=== PATIENT | female | born 1960 | race Caucasian/White ===

== ENCOUNTER → 2016-10-23 | Outpatient (CLI) | payer BC ==
--- NOTE | 2016-10-27 08:27 | MM ---
Reason for exam: screening (asymptomatic). Last mammogram was performed 17 years and 10 months ago. History: Patient is postmenopausal and is nulliparous. Physical Findings: A clinical breast exam by your physician is recommended on an annual basis and results should be correlated with mammographic findings. MG 3D Screening Mammo W/Cad Bilateral CC and MLO view(s) were taken. Prior study comparison: December 16, 1998, bilateral screening mammogram. The breast tissue is extremely dense which could obscure a lesion on mammography. Finding #1: There is a 80-90 mm obscured oval mass in the upper outer quadrant of the left breast. Finding #2: There are typically benign dystrophic, round calcifications in both breasts, right greater than left. ASSESSMENT: Incomplete: need additional imaging evaluation, BI-RAD 0 RECOMMENDATION: Ultrasound of the left breast. [facility] will attempt to contact patient to return for ultrasound.
== END | disposition home or self-care (01) ==
LOC: RADMAMWWP 12:12
PROVIDERS: ATTEND Family Medicine
DX: Z12.31 Encounter for screening mammogram for malignant neoplasm of breast (principal)
CPT/HCPCS: 77063; G0202

== ENCOUNTER → 2016-10-25 | Outpatient (CLI) | payer BC ==
--- NOTE | 2016-10-25 20:02 | CT ---
EXAMINATION TYPE: CT cervical spine wo con DATE OF EXAM: 10/25/2016 COMPARISON: NONE HISTORY: FOLLOW UP FOR FUSION. CT DLP: 440 mGycm Automated exposure control for dose reduction was used. TECHNIQUE: CT scan of the cervical spine is obtained without contrast, axial images are obtained, sa gittal and coronal reformatted images are also reviewed. FINDINGS: There is mild straightening of the cervical spine. There is multilevel posterior fusion eduardo dorene from C3 to T2 vertebra. There is anterior fusion surgery from C3 to C5. There is anterior fusion at C7-T1. There is multilevel disc prosthesis an implant at the upper cervical spine. Skull base is intact. I see no compression fracture. I see no focal bone destruction. There is no sign of cervical bony spinal stenosis. IMPRESSION: Multilevel anterior and posterior fusion surgery that is new compared to old MR scan of . I see no complicating process. No fracture seen. No sign of instability. There is anterior fusion of C5-6 that is unchanged compared to old MR scan. No evidence for cervical bony spinal stenos is. There is apparent significant improvement in the spinal stenosis at C5-C6 levels compared to old exam.
== END | disposition home or self-care (01) ==
LOC: RADCTMAIN 19:37
PROVIDERS: ATTEND Neurological Surgery
DX: M48.02 Spinal stenosis, cervical region (principal); Z98.890 Other specified postprocedural states
CPT/HCPCS: 72125

== ENCOUNTER → 2016-11-05 | Outpatient (CLI) | payer BC ==
--- NOTE | 2016-11-05 09:58 | USB ---
Reason for exam: clinical finding. History: Patient is postmenopausal and is nulliparous. Indicated problem(s): pain in the left breast. Physical Findings: Nurse did not find any significant physical abnormalities on exam. US Breast Workup Limited LT Left breast ultrasound demonstates no cystic or solid lesion seen. These results were verbally communicated with the patient and result sheet given to the patient on 11/05/16. ASSESSMENT: Negative, BI-RAD 1 RECOMMENDATION: Follow-up diagnostic mammogram of the left breast in 3 months. Consider MRI. Manage patient on a clinical basis.
== END | disposition home or self-care (01) ==
LOC: RADUSWWP 08:52
PROVIDERS: ATTEND Family Medicine
DX: R92.8 Other abnormal and inconclusive findings on diagnostic imaging of breast (principal)

== ENCOUNTER → 2016-12-30 | Outpatient (CLI) | payer BC ==
--- NOTE | 2016-12-30 20:22 | CT ---
EXAMINATION TYPE: CT cervical spine wo con DATE OF EXAM: 12/30/2016 COMPARISON: Previous study dated 10/25 16 HISTORY: FOLLOW UP AFTER NECK SX. CT DLP: 409.8 mGycm Automated exposure control for dose reduction was used. TECHNIQUE: CT scan of the cervical spine is obtained without contrast, axial images are obtained, sa gittal and coronal reformatted images are also reviewed. FINDINGS: There are emphysematous changes within the visualized portions of the lungs. Prevertebral soft tissues are normal. There has been extensive anterior and posterior fusion. The posterior fusion extends from C3 to T2. A nterior fusions are present from C3 to C5 as well as at C6-7. There is a bony fusion at C5-6. There h as been a laminectomy extending from C3 to C7. Alignment remains normal. Atlantoaxial relationships are normal. The degree of metallic streak artifa ct prohibits the assessment of the individual disc spaces. There is no gross evidence of spinal steno sis. There is intervertebral foraminal narrowing on the left at C5-6. Intervertebral foramina are oth erwise maintained. IMPRESSION: 1. Extensive postsurgical change. 2. Left-sided intervertebral foraminal narrowing, C5-6. 3. Emphysematous changes within the lungs.
== END | disposition home or self-care (01) ==
LOC: RADCTMAIN 18:39
PROVIDERS: ATTEND Neurological Surgery
DX: M99.71 Connective tissue and disc stenosis of intervertebral foramina of cervical region (principal); Z98.890 Other specified postprocedural states
CPT/HCPCS: 72125

== ENCOUNTER → 2017-02-10 | Outpatient (CLI) | payer BC ==
--- NOTE | 2017-02-10 11:12 | MM ---
Reason for exam: follow-up at short interval from prior study. Last mammogram was performed 4 months ago. History: Patient is postmenopausal and is nulliparous. Physical Findings: Nurse did not find any significant physical abnormalities on exam. MG 3D Diag Mammo W/Cad LT CC and MLO view(s) were taken of the left breast. Prior study comparison: October 23, 2016, bilateral MG 3d screening mammo w/cad. December 16, 1998, bilateral screening mammogram. The breast tissue is extremely dense which could obscure a lesion on mammography. There is no discrete abnormality. No significant new findings when compared with previous films. These results were verbally communicated with the patient and result sheet given to the patient on 02/10/17. ASSESSMENT: Probably benign, BI-RAD 3 RECOMMENDATION: Follow-up diagnostic mammogram of the left breast in 3 months. (follow up 3-4 months, if stable, back on schedule)
== END | disposition home or self-care (01) ==
LOC: RADMAMWWP 08:57
PROVIDERS: ATTEND Family Medicine
DX: R92.8 Other abnormal and inconclusive findings on diagnostic imaging of breast (principal)
CPT/HCPCS: G0206; G0279

== ENCOUNTER → 2017-02-15 | Outpatient (CLI) | payer BC ==
--- NOTE | 2017-02-15 23:12 | MR ---
EXAMINATION TYPE: MR lumbar spine wo con DATE OF EXAM: 02/15/2017 COMPARISON: 12/03/2009 HISTORY: LBP radiates into rt buttock x 3 weeks, no trauma/surgery TECHNIQUE: Multiplanar, multisequence images of the lumbar spine were acquired. Findings There is a 5 mm anterior subluxation of L3 in relation L4. There is some narrowing of L3-4 L5-S1 disc spaces with decreased signal in the disks. There is no compression fracture. The posterior elements are intact. I see no paraspinal mass. The sacroiliac joints appear intact. There is mild hypertrophic facet arthropathy at L3-4. There are minute posterior disc herniations from L2 to L5. There is no si gnificant spinal stenosis. IMPRESSION: There is a degenerative first-degree L3-4 spondylolisthesis that it appears new compared to old exam. No fracture. No significant spinal stenosis. Small multilevel posterior disc herniation without sign ificant impingement on the spinal canal.
== END | disposition home or self-care (01) ==
LOC: RADMRIMAIN 20:03
PROVIDERS: ATTEND Neurological Surgery
DX: M51.26 Other intervertebral disc displacement, lumbar region (principal); M43.16 Spondylolisthesis, lumbar region; Z98.1 Arthrodesis status
CPT/HCPCS: 72148

== ENCOUNTER → 2017-07-26 | Outpatient (CLI) | payer BC ==
--- NOTE | 2017-07-27 08:47 | CT ---
EXAMINATION TYPE: CT CervThoracic spine wo con DATE OF EXAM: 07/26/2017 COMPARISON: CT cervical spine 12/30/2016 HISTORY: Chronic neck and upper thoracic spine pain after surgery x2 years ago CT DLP: 633 mGycm Automated exposure control for dose reduction was used. TECHNIQUE: Axial images 3 mm thick sections. Reconstructed images in the coronal and sagittal plane. Beam hardening artifact from laminectomies and anterior cervical fusions with posterior pedicle screw placement, cause limitation. FINDINGS: CT cervical spine: Laminectomy has been performed C3-C7. Pedicle screws and anterior cervical fusion plate and screws cause limitation from beam hardening artifact. No obvious stenosis is evident. No di sc herniation is identified. Some endplate spurring at C4-5 has mild right paracentral thecal sac com pression. No stenosis is present. C6-7 endplate spurring is present with mild anterior thecal sac com pression. No stenosis is present. Cervical spine Neural foramen appear patent. CT thoracic spine. Pleural effusion on the cervical spine extends into the upper thoracic spine. Beam hardening artifact is present at these levels. Remaining thoracic levels appear without spinal canal stenosis or neural foraminal stenosis. Some deg enerative disc changes endplate spurring is present T9-T10 with mild central thecal sac compression. Some degenerative disc changes present T11-12. The spinal cord as visualized appears normal. There is limitation on this exam. Scoliosis is in the c oronal plane. Portion of the lung windows within the [id number] appear unremarkable descending thoracic aorta ap pears prominent at the level of the main pulmonary artery measuring 4.1 cm. The main pulmonary artery the bifurcation is 3.0 cm. IMPRESSION: 1. STABLE POSTSURGICAL CHANGES CT CERVICAL SPINE. 2. ENDPLATE SPURRING WITH MILD ANTERIOR THECAL SAC COMPRESSION T9-T10. DEGENERATIVE DISC CHANGES ARE PRESENT AT THIS LEVEL.
== END | disposition home or self-care (01) ==
LOC: RADCTMAIN 17:49
PROVIDERS: ATTEND Neurological Surgery
DX: Z09 Encounter for follow-up examination after completed treatment for conditions other than malignant neoplasm (principal); M47.814 Spondylosis without myelopathy or radiculopathy, thoracic region; Z98.1 Arthrodesis status
CPT/HCPCS: 72125; 72128

== ENCOUNTER 2017-09-10 17:37 | Emergency (ER) | payer BC ==
[2017-09-10] MEDS ORDERED: HYDROcodone/APAP 10-325MG 1 EACH TAB PO ONE (18:07)
[2017-09-10] MEDS ORDERED: KETOROLAC 30 MG/ML 1 ML VIAL IM STA (18:07)
--- NOTE | 2017-09-10 18:29 | ED ---
Fall HPI - General Chief Complaint: Fall Stated Complaint: LEFT BACK / RIB PAIN FROM FALL Time Seen by Provider: 09/10/17 17:48 Source: patient Mode of arrival: wheelchair - History of Present Illness Initial Comments: Patient is a 56-year-old female presenting for left rib pain. She states that she was standing when she tripped on an object falling backwards onto a stack of drywall. This cause injury to the lower left ribs just lateral to her back. She denies any loss of consciousness as well as head trauma and states that she does not take any blood thinners. She does take [place] tens at home but has not tried any pain medicines since the fall. - Related Data Home Medications Medication Instructions Recorded Confirmed ALPRAZolam [Xanax] 0.25 mg PO BID PRN 05/02/15 09/24/15 Omeprazole 40 mg PO DAILY 05/02/15 09/24/15 Sertraline [Zoloft] 100 mg PO BID 05/02/15 09/24/15 Acetaminophen Tab [Tylenol Tab] 1,000 mg PO Q6HR PRN 05/03/15 09/24/15 Tiotropium 18 Mcg/Puff [Spiriva] 1 puff INHALATION RT-DAILY 05/03/15 09/24/15 Albuterol Nebulized [Ventolin 2.5 mg INHALATION RT-Q6H 09/24/15 09/24/15 Nebulized] Fluticasone/Salmeterol [Advair 1 puff INHALATION RT-BID 09/24/15 09/24/15 500-50 Diskus] oxyCODONE-APAP 5-325MG [Percocet 1 - 2 tab PO Q4H PRN 09/24/15 09/24/15 5-325 mg] Previous Rx's Medication Instructions Recorded Albuterol Sulfate [Proair Hfa] 2 puff INHALATION RT-Q6H PRN #0 05/05/15 HYDROcodone/APAP 10-325MG [[place] 1 tab PO Q6HR PRN 3 Days #12 tab 09/10/17 10-325] Ibuprofen [Motrin] 400 mg PO Q6HR PRN #20 tab 09/10/17 Lidocaine 5% Patch [Lidoderm] 1 patch TOPICAL DAILY #10 patch 09/10/17 Methocarbamol [Robaxin-750] 750 mg PO TID PRN #21 tablet 09/10/17 Allergies Allergy/AdvReac Type Severity Reaction Status Date / Time Penicillins Allergy Unknown Verified 09/10/17 17:46 Childhood Review of Systems ROS Statement: Those systems with pertinent positive or pertinent negative responses have been documented in the HPI. Constitutional: Negative for chills, fatigue and fever. HENT: Negative for congestion. Respiratory: Negative for chest tightness, shortness of breath and wheezing. Negative for cough Cardiovascular: Negative for chest pain and palpitations. Gastrointestinal: Negative for abdominal pain. Negative for abdominal distention , diarrhea, nausea and vomiting. Genitourinary: Negative for dysuria. Musculoskeletal: Negative for back pain, neck pain and neck stiffness. Positive for left-sided rib pain Skin: Negative for color change. Neurological: Negative for dizziness, speech difficulty, weakness and light- headedness. Psychiatric/Behavioral: Negative for agitation and confusion. Negative for anxiety ROS Other: All systems not noted in ROS Statement are negative. Past Medical History Past Medical History: COPD Additional Past Medical History / Comment(s): emphysema, back pain History of Any Multi-Drug Resistant Organisms: None Reported Past Surgical History: Cholecystectomy, Hysterectomy, Orthopedic Surgery, Tonsillectomy Additional Past Surgical History / Comment(s): Rt. Knee Past Anesthesia/Blood Transfusion Reactions: No Reported Reaction Past Psychological History: Anxiety, Depression Smoking Status: Current every day smoker Past Alcohol Use History: Occasional Past Drug Use History: None Reported - Past Family History Father Family Medical History: No Reported History General Exam - General Exam Comments Initial Comments: Constitutional: Pt is oriented to person, place, and time. Pt appears well- developed and well-nourished. No distress. HENT: Head: Normocephalic and atraumatic. Eyes: EOM are normal. Neck: Normal range of motion. Neck supple. Cardiovascular: Normal rate, regular rhythm, S1 normal, S2 normal and normal heart sounds. Exam reveals no gallop and no friction rub. No murmur heard. Pulmonary/Chest: Effort normal and breath sounds normal. No tachypnea and no bradypnea. No respiratory distress. No wheezes or rales noted. Abdominal: Soft. Bowel sounds are normal. Pt exhibits no shifting dullness, no distension, no pulsatile liver, no fluid wave, no abdominal bruit and no ascites. There is no tenderness. There is no rigidity, no rebound, no guarding, no tenderness at McBurney's point and negative Marshall's sign. Musculoskeletal: Normal range of motion. No tenderness to palpation of the C- spine, T-spine, L-spine Point tenderness on the lateral/posterior aspect of ribs 1011 just lateral to midline Neurological: Pt is alert and oriented to person, place, and time. No cranial nerve deficit. Skin: Skin is warm and dry. No rash noted. Pt is not diaphoretic. No erythema. No pallor. Psychiatric: Pt has a normal mood and affect. Pt behavior is normal. Thought content normal. Limitations: no limitations Course Vital Signs 09/10/17 17:44 Temperature 98.5 F Pulse Rate 90 Respiratory 20 Rate Blood Pressure 106/60 O2 Sat by Pulse 98 Oximetry Medical Decision Making - Medical Decision Making X-ray was performed and showed evidence of 6 rib fracture. Patient's pain was well controlled and it was felt that the patient could safely be discharged home with analgesics. Explained all labs and diagnostic test results and that we will discharge the patient home and patient is to follow up with PCP in 1-2 days and return to the ED if symptoms worsen. Pt is agreeable to plan. Disposition Clinical Impression: Left rib fracture Disposition: HOME SELF-CARE Condition: Good Instructions: Fall Prevention for Older Adults (ED) Prescriptions: HYDROcodone/APAP 10-325MG [[place] 10-325] 1 tab PO Q6HR PRN 3 Days #12 tab PRN Reason: Pain Ibuprofen [Motrin] 400 mg PO Q6HR PRN #20 tab PRN Reason: Pain Lidocaine 5% Patch [Lidoderm] 1 patch TOPICAL DAILY #10 patch Methocarbamol [Robaxin-750] 750 mg PO TID PRN #21 tablet PRN Reason: Pain Is patient prescribed a controlled substance at d/c from ED?: No Referrals: Kenyon Venegas MD [Primary Care Provider] - 1-2 days Time of Disposition: 19:10
--- NOTE | 2017-09-10 18:42 | XR ---
EXAMINATION TYPE: XR ribs LT w pa chest xray DATE OF EXAM: 09/10/2017 CLINICAL HISTORY: Chest pain and left rib pain TECHNIQUE: Single frontal view of the chest is obtained. COMPARISON: 05/02/2015 FINDINGS: There is no focal air space opacity, pleural effusion, or pneumothorax seen. The cardiac silhouette size is within normal limits. There is a nondisplaced fracture of the anterior lateral ma rgin of rib 6. This appears acute. The remaining osseous structures appear intact. There is partial v isualization of multilevel fusion of the cervicothoracic spine. Surgical clips are noted within the u pper abdomen. IMPRESSION: 1. No acute cardiopulmonary process. 2. Nondisplaced acute appearing fracture of the anterolateral margin of rib 6 on the left.
[2017-09-10 19:43] VITALS: BP 116/80; PULSE 91; RESP 18; TEMP 98.4
== END 2017-09-10 19:41 | disposition home or self-care (01) ==
LOC: EC 17:37
DX: S22.32XA Fracture of one rib, left side, initial encounter for closed fracture (principal); J44.9 Chronic obstructive pulmonary disease, unspecified; F41.9 Anxiety disorder, unspecified; F32.9 Major depressive disorder, single episode, unspecified; F17.200 Nicotine dependence, unspecified, uncomplicated; Z79.51 Long term (current) use of inhaled steroids; Z79.899 Other long term (current) drug therapy; Z88.0 Allergy status to penicillin; W01.0XXA Fall on same level from slipping, tripping and stumbling without subsequent striking against object, initial encounter
CPT/HCPCS: 71101; 99283; 96372; J1885

== ENCOUNTER → 2018-03-20 | Outpatient (CLI) | payer BC ==
--- NOTE | 2018-03-20 13:09 | CTL ---
EXAMINATION TYPE: CT Low Dose Lung DATE OF EXAM ORDERED: 03/20/2018 HISTORY: Personal history of tobacco abuse. Lung cancer screening CT DLP: 60.[address] CTDI: 1.7 mGy Automated exposure control for dose reduction was used. SCREENING VISIT: Initial COMPARISON: CT chest dated 10/19/2013 TECHNIQUE: Low dose computed tomography scan was performed through the chest at 1 mm thick sections a nd reconstructed images in the coronal plane at [address] DIAGNOSTIC QUALITY: Satisfactory FINDINGS: LUNG NODULES: Nodularity is seen along a right subsegmental pulmonary vessel of the upper lobe on axial image 74 an d coronal image 26 which monitoring is recommended although this is favored to represent vascular ect abbi rather than a true pulmonary nodule. Similarly groundglass density is seen surrounding the right pulmonary vessel to the upper lobe manager location iorly on image 86 for which surveillance is also recommended. 3 mm left lower lobe pulmonary nodule is seen at the termination of a subsegmental pulmonary artery o n series 4 image 220 appearing solid in nature. LUNGS: COPD: Severity: Moderate Fibrosis: Severity: Biapical pleural-parenchymal scarring that is mild Lymph nodes: Nonenlarged Other findings: Right lower lobe pleural parenchymal scarring RIGHT PLEURAL SPACE: Effusion: None Calcification: None Thickening: None Pneumothorax: None LEFT PLEURAL SPACE: Effusion: None Calcification: None Thickening: None Pneumothorax: None HEART: Heart Size: Nonenlarged Coronary calcification: None Pericardial effusion: None OTHER FINDINGS: Upper abdomen: Gallbladder surgically absent. Limited evaluation of the upper abdomen. Bony thorax: Postoperative changes of the cervical thoracic junction. Old healed rib fracture of rib 7 anteriorly on the left Supraclavicular region: No suspicious findings IMPRESSION: 2-benign appearance or behavior-nodules with a very low likelihood of becoming a clinical ly active cancer due to lack of size. Surveillance is recommended with continued annual screening wit h low dose CT in [address] CHEST RECOMMENDATION: Low-dose CT thorax in [address] LUNG RAD: Lung-Rad 2 Benign Appearance or Behavior
== END | disposition home or self-care (01) ==
LOC: RADCTMAIN 11:12
PROVIDERS: ATTEND Family Medicine
DX: Z12.2 Encounter for screening for malignant neoplasm of respiratory organs (principal); Z87.891 Personal history of nicotine dependence

== ENCOUNTER → 2018-08-04 | Outpatient (CLI) | payer BC ==
--- NOTE | 2018-08-04 12:26 | CT ---
EXAMINATION TYPE: CT cervical spine wo con DATE OF EXAM: 08/04/2018 COMPARISON: CT cervical spine 12/30/2016, CT cervical thoracic spine 07/26/2017 HISTORY: Post op fusion status CT DLP: 282.9 mGycm Automated exposure control for dose reduction was used. TECHNIQUE: CT scan of the cervical spine is obtained without contrast, axial images are obtained, sagittal and c oronal reformatted images are also reviewed. FINDINGS: Patient shows anterior fusion at both C3-C5 as well as C6-7. Prior fusion shows bony bridging at C5-6 . Posterior fusion hardware present at C3-T2. There are laminectomies at C3-C7. Alignment is stable. Cervical spine is visualized in its entirety from C1 through upper thoracic levels, demonstrates sati sfactory alignment without evidence of acute fracture or dislocation. Prevertebral soft tissue appea rs within normal limits. The C1-C2 articulation is within normal limits on the coronal images. Ther e is thoracic spinal curvature. IMPRESSION: Postop changes are stable.
== END | disposition home or self-care (01) ==
LOC: RADCTMAIN 09:49
PROVIDERS: ATTEND Neurological Surgery
DX: Z98.890 Other specified postprocedural states (principal)
CPT/HCPCS: 72125

== ENCOUNTER → 2019-01-25 | Outpatient (CLI) | payer BC ==
--- NOTE | 2019-01-26 10:58 | XR ---
Cervical spine HISTORY: Follow-up surgery, Z 98.1 6 views of the cervical spine correlated to prior cervical spine 07/24/2015, CT cervical spine 8 Patient shows prior fusion at C5-6. Posterior fusion has been performed at C3 through T2. Anterior ce rvical fusion and discectomy changes again noted at C3-C5 and C6-7. Near anatomic alignment is mainta ined. Vertebral body height is stable. Disc spaces are unchanged. IMPRESSION: Neurosurgical follow-up.
== END | disposition home or self-care (01) ==
LOC: RADXRMAIN 15:59
PROVIDERS: ATTEND Neurological Surgery
DX: Z47.89 Encounter for other orthopedic aftercare (principal); Z98.1 Arthrodesis status
CPT/HCPCS: 72050

== ENCOUNTER 2019-02-23 17:33 | Emergency (ER) | payer BC ==
[2019-02-23] MEDS ORDERED: KETOROLAC 60 MG/2 ML VIAL IM STA (19:03)
--- NOTE | 2019-02-23 19:45 | XR ---
EXAMINATION TYPE: XR knee complete LT DATE OF EXAM: 02/23/2019 COMPARISON: NONE HISTORY: Pain. Fall. TECHNIQUE: 3 views FINDINGS: There is a large knee joint effusion. There is irregular appearance of the lateral tibial c ondyle. There appears to be a nondisplaced vertical fracture through the lateral aspect lateral tibia l condyle on the oblique view. The patella is intact. The distal femur is intact. IMPRESSION: Knee joint effusion. There is probably a nondisplaced fracture of the lateral tibial cond yle on the lateral aspect.
[2019-02-23] MEDS ORDERED: MORPHINE SULFATE 4 MG/ML SYRINGE IM STA (20:41)
--- NOTE | 2019-02-23 20:48 | ED ---
Fall HPI - General Chief Complaint: Fall Stated Complaint: knee injury Time Seen by Provider: 02/23/19 18:48 Source: patient Mode of arrival: wheelchair - History of Present Illness Initial Comments: Patient is a 58-year-old female presenting to emergency Department with complaints of left knee pain. Patient states she was standing on top of a nonmoving 4 miller when she jumped off of it landing flat-footed. Patient states her body went to the left and her knee went towards the right. Patient is complaining of left knee pain that is radiating up into her thigh. Patient denies any previous surgeries or injuries to this left knee. She is not able to bear any weight without significant pain. She has no other complaints from this fall. Patient denies hitting her head or any other trauma. Upon arrival to the ER, vital signs are stable. - Related Data Home Medications Medication Instructions Recorded Confirmed ALPRAZolam [Xanax] 0.25 mg PO BID PRN 05/02/15 09/24/15 Omeprazole 40 mg PO DAILY 05/02/15 09/24/15 Sertraline [Zoloft] 100 mg PO BID 05/02/15 09/24/15 Acetaminophen Tab [Tylenol Tab] 1,000 mg PO Q6HR PRN 05/03/15 09/24/15 Tiotropium 18 Mcg/Puff [Spiriva] 1 puff INHALATION RT-DAILY 05/03/15 09/24/15 Albuterol Nebulized [Ventolin 2.5 mg INHALATION RT-Q6H 09/24/15 09/24/15 Nebulized] Fluticasone/Salmeterol [Advair 1 puff INHALATION RT-BID 09/24/15 09/24/15 500-50 Diskus] oxyCODONE-APAP 5-325MG [Percocet 1 - 2 tab PO Q4H PRN 09/24/15 09/24/15 5-325 mg] Previous Rx's Medication Instructions Recorded Albuterol Sulfate [Proair Hfa] 2 puff INHALATION RT-Q6H PRN #0 05/05/15 HYDROcodone/APAP 10-325MG [[place] 1 tab PO Q6HR PRN 3 Days #12 tab 09/10/17 10-325] Ibuprofen [Motrin] 400 mg PO Q6HR PRN #20 tab 09/10/17 Lidocaine 5% Patch [Lidoderm] 1 patch TOPICAL DAILY #10 patch 09/10/17 Methocarbamol [Robaxin-750] 750 mg PO TID PRN #21 tablet 09/10/17 Allergies Allergy/AdvReac Type Severity Reaction Status Date / Time Penicillins Allergy Unknown Verified 09/10/17 17:46 Childhood Review of Systems ROS Statement: Those systems with pertinent positive or pertinent negative responses have been documented in the HPI. ROS Other: All systems not noted in ROS Statement are negative. Past Medical History Past Medical History: COPD Additional Past Medical History / Comment(s): emphysema, back pain History of Any Multi-Drug Resistant Organisms: None Reported Past Surgical History: Cholecystectomy, Hysterectomy, Orthopedic Surgery, Tonsillectomy Additional Past Surgical History / Comment(s): Rt. Knee Past Anesthesia/Blood Transfusion Reactions: No Reported Reaction Past Psychological History: Anxiety, Depression Smoking Status: Current every day smoker Past Alcohol Use History: Occasional Past Drug Use History: None Reported - Past Family History Father Family Medical History: No Reported History General Exam - General Exam Comments Initial Comments: GENERAL: Well-appearing, well-nourished and in no acute distress. HEAD: Atraumatic, normocephalic. EYES: Pupils equal round and reactive to light, extraocular movements intact, sclera anicteric, conjunctiva are normal. ENT: TMs normal, nares patent, oropharynx clear without exudates. Moist mucous membranes. NECK: Normal range of motion, supple without lymphadenopathy or JVD. LUNGS: Breath sounds clear to auscultation bilaterally and equal. No wheezes rales or rhonchi. HEART: Regular rate and rhythm without murmurs, rubs or gallops. ABDOMEN: Soft, nontender, normoactive bowel sounds. No guarding, no rebound. No masses appreciated. : Deferred EXTREMITIES: Patient has significant pain with palpation of the left lateral knee. Patient has pain with full extension as well as flexion. Patient is neurovascular intact. Sensation is equal and bilateral. Patient is unable to bear weight. PSYCH: Normal mood, normal affect. SKIN: Warm, Dry, normal turgor, no rashes or lesions noted. Limitations: no limitations Course Vital Signs 02/23/19 02/23/19 18:41 21:26 Temperature 98.5 F 98.3 F Pulse Rate 79 78 Respiratory 18 17 Rate Blood Pressure 115/78 110/75 O2 Sat by Pulse 98 98 Oximetry Medical Decision Making - Medical Decision Making Patient is a 58-year-old female presenting with left knee pain after she jumped off a 4 miller. X-rays of the left knee show a probable nondisplaced fracture of the lateral tibial condyle on the lateral aspect. Patient was given Toradol as well as morphine for pain control. Case was discussed with on-call orthopedics, Dr. Costa. Patient will be placed in a knee immobilizer and continue to be nonweightbearing and will follow up with orthopedics on Tuesday morning. Patient is in agreement with this plan of care. Patient states she has pain medication at home. She will use ice as needed for pain relief as well. She is stable for discharge at this time and she is in agreement with this plan of care. Return parameters were discussed with patient and she verbalized understanding. Case discussed with Dr. Green. Disposition Clinical Impression: Nondisplaced fracture of lateral condyle of left tibia Disposition: HOME SELF-CARE Condition: Stable Instructions (If sedation given, give patient instructions): Leg Fracture (ED) Additional Instructions: Please return to the Emergency Department if symptoms worsen or any other concerns. Continue with pain medication at home. May alternate with Motrin. NO WEIGHTBEARING on LEFT extremity! Wear knee immobilizer. Follow up with orthopedics on Tuesday as discussed. Is patient prescribed a controlled substance at d/c from ED?: No Referrals: Kenyon Venegas MD [Primary Care Provider] - 1-2 days Esthela Costa DO [Doctor of Osteopathic Medicine] - 1-2 days
[2019-02-23 21:27] VITALS: BP 110/75; PULSE 78; RESP 17; TEMP 98.3
== END 2019-02-23 21:27 | disposition home or self-care (01) ==
LOC: EC 17:33
DX: S82.125A Nondisplaced fracture of lateral condyle of left tibia, initial encounter for closed fracture (principal); J43.9 Emphysema, unspecified; F41.9 Anxiety disorder, unspecified; F32.9 Major depressive disorder, single episode, unspecified; F17.200 Nicotine dependence, unspecified, uncomplicated; Z88.0 Allergy status to penicillin; Z79.51 Long term (current) use of inhaled steroids; Z79.899 Other long term (current) drug therapy; W17.89XA Other fall from one level to another, initial encounter; Y93.39 Activity, other involving climbing, rappelling and jumping off; Y92.818 Other transport vehicle as the place of occurrence of the external cause
CPT/HCPCS: 99283; 96372 ×2; 73562; L1830 ×2; J2270; J1885

== ENCOUNTER → 2019-02-28 | Outpatient (CLI) | payer BC ==
--- NOTE | 2019-02-28 15:08 | CT ---
EXAMINATION TYPE: CT knee LT wo con DATE OF EXAM: 02/28/2019 COMPARISON: Left knee x-ray 5 days ago HISTORY: Left knee injury. Pain, hemarthrosis, tibial plateau fracture CT DLP: 305 mGycm Automated exposure control for dose reduction was used. FINDINGS: Corresponding to x-ray there is linear lucency with minimal step off through the posterior aspect of the lateral tibial plateau consistent with acute comminuted fracture seen best axial image 47 and cor onal images 32 through 34. Step-off estimated under 2 mm. Tibiofibular articulation maintained. No ad ditional fracture fibular head. Step-off and fracture noted best on sagittal images 12 through 15. Th ere is small to moderate sized left hip suprapatellar joint effusion diminished from x-ray. Distal fe mur is intact. A fabella is seen. There is incidental moderate sized popliteal cyst sagittal image 26 . Hoffa's fat pad maintained. IMPRESSION: Confirmation of acute comminuted minimally displaced fracture through the posterior later al aspect of the lateral tibial plateau with minimal depression.
== END | disposition home or self-care (01) ==
LOC: RADCTMAIN 13:44
PROVIDERS: ATTEND Orthopaedic Surgery
DX: S82.142A Displaced bicondylar fracture of left tibia, initial encounter for closed fracture (principal); S82.109A Unspecified fracture of upper end of unspecified tibia, initial encounter for closed fracture; E55.9 Vitamin D deficiency, unspecified; M25.562 Pain in left knee; M25.062 Hemarthrosis, left knee
CPT/HCPCS: 82306

== ENCOUNTER 2019-05-24 18:12 | Emergency (ER) | payer BC ==
[2019-05-24] MEDS ORDERED: MORPHINE SULFATE 4 MG/ML SYRINGE IV STA (18:44)
[2019-05-24] MEDS ORDERED: LIDOCAINE 5% PATCH TOPICAL STA (18:44)
--- NOTE | 2019-05-24 18:46 | ED ---
General Adult HPI - General Chief complaint: Shortness of Breath Stated complaint: Rib pain/fall Time Seen by Provider: 05/24/19 18:16 Source: patient, EMS Mode of arrival: EMS Limitations: no limitations - History of Present Illness Initial comments: Dictation was produced using [employer] dictation software. please excuse any grammatical, word or spelling errors. This patient was cared for during a federal and state declared state of emergency secondary to Covid 19 Chief Complaint: 58-year-old female presents with left thoracic pain after fall History of Present Illness: 58-year-old female she was on the second step of a ladder when she fell obliquely landing on her left side. Patient states that she struck the left side of her ribs. Patient states that she was in pain immediately. She went to bed. She will go this morning with significant left- sided chest pain. Patient states it's difficult to breathe because of the pain. Pain is worse with deep inspiration. Pain radiates anterior and posterior. She called EMS and was brought to the emergency department. The ROS documented in this emergency department record has been reviewed and confirmed by me. Those systems with pertinent positive or negative responses h ave been documented in the HPI. All other systems are other negative and/or noncontributory. PHYSICAL EXAM: General Impression: Alert and oriented x3, acute distress secondary to pain HEENT: Normocephalic atraumatic, extra-ocular movements intact, pupils equal and reactive to light bilaterally, mucous membranes moist. Cardiovascular: Heart regular rate and rhythm, S1&S2 audible, no murmurs, rubs or gallops Chest: Able to complete full sentences, no retractions, no tachypnea, no wheezing, bilateral breath sounds Abdomen: Bowel sounds present, abdomen soft, non-tender, non-distended, no organ omegaly Musculoskeletal: Pulses present and equal in all extremities, no peripheral edema Motor: no focal deficits noted Neurological: CN II-XII grossly intact, no focal motor or sensory deficits noted Skin: Mild bruising to the left shoulder and left elbow Psych: Normal affect and mood ED course: 58-year-old female presents with left chest trauma. Vital signs upon arrival shows 93% on 2 L nasal cannula, worse vital signs within acceptable limits. Laboratory evaluation obtained phone be unremarkable. Computed tomography scan of the chest without contrast was obtained to evaluate for rib fractures. There is very trace left pleural effusion. No fracture seen. No pneumothorax. Patient given by mouth analgesia. Patient will be discharged. Click or presentation consistent with chest contusion. - Related Data Home Medications Medication Instructions Recorded Confirmed ALPRAZolam [Xanax] 0.25 mg PO BID PRN 05/02/15 05/24/19 Sertraline [Zoloft] 100 mg PO AC-BID 05/02/15 05/24/19 Acetaminophen Tab [Tylenol Tab] 1,000 mg PO Q6HR PRN 05/03/15 05/24/19 Tiotropium 18 Mcg/Puff [Spiriva] 1 puff INHALATION RT-DAILY 05/03/15 05/24/19 Albuterol Nebulized [Ventolin 2.5 mg INHALATION RT-Q6H 09/24/15 05/24/19 Nebulized] Fluticasone/Salmeterol [Advair 1 puff INHALATION RT-BID 09/24/15 05/24/19 500-50 Diskus] Ammonium Lactate Lotion 1 applic TOPICAL BID 05/24/19 05/24/19 [Lac-Hydrin 12% Lotion] Ergocalciferol (Vitamin D2) 50,000 unit PO Q72H 05/24/19 05/24/19 [Drisdol] Ranitidine HCl 150 mg PO BID 05/24/19 05/24/19 Varenicline [Chantix Continuing 1 mg PO BID 05/24/19 05/24/19 Pack] Previous Rx's Medication Instructions Recorded Albuterol Sulfate [Proair Hfa] 2 puff INHALATION RT-Q6H PRN #0 05/05/15 HYDROcodone/APAP 10-325MG [[place] 1 tab PO Q6HR PRN 3 Days #12 tab 09/10/17 10-325] Methocarbamol [Robaxin-750] 750 mg PO TID PRN #21 tablet 09/10/17 Allergies Allergy/AdvReac Type Severity Reaction Status Date / Time Penicillins Allergy Unknown Verified 05/24/19 19:37 Childhood Review of Systems ROS Statement: Those systems with pertinent positive or pertinent negative responses have been documented in the HPI. ROS Other: All systems not noted in ROS Statement are negative. Past Medical History Past Medical History: COPD Additional Past Medical History / Comment(s): emphysema, back pain History of Any Multi-Drug Resistant Organisms: None Reported Past Surgical History: Cholecystectomy, Hysterectomy, Orthopedic Surgery, Tonsillectomy Additional Past Surgical History / Comment(s): Rt. Knee Past Anesthesia/Blood Transfusion Reactions: No Reported Reaction Past Psychological History: Anxiety, Depression Smoking Status: Current every day smoker Past Alcohol Use History: Occasional Past Drug Use History: None Reported - Past Family History Father Family Medical History: No Reported History General Exam Limitations: no limitations Course Vital Signs 05/24/19 05/24/19 05/24/19 18:14 19:20 19:51 Temperature 98.0 F Pulse Rate 91 Respiratory 20 20 20 Rate Blood Pressure 133/92 O2 Sat by Pulse 93 L Oximetry Medical Decision Making - Lab Data Result diagrams: 05/24/19 19:25 05/24/19 19:25 Lab Results 05/24/19 05/24/19 05/24/19 Range/Units 19:25 19:25 19:25 WBC 7.1 (3.8-10.6) k/uL RBC 4.66 (3.80-5.40) m/uL Hgb 14.6 (11.4-16.0) gm/dL Hct 43.2 (34.0-46.0) % MCV 92.7 (80.0-100.0) fL MCH 31.3 (25.0-35.0) pg MCHC 33.8 (31.0-37.0) g/dL RDW 12.7 (11.5-15.5) % Plt Count 232 (150-450) k/uL Neutrophils % 68 % Lymphocytes % 21 % Monocytes % 6 % Eosinophils % 3 % Basophils % 1 % Neutrophils # 4.8 (1.3-7.7) k/uL Lymphocytes # 1.4 (1.0-4.8) k/uL Monocytes # 0.4 (0-1.0) k/uL Eosinophils # 0.2 (0-0.7) k/uL Basophils # 0.1 (0-0.2) k/uL PT 9.9 (9.0-12.0) sec INR 1.0 (<1.2) APTT 24.4 (22.0-30.0) sec Sodium 137 (137-145) mmol/L Potassium 4.4 (3.5-5.1) mmol/L Chloride 103 (98-107) mmol/L Carbon Dioxide 24 (22-30) mmol/L Anion Gap 10 mmol/L BUN 13 (7-17) mg/dL Creatinine 0.79 (0.52-1.04) mg/dL Est GFR (CKD-EPI)AfAm >90 (>60 ml/min/1.73 sqM) Est GFR (CKD-EPI)NonAf 85 (>60 ml/min/1.73 sqM) Glucose 87 (74-99) mg/dL Calcium 8.9 (8.4-10.2) mg/dL Disposition Clinical Impression: Chest wall contusion Disposition: HOME SELF-CARE Condition: Good Instructions (If sedation given, give patient instructions): Blunt Chest Trauma (ED) Is patient prescribed a controlled substance at d/c from ED?: No Referrals: Kenyon Venegas MD [Primary Care Provider] - 1-2 days Time of Disposition: 20:17
--- NOTE | 2019-05-24 19:18 | CT ---
EXAMINATION TYPE: CT chest wo con DATE OF EXAM: 05/24/2019 COMPARISON: NONE HISTORY: Fall on 05/21/2019. Left sided rib pain CT DLP: 220.9 mGycm. Automated Exposure Control for Dose Reduction was Utilized. TECHNIQUE: CT scan of the thorax is performed without IV contrast. FINDINGS: LUNGS: Moderate emphysematous changes of the lungs are seen. Pleural parenchymal scarring and/or atel ectasis is present at the left lung base posteriorly. Very trace left pleural effusion. No pneumothor ax seen. The tracheobronchial tree is patent. MEDIASTINUM: Lack of IV contrast is noted to limit evaluation for mediastinal and especially hilar ad enopathy. There are no definitive greater than 1 cm hilar or mediastinal lymph nodes. No cardiomega ly or pericardial effusion is seen. Moderate atherosclerosis of the thoracic aorta. OTHER: Cervical fusion device is partially visualized extending into the thoracic spine. Mild to mode rate degenerative disc disease in the cervical spine. No acute displaced fracture is seen, particular ly of the left ribs patient with left rib pain. Cholecystectomy clips are present in the gallbladder fossa. Breast tissues are extremely dense. IMPRESSION: Very trace left pleural effusion and left basilar atelectasis however no left-sided acute displaced rib fracture nor pneumothorax are seen.
[2019-05-24 19:37] LABS: Basophils # (A) 0.1 k/uL (0-0.2); Basophils % (A) 1 %; Eosinophils # (A) 0.2 k/uL (0-0.7); Eosinophils % (A) 3 %; HCT 43.2 % (34.0-46.0); HGB 14.6 gm/dL (11.4-16.0); Lymphocytes # (A) 1.4 k/uL (1.0-4.8); Lymphocytes % (A) 21 %; MCH 31.3 pg (25.0-35.0); MCHC 33.8 g/dL (31.0-37.0); MCV 92.7 fL (80.0-100.0); Mean Platelet Volume 7.9; Monocytes # (A) 0.4 k/uL (0-1.0); Monocytes % (A) 6 %; Neutrophils # (A) 4.8 k/uL (1.3-7.7); Neutrophils % (A) 68 %; Platelet Count 232 k/uL (150-450); RBC 4.66 m/uL (3.80-5.40); RDW 12.7 % (11.5-15.5); WBC 7.1 k/uL (3.8-10.6)
[2019-05-24 19:45] LABS: African American GFR (CKD) >90 (>60 ml/min/1.73 sqM); Anion Gap 10 mmol/L; Blood Urea Nitrogen 13 mg/dL (7-17); Calcium 8.9 mg/dL (8.4-10.2); Carbon Dioxide 24 mmol/L (22-30); Chloride 103 mmol/L (98-107); Glucose 87 mg/dL (74-99); Non-African American GFR(CKD) 85 (>60 ml/min/1.73 sqM); Potassium 4.4 mmol/L (3.5-5.1); Sodium 137 mmol/L (137-145)
[2019-05-24 20:07] LABS: Partial Thromboplastin Time 24.4 sec (22.0-30.0); Prothrombin Time 9.9 sec (9.0-12.0)
[2019-05-24] MEDS ORDERED: ACET/COD 300 MG/30 MG STARTER PACK 6 TAB BTL PO STA (20:17)
[2019-05-24 20:47] VITALS: BP 138/74; PULSE 73; RESP 18; TEMP 98.1
== END 2019-05-24 20:40 | disposition home or self-care (01) ==
LOC: EC 18:12
DX: S20.212A Contusion of left front wall of thorax, initial encounter (principal); J44.9 Chronic obstructive pulmonary disease, unspecified; F41.9 Anxiety disorder, unspecified; F32.9 Major depressive disorder, single episode, unspecified; F17.200 Nicotine dependence, unspecified, uncomplicated; Z79.899 Other long term (current) drug therapy; Z88.0 Allergy status to penicillin; W18.09XA Striking against other object with subsequent fall, initial encounter
CPT/HCPCS: 36415; 80048; 85025; 85610; 85730; 71250; 99284; 96374; J2270

== ENCOUNTER → 2020-11-03 | Outpatient (CLI) | payer BC, MEDICARE, OTHER ==
[2020-11-03 09:07] VITALS: BP 103/64; PULSE 78; RESP 18; TEMP 98.1
--- NOTE | 2020-11-03 09:20 | P.CONS ---
History of Present Illness - Reason for Consult Consult date: 11/03/20 - Chief Complaint Lower back and right hip pain - History of Present Illness This is a 60-year-old lady with history of chronic neck and lower back pain. She is here today mostly for her right hip pain. The patient had this pain for about 6 months at least which starts in the right buttock and goes down to the right knee level with occasional radiation to the right heel. The patient denies any constant paresthesia in the lower extremities. The only maneuver which helps her pain is to rotate her right hip externally and push down on her knee. The patient denies any bowel or bladder dysfunction. She did have multiple surgeries on the cervical spine anteriorly and posteriorly and she has chronic pain in the neck however she is today complaining more pain in the right hip area. Past Medical History Past Medical History: COPD Additional Past Medical History / Comment(s): emphysema, back pain History of Any Multi-Drug Resistant Organisms: None Reported Past Surgical History: Cholecystectomy, Hysterectomy, Orthopedic Surgery, Tonsillectomy Additional Past Surgical History / Comment(s): Rt. Knee SX, NECK SX X 4, Past Anesthesia/Blood Transfusion Reactions: No Reported Reaction Past Psychological History: Anxiety, Depression Smoking Status: Current every day smoker Past Alcohol Use History: Occasional Additional Past Alcohol Use History / Comment(s): SMOKES < 1PPD SINCE AGE 15 Past Drug Use History: None Reported - Past Family History Father Family Medical History: No Reported History Medications and Allergies Home Medications Medication Instructions Recorded Confirmed Type ALPRAZolam [Xanax] 0.25 mg PO BID PRN 05/02/15 10/29/20 History Sertraline [Zoloft] 100 mg PO AC-BID 05/02/15 10/29/20 History Acetaminophen Tab [Tylenol Tab] 1,000 mg PO Q6HR PRN 05/03/15 10/29/20 History Tiotropium 18 Mcg/Puff [Spiriva] 1 puff INHALATION RT-DAILY 05/03/15 10/29/20 History Albuterol Sulfate [Proair Hfa] 2 puff INHALATION RT-Q6H PRN #0 05/05/15 10/29/20 Rx Albuterol Nebulized [Ventolin 2.5 mg INHALATION RT-Q6H 09/24/15 10/29/20 History Nebulized] HYDROcodone/APAP 10-325MG [[place] 1 tab PO Q6HR PRN 3 Days #12 tab 09/10/17 10/29/20 Rx 10-325] Methocarbamol [Robaxin-750] 750 mg PO TID PRN #21 tablet 09/10/17 10/29/20 Rx Fluticasone/Vilanterol [[place] 1 inhalation PO Q24HR 10/29/20 10/29/20 History Ellipta 100-25 Mcg Inhaler] Allergies Allergy/AdvReac Type Severity Reaction Status Date / Time Penicillins Allergy Unknown Verified 10/29/20 12:05 Childhood Physical Exam Vitals: Vital Signs Temp Pulse Resp BP Pulse Ox 11/03/20 09:03 98.1 F 78 18 103/64 95 - Constitutional General appearance: average body habitus - EENT Eyes: PERRLA - Neurologic Neuro exam of the lower extremities showed normal knee reflexes and absent ankle reflex bilaterally. Mildly decreased right hip flexion strength to 4 out of 5 and the rest of the muscle strength exam is within normal limits in the lower extremities. Painful internal rotation of the right hip joint Ronaldo's test is positive on the right side Positive tenderness in the right upper lateral buttock area and around the right sacroiliac joint Positive tenderness in the lumbar paravertebral musculature more on the right side than the left side Neurologic: CNII-XII intact - Psychiatric Psychiatric: A&O x's 3, appropriate affect, intact judgment & insight Results Results: The lumbar spine MRI done in August 2020 showed moderate dextroscoliosis and diffuse multilevel degenerative changes causing canal stenosis most pronounced at L3 4 with mild to moderate lateral recess and foraminal stenosis. The right hip MRI was normal as per patient Assessment and Plan Plan: This is a 60-year-old lady with history of chronic neck and lower back pain. Diagnoses: Right sacroiliitis Right piriformis muscle syndrome Lumbar spondylosis without myelopathy Central and foraminal lumbar stenosis especially at L3 4 level. The patient may benefit from a right sacroiliac joint steroid injection and right piriformis muscle injection under fluoroscopic guidance. If her pain does not improve after these injections she might be a good candidate for lumbar epidural steroid injection and may be a diagnostic lumbar medial branch block in the future. The patient denies any history of treatment with anticoagulants or any history of diabetes and she also denies any ALLERGIC reaction to contrast dye. I thank you for the referral
== END ==
LOC: PNWHC3 08:46
PROVIDERS: ATTEND Anesthesiology
DX: M46.1 Sacroiliitis, not elsewhere classified (principal); M47.816 Spondylosis without myelopathy or radiculopathy, lumbar region; M48.061 Spinal stenosis, lumbar region without neurogenic claudication; G57.01 Lesion of sciatic nerve, right lower limb; J44.9 Chronic obstructive pulmonary disease, unspecified; F41.9 Anxiety disorder, unspecified; F17.210 Nicotine dependence, cigarettes, uncomplicated; F32.9 Major depressive disorder, single episode, unspecified; Z79.51 Long term (current) use of inhaled steroids; Z88.0 Allergy status to penicillin
CPT/HCPCS: 99211

== ENCOUNTER → 2020-11-27 | Outpatient (CLI) | payer BC ==
--- NOTE | 2020-11-28 11:16 | MM ---
Reason for exam: screening (asymptomatic). Last mammogram was performed 3 years and 10 months ago. History: Patient is postmenopausal and is nulliparous. Physical Findings: A clinical breast exam by your physician is recommended on an annual basis and results should be correlated with mammographic findings. MG Screening Mammo w CAD Bilateral CC, MLO, and XCCL view(s) were taken. Prior study comparison: October 23, 2016, bilateral MG 3d screening mammo w/cad. The breast tissue is extremely dense which could obscure a lesion on mammography. There are benign appearing round calcifications bilaterally. There is no discrete abnormality. ASSESSMENT: Benign, BI-RAD 2 RECOMMENDATION: Routine screening mammogram of both breasts in 1 year.
== END | disposition home or self-care (01) ==
LOC: RADMAMWWP 12:33
PROVIDERS: ATTEND Family Medicine
DX: Z12.31 Encounter for screening mammogram for malignant neoplasm of breast (principal); Z78.0 Asymptomatic menopausal state
CPT/HCPCS: 77067

== ENCOUNTER 2020-12-09 09:32 | Day surgery (SDC) | payer BC ==
[2020-12-08 10:50] VITALS: BMI 22.0
[~2020-12-09 09:32] MED LIST: LACTATED RINGERS 1,000 ML IV SCH; LIDOCAINE 1% (10MG/ML) FOR IV START INTRADERMA PRN
[2020-12-09] MEDS ORDERED: methylPREDNISolone ACETATE 40 MG/ML 1 ML VIAL ONE (09:39)
[2020-12-09] MEDS ORDERED: MIDAZOLAM 2 MG/2 ML VIAL ONE (09:39)
[2020-12-09] MEDS ORDERED: ROPIVACAINE 5MG/ML 20ML VIAL ONE (09:39)
[2020-12-09] MEDS ORDERED: fentaNYL (PF) 50 MCG/ML 2 ML AMP ONE (09:39)
[2020-12-09 09:54] VITALS: TEMP 97.8
[2020-12-09] MEDS ORDERED: LACTATED RINGERS 1,000 ML IV ONE (09:59)
[2020-12-09] MEDS ORDERED: IV FLUID CONTINUATION 1,000 ML IV ONE (10:25)
[2020-12-09 10:28] VITALS: RESP 18
--- NOTE | 2020-12-09 10:28 | P.PCN ---
Date of Procedure: 12/09/20 Procedure(s) Performed: Procedure= Right sacroiliac joints steroid injection under fluoroscopy guidance (fluoroscopy image stored on file in the radiology Department ). Right piriformis with muscle steroid injection under fluoroscopy guidance Preoperative diagnosis= 1-Right sacroiliitis 2-lumbar degenerative disc disease 3-lumbar spinal stenosis. 4-right piriformis muscle syndrome Postoperative diagnosis=Same as preop Diagnosis . Complication = none Condition= stable Anesthesia= moderate sedation with intravenous Versed 2 mg , and fentanyl 100 micrograms . Indication for the procedure= patient complaining of low back pain , examination was positive for severe tenderness over the sacroiliac joints bilaterally and patient diagnosed with sacroiliitis, for this reason she was good candidate for sacroiliac joint steroid injection. Description of the procedure= procedure risk and benefits discussed with the patient, including but not limited, risk of infection and bleeding, and ALLERGIC reaction to the medication and not complete pain relief and patient agreed with the preceding patient taken to the operating room, placed in prone position or standard monitors applied to the patient then after induction of anesthesia back prepped with chlorhexidine 3 times , Then under strict sterile technique, first I did the right sacroiliac joint the which was identified under fluoroscopy guidance been local infiltration of the skin and subcu interstitial with lidocaine 1% then 22-gauge Quincke Needle advanced slowly under fluoroscopy and placed in the right sacroiliac joint needle placement confirmed with AP and oblique and lateral view and after appropriate needle placement confirmed and after negative aspiration, or heme , then Ropivacaine 0.5% 4 mL, and 40 mg of Depo-Medrol mixed together and injected in the right sacroiliac joint after negative aspiration patient tolerated the procedure well without any complication. Then the right piriformis muscle injection done in a sterile technique by placing a 22-gauge Quincke-type needle at the lateral aspect of the right Piriformis muscle then after needle placement confirmed under fluoroscopy and after negative aspiration ropivacaine 0.5% 5 ML , mixed with 40 mg of Depo- Medrol injected in the right piriformis muscle after negative aspiration patient tolerated the procedure well without any complications
[2020-12-09 10:40] VITALS: BP 113/63; PULSE 78
--- NOTE | 2020-12-09 11:57 | FL ---
EXAMINATION TYPE: FL guided pain mgmt statistic DATE OF EXAM: 12/09/2020 CLINICAL HISTORY: Sacroiliac joint pain. TECHNIQUE: Fluoroscopy. COMPARISON: None. FINDINGS: Fluoroscopic guidance was provided during pain relief procedure performed by Dr. Reyes . A total of 2 seconds of fluoroscopic time was utilized during the procedure and 2 spot images are acquired. Images acquired shows needle localization at the inferior aspect of sacroiliac joint and c loser to hip. IMPRESSION: As Above.
== END 2020-12-09 11:02 | disposition home or self-care (01) ==
LOC: ORPAIN 09:32
PROVIDERS: ATTEND Specialist
DX: M53.3 Sacrococcygeal disorders, not elsewhere classified (principal)
CPT/HCPCS: 27096; 20552; J2250; J1030; J3010; J2795; 20550; 99152

== ENCOUNTER → 2020-12-12 | Outpatient (CLI) | payer BC ==
--- NOTE | 2020-12-12 13:48 | US ---
EXAMINATION TYPE: US carotid duplex BILAT DATE OF EXAM: 12/12/2020 COMPARISON: NONE CLINICAL HISTORY: F17.200 nicotine dependence. EXAM MEASUREMENTS: RIGHT: Peak Systolic Velocity (PSV) cm/sec ----- Right CCA: 65.6 ----- Right ICA: 81.3 ----- Right ECA: 86.6 ICA/CCA ratio: 124 RIGHT: End Diastole cm/sec ----- Right CCA: 22.0 ----- Right ICA: 38.8 ----- Right ECA: 21.5 LEFT: Peak Systolic Velocity (PSV) cm/sec ----- Left CCA: 73.0 ----- Left ICA: 80.8 ----- Left ECA: 68.2 ICA/CCA ratio: 1.11 LEFT: End Diastole cm/sec ----- Left CCA: 25.5 ----- Left ICA: 32.0 ----- Left ECA: 17.3 VERTEBRALS (direction of flow): Right Vertebral: Antegrade Left Vertebral: Antegrade Rhythm: Normal Mild atherosclerotic plaques present bilaterally no suspicious stenosis identified IMPRESSION: 1. No significant flow-limiting stenosis Criteria for Assigning % of Stenosis / Diameter reduction (Estimation based on the indirect measurements of the internal carotid artery velocities (ICA PSV). 1. Normal (no stenosis)=ICA PSV < 125 cm/s: ratio < 2.0: ICA EDV<40 cm/s. 2. Less than 50% stenosis=ICA PSV < 125 cm/s: ratio < 2.0: ICA EDV<40 cm/s. 3. 50 to 69% stenosis=ICA PSV of 125 to 230 cm/s: ration 2.0 ? 4.0: ICA EDV 40-100 cm/s. 4. Greater than 70% stenosis to near occlusion= ICA PSV > 230 cm/s: ratio > 4.0: ICA EDV > 100 cm/s. 5. Near occlusion= ICA PSV velocities may be low or undetectable: variable ratio and ICA EDV. 6. Total occlusion=unable to detect flow.
== END | disposition home or self-care (01) ==
LOC: RADUSWWP 10:51
PROVIDERS: ATTEND Family Medicine
DX: F17.200 Nicotine dependence, unspecified, uncomplicated (principal)
CPT/HCPCS: 93880

== ENCOUNTER 2021-01-20 10:03 | Day surgery (SDC) | payer BC ==
[2021-01-19 09:22] VITALS: BMI 20.5
[~2021-01-20 10:03] MED LIST changes: -LIDOCAINE 1% (10MG/ML) FOR IV START INTRADERMA PRN
[2021-01-20 10:32] VITALS: RESP 20; TEMP 97.8
[2021-01-20] MEDS ORDERED: LIDOCAINE 1% (10MG/ML) FOR IV START INTRADERMA ONE (10:32)
[2021-01-20] MEDS ORDERED: .fentaNYL (PF) 50 MCG/ML 2 ML AMP ONE (10:50)
[2021-01-20] MEDS ORDERED: methylPREDNISolone ACETATE 40 MG/ML 1 ML VIAL ONE (10:50)
[2021-01-20] MEDS ORDERED: MIDAZOLAM 2 MG/2 ML VIAL ONE (10:50)
[2021-01-20] MEDS ORDERED: ROPIVACAINE 5MG/ML 20ML VIAL ONE (10:50)
--- NOTE | 2021-01-20 11:05 | P.PCN ---
Date of Procedure: 01/20/21 Procedure(s) Performed: Procedure= Right sacroiliac joints steroid injection under fluoroscopy guidance (fluoroscopy image stored on file in the radiology Department ). Right piriformis with muscle steroid injection under fluoroscopy guidance Preoperative diagnosis= 1-Right sacroiliitis 2-lumbar degenerative disc disease 3-lumbar spinal stenosis. 4-right piriformis muscle syndrome Postoperative diagnosis=Same as preop Diagnosis . Complication = none Condition= stable Anesthesia= moderate sedation with intravenous Versed 2 mg , and fentanyl 100 micrograms . Indication for the procedure= patient complaining of low back pain , examination was positive for severe tenderness over the sacroiliac joints bilaterally and patient diagnosed with sacroiliitis, for this reason she was good candidate for sacroiliac joint steroid injection. Description of the procedure= procedure risk and benefits discussed with the patient, including but not limited, risk of infection and bleeding, and ALLERGIC reaction to the medication and not complete pain relief and patient agreed with the preceding patient taken to the operating room, placed in prone position or standard monitors applied to the patient then after induction of anesthesia back prepped with chlorhexidine 3 times , Then under strict sterile technique, first I did the right sacroiliac joint the which was identified under fluoroscopy guidance been local infiltration of the skin and subcu interstitial with lidocaine 1% then 22-gauge Quincke Needle advanced slowly under fluoroscopy and placed in the right sacroiliac joint needle placement confirmed with AP and oblique and lateral view and after ap propriate needle placement confirmed and after negative aspiration, or heme , then Ropivacaine 0.5% 4 mL, and 40 mg of Depo-Medrol mixed together and injected in the right sacroiliac joint after negative aspiration patient tolerated the procedure well without any complication. Then the right piriformis muscle injection done in a sterile technique by placing a 22-gauge Quincke-type needle at the lateral aspect of the right Piriformis muscle then after needle placement confirmed under fluoroscopy and after negative aspiration ropivacaine 0.5% 5 ML , mixed with 40 mg of Depo- Medrol injected in the right piriformis muscle after negative aspiration patient tolerated the procedure well without any complications
[2021-01-20 11:37] VITALS: BP 119/59; PULSE 80
[2021-01-20] MEDS ORDERED: IV FLUID CONTINUATION 1,000 ML IV ONE (11:40)
--- NOTE | 2021-01-20 14:20 | FL ---
EXAMINATION TYPE: FL guided pain mgmt statistic DATE OF EXAM: 01/20/2021 HISTORY: Fluoroscopy time 9 seconds of fluoroscopy provided. IMPRESSION: 1. Fluoroscopy time.
== END 2021-01-20 11:45 | disposition home or self-care (01) ==
LOC: ORPAIN 10:03
PROVIDERS: ATTEND Specialist
DX: M46.1 Sacroiliitis, not elsewhere classified (principal); M51.36 Other intervertebral disc degeneration, lumbar region; M48.061 Spinal stenosis, lumbar region without neurogenic claudication; G57.01 Lesion of sciatic nerve, right lower limb; Z88.0 Allergy status to penicillin; Z90.710 Acquired absence of both cervix and uterus
CPT/HCPCS: 20552; 27096; J2250; J1030; J3010; J2795; 99152

== ENCOUNTER → 2021-02-02 | Outpatient (CLI) | payer BC ==
[2021-02-02 09:25] VITALS: BP 129/75; PULSE 97; RESP 18; TEMP 98.3
--- NOTE | 2021-02-02 09:28 | P.PN ---
Subjective Progress Note Date: 02/02/21 This is a follow-up visit for this 60 years old female with a chronic history of severe low back pain and severe right pain with radiation to the right lower extremity, patient diagnosed with lumbar foraminal stenosis, right piriformis muscle syndrome, and right sacroiliitis, and lumbar spondylosis with lumbar facet arthropathy, previously we have done a right sacroiliac joint steroid injection and right piriformis muscle, patient reported that she had some improvement in her radicular symptoms to the right lower extremity, he continued to have severe low back pain with radiation to right buttock and right hip and right lower extremity She denies any motor or sensory deficits she denies any fever or night sweats, and tried to stretch his exercise and massage therapy and she had no benefit, continue to use Tylenol and Motrin and [place] and had minimal benefit from it Objective - Exam Physical Examinations : -Constitutiona : Cooperative , not in acute distress . -HEENT : nech : supple , no Lymphadenopathy , normal thyroid size . : eyes : no ptosis , no icterus, no photophobia . - neurologic : Cranial nerve II to XII intact , no focal neurological deffecit . -psychatric : alert , oriented X 3 , appropriate affect , intact judgment and insight . -Lymphatic : no Lymphadenopathy . - musculoskeltal : Lumber spine moter stegnth lower extremities ,thigh and legs 5/5 Right side , 5/5 Left side deep tendon reflexes : normal Knee Jerk , normal ankle Jerk lumber facet Loading Test =positive Right , positive Left Range of motion of the lumbar spine Flexion 30 degrees, extension 10 degrees strait leg raising test = positive at degree Fabere test= positive Right , and positive LT . Sever tenderness over the Sacroiliac joint on the Right. Gaenslen test= positive right . Seated flexion test= positive right . Distraction test= positive right MRI Of the lumbar spine= multilevel lumbar foraminal stenosis and multilevel lumbar disc protrusion and multilevel lumbar facet degeneration Assessment and Plan Plan: Assessment and plan=1-right sacroiliitis. 2-piriformis muscle syndrome (Right ) 3-lumbar spondylosis with lumbar facet arthropathy. 4-Lumbar foraminal stenosis. Patient continue to have pain after right sacroiliac joint steroid injection and right piriformis muscle injection, Patient given instruction to do physical therapy at home /stretching and exercise(discussed with the patient ). Patient could benefit from bilateral branch block at L4 5 and L5-S1 2 and possible RFA - PQRS measures = - Patient's medications are documented in the chart. -Tobacco use is positive ,and counseling.Given. -Patient's has not received pneumococcal vaccine. -Advanced care planning discussed, patient not eligible. -Opiate contract not signed. -Pain positive and follow-up visit/procedure is scheduled. -Patient's blood pressure measured [129/75 ] , and documented in the record ,and patient will follow up with the primary care. -Patient's weight was measured and body mass index [ ] within the normal limits and counseling was done. and patient instructed to follow-up with the primary care physician. -Patient was not identified as an unhealthy alcohol user Time with Patient: Less than 30
== END ==
LOC: PNWHC3 08:37
PROVIDERS: ATTEND Specialist
DX: M46.1 Sacroiliitis, not elsewhere classified (principal); G57.01 Lesion of sciatic nerve, right lower limb; M47.816 Spondylosis without myelopathy or radiculopathy, lumbar region; M48.061 Spinal stenosis, lumbar region without neurogenic claudication; F17.200 Nicotine dependence, unspecified, uncomplicated; Z88.0 Allergy status to penicillin
CPT/HCPCS: 99211

== ENCOUNTER 2021-03-13 09:31 | Day surgery (SDC) | payer BC ==
[2021-03-12 12:37] VITALS: BMI 20.5
[2021-03-13 09:53] VITALS: TEMP 97.5
[2021-03-13] MEDS ORDERED: MIDAZOLAM 2 MG/2 ML VIAL ONE (10:17)
[2021-03-13] MEDS ORDERED: fentaNYL (PF) 50 MCG/ML 2 ML AMP ONE (10:17)
[2021-03-13] MEDS ORDERED: methylPREDNISolone ACETATE 40 MG/ML 1 ML VIAL ONE (10:17)
[2021-03-13] MEDS ORDERED: ROPIVACAINE 5MG/ML 20ML VIAL ONE (10:17)
--- NOTE | 2021-03-13 10:41 | P.PCN ---
Date of Procedure: 03/13/21 Procedure(s) Performed: PREOPERATIVE DIAGNOSIS : 1- Lumbar spondylosis with Facet Arthropathy without myelopathy . 2- Lumber degenerative disc disease POSTOPERATIVE DIAGNOSIS: 1- Lumbar spondylosis with Facet Arthropathy without myelopathy . 2- Lumber degenerative disc disease PROCEDURE: Diagnostic bilateral L3 , L4 , and L5 medial branch block under fluoroscopy guidance(fluoroscopy images available in the radiology Department ) ( To target the facet joint betweenbilateral L4-5 , and L5-S1 ) ANESTHESIA: Monitored anesthesia care as per anesthesia department. EBL: Minimal COMPLICATION: None PROCEDURE INDICATION: Chronic low back pain secondary to Facet arthropathy unresponsive to conservative treatment. PROCEDURE DESCRIPTION: the patient was seen and identified in the preop holding area , risks and benefits and possible complications of the procedure and alternative were discussed with the patient, and the patient agreed to proceed with the procedure and signed the consent and vital signs monitored during the procedure and fluoroscopy was used to maximize the benefit and accuracy of the needle placement, and sedation was given to decrease patient anxiety, patient was taken to the procedure room and placed in prone position vital signs monitored in the back prepped with chlorhexidine X3 then under strict sterile technique using a right oblique fluoroscopy ,the junction of the transverse process and the superior articulating process of the right L3 , L4 , and L5 vertebra which corresponding to the fluoroscopy image of the eye of the Colton dog on the block side for the medial branches and subsequently , after local infiltration of skin and subcu tissuies with Ropivacaine 0.5 % , one mL at each level ,then 22-gauge Quincke-type needles , 3 needle was used , each one of them placed at the junction of the base of the transverse process and the superior articular process at the appropriate level, and the needle was advanced until the periosteum contacted, needle placement confirmed with AP oblique and lateral view and after appropriate needle placement confirmed, and after negative aspiration for heme and CSF and there was no paresthesia 1-1/2 mL of Ropivacaine 0.5% mixed with 20 mg Depo-Medrol , then half mL injected at each level after negative aspiration the needle subsequently removed and the same procedure repeated for the left side at left side at L3 , L4 and L5 levels. At the end of the procedure and the needles removed and a bandage applied after the skin was cleaned the cleaning solution patient taken to recovery room in stable condition and monitors in the recovery room for 20-30 minutes and discharged home in stable condition after discharge criteria met and patient will follow up with the pain clinic in 2-4 weeks
[2021-03-13] MEDS ORDERED: IV FLUID CONTINUATION 1,000 ML IV ONE (10:44)
[2021-03-13 10:59] VITALS: RESP 16
[2021-03-13 11:03] VITALS: BP 103/70; PULSE 74
--- NOTE | 2021-03-13 12:32 | FL ---
Fluoroscopy HISTORY: Pain 9 seconds fluoroscopy time supplied to the referring clinician. 4 intraoperative C-arm images docume nt the procedure. See dictated report from anesthesia.
== END 2021-03-13 11:18 | disposition home or self-care (01) ==
LOC: ORPAIN 09:31
PROVIDERS: ATTEND Specialist
DX: M47.816 Spondylosis without myelopathy or radiculopathy, lumbar region (principal); M51.36 Other intervertebral disc degeneration, lumbar region
CPT/HCPCS: 64493; 64494; J2250; J1030; J3010; J2795

== ENCOUNTER → 2021-03-20 | Outpatient (CLI) | payer BC ==
--- NOTE | 2021-03-21 11:22 | CTL ---
EXAMINATION TYPE: CT Low Dose Lung DATE OF EXAM ORDERED: 03/20/2021 HISTORY: Long-term tobacco use. Lung cancer screening CT DLP: 55.[address] CTDI: 1.5 mGy Automated exposure control for dose reduction was used. SCREENING VISIT: First after baseline COMPARISON: CTA lung March 20, 2018. Prior CT chest May 24, 2019 TECHNIQUE: Low dose computed tomography scan was performed through the chest at 1 mm thick sections a nd reconstructed images in multiple planes at 1 mm and [address] DIAGNOSTIC QUALITY: Satisfactory FINDINGS: LUNG NODULES: None. No significant new greater than 5 mm noncalcified pulmonary nodules. LUNGS: COPD: Severity: Moderate Fibrosis: Severity: Mild bibasilar Lymph nodes: None Other findings: Ascending aorta measures up to 3.7 cm in diameter. Prominent pulmonary arteries raise concern for underlying pulmonary artery hypertension. RIGHT PLEURAL SPACE: Effusion: None Calcification: None Thickening: None Pneumothorax: None LEFT PLEURAL SPACE: Effusion: None Calcification: None Thickening: None Pneumothorax: None HEART: Heart Size: Normal Coronary Calcification: None Pericardial Effusion: None OTHER FINDINGS: Upper abdomen: None Bony thorax: S-shaped scoliosis is redemonstrated. Surgical change cervicothoracic junction again par tially imaged. Supraclavicular region: None Other: None IMPRESSION: Moderate emphysematous change without new suspicious nodules. CT LUNG RAD AND CT CHEST RECOMMENDATION: Lung-Rad 1 Negative: Continue annual screening with LDCT in 12 months. S Modifier (other clinically significant findings): None
== END | disposition home or self-care (01) ==
LOC: RADCTMAIN 17:41
PROVIDERS: ATTEND Family Medicine
DX: Z12.2 Encounter for screening for malignant neoplasm of respiratory organs (principal); J43.9 Emphysema, unspecified; Z87.891 Personal history of nicotine dependence
CPT/HCPCS: 71271

== ENCOUNTER 2021-04-24 11:05 | Day surgery (SDC) | payer BC ==
[2021-04-23 11:03] VITALS: BMI 19.4
[~2021-04-24 11:05] MED LIST changes: +LIDOCAINE 1% (10MG/ML) FOR IV START INTRADERMA PRN
[2021-04-24 11:21] VITALS: TEMP 97.3
[2021-04-24] MEDS ORDERED: LACTATED RINGERS 1,000 ML IV ONE (11:21)
[2021-04-24] MEDS ORDERED: fentaNYL (PF) 50 MCG/ML 2 ML AMP ONE (12:33)
[2021-04-24] MEDS ORDERED: ROPIVACAINE 5MG/ML 20ML VIAL ONE (12:33)
[2021-04-24] MEDS ORDERED: methylPREDNISolone ACETATE 40 MG/ML 1 ML VIAL ONE (12:33)
[2021-04-24] MEDS ORDERED: MIDAZOLAM 2 MG/2 ML VIAL ONE (12:33)
--- NOTE | 2021-04-24 12:51 | P.PCN ---
Date of Procedure: 04/24/21 Procedure(s) Performed: PREOPERATIVE DIAGNOSIS : 1- Lumbar spondylosis with Facet Arthropathy without myelopathy . 2- Lumber degenerative disc disease POSTOPERATIVE DIAGNOSIS: 1- Lumbar spondylosis with Facet Arthropathy without myelopathy . 2- Lumber degenerative disc disease PROCEDURE: Diagnostic bilateral L3 , L4 , and L5 medial branch block under fluoroscopy guidance(fluoroscopy images available in the radiology Department ) ( To target the facet joint between bilateral L4-5 , and L5-S1 )# 2nd ANESTHESIA: Monitored anesthesia care as per anesthesia department. EBL: Minimal COMPLICATION: None PROCEDURE INDICATION: Chronic low back pain secondary to Facet arthropathy unresponsive to conservative treatment. PROCEDURE DESCRIPTION: the patient was seen and identified in the preop holding area , risks and benefits and possible complications of the procedure and alternative were discussed with the patient, and the patient agreed to proceed with the procedure and signed the consent and vital signs monitored during the procedure and fluoroscopy was used to maximize the benefit and accuracy of the needle placement, and sedation was given to decrease patient anxiety, patient was taken to the procedure room and placed in prone position vital signs monitored in the back prepped with chlorhexidine X3 then under strict sterile technique using a right oblique fluoroscopy ,the junction of the transverse process and the superior articulating process of the right L3 , L4 , and L5 vertebra which corresponding to the fluoroscopy image of the eye of the Colton dog on the block side for the medial branches and subsequently , after local infiltration of skin and subcu tissuies with Ropivacaine 0.5 % , one mL at each level ,then 22-gauge Quincke-type needles , 3 needle was used , each one of them placed at the junction of the base of the transverse process and the superior articular process at the appropriate level, and the needle was advanced until the periosteum contacted, needle placement confirmed with AP oblique and lateral view and after appropriate needle placement confirmed, and after negative aspiration for heme and CSF and there was no paresthesia 1-1/2 mL of Ropivacaine 0.5% mixed with 20 mg Depo-Medrol , then half mL injected at each level after negative aspiration the needle subsequently removed and the same procedure repeated for the left side at left side at L3 , L4 and L5 levels. At the end of the procedure and the needles removed and a bandage applied after the skin was cleaned the cleaning solution patient taken to recovery room in stable condition and monitors in the recovery room for 20-30 minutes and discharged home in stable condition after discharge criteria met and patient will follow up with the pain clinic in 2-4 weeks
[2021-04-24] MEDS ORDERED: IV FLUID CONTINUATION 1,000 ML IV ONE (12:56)
[2021-04-24 13:40] VITALS: BP 112/56; PULSE 73; RESP 16
--- NOTE | 2021-04-24 15:41 | FL ---
Fluoroscopy HISTORY: Pain 6 seconds fluoroscopy time supplied to the referring clinician. 4 intraoperative C-arm images docume nt the procedure. See dictated report from anesthesia.
== END 2021-04-24 13:30 | disposition home or self-care (01) ==
LOC: ORPAIN 11:05
PROVIDERS: ATTEND Specialist
DX: M47.816 Spondylosis without myelopathy or radiculopathy, lumbar region (principal)
CPT/HCPCS: 64493; 64494; J2250; J1030; J3010; J2795

== ENCOUNTER 2021-06-26 09:02 | Day surgery (SDC) | payer BC ==
[2021-06-24 15:29] VITALS: BMI 20.5
[2021-06-26 09:19] VITALS: TEMP 97.8
[2021-06-26] MEDS ORDERED: LACTATED RINGERS 1,000 ML IV ONE (09:20)
[2021-06-26] MEDS ORDERED: ROPIVACAINE 5MG/ML 20ML VIAL ONE (09:34)
[2021-06-26] MEDS ORDERED: MIDAZOLAM 2 MG/2 ML VIAL ONE (09:34)
[2021-06-26] MEDS ORDERED: methylPREDNISolone ACETATE 40 MG/ML 1 ML VIAL ONE (09:34)
[2021-06-26] MEDS ORDERED: fentaNYL (PF) 50 MCG/ML 2 ML AMP ONE (09:34)
--- NOTE | 2021-06-26 10:00 | P.PCN ---
Date of Procedure: 06/26/21 Procedure(s) Performed: PREOPERATIVE DIAGNOSIS: 1-Lumbar Spondylosis with Facet Arthropathy without myelopathy. 2- Lumber degenerative disc disease. POSTOPERATIVE DIAGNOSIS: 1- Lumbar Spondylosis with Facet Arthropathy without myelopathy. 2- Lumber degenerative disc disease. PROCEDURES : Bilateral Radiofrequency thermocoagulation, L3 , L4 , and L5 medial branch, with fluoroscopic guidance (fluoroscopy images available in the radiology department) ( to denervate the facet joint at Bilateral L4-5 ,and L5-S1 levels ). ANESTHESIA: Monitored anesthesia care as per anesthesia department. EBL: Minimal PROCEDURE INDICATION: The patient with low back pain secondary to lumbar facet arthropathy who had more than 50% relief of her pain with previous diagnostic lumbar medial branch block with bupivacaine. PROCEDURE DESCRIPTION / TECHNIQUE: The patient was seen and identified in the preoperative area. Risks, benefits, complications, including but not limited to risk of infection ,bleeding , allergic reactions to the medications and no complete pain releife , and alternatives were discussed with the patient, the patient agreed to proceed with the procedure and signed the consent. IV was started. Vital signs remained stable throughout the procedure. Patient was taken to the OR and time out was completed. The patient was placed in the prone position on the procedure table. The lumber area was prepped and draped in the usual sterile fashion. . Vital signs were closely monitored during the procedure .IV sedation was used during the procedure to decrease patients anxiety. Using AP and then oblique fluoroscopy, the ``eye of the Colton dog corres ponding to the connection between the superior and transverse articular processes of right L3, L4, and L5 were identified, marked, and localized with 1% lidocaine. Subsequently, a 18 -ji radiofrequency cannula with a 10- mm active tip was advanced guided by fluoroscopy to each of the``eyes of the Colton dog at right L3, L4, and L5. Each site then underwent sensory testing at 50 Hz and 0 to 1 volt and motor testing at 2.5 Hz and 0 to 3 volt with local stimulation, but no radicular symptoms down the legs. Thereafter each sites underwent radiofrequency thermocoagulation at 80 degrees celsius for 90 seconds after injecting 0.5 ml of PF Ropivacaine 1ml, then after the thermocoagulation done , 1 ml of the block solution containing Depo-Medrol 20 mg and 3 ml of Ropivacaine 0.5% was injected at the right L3 , L4 , and L5 , levels after negative aspiration of CSF and blood and with no paresthesias. Cannulas were retracted while injecting lidocaine 1% until the needle is out. The same procedure was repeated at the level of Left L3, L4, and L5 levels. At the end of the procedure, the skin was cleansed and bandages were applied. COMPLICATIONS: No acute complications. DISPOSITION / PLANS: The patient was placed in a supine position and transferred to the recovery area in a stable condition for observation and was discharged from the recovery room after meeting discharge criteria. Home discharge instructions given to the patient by the staff. The patient was reexamined prior to discharge. The patient will schedule a follow up in the clinic in 2-4 weeks.
[2021-06-26] MEDS ORDERED: IV FLUID CONTINUATION 1,000 ML IV ONE (10:05)
--- NOTE | 2021-06-26 10:23 | FL ---
EXAMINATION TYPE: FL guided pain mgmt statistic DATE OF EXAM: 06/26/2021 HISTORY: Fluoroscopy time 17 seconds of fluoroscopy provided. IMPRESSION: 1. Fluoroscopy time.
[2021-06-26 10:25] VITALS: BP 106/66; PULSE 88; RESP 17
== END 2021-06-26 10:40 | disposition home or self-care (01) ==
LOC: ORPAIN 09:02
PROVIDERS: ATTEND Specialist
DX: M47.816 Spondylosis without myelopathy or radiculopathy, lumbar region (principal)
CPT/HCPCS: 64635; 64636; J2250; J1030; J3010; J2795

== ENCOUNTER → 2021-07-20 | Outpatient (CLI) | payer BC ==
--- NOTE | 2021-07-20 11:39 | P.PN ---
Subjective Progress Note Date: 07/20/21 Principal diagnosis: A 60 yr old female with a history of severe and chronic low back pain secondary to lumbar degenerative disc diseases and lumbar spondylosis with facet arthropathy presents today for evaluation status post BL RFA L3-L5. She states she experienced 95% pain relief status post procedure and her current lower back pain is 0 out of 10 in intensity. Pain level for her cervical spine is 7 out of 10 in intensity, constant, dull, achy in character localized in the lower aspect of her cervical spine with radiation of sharp, shooting pain to the shoulders and BL. Pain is provoked by looking down and bumps in the road . Pain is alleviated with PT "a few years ago" but was discontinued by her insurance company, massage therapy as needed (last 3 mo ago) which is limited due to out of pocket expenses, medications ([place], "muscle relaxer", biofreeze gel), THC-f ree edibles, repositioning, Interventional pain procedures completed include RFA BL L3-L5 Patient is currently on [place], "muscle relaxer", biofreeze gel Patient denies any side effects of the medication(s), denies excessive drowsiness or sleepiness, denies suicidal ideation and reports that the current pain medication is helping to control the pain and improve activities of daily living. Patient denies any motor or sensory deficits. Patient denies any fever or night sweats, denies any change in the bowel movements or urination. Physical Examination: -Constitutional: Cooperative. Not in acute distress . -HEENT: Neck is supple. No lymphadenopathy. No thyromegaly. Normal thyroid size. Eyes: No ptosis , no icterus, no photophobia. ENT: No auditory deficits. Normal oropharynx. No Thrush. - Respiratory: Chest clear to auscultations bilaterally. No wheezing. No rhonchi. - Cardiovascular: Regular rate and rhythm. S1 / S2 , no S3 , no S4. - Gastrointestinal: Abdomen soft no tenderness. Bowel sounds positive in all four quadrants. No organomegaly. - Genitourinary: Deferred. - Neurologic: Cranial nerve II to XII intact. No focal neurological deficits. - Psychatric: Alert & oriented x 3. Matching mood & appropriate affect. Judgment and insight intact. - Lymphatic: No Lymphadenopathy. - Musculoskeletal: Cervical spine: Muscle bulk/ tone/ strength in the bilateral upper extremities normal Vertebral body tenderness to palpation over C5, C6, C7 Spurling test positive Distraction test positive Facet loading test positive Thoracic spine Muscle bulk / tone/ strength in the bilateral paraspinal muscles normal Vertebral body tender to palpation over Facet loading test positive Lumbar spine: Motor bulk/ tone/ strength lower extremities , thigh and legs : 5/5 Deep tendon reflexes : Normal Knee Jerk. Normal Ankle Jerk . Vertebral body tenderness to palpation over Lumbar Facet Loading Test positive Straight Leg Raise: positive at 30 degrees right side/ left side Gaenslen's Test positive Sacral spine : Severe tenderness over the Sacroiliac joint: right side / left side Range of motion: Flexion of the lumbar spine <60 degrees Range of motion: Extension of the lumbar spine <20 degrees Gaenslen's Test positive Ronaldo's Test positive Argenis test: positive right side / left side Thigh Thrust Test Sacral Thrust Test Assessment and plan: Chronic low back pain secondary to lumbar degenerative disc disease , lumbar spondylosis with facet arthropathy without myelopathy Recommendation of MRI without contrast of the cervical spine. May return to our office within 2-4 weeks for results and to explore further treatment options. Risks, benefits of procedure discussed and pt verbalized understanding. Denies anticoagulant use or medical history of diabetes. All patient questions answered MAPS reviewed and it was appropriate. I have spent 31 minutes on patient care today. Dr Reyes was available by one for the evaluation of this patient. The time was used to review the medical records including relevant urine studies and Prescription history (MAPs), review of the available imaging, evaluation and examination of the patient, coordination of care with the medical staff and if applicable referring physicians, as well as creation of the medical record PQRS Measure Charge Sheet PQRS Narrative: Smoking Status Current every day smoker Hx Alcohol Use (MH) Yes: Rare Home Medications: Ambulatory Orders ALPRAZolam [Xanax] 0.25 mg PO BID 05/02/15 Sertraline [Zoloft] 100 mg PO BID 05/02/15 Acetaminophen Tab [Tylenol Tab] 1,000 mg PO Q6HR PRN 05/03/15 Albuterol Nebulized [Ventolin Nebulized] 2.5 mg INHALATION RT-Q6H PRN 09/24/15 Albuterol Inhaler [Ventolin Hfa Inhaler] 2 puff INHALATION DIRECTED PRN 12/08/20 Cannabidiol (Cbd) [Epidiolex] 1 dose PO DIRECTED PRN 12/08/20 Cholecalciferol (Vitamin D3) [Vitamin D3 (125 MCG = 5,000 IU)] 25 mcg PO HS 12/08/20 HYDROcodone/APAP 10-325MG [[place] 10-325] 1 tab PO TID PRN 12/08/20 Ibuprofen [Motrin Ib] 400 mg PO Q12H PRN 12/08/20 Multivit with Calcium,Iron,Min [Women's Multivitamin] 1 each PO HS 12/08/20 Omeprazole 20 mg PO BID 12/08/20 Zinc 50 mg PO HS 12/08/20 Budesonide/Glycopyr/Formoterol [Breztri Aerosphere Inhaler] 2 puff INHALATION BID 01/19/21 Methocarbamol [Robaxin-750] 750 mg PO TID 01/19/21 Fluticasone/Umeclidin/Vilanter [Trelegy Ellipta 100-62.5-25] 1 inhalation INHALATION DAILY 04/23/21 Magnesium 250 mg PO DAILY 04/23/21 hydrALAZINE HCL [Apresoline] 10 mg PO BID 04/23/21
[2021-07-20 12:17] VITALS: BP 117/76; PULSE 78; RESP 18; TEMP 98.2
== END ==
LOC: PNWHC3 10:49
PROVIDERS: ATTEND Specialist
DX: M51.36 Other intervertebral disc degeneration, lumbar region (principal); M47.816 Spondylosis without myelopathy or radiculopathy, lumbar region; G89.29 Other chronic pain; F17.200 Nicotine dependence, unspecified, uncomplicated; Z88.0 Allergy status to penicillin
CPT/HCPCS: 99211

== ENCOUNTER → 2021-09-07 | Outpatient (CLI) | payer BC ==
--- NOTE | 2021-09-07 16:22 | XR ---
Cervical spine HISTORY: M 50.30 4 views of the cervical spine Correlation to prior exam 01/25/2019 Posterior and anterior fusion changes are again noted, stable from C3 through the upper thoracic spin e to T2 posteriorly, anterior cervical fusion C3-C5, C6-7. There is stable alignment. No evident frac ture. IMPRESSION: Neurosurgical follow-up
== END | disposition home or self-care (01) ==
LOC: RADXRMAIN 15:34
PROVIDERS: ATTEND Physician Assistant Medical
DX: M50.30 Other cervical disc degeneration, unspecified cervical region (principal)
CPT/HCPCS: 72040

== ENCOUNTER → 2021-10-28 | Outpatient (CLI) | payer BC ==
--- NOTE | 2021-10-29 07:18 | MR ---
MRI CERVICAL SPINE: CLINICAL HISTORY: Disc degeneration. Headache with neck pain for 5 years causing pain or weakness int o left arm per patient history of multiple surgeries. TECHNIQUE: Multiplanar, multisequence imaging of the cervical spine is performed without IV contrast. COMPARISON: Cervical spine x-ray September 07, 2021. FINDINGS: Sagittal images of the cervical spine show the craniocervical junction to appear within nor mal limits. The cervical and upper thoracic spinal cord is normal in caliber and signal except for e valuation of the lower cervical spine where there is suboptimal evaluation due to artifact. Alignment is stable with some reversal of normal cervical curvature centered in the mid cervical spine redemon strated. Posterior osseous resection mid cervical spine is redemonstrated with artifact from posterio r fusion hardware beginning at C3 level bilaterally extending into the upper thoracic spine correlati ng with plain films. There is artifact from anterior fusion plate and metallic disc material C3-C5 le vels along with additional artifact from anterior fusion plate C7-T1 level redemonstrated and metalli c disc material. Vertebral body heights and disc space heights about C3 and below T1 levels are maint ained. Patulous spinal cord with mild effacement posterior inferior C2 level on sagittal images. Axial images show artifact from surgical change limits evaluation in the mid to lower cervical spine. Bilateral neural foramina are patent C2-C3 through C4-C5 levels. IMPRESSION: Extensive surgical change anteriorly and posteriorly redemonstrated with patent cervical spinal canal. Stable alignment with slight reversal of normal cervical curvature. Ossific fusion note d seen better on plain films.
== END | disposition home or self-care (01) ==
LOC: RADMRIMAIN 15:03
PROVIDERS: ATTEND Physician Assistant Medical
DX: M50.322 Other cervical disc degeneration at C5-C6 level (principal)
CPT/HCPCS: 72141

== ENCOUNTER 2021-11-03 06:16 | Day surgery (SDC) | payer BC ==
[2021-10-29 13:00] VITALS: BMI 18.2
[~2021-11-03 06:16] MED LIST changes: -LIDOCAINE 1% (10MG/ML) FOR IV START INTRADERMA PRN
[2021-11-03 06:56] VITALS: TEMP 98.3
[2021-11-03] MEDS ORDERED: GLYCOPYRROLATE 0.2 MG/ML 2 ML VIAL ONE (07:24)
[2021-11-03] MEDS ORDERED: LIDOCAINE 2% INJ 20 MG/ML (2 ML VIAL) ONE (07:24)
[2021-11-03] MEDS ORDERED: PROPOFOL 10 MG/ML 20 ML VIAL IV ONE (07:24)
--- NOTE | 2021-11-03 07:54 | P.PCN ---
Date of Procedure: 11/03/21 Procedure(s) Performed: Brief history: Patient is a pleasant 61-year-old white female scheduled for an elective upper endoscopy as well as colonoscopy as a part of evaluation of intermittent episodes of nausea vomiting diarrhea and progressive weight loss of 40 pounds in the last 4 months duration. She is been on omeprazole 20 mg daily with no relief in his symptoms Procedure performed: Esophagogastroduodenoscopy with biopsy Colonoscopy Preoperative diagnosis: Intermittent episodes of nausea vomiting and diarrhea Progressive weight loss of 40 pounds Anesthesia: MAC Procedure: After informed consent was obtained from the patient was brought into the endoscopy unit and IV sedation was administered by anesthesia under continuous monitoring. Initially upper endoscopy was done. The Olympus GF 160 video endoscope was inserted inserted into the mouth and esophagus intubated without any difficulty and was gradually advanced into the stomach and duodenum and carefully examined. The bulb and second part of the duodenum appeared normal. Biopsies were done from the duodenum to rule out celiac disease. The scope was then withdrawn into the stomach adequately insufflated with air and upon careful examination the antrum had mild gastritis and biopsies were done from this area. The body, cardia and fundus appeared normal. The scope was then withdrawn into the esophagus. The GE junction was located at 40 cm to the incisors. It appeared regular with no erythema erosions or ulcerations. Rest of the esophagus appeared normal. Patient tolerated the procedure well. At this time the patient continued to remain sedation. Initial digital rectal examination was normal. Olympus CF 160 video colonoscope was then inserted into the rectum and gradually advanced to the cecum without any difficulty. Careful examination was performed as the scope was gradually being withdrawn. The prep was excellent. The cecum, ascending colon, transverse colon, descending colon, sigmoid colon and rectum appeared normal. Retroflexion was performed in the rectum and no lesions were noted. Patient tolerated the procedure well. Impression: 1. Upper Endoscopy revealed mild gastritis involving the distal body and antrum of the stomach but no evidence of peptic ulcer disease or esophagitis 2. Colonoscopy was within normal limits with no evidence of colitis or colorectal neoplasia Recommendations: Findings of this examination were discussed with the patient as well as a family. She was advised to follow with the biopsy. Recommended repeat screening colonoscopy in 10 years.
[2021-11-03 07:59] VITALS: RESP 17
[2021-11-03 08:16] VITALS: BP 110/51; PULSE 88
== END 2021-11-03 08:40 | disposition home or self-care (01) ==
LOC: ORWHC2ENDO 06:16
PROVIDERS: ATTEND Internal Medicine Gastroenterology
DX: K29.50 Unspecified chronic gastritis without bleeding (principal); K21.00 Gastro-esophageal reflux disease with esophagitis, without bleeding; R19.7 Diarrhea, unspecified; I10 Essential (primary) hypertension; G47.33 Obstructive sleep apnea (adult) (pediatric); J44.9 Chronic obstructive pulmonary disease, unspecified; F17.210 Nicotine dependence, cigarettes, uncomplicated; F41.9 Anxiety disorder, unspecified; F32.9 Major depressive disorder, single episode, unspecified; Z79.899 Other long term (current) drug therapy; Z88.0 Allergy status to penicillin
CPT/HCPCS: 88305; 45378; 43239; J2704; J2001

== ENCOUNTER 2021-11-22 23:10 | Inpatient (IN) | payer BC ==
[2021-11-22] MEDS ORDERED: DILTIAZEM DRIP BOLUS FROM BAG 1 MG SOLN IV ONE (23:39)
[2021-11-22] MEDS ORDERED: DILTIAZEM 125 MG in SODIUM CHLORIDE 0.9% 100 ML IV SCH (23:45)
[2021-11-23] MEDS ORDERED: SODIUM CHLORIDE 0.9% 500 ML 500 ML IV ONE (00:07)
[2021-11-23 00:21] LABS: Basophils # (A) 0.1 k/uL (0-0.2); Basophils % (A) 1 %; Eosinophils # (A) 0.1 k/uL (0-0.7); Eosinophils % (A) 2 %; HCT 43.5 % (34.0-46.0); HGB 14.8 gm/dL (11.4-16.0); Lymphocytes # (A) 1.6 k/uL (1.0-4.8); Lymphocytes % (A) 18 %; MCH 31.6 pg (25.0-35.0); MCHC 34.1 g/dL (31.0-37.0); MCV 92.6 fL (80.0-100.0); Mean Platelet Volume 8.5; Monocytes # (A) 0.5 k/uL (0-1.0); Monocytes % (A) 5 %; Neutrophils # (A) 6.3 k/uL (1.3-7.7); Neutrophils % (A) 73 %; Platelet Count 231 k/uL (150-450); RDW 12.6 % (11.5-15.5); WBC 8.6 k/uL (3.8-10.6)
--- NOTE | 2021-11-23 00:22 | XR ---
EXAMINATION TYPE: XR chest 2V DATE OF EXAM: 11/22/2021 COMPARISON: 09/10/2017 HISTORY: Pain TECHNIQUE: 2 views FINDINGS: There is a 7 cm masslike density at the left pulmonary hilum. Heart size is normal. No hear t failure. There are chest leads. No pleural effusion. Bony thorax is intact. There is multilevel cer vical spine fusion surgery. IMPRESSION: Since the last examination is development of a large mass at the left pulmonary hilum cielo picious for tumor and follow-up is recommended.
[2021-11-23 00:29] LABS: Sodium 135 mmol/L (137-145)
[2021-11-23 00:30] LABS: ALT 22 U/L (4-34); AST 29 U/L (14-36); African American GFR (CKD) >90 (>60 ml/min/1.73 sqM); Albumin 4.6 g/dL (3.5-5.0); Alkaline Phosphatase 53 U/L (38-126); Anion Gap 12 mmol/L; Blood Urea Nitrogen 14 mg/dL (7-17); Calcium 9.1 mg/dL (8.4-10.2); Carbon Dioxide 23 mmol/L (22-30); Chloride 100 mmol/L (98-107); Glucose 101 mg/dL (74-99); Magnesium 2.1 mg/dL (1.6-2.3); Non-African American GFR(CKD) >90 (>60 ml/min/1.73 sqM); Potassium 3.6 mmol/L (3.5-5.1); Total Bilirubin 0.3 mg/dL (0.2-1.3); Total Protein 6.5 g/dL (6.3-8.2)
[2021-11-23 00:31] LABS: Partial Thromboplastin Time 26.3 sec (22.0-30.0); Prothrombin Time 10.8 sec (9.0-12.0)
[2021-11-23] MEDS ORDERED: SODIUM CHLORIDE 0.9% 500 ML 500 ML IV STA (00:43)
[2021-11-23] MEDS ORDERED: DILTIAZEM DRIP BOLUS FROM BAG 1 MG SOLN IV ONE (00:44)
[2021-11-23] MEDS ORDERED: DILTIAZEM 125 MG in SODIUM CHLORIDE 0.9% 100 ML IV SCH (00:45)
--- NOTE | 2021-11-23 01:01 | ED ---
Chest Pain HPI - General Chief Complaint: Chest Pain Stated Complaint: Chest Pain Time Seen by Provider: 11/22/21 23:22 Source: patient, family, RN notes reviewed Mode of arrival: ambulatory Limitations: no limitations - History of Present Illness Initial Comments: 60-year-old female history of COPD who presents with complaints of palpitations that started earlier today. No overt chest pain just a sensation in her chest is somewhat vague. She is found upon arrival to be and what appear to be atrial fibrillation with rapid ventricular response. Patient has seen her doctor or provider multiple times recently. She did have a CAT scan of the chest on currently in March of this year which was negative for acute processes at that time. She denies any fevers chills nausea vomiting sweats and some shortness of breath however. No prior history of heart disease or A. fib. She does relate approximate 40 pound weight loss over last several months. MD Complaint: other - Related Data Home Medications Medication Instructions Recorded Confirmed ALPRAZolam [Xanax] 0.25 mg PO BID 05/02/15 11/03/21 Sertraline [Zoloft] 100 mg PO BID 05/02/15 11/03/21 Albuterol Nebulized [Ventolin 2.5 mg INHALATION Q6H PRN 09/24/15 11/03/21 Nebulized] Albuterol Inhaler [Ventolin Hfa 2 puff INHALATION DIRECTED PRN 12/08/20 11/03/21 Inhaler] Cholecalciferol (Vitamin D3) 25 mcg PO HS 12/08/20 11/03/21 [Vitamin D3 (125 MCG = 5,000 IU)] HYDROcodone/APAP 10-325MG [[place] 1 tab PO TID PRN 12/08/20 11/03/21 10-325] Multivit with Calcium,Iron,Min 1 each PO HS 12/08/20 11/03/21 [Women's Multivitamin] Omeprazole 20 mg PO BID 12/08/20 11/03/21 Zinc 50 mg PO HS 12/08/20 11/03/21 Budesonide/Glycopyr/Formoterol 2 puff INHALATION BID 01/19/21 11/03/21 [Breztri Aerosphere Inhaler] methocarbamoL [Robaxin-750] 750 mg PO TID 01/19/21 11/03/21 Fluticasone/Umeclidin/Vilanter 1 inhalation INHALATION DAILY 04/23/21 11/03/21 [Trelegy Ellipta 100-62.5-25] hydrALAZINE HCL [Apresoline] 10 mg PO BID 04/23/21 11/03/21 Fluticasone Nasal [place] [Flonase 1 spray EA NOSTRIL DAILY 10/29/21 11/03/21 Nasal [place]] Magnesium Oxide [Magox 400] 400 mg PO DAILY 10/29/21 11/03/21 Montelukast [Singulair] 10 mg PO DAILY 10/29/21 11/03/21 Allergies Allergy/AdvReac Type Severity Reaction Status Date / Time Penicillins Allergy Unknown Verified 11/22/21 23:17 Childhood Review of Systems ROS Statement: Those systems with pertinent positive or pertinent negative responses have been documented in the HPI. ROS Other: All systems not noted in ROS Statement are negative. EKG Findings - EKG Results: EKG: interpreted by SHAJI (Atrial fibrillation with rapid ventricular response rate 121 QRS latter day 85 QT since QTC to 89/[address] configuration) Past Medical History Past Medical History: COPD, GERD/Reflux, Hypertension, Sleep Apnea/CPAP/BIPAP Additional Past Medical History / Comment(s): Unexplained weight loss of 40 lbs. frequent vomiting. Emphysema, back pain, uses CPAP, pulmonary hypertension. History of Any Multi-Drug Resistant Organisms: None Reported Past Surgical History: Cholecystectomy, Hysterectomy, Orthopedic Surgery, Tonsillectomy Additional Past Surgical History / Comment(s): Right knee arthroscopy, colonoscopy with benign polypectomy X1, NECK SURGERY X4, PAIN CLINIC PROCEDURES. Past Anesthesia/Blood Transfusion Reactions: No Reported Reaction Past Psychological History: Anxiety, Depression Smoking Status: Current every day smoker Past Alcohol Use History: Rare Past Drug Use History: Marijuana - Past Family History Father Family Medical History: No Reported History Mother Family Medical History: Cancer Additional Family Medical History / Comment(s): Breast cancer. General Exam - General Exam Comments Initial Comments: This is a well-developed thin appearing female who is awake alert oriented 4 Limitations: no limitations General appearance: alert, anxious Head exam: Present: atraumatic, normocephalic, normal inspection Eye exam: Present: normal appearance, PERRL, EOMI. Absent: scleral icterus, conjunctival injection, periorbital swelling ENT exam: Present: normal exam, mucous membranes moist Neck exam: Present: normal inspection, full ROM, other (No stridor JVD or bruits). Absent: tenderness, meningismus, lymphadenopathy Respiratory exam: Present: decreased breath sounds. Absent: respiratory distress, wheezes, rales, rhonchi, stridor Cardiovascular Exam: Present: tachycardia, irregular rhythm. Absent: systolic murmur, diastolic murmur, rubs, gallop, clicks GI/Abdominal exam: Present: soft, normal bowel sounds. Absent: distended, tenderness, guarding, rebound, rigid Extremities exam: Present: normal inspection, full ROM, normal capillary refill. Absent: tenderness, pedal edema, joint swelling, calf tenderness Back exam: Present: normal inspection Neurological exam: Present: alert, oriented X3, CN II-XII intact Psychiatric exam: Present: normal affect, normal mood Skin exam: Present: warm, dry, intact, normal color. Absent: rash Course Vital Signs 11/22/21 11/23/21 11/23/21 23:13 00:02 00:20 Temperature 96.3 F L Pulse Rate 146 H 160 H 140 H Pulse Rate [ 140 H Apical] Respiratory 20 20 18 Rate Blood Pressure 90/51 88/74 109/93 O2 Sat by Pulse 96 98 Oximetry - Reevaluation(s) Reevaluation #1: 11/23/21 01:02 Patient was started on Cardizem drip and given IV fluids he was noted be relatively hypotensive and did respond to fluids and did start he has some results with Cardizem drip and bolus. Chest Pain MDM - [facility] Patient did demonstrate new-onset A. fib RVR additionally x-ray showed evidence of a 7 cm left perihilar mass was not seen on the CAT scan done in March of this year. I did discuss this with the patient and family was present. Also with Dr. Calloway. Patient does have an appointment with Dr. Khris Flannery in 4 days. He will be consulted additionally Critical Care Time Critical Care Time: Yes Total Critical Care Time: 39 Critical Care Time: Hematocrit. Chem includes initial presentation with history physical labs x- rays multiple reevaluation patient responsive therapy multiple discussion with patient family discuss with the admitting physician admission orders documentation the above is also close located old charting that was available. Disposition Clinical Impression: Rapid atrial fibrillation, Hypotensive episode, Mass of left lung Disposition: ADMITTED IP TO THIS HOSP Condition: Fair Referrals: Evens Campa MD [Primary Care Provider] - 1-2 days Decision Date: 11/23/21 Decision Time: 01:00
[2021-11-23] MEDS ORDERED: NALOXONE 0.4 MG/ML 1 ML VIAL IV PRN (01:05)
[2021-11-23] MEDS ORDERED: ALBUTEROL NEBULIZED 2.5 MG/3 ML INHALATION PRN ×2 (01:07→08:26)
[2021-11-23] MEDS ORDERED: HEPARIN SODIUM 1,000 UN/ML (10ML VL) IV PRN (01:09)
[2021-11-23] MEDS ORDERED: HEPARIN SODIUM 1,000 UN/ML (10ML VL) IV ONE (01:09)
[2021-11-23] MEDS ORDERED: HEPARIN SOD,PORK IN 0.45% NACL 25,000 UNIT in 0.45% NACL 1 250ML.BAG IV SCH (01:15)
[2021-11-23] MEDS ORDERED: RX INFO: IV CONTRAST WAS GIVEN 1 EACH MISC MISCELLANE PRN (03:07)
--- NOTE | 2021-11-23 03:09 | P.HPIM ---
History of Present Illness H&P Date: 11/23/21 The patient is a 61-year-old female with a PMH of COPD with ongoing tobacco abuse who presents to the emergency room with complaints of chest pain and palpitations. The patient reports that she was laying on her couch watching television when she attempted to go to sleep and was woken up after a few minutes with severe palpitations. She reports that the sensation was then followed by chest tightness, which has since improved after arrival to the emergency room. She denied any prior history of A. fib. Reports also that she has been losing weight over the past 6 months, total of 45 pounds. States that she was evaluated by multiple physicians including loan interviewer and had undergone an EGD due to a chronic epigastric abdominal discomfort. Chest x-ray in the emergency room revealed a 7 cm left pulmonary hilar mass suspicious for tumor. EKG revealed A. fib with RVR. The patient was started on Cardizem infusion. Laboratory evaluation was reviewed. Review of systems: Pertinent positives and negatives as discussed in HPI, a complete review of systems was performed and all other systems are negative. Physical examination: General: Ill-appearing female, no distress, appears older than stated age, frail Derm: no unusual rashes/lesions, warm Head: atraumatic, normocephalic, symmetric Eyes: EOMI, no lid lag, anicteric sclera, pupils equal round reactive to light ENT: Nose and ears atraumatic Neck: No cervical lymphadenopathy, trachea midline, supple Mouth: no lip lesion, mucus membranes moist Cardiovascular: S1S2 reg, no murmur, positive dorsalis pedis pulse bilateral, no edema Lungs: CTA bilateral, no rhonchi, no rales, no accessory muscle use Abdominal: soft, mild epigastric tenderness, no guarding Ext: muscle strength 5 out of 5 in all 4 extremities grossly, no gross muscle atrophy, no contractures, Neuro: CN II-XI grossly intact, no gross focal neuro deficits Psych: Alert, oriented, appropriate affect Assessment/plan Newly diagnosed A. fib with RVR -Continue Cardizem infusion -Cardiac monitoring -Cardiology consult -TSH 1.250 -Heparin infusion Large left hilar mass -Order chest CT -Pulmonary consult for possible transbronchial biopsy DVT prophylaxis -Heparin subcu The patient is admitted with an anticipated greater than 2 midnight stay for evaluation of A. fib with RVR. CODE STATUS: Full Code Discussed with: Patient, Anticipated discharge date: 2-[address]: Home Past Medical History Past Medical History: COPD, GERD/Reflux, Hypertension, Sleep Apnea/CPAP/BIPAP Additional Past Medical History / Comment(s): Unexplained weight loss of 40 lbs. frequent vomiting. Emphysema, back pain, uses CPAP, pulmonary hypertension. History of Any Multi-Drug Resistant Organisms: None Reported Past Surgical History: Cholecystectomy, Hysterectomy, Orthopedic Surgery, Tonsillectomy Additional Past Surgical History / Comment(s): Right knee arthroscopy, colonosco py with benign polypectomy X1, NECK SURGERY X4, PAIN CLINIC PROCEDURES. Past Anesthesia/Blood Transfusion Reactions: No Reported Reaction Past Psychological History: Anxiety, Depression Smoking Status: Current every day smoker Past Alcohol Use History: Rare Past Drug Use History: Marijuana - Past Family History Father Family Medical History: No Reported History Mother Family Medical History: Cancer Additional Family Medical History / Comment(s): Breast cancer. Medications and Allergies Home Medications Medication Instructions Recorded Confirmed Type ALPRAZolam [Xanax] 0.25 mg PO BID 05/02/15 11/03/21 History Sertraline [Zoloft] 100 mg PO BID 05/02/15 11/03/21 History Albuterol Nebulized [Ventolin 2.5 mg INHALATION Q6H PRN 09/24/15 11/03/21 History Nebulized] Albuterol Inhaler [Ventolin Hfa 2 puff INHALATION DIRECTED PRN 12/08/20 11/03/21 History Inhaler] Cholecalciferol (Vitamin D3) 25 mcg PO HS 12/08/20 11/03/21 History [Vitamin D3 (125 MCG = 5,000 IU)] HYDROcodone/APAP 10-325MG [[place] 1 tab PO TID PRN 12/08/20 11/03/21 History 10-325] Multivit with Calcium,Iron,Min 1 each PO HS 12/08/20 11/03/21 History [Women's Multivitamin] Omeprazole 20 mg PO BID 12/08/20 11/03/21 History Zinc 50 mg PO HS 12/08/20 11/03/21 History Budesonide/Glycopyr/Formoterol 2 puff INHALATION BID 01/19/21 11/03/21 History [Breztri Aerosphere Inhaler] methocarbamoL [Robaxin-750] 750 mg PO TID 01/19/21 11/03/21 History Fluticasone/Umeclidin/Vilanter 1 inhalation INHALATION DAILY 04/23/21 11/03/21 History [Trelegy Ellipta 100-62.5-25] hydrALAZINE HCL [Apresoline] 10 mg PO BID 04/23/21 11/03/21 History Fluticasone Nasal [place] [Flonase 1 spray EA NOSTRIL DAILY 10/29/21 11/03/21 History Nasal [place]] Magnesium Oxide [Magox 400] 400 mg PO DAILY 10/29/21 11/03/21 History Montelukast [Singulair] 10 mg PO DAILY 10/29/21 11/03/21 History Allergies Allergy/AdvReac Type Severity Reaction Status Date / Time Penicillins Allergy Unknown Verified 11/22/21 23:17 Childhood Physical Exam Vitals: Vital Signs Temp Pulse Pulse Resp BP Pulse Ox 11/23/21 00:20 140 H 140 H 18 109/93 98 11/23/21 00:02 160 H 20 88/74 11/22/21 23:13 96.3 F L 146 H 20 90/51 96 Intake and Output 11/22/21 11/22/21 11/23/21 14:59 22:59 06:59 Other: Weight 53.07 kg Results CBC & Chem 7: 11/23/21 00:00 11/23/21 00:00 Labs: Abnormal Lab Results - Last 24 Hours (Table) 11/23/21 Range/Units 00:00 Sodium 135 L (137-145) mmol/L Glucose 101 H (74-99) mg/dL
[2021-11-23] MEDS: SYMBICORT 160-4.5 MCG INHALER INHALATION SCH ×2 (07:51→19:13)
[2021-11-23] MEDS: IPRATROPIUM 0.5 MG/2.5 ML NEBU INHALATION SCH ×4 (07:51→19:13)
[2021-11-23] MEDS ORDERED: SYMBICORT 160-4.5 MCG INHALER INHALATION SCH (08:00)
[2021-11-23] MEDS ORDERED: SYMBICORT 80-4.5 MCG INHALER INHALATION SCH (08:00)
[2021-11-23] MEDS ORDERED: IBUPROFEN 400 MG TAB PO PRN (08:26)
[2021-11-23] MEDS ORDERED: ACETAMINOPHEN TAB 500 MG TAB PO PRN (08:26)
[2021-11-23] MEDS ORDERED: ASPIRIN-ACET-CAFF 250-250-65MG 1 EACH TAB PO PRN (08:26)
[2021-11-23] MEDS: MAGNESIUM OXIDE 400 MG TAB PO SCH (08:30)
[2021-11-23] MEDS: PANTOPRAZOLE 40 MG TABLET PO SCH (08:30)
[2021-11-23] MEDS: ALPRAZolam 0.25 MG TAB PO SCH ×2 (08:30→20:22)
[2021-11-23] MEDS: SERTRALINE 100 MG TAB PO SCH ×2 (08:31→20:22)
[2021-11-23] MEDS: MONTELUKAST 10 MG TAB PO SCH (08:31)
--- NOTE | 2021-11-23 08:48 | CT ---
EXAMINATION TYPE: CT chest w con DATE OF EXAM: 11/23/2021 COMPARISON: 03/20/2021 HISTORY: Rapid heart rate CT DLP: 205.6 mGycm, Automated exposure control for dose reduction was used. CONTRAST: Performed injected with 100 mL of Isovue 370. TECHNIQUE: Axial images were obtained at 5 mm thick sections. Reconstructed images are reviewed on BView computer in the coronal plane. FINDINGS: Portion of the thyroid visualized is normal. There is a mass with mild compression of the left main pulmonary artery at the left hilum extending i nto the mediastinum. This measures 7.0 x 7.7 x 7.1 cm. No enlarged mediastinal adenopathy is evident. The ascending aorta diameter at the level of the main pulmonary artery is 3.7 cm. The main pulmonary artery diameter at the bifurcation is 3.[address] sections are obtained through the upper abdomen. Abdomen is essentially unremarkable. IMPRESSIONS: 1. 7 cm left hilar mass casing the left main pulmonary artery with some mild compression.
[2021-11-23] MEDS: FLUTICASONE 50MCG/SPRAY NASAL 16GM EA NOSTRIL SCH (08:56)
--- NOTE | 2021-11-23 10:25 | P.CRDCN ---
History of Present Illness History of present illness: HISTORY OF PRESENTING ILLNESS This is a pleasant 61-year-old female past medical history significant for chronic nicotine dependence, COPD, mild carotid vascular sclerosis, hypertension, obstructive sleep apnea, GERD. She follows in the office with Dr. Sarmiento and. We have been asked to see in consultation for new onset atrial fibrillation with rapid ventricular response. Patient presents to the emergency department with complaints of palpitations. Yesterday patient states that she began to have palpitations, they persisted throughout the day. She had associated lightheadedness. She came to the emergency department for further evaluation. She was found to be in atrial fibrillation with rapid ventricular response. She was started on IV heparin and IV Cardizem drip. She converted to sinus rhythm. She denies any chest pain, nausea, vomiting, dizziness, syncope or near syncope. She denies any cough, fever, chills. She denies any history of CAD, NH, stroke, seizure, diabetes. She is a current every day smoker. She does endorse 40 pound weight loss over the past few months. DIAGNOSTICS * EKG reveals atrial fibrillation with rapid ventricular response, heart rate 151. * Telemetry tracings indicate sinus rhythm, heart rates in the 60s. * 2015 echocardiogram revealed EF 5560 percent, mild mitral regurgitation, mild tricuspid regurgitation. * 04/2015 cardiac catheterization revealed normal coronary arteries * Carotid duplex 11/2020 revealed mild disease in the bilateral internal carotid arteries * Chest xray large mass to left pulmonary hilum suspicious for tumor. * CT chest revealed 7 cm left hilar mass encasing the left pulmonary pulmonary artery with some mild compression. * Laboratory reviewed, CBC unremarkable, d-dimer negative, sodium 135, potassium 3.6, BUN 14, serum creatinine 0.7, magnesium 2.1, troponin negative 3, proBNP 130, TSH within normal limits * Current home cardiac medications include hydralazine 10 mg twice a day REVIEW OF SYSTEMS At the time of my exam: CONSTITUTIONAL: Denies fever or chills. +weight loss CARDIOVASCULAR: Denies chest pain, shortness of breath, orthopnea, PND. reports palpitations. RESPIRATORY: Denies cough. GASTROINTESTINAL: Denies abdominal pain, diarrhea, constipation, nausea or vomiting. MUSCULOSKELETAL: Denies myalgias. NEUROLOGIC: Denies numbness, tingling, headacbe or weakness. ENDOCRINE: Denies fatigue, polydipsia or polyurina. GENITOURINARY: Denies burning, hematuria or urgency with micturation. HEMATOLOGIC: Denies history of anemia or bleeding. PHYSICAL EXAMINATION Vitals 79/48, heart 71, afebrile, oxygen saturation 94% on room air CONSTITUTIONAL: No apparent distress. HEENT: Head is normocephalic. Pupils are equal, round. Sclerae anicteric. Mucous membranes of the mouth are moist. No JVD. CHEST EXAMINATION: Lungs are clear to auscultation. No chest wall tenderness is noted on palpation or with deep breathing. HEART EXAMINATION: Regular rate and rhythm. S1, S2 heard. No murmurs, gallops or rub. ABDOMEN: Soft, nontender. Positive bowel sounds. EXTREMITIES: 2+ peripheral pulses, no lower extremity edema and no calf tenderness. SKIN: warm, dry NEUROLOGIC EXAMINATION: Patient is awake, alert and oriented x3. ASSESSMENT New onset paroxysmal atrial fibrillation with [id number] score 2, maintaining sinus rhythm Hypotension Left lung mass Weight loss History of hypertension COPD Chronic nicotine dependence Obstructive sleep apnea GERD PLAN -Stop IV Cardizem -Stop IV Heparin, will hold off on anticoagulation at this time -Discontinue hydralazine -Start flecainide 50mg BID -Monitor on telemetry -Obtain 2D echocardiogram -Further recommendations based on clinical course Nurse practitioner note has been reviewed by physician. Signing provider agrees with the documented findings, assessment, and plan of care. Past Medical History Past Medical History: COPD, GERD/Reflux, Hypertension, Sleep Apnea/CPAP/BIPAP Additional Past Medical History / Comment(s): Unexplained weight loss of 40 lbs. frequent vomiting. Emphysema, back pain, uses CPAP, pulmonary hypertension. History of Any Multi-Drug Resistant Organisms: None Reported Past Surgical History: Cholecystectomy, Hysterectomy, Orthopedic Surgery, Tonsillectomy Additional Past Surgical History / Comment(s): Right knee arthroscopy, colonoscopy with benign polypectomy X1, NECK SURGERY X4, PAIN CLINIC PROCEDURES. Past Anesthesia/Blood Transfusion Reactions: No Reported Reaction Past Psychological History: Anxiety, Depression Smoking Status: Current every day smoker Past Alcohol Use History: Rare Past Drug Use History: Marijuana - Past Family History Father Family Medical History: No Reported History Mother Family Medical History: Cancer Additional Family Medical History / Comment(s): Breast cancer. Medications and Allergies Home Medications Medication Instructions Recorded Confirmed Type ALPRAZolam [Xanax] 0.25 mg PO BID 05/02/15 11/23/21 History Sertraline [Zoloft] 100 mg PO BID 05/02/15 11/23/21 History Albuterol Nebulized [Ventolin 2.5 mg INHALATION RT-QID PRN 09/24/15 11/23/21 History Nebulized] Albuterol Inhaler [Ventolin Hfa 2 puff INHALATION RT-QID PRN 12/08/20 11/23/21 History Inhaler] HYDROcodone/APAP 10-325MG [[place] 1 tab PO TID 12/08/20 11/23/21 History 10-325] Omeprazole 20 mg PO BID 12/08/20 11/23/21 History Zinc 50 mg PO HS 12/08/20 11/23/21 History Budesonide/Glycopyr/Formoterol 1 puff INHALATION RT-DAILY 01/19/21 11/23/21 History [Breztri Aerosphere Inhaler] methocarbamoL [Robaxin-750] 750 mg PO TID 01/19/21 11/23/21 History Fluticasone/Umeclidin/Vilanter 1 puff INHALATION RT-DAILY 04/23/21 11/23/21 History [[place] Ellipta 100-62.5-25] Fluticasone Nasal [place] [Flonase 1 spray EA NOSTRIL DAILY 10/29/21 11/23/21 History Nasal [place]] Magnesium Oxide [Magox 400] 400 mg PO HS 10/29/21 11/23/21 History Montelukast [Singulair] 10 mg PO DAILY 10/29/21 11/23/21 History Acetaminophen [Tylenol Arthritis] 1,300 mg PO DAILY PRN 11/23/21 11/23/21 History Aspirin/Acetaminophen/Caffeine 2 tab PO DAILY PRN 11/23/21 11/23/21 History [Excedrin Extra Strength Caplet] Cholecalciferol [Vitamin D3 (25 25 mcg PO HS 11/23/21 11/23/21 History Mcg = 1000 Iu)] Cyanocobalamin (Vitamin B-12) 1,000 mcg PO HS 11/23/21 11/23/21 History [Vitamin B-12] Ibuprofen [Motrin Ib] 400 mg PO DAILY PRN 11/23/21 11/23/21 History Multivit-Min/Iron/Folic/Lutein 1 tab PO HS 11/23/21 11/23/21 History [Centrum Silver Women Tablet] Allergies Allergy/AdvReac Type Severity Reaction Status Date / Time Penicillins Allergy Unknown Verified 11/23/21 08:12 Childhood Physical Exam Vitals: Vital Signs Temp Pulse Pulse Resp BP Pulse Ox 11/23/21 08:33 71 18 79/48 94 L 11/23/21 08:03 76 11/23/21 07:54 66 11/23/21 06:21 122 H 18 88/58 94 L 11/23/21 04:30 130 H 14 99/74 95 11/23/21 00:20 140 H 140 H 18 109/93 98 11/23/21 00:02 160 H 20 88/74 11/22/21 23:13 96.3 F L 146 H 20 90/51 96 Intake and Output 11/22/21 11/23/21 11/23/21 22:59 06:59 14:59 Other: Weight 53.07 kg Results 11/23/21 00:00 11/23/21 00:00 Cardiac Enzymes 11/23/21 11/23/21 11/23/21 Range/Units 00:00 00:00 03:09 AST 29 (14-36) U/L Troponin I <0.012 <0.012 (0.000-0.034) ng/mL 11/23/21 Range/Units 07:12 AST (14-36) U/L Troponin I <0.012 (0.000-0.034) ng/mL Coagulation 11/23/21 11/23/21 Range/Units 00:00 07:12 PT 10.8 (9.0-12.0) sec APTT 26.3 45.7 H (22.0-30.0) sec CBC 11/23/21 Range/Units 00:00 WBC 8.6 (3.8-10.6) k/uL RBC 4.70 (3.80-5.40) m/uL Hgb 14.8 (11.4-16.0) gm/dL Hct 43.5 (34.0-46.0) % Plt Count 231 (150-450) k/uL Comprehensive Metabolic Panel 11/23/21 Range/Units 00:00 Sodium 135 L (137-145) mmol/L Potassium 3.6 (3.5-5.1) mmol/L Chloride 100 (98-107) mmol/L Carbon Dioxide 23 (22-30) mmol/L BUN 14 (7-17) mg/dL Creatinine 0.72 (0.52-1.04) mg/dL Glucose 101 H (74-99) mg/dL Calcium 9.1 (8.4-10.2) mg/dL AST 29 (14-36) U/L ALT 22 (4-34) U/L Alkaline Phosphatase 53 (38-126) U/L Total Protein 6.5 (6.3-8.2) g/dL Albumin 4.6 (3.5-5.0) g/dL Current Medications Generic Name Dose Route Start Last Admin Trade Name Freq PRN Reason Stop Dose Admin Acetaminophen 650 mg 11/23/21 01:05 Acetaminophen Tab 325 Mg Tab PO Q6HR PRN Mild Pain or Fever > 100.5 Acetaminophen/Aspirin/Caffeine 2 each 11/23/21 08:26 [id number] 1 Each Tab PO DAILY PRN Pain Hydrocodone Bitart/Acetaminophen 1 each 11/23/21 01:07 Hydrocodone/Apap 10-325mg 1 Each Tab PO TID PRN Pain Albuterol Sulfate 2.5 mg 11/23/21 08:26 Albuterol Nebulized 2.5 Mg/3 Ml INHALATION RT-QID PRN Shortness Of Breath Alprazolam 0.25 mg 11/23/21 09:00 11/23/21 08:30 Alprazolam 0.25 Mg Tab PO 0.25 mg BID KOKI Administration Budesonide/Formoterol Fumarate 2 puff 11/23/21 08:00 11/23/21 07:51 Symbicort 160-4.5 Mcg Inhaler INHALATION 2 puff RT-BID KOKI Administration Cholecalciferol 25 mcg 11/23/21 21:00 Cholecalciferol 25 Mcg (1000 Iu) Tablet PO HS KOKI Cyanocobalamin 1,000 mcg 11/23/21 21:00 Cyanocobalamin 500 Mcg Tab PO HS KOKI Flecainide Acetate 50 mg 11/23/21 09:45 Flecainide 50 Mg Tab PO Q12HR KOKI Fluticasone Propionate 1 spray 11/23/21 09:00 11/23/21 08:56 Fluticasone 50mcg/[place] Nasal 16gm EA NOSTRIL 1 spray DAILY KOKI Administration Ibuprofen 400 mg 11/23/21 08:26 Ibuprofen 400 Mg Tab PO DAILY PRN Pain Ipratropium [place] 0.5 mg 11/23/21 08:00 11/23/21 07:51 Ipratropium 0.5 Mg/2.5 Ml Nebu INHALATION 0.5 mg RT-QID KOKI Administration Magnesium Oxide 400 mg 11/23/21 09:00 11/23/21 08:30 Magnesium Oxide 400 Mg Tab PO 400 mg DAILY KOKI Administration Methocarbamol 750 mg 11/23/21 09:00 Methocarbamol 750 Mg Tab PO TID KOKI Miscellaneous Information 1 each 11/23/21 03:07 Rx Info: Iv Contrast Was Given 1 Each Misc MISCELLANE 11/25/21 03:08 DAILY PRN Per Protocol Montelukast Sodium 10 mg 11/23/21 09:00 11/23/21 08:31 Montelukast 10 Mg Tab PO 10 mg DAILY KOKI Administration Multivitamins 1 each 11/23/21 21:00 Multivitamins, Thera 1 Each Tab PO HS KOKI Naloxone HCl 0.2 mg 11/23/21 01:05 Naloxone 0.4 Mg/Ml 1 Ml Vial IV Q2M PRN Opioid Reversal Pantoprazole Sodium 40 mg 11/23/21 07:30 11/23/21 08:30 Pantoprazole 40 Mg Tablet PO 40 mg [id number] KOKI Administration Sertraline HCl 100 mg 11/23/21 09:00 11/23/21 08:31 Sertraline 100 Mg Tab PO 100 mg BID KOKI Administration Zinc Sulfate 220 mg 11/23/21 21:00 Zinc Sulfate 220 Mg Cap PO HS KOKI Intake and Output 11/22/21 11/23/21 11/23/21 22:59 06:59 14:59 Other: Weight 53.07 kg 11/23/21 00:00 11/23/21 00:00
[2021-11-23] MEDS: methocarbamoL 750 MG TAB PO SCH ×2 (11:47→18:49)
[2021-11-23] MEDS: FLECAINIDE 50 MG TAB PO SCH ×2 (13:08→20:24)
[2021-11-23 13:59] LABS: Glucose,Whole Blood 93 mg/dL (70-110)
[2021-11-23] MEDS: HYDROcodone/APAP 10-325MG 1 EACH TAB PO PRN (18:49)
--- NOTE | 2021-11-23 19:06 | P.CNPUL ---
History of Present Illness Consult date: 11/23/21 Reason for consult: dyspnea, cough, hypoxemia, lung mass Chief complaint: Palpitation and rapid heartbeat started yesterday History of present illness: This is a 61-year-old female who presented with 1 day history of A. fib with RVR patient initially was placed on IV Cardizem drip anticoagulation heparin later on spontaneously converted to sinus rhythm has been discontinued. Patient was originally scheduled to see me on outpatient basis on November 27 however ended up in Hospital due to above. Patient has been not feeling well for the last almost 4 months with epigastric pain and right upper quadrant pain workup and evaluation by GI has been negative with unremarkable upper and lower endoscopy. Patient has poor appetite and lost about 40 pounds in the last 6 months. She also started having hoarseness and dysphonia for the last 3 months her admitted chest x-ray positive for significant left hilar mass about 7 cm in size confirmed on computed tomography scan with invasion to left PA. On specific questioning she denies any seizure-like activity loss of consciousness), denies any bowel or bladder issues, denies any night sweats fever or chills, denies any hemoptysis or hematemesis. Cough is mostly dry nonproductive. Weight loss as mentioned above Review of Systems All systems: negative Past Medical History Past Medical History: COPD, GERD/Reflux, Sleep Apnea/CPAP/BIPAP Additional Past Medical History / Comment(s): Unexplained weight loss of 40 lbs. frequent vomiting. Emphysema, back pain, uses CPAP, hypotension. History of Any Multi-Drug Resistant Organisms: None Reported Past Surgical History: Cholecystectomy, Hysterectomy, Orthopedic Surgery, Tonsillectomy Additional Past Surgical History / Comment(s): Right knee arthroscopy, colonoscopy with benign polypectomy X1, NECK SURGERY X4, PAIN CLINIC PROCEDURES. Past Anesthesia/Blood Transfusion Reactions: No Reported Reaction Past Psychological History: Anxiety, Depression Smoking Status: Current every day smoker Past Alcohol Use History: Rare Additional Past Alcohol Use History / Comment(s): Smokes 1/2 PPD, started smoking at age 15, was up to 1 1/2 ppd in the past. Past Drug Use History: Marijuana Additional Drug Use History / Comment(s): USES CBD GUMMIES ON OCCASION. Aware no use 24 hrs prior to procedure. - Past Family History Father Family Medical History: No Reported History Mother Family Medical History: Cancer Additional Family Medical History / Comment(s): Breast cancer. Medications and Allergies Home Medications Medication Instructions Recorded Confirmed Type ALPRAZolam [Xanax] 0.25 mg PO BID 05/02/15 11/23/21 History Sertraline [Zoloft] 100 mg PO BID 05/02/15 11/23/21 History Albuterol Nebulized [Ventolin 2.5 mg INHALATION RT-QID PRN 09/24/15 11/23/21 History Nebulized] Albuterol Inhaler [Ventolin Hfa 2 puff INHALATION RT-QID PRN 12/08/20 11/23/21 History Inhaler] HYDROcodone/APAP 10-325MG [[place] 1 tab PO TID 12/08/20 11/23/21 History 10-325] Omeprazole 20 mg PO BID 12/08/20 11/23/21 History Zinc 50 mg PO HS 12/08/20 11/23/21 History Budesonide/Glycopyr/Formoterol 1 puff INHALATION RT-DAILY 01/19/21 11/23/21 History [Breztri Aerosphere Inhaler] methocarbamoL [Robaxin-750] 750 mg PO TID 01/19/21 11/23/21 History Fluticasone/Umeclidin/Vilanter 1 puff INHALATION RT-DAILY 04/23/21 11/23/21 History [[place] Ellipta 100-62.5-25] Fluticasone Nasal [place] [Flonase 1 spray EA NOSTRIL DAILY 10/29/21 11/23/21 History Nasal [place]] Magnesium Oxide [Magox 400] 400 mg PO HS 10/29/21 11/23/21 History Montelukast [Singulair] 10 mg PO DAILY 10/29/21 11/23/21 History Acetaminophen [Tylenol Arthritis] 1,300 mg PO DAILY PRN 11/23/21 11/23/21 History Aspirin/Acetaminophen/Caffeine 2 tab PO DAILY PRN 11/23/21 11/23/21 History [Excedrin Extra Strength Caplet] Cholecalciferol [Vitamin D3 (25 25 mcg PO HS 11/23/21 11/23/21 History Mcg = 1000 Iu)] Cyanocobalamin (Vitamin B-12) 1,000 mcg PO HS 11/23/21 11/23/21 History [Vitamin B-12] Ibuprofen [Motrin Ib] 400 mg PO DAILY PRN 11/23/21 11/23/21 History Multivit-Min/Iron/Folic/Lutein 1 tab PO HS 11/23/21 11/23/21 History [Centrum Silver Women Tablet] Allergies Allergy/AdvReac Type Severity Reaction Status Date / Time Penicillins Allergy Unknown Verified 11/23/21 08:12 Childhood Physical Exam Vitals: Vital Signs Temp Pulse Pulse Pulse Resp BP BP 11/23/21 18:38 98.4 F 84 17 99/58 11/23/21 18:17 98.4 F 80 16 99/58 11/23/21 18:10 98.1 F 75 18 114/59 11/23/21 15:24 65 11/23/21 15:14 62 11/23/21 12:42 70 11/23/21 12:21 60 11/23/21 11:02 61 18 92/63 11/23/21 08:33 71 18 79/48 11/23/21 08:03 76 11/23/21 07:54 66 11/23/21 06:21 122 H 18 88/58 11/23/21 04:30 130 H 14 99/74 11/23/21 00:20 140 H 140 H 18 109/93 11/23/21 00:02 160 H 20 88/74 11/22/21 23:13 96.3 F L 146 H 20 90/51 Pulse Ox 11/23/21 18:38 95 11/23/21 18:17 95 11/23/21 18:10 96 11/23/21 15:24 11/23/21 15:14 11/23/21 12:42 11/23/21 12:21 11/23/21 11:02 95 11/23/21 08:33 94 L 11/23/21 08:03 11/23/21 07:54 11/23/21 06:21 94 L 11/23/21 04:30 95 11/23/21 00:20 98 11/23/21 00:02 11/22/21 23:13 96 Intake and Output 11/23/21 11/23/21 11/23/21 06:59 14:59 22:59 Other: Weight 53.07 kg 53.07 kg 54.55 kg - Constitutional General appearance: average body habitus, cooperative, disheveled - EENT Eyes: EOMI, PERRLA ENT: normal oropharynx Ears: bilateral: normal - Neck Neck: normal ROM Carotids: bilateral: upstroke normal Thyroid: bilateral: normal size - Respiratory Respiratory: bilateral: diminished - Cardiovascular Rhythm: regular Heart sounds: normal: S1, S2 - Gastrointestinal General gastrointestinal: normal bowel sounds, soft - Integumentary Integumentary: normal turgor - Neurologic Neurologic: CNII-XII intact - Musculoskeletal Musculoskeletal: gait normal, generalized weakness, strength equal bilaterally - Psychiatric Psychiatric: A&O x's 3, appropriate affect, intact judgment & insight Results - Laboratory Findings CBC and BMP: 11/23/21 00:00 11/23/21 00:00 PT/INR, D-dimer PT 10.8 sec (9.0-12.0) 11/23/21 00:00 INR 1.0 (<1.2) 11/23/21 00:00 D-Dimer 0.19 mg/L FEU (<0.60) 11/23/21 00:00 Abnormal lab findings: Abnormal Labs 11/23/21 11/23/21 00:00 07:12 APTT 45.7 H Sodium 135 L Glucose 101 H - Diagnostic Findings Chest x-ray: report reviewed, image reviewed CT scan - chest: report reviewed, image reviewed (As noted above in HPI) Assessment and Plan Assessment: A. 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 fib with RVR will monitor observe for next 24 hours and follow up on echo and tentatively schedule it for Tuesday or S patient may need transbronchial lung biopsy will see monitor clinical course however will discontinue NSAIDs Time with Patient: Greater than 30
[2021-11-23] MEDS: ACETAMINOPHEN TAB 325 MG TAB PO PRN (20:22)
[2021-11-23] MEDS: ZINC SULFATE 220 MG CAP PO SCH (20:23)
[2021-11-23] MEDS: CYANOCOBALAMIN 500 MCG TAB PO SCH (20:23)
[2021-11-23] MEDS: MULTIVITAMINS, THERA 1 EACH TAB PO SCH (20:24)
[2021-11-23] MEDS: CHOLECALCIFEROL 25 MCG (1000 IU) TABLET PO SCH (20:24)
[2021-11-23] MEDS ORDERED: CHOLECALCIFEROL 25 MCG (1000 IU) TABLET PO SCH (21:00)
[2021-11-23] MEDS ORDERED: MULTIVITAMINS, THERA 1 EACH TAB PO SCH (21:00)
[2021-11-24] MEDS: methocarbamoL 750 MG TAB PO SCH ×4 (00:27→23:02)
[2021-11-24] MEDS: PANTOPRAZOLE 40 MG TABLET PO SCH (06:18)
--- NOTE | 2021-11-24 07:47 | P.CNPUL ---
History of Present Illness Consult date: 11/23/21 Reason for consult: lung mass History of present illness: onofre* [facility] [address], [place] [address] Pulmonology - Consult Note Patient Name: Flor Judd Date of : 1960 Patient Status: Clinical Attending Provider: Carola Murcia Date: 11/23/21 13:52 Initialization Date: 11/23/21 13:52 History of Present Illness Consult date: 11/23/21 Reason for consult: COPD, lung mass History of present illness: This is a very pleasant 71-year-old female patient who came into the emergency department complaining of some shortness of breath, new onset hoarseness that started approximately 3 weeks ago. She is a chronic smoker and she smokes one pack of cigarettes a day. She is known to have COPD. She also has mild carotid artery disease, hypertension and obstructive sleep apnea. In the ED, the patien delfino was noted to have atrial fibrillation with RVR. This was a new onset atrial fibrillation. She was having some palpitations. She was also feeling lightheaded. The patient was given IV heparin and IV Cardizem. She converted into normal sinus rhythm. She is currently still in normal sinus rhythm and she is hemodynamically stable and she is on room air oxygen with a pulse ox of 95%. Her previous echocardiogram from 2016 was normal. Her previous cardiac catheterization from 2016 was normal. CAT scan of the chest was done and it shows a 7 cm left hilar mass encasing the left pulmonary artery and there was some background emphysema. The patient's d-dimer was negative. CBC was unremarkable. Electrolytes are normal. Thyroid function tests are normal. She is resting comfortably in bed for now. She has hypertension also. She was started on flecainide to maintain a normal sinus rhythm. The anticoagulation was placed on hold. Review of Systems CONSTITUTIONAL: Denies fever or chills. +weight loss 44 pounds HENT new onset hoarseness CARDIOVASCULAR: Denies chest pain, shortness of breath, orthopnea, PND. reports palpitations. RESPIRATORY: Denies cough. GASTROINTESTINAL: Denies abdominal pain, diarrhea, constipation, nausea or vomiting. MUSCULOSKELETAL: Denies myalgias. NEUROLOGIC: Denies numbness, tingling, headacbe or weakness. ENDOCRINE: Denies fatigue, polydipsia or polyurina. GENITOURINARY: Denies burning, hematuria or urgency with micturation. HEMATOLOGIC: Denies history of anemia or bleeding. Past Medical History Past Medical History: COPD, GERD/Reflux, Hypertension, Sleep Apnea/CPAP/BIPAP Additional Past Medical History / Comment(s): Unexplained weight loss of 40 lbs. frequent vomiting. Emphysema, back pain, uses CPAP, pulmonary hypertension. History of Any Multi-Drug Resistant Organisms: None Reported Past Surgical History: Cholecystectomy, Hysterectomy, Orthopedic Surgery, Tonsillectomy Additional Past Surgical History / Comment(s): Right knee arthroscopy, colonoscopy with benign polypectomy X1, NECK SURGERY X4, PAIN CLINIC PROCEDURES. Past Anesthesia/Blood Transfusion Reactions: No Reported Reaction Past Psychological History: Anxiety, Depression Smoking Status: Current every day smoker Past Alcohol Use History: Rare Additional Past Alcohol Use History / Comment(s): Smokes 1/2 PPD, started smoking at age 15, was up to 1 1/2 ppd in the past. Past Drug Use History: Marijuana Additional Drug Use History / Comment(s): USES CBD GUMMIES ON OCCASION. Aware no use 24 hrs prior to procedure. - Past Family History Father Family Medical History: No Reported History Mother Family Medical History: Cancer Additional Family Medical History / Comment(s): Breast cancer. Medications and Allergies Home Medications Medication Instructions Recorded Confirmed Type ALPRAZolam [Xanax] 0.25 mg PO BID 05/02/15 11/23/21 History Sertraline [Zoloft] 100 mg PO BID 05/02/15 11/23/21 History Albuterol Nebulized [Ventolin 2.5 mg INHALATION RT-QID PRN 09/24/15 11/23/21 History Nebulized] Albuterol Inhaler [Ventolin Hfa 2 puff INHALATION RT-QID PRN 12/08/20 11/23/21 History Inhaler] HYDROcodone/APAP 10-325MG [[place] 1 tab PO TID 12/08/20 11/23/21 History 10-325] Omeprazole 20 mg PO BID 12/08/20 11/23/21 History Zinc 50 mg PO HS 12/08/20 11/23/21 History Budesonide/Glycopyr/Formoterol 1 puff INHALATION RT-DAILY 01/19/21 11/23/21 History [Breztri Aerosphere Inhaler] methocarbamoL [Robaxin-750] 750 mg PO TID 01/19/21 11/23/21 History Fluticasone/Umeclidin/Vilanter 1 puff INHALATION RT-DAILY 04/23/21 11/23/21 Hi story [Trelegy Ellipta 100-62.5-25] Fluticasone Nasal [place] [Flonase 1 spray EA NOSTRIL DAILY 10/29/21 11/23/21 History Nasal [place]] Magnesium Oxide [Magox 400] 400 mg PO HS 10/29/21 11/23/21 History Montelukast [Singulair] 10 mg PO DAILY 10/29/21 11/23/21 History Acetaminophen [Tylenol Arthritis] 1,300 mg PO DAILY PRN 11/23/21 11/23/21 History Aspirin/Acetaminophen/Caffeine 2 tab PO DAILY PRN 11/23/21 11/23/21 History [Excedrin Extra Strength Caplet] Cholecalciferol [Vitamin D3 (25 25 mcg PO HS 11/23/21 11/23/21 History Mcg = 1000 Iu)] Cyanocobalamin (Vitamin B-12) 1,000 mcg PO HS 11/23/21 11/23/21 History [Vitamin B-12] Ibuprofen [Motrin Ib] 400 mg PO DAILY PRN 11/23/21 11/23/21 History Multivit-Min/Iron/Folic/Lutein 1 tab PO HS 11/23/21 11/23/21 History [Centrum Silver Women Tablet] Allergies Allergy/AdvReac Type Severity Reaction Status Date / Time Penicillins Allergy Unknown Verified 11/23/21 08:12 Childhood Physical Exam General: Ill-appearing female, no distress, appears older than stated age, frail Derm: no unusual rashes/lesions, warm Head: atraumatic, normocephalic, symmetric Eyes: EOMI, no lid lag, anicteric sclera, pupils equal round reactive to light ENT: Nose and ears atraumatic Neck: No cervical lymphadenopathy, trachea midline, supple Mouth: no lip lesion, mucus membranes moist Cardiovascular: S1S2 reg, no murmur, positive dorsalis pedis pulse bilateral, no edema Lungs: CTA bilateral, no rhonchi, no rales, no accessory muscle use Abdominal: soft, mild epigastric tenderness, no guarding Ext: muscle strength 5 out of 5 in all 4 extremities grossly, no gross muscle atrophy, no contractures, Neuro: CN II-XI grossly intact, no gross focal neuro deficits Psych: Alert, oriented, appropriate affect Assessment and Plan Plan: Left hilar mass, highly suspicious for primary bronchogenic carcinoma of the lung Acute hoarseness likely secondary to involvement of the recurrent laryngeal nerve from the left hilar mass COPD New-onset atrial fibrillation with rapid ventricular response, converted back into normal sinus rhythm and the patient is currently on no anticoagulants Obstructive sleep apnea maintained on CPAP therapy Hypertension History of smoking Chronic back pain and the patient has had cervical spine fusion, maintained on [place] for pain control Acid reflux Plan Results were discussed with the patient's Keep the patient off anticoagulants The patient will need bronchoscopy, EBUS and transbronchial needle aspirates to establish tissue diagnosis. Cardiology in regards to the atrial fibrillation. Currently on flecainide and in normal sinus rhythm. Keep NPO after midnight possible bronchoscopy tomorrow if the patient's cardiac condition allows and there is no recurrent atrial fibrillation. Past Medical History Past Medical History: COPD, GERD/Reflux, Sleep Apnea/CPAP/BIPAP Additional Past Medical History / Comment(s): Unexplained weight loss of 40 lbs. frequent vomiting. Emphysema, back pain, uses CPAP, hypotension. History of Any Multi-Drug Resistant Organisms: None Reported Past Surgical History: Cholecystectomy, Hysterectomy, Orthopedic Surgery, Tonsillectomy Additional Past Surgical History / Comment(s): Right knee arthroscopy, colonoscopy with benign polypectomy X1, NECK SURGERY X4, PAIN CLINIC PROCEDURES. Past Anesthesia/Blood Transfusion Reactions: No Reported Reaction Past Psychological History: Anxiety, Depression Smoking Status: Current every day smoker Past Alcohol Use History: Rare Additional Past Alcohol Use History / Comment(s): Smokes 1/2 PPD, started smoking at age 15, was up to 1 1/2 ppd in the past. Past Drug Use History: Marijuana Additional Drug Use History / Comment(s): USES CBD GUMMIES ON OCCASION. Aware no use 24 hrs prior to procedure. - Past Family History Father Family Medical History: No Reported History Mother Family Medical History: Cancer Additional Family Medical History / Comment(s): Breast cancer. Medications and Allergies Home Medications Medication Instructions Recorded Confirmed Type ALPRAZolam [Xanax] 0.25 mg PO BID 05/02/15 11/23/21 History Sertraline [Zoloft] 100 mg PO BID 05/02/15 11/23/21 History Albuterol Nebulized [Ventolin 2.5 mg INHALATION RT-QID PRN 09/24/15 11/23/21 History Nebulized] Albuterol Inhaler [Ventolin Hfa 2 puff INHALATION RT-QID PRN 12/08/20 11/23/21 History Inhaler] HYDROcodone/APAP 10-325MG [[place] 1 tab PO TID 12/08/20 11/23/21 History 10-325] Omeprazole 20 mg PO BID 12/08/20 11/23/21 History Zinc 50 mg PO HS 12/08/20 11/23/21 History Budesonide/Glycopyr/Formoterol 1 puff INHALATION RT-DAILY 01/19/21 11/23/21 History [Breztri Aerosphere Inhaler] methocarbamoL [Robaxin-750] 750 mg PO TID 01/19/21 11/23/21 History Fluticasone/Umeclidin/Vilanter 1 puff INHALATION RT-DAILY 04/23/21 11/23/21 History [Trelegy Ellipta 100-62.5-25] Fluticasone Nasal [place] [Flonase 1 spray EA NOSTRIL DAILY 10/29/21 11/23/21 History Nasal [place]] Magnesium Oxide [Magox 400] 400 mg PO HS 10/29/21 11/23/21 History Montelukast [Singulair] 10 mg PO DAILY 10/29/21 11/23/21 History Acetaminophen [Tylenol Arthritis] 1,300 mg PO DAILY PRN 11/23/21 11/23/21 History Aspirin/Acetaminophen/Caffeine 2 tab PO DAILY PRN 11/23/21 11/23/21 History [Excedrin Extra Strength Caplet] Cholecalciferol [Vitamin D3 (25 25 mcg PO HS 11/23/21 11/23/21 History Mcg = 1000 Iu)] Cyanocobalamin (Vitamin B-12) 1,000 mcg PO HS 11/23/21 11/23/21 History [Vitamin B-12] Ibuprofen [Motrin Ib] 400 mg PO DAILY PRN 11/23/21 11/23/21 History Multivit-Min/Iron/Folic/Lutein 1 tab PO HS 11/23/21 11/23/21 History [Centrum Silver Women Tablet] Allergies Allergy/AdvReac Type Severity Reaction Status Date / Time Penicillins Allergy Unknown Verified 11/23/21 08:12 Childhood Physical Exam Vitals: Vital Signs Temp Pulse Pulse Resp BP BP Pulse Ox 11/24/21 04:00 98.3 F 69 16 106/68 93 L 11/24/21 00:00 97.9 F 68 14 106/62 94 L 11/23/21 19:35 98.3 F 73 16 94/61 94 L 11/23/21 19:23 78 11/23/21 19:13 79 11/23/21 18:38 98.4 F 84 17 99/58 95 11/23/21 18:17 98.4 F 80 16 99/58 95 11/23/21 18:10 98.1 F 75 18 114/59 96 11/23/21 15:24 65 11/23/21 15:14 62 11/23/21 12:42 70 11/23/21 12:21 60 11/23/21 11:02 61 18 92/63 95 11/23/21 08:33 71 18 79/48 94 L 11/23/21 08:03 76 11/23/21 07:54 66 Intake and Output 11/23/21 11/24/21 11/24/21 22:59 06:59 14:59 Intake Total 525 Balance 525 Intake: Oral 525 Other: Voiding Method Toilet Toilet # Voids 2 1 Weight 54.55 kg Results - Laboratory Findings CBC and BMP: 11/23/21 00:00 11/23/21 00:00 PT/INR, D-dimer PT 10.8 sec (9.0-12.0) 11/23/21 00:00 INR 1.0 (<1.2) 11/23/21 00:00 D-Dimer 0.19 mg/L FEU (<0.60) 11/23/21 00:00 Abnormal lab findings: Abnormal Labs 11/23/21 11/23/21 00:00 07:12 APTT 45.7 H Sodium 135 L Glucose 101 H
[2021-11-24] MEDS: SYMBICORT 160-4.5 MCG INHALER INHALATION SCH ×2 (08:15→19:24)
[2021-11-24] MEDS: IPRATROPIUM 0.5 MG/2.5 ML NEBU INHALATION SCH ×4 (08:15→19:24)
[2021-11-24 08:45] LABS: Basophils # (A) 0.1 k/uL (0-0.2); Basophils % (A) 1 %; Eosinophils # (A) 0.1 k/uL (0-0.7); Eosinophils % (A) 2 %; HCT 41.5 % (34.0-46.0); HGB 14.2 gm/dL (11.4-16.0); Lymphocytes # (A) 0.9 k/uL (1.0-4.8); Lymphocytes % (A) 16 %; MCH 32.7 pg (25.0-35.0); MCHC 34.3 g/dL (31.0-37.0); MCV 95.3 fL (80.0-100.0); Mean Platelet Volume 8.4; Monocytes # (A) 0.3 k/uL (0-1.0); Monocytes % (A) 6 %; Neutrophils # (A) 4.2 k/uL (1.3-7.7); Neutrophils % (A) 74 %; Platelet Count 193 k/uL (150-450); RBC 4.35 m/uL (3.80-5.40); RDW 12.8 % (11.5-15.5); WBC 5.7 k/uL (3.8-10.6)
[2021-11-24] MEDS: ALPRAZolam 0.25 MG TAB PO SCH ×2 (08:58→20:20)
[2021-11-24] MEDS: SERTRALINE 100 MG TAB PO SCH ×2 (08:58→20:20)
[2021-11-24] MEDS: MONTELUKAST 10 MG TAB PO SCH (08:58)
[2021-11-24] MEDS: MAGNESIUM OXIDE 400 MG TAB PO SCH (08:58)
[2021-11-24] MEDS: HYDROcodone/APAP 10-325MG 1 EACH TAB PO PRN ×3 (08:58→23:03)
[2021-11-24] MEDS: FLECAINIDE 50 MG TAB PO SCH ×2 (08:58→20:20)
[2021-11-24] MEDS: FLUTICASONE 50MCG/SPRAY NASAL 16GM EA NOSTRIL SCH (11:51)
[2021-11-24] MEDS: ACETAMINOPHEN TAB 325 MG TAB PO PRN ×2 (11:51→20:20)
--- NOTE | 2021-11-24 11:53 | CDI ---
Documentation Clarification Form Date: 11/24/2021 10:54:30 AM From: Taylor Paul RN CCDS Admit Date: 11/23/2021 01:09:00 AM Patient Name: Flor Judd Visit Number: [id number] Discharge Date: ATTENTION: The Clinical Documentation Specialists (CDI) and [facility] Coding Staff appreciate your assistance in clarifying documentation. Please respond to the clarification below the line at the bottom and electronically sign. The CDI & [facility] Coding staff will review the response and follow-up if needed. Please note: Queries are made part of the Legal Health Record. If you have any questions, please contact the author of this message via ITS. Dr. Solis Piper The Registered Dietitian assessment on 11/23 indicates this patient is underweight. Based on this information and the findings below, is there an additional diagnosis that is clinically appropriate for this patient? History/Risk Factors: 61-year-old female presents to the ED with chest pain and palpitations. Medical history: COPD with ongoing tobacco abuse. 11/23, H&P. Clinical Indicators: 11/23, H&P. Reports also that she has been losing weight over the past six months. RD Consult Assessment: Current BMI: 17.8; Height 5ft 8 inches; Standing scale weight 53.07kg; Calculated ideal body weight 63.503kg Estimated Nutritional needs: weight used to estimate Nutritional needs: [place] body weight. Energy formula for Estimated nutritional needs: 25-30Kcals/Kg. Energy needs 1588-1905Kcal Estimated protein range 1.0 grams/kg Estimated protein needs 64grams/day. Estimated fluid needs: Fluid formula 1m./Kcal Estimated flid needs 1588mls/day. Underweight: related to likely weight loss and decreased caloric intake. As evidenced by BMI <19kg/m2. Treatment: Monitor PO, general / healthful diet Dietary Consult: see above Is there an additional diagnosis that is clinically appropriate for this patient? [ ] Mild Protein-Calorie Malnutrition [ X ] Moderate Protein-Calorie Malnutrition [ ] Other condition, please specify [ ] Unable to Determine (Template Last Revised: April 2020 MTDD
--- NOTE | 2021-11-24 12:18 | P.PN ---
Subjective This is a pleasant 61-year-old female past medical history significant for chronic nicotine dependence, COPD, mild carotid vascular sclerosis, hypert ension, obstructive sleep apnea, GERD. She follows in the office with Dr. Sarmiento and. We have been asked to see in consultation for new onset atrial fibrillation with rapid ventricular response. Patient presents to the emergency department with complaints of palpitations. Yesterday patient states that she began to have palpitations, they persisted throughout the day. She had associated lightheadedness. She came to the emergency department for further evaluation. She was found to be in atrial fibrillation with rapid ventricular response. She was started on IV heparin and IV Cardizem drip. She converted to sinus rhythm. CT revealed left lung mass and pulmonary consulted for evaluation. 11/24 Patient seen and examined at bedside, distress. She denies any chest pain, palpitations, shortness of breath. Pulmonary is following and possible bronchoscopy. Eliquis is on hold. She is maintaining sinus mechanism. She is currently maintained on flecainide 50 mg twice a day. Echo pending PHYSICAL EXAMINATION Vitals blood pressure 97/59, heart rate 74, afebrile, oxygen saturation is 97% on room air CONSTITUTIONAL: No apparent distress. HEENT: Neck Supple. No JVD. CHEST EXAMINATION: Lungs are clear to auscultation. No chest wall tenderness is noted on palpation or with deep breathing. HEART EXAMINATION: Regular rate and rhythm. S1, S2 heard. No murmurs, gallops or rub. ABDOMEN: Soft, nontender. Positive bowel sounds. EXTREMITIES: no lower extremity edema and no calf tenderness. NEUROLOGIC EXAMINATION: Patient is awake, alert and oriented x3. ASSESSMENT New onset paroxysmal atrial fibrillation with [id number] score 2, maintaining sinus rhythm Hypotension Left lung mass Weight loss History of hypertension COPD Chronic nicotine dependence Obstructive sleep apnea GERD PLAN -Restart Eliquis when cleared by pulmonary. Patient plan for possible bronchoscopy -Continue flecainide 50mg BID -Monitor on telemetry -Obtain 2D echocardiogram -Consider Multaq as an outpatient pending echocardiogram, checked for coverage $12 copay -Further recommendations based on clinical course Nurse practitioner note has been reviewed by physician. Signing provider agrees with the documented findings, assessment, and plan of care. Objective - Vital Signs Vital signs: Vital Signs Temp 97.8 F 11/24/21 11:37 Pulse 74 11/24/21 11:37 Resp 18 11/24/21 11:37 BP 97/59 11/24/21 11:37 Pulse Ox 97 11/24/21 11:37 FiO2 Intake & Output 11/23/21 11/24/21 11/24/21 18:59 06:59 18:59 Intake Total 525 240 Balance 525 240 Weight 54.55 kg Intake: Oral 525 240 Other: Voiding Method Toilet # Voids 1 - Labs CBC & Chem 7: 11/24/21 07:40 11/23/21 00:00 Labs: Abnormal Lab Results - Last 24 Hours (Table) 11/24/21 Range/Units 07:40 Lymphocytes # 0.9 L (1.0-4.8) k/uL
--- NOTE | 2021-11-24 15:21 | P.PN ---
Subjective Progress Note Date: 11/24/21 The patient is a 61-year-old female with a PMH of COPD with ongoing tobacco abuse who presents to the emergency room with complaints of chest pain and palpitations. The patient reports that she was laying on her couch watching television when she attempted to go to sleep and was woken up after a few donavan pinky with severe palpitations. She reports that the sensation was then followed by chest tightness, which has since improved after arrival to the emergency room. She denied any prior history of A. fib. Reports also that she has been losing weight over the past 6 months, total of 45 pounds. States that she was evaluated by multiple physicians including baggage porter and had undergone an EGD due to a chronic epigastric abdominal discomfort. Chest x-ray in the emergency room revealed a 7 cm left pulmonary hilar mass suspicious for tumor. EKG revealed A. fib with RVR. The patient was started on Cardizem infusion. Cardiology was consulted, Cardizem drip was discontinued and patient was started on flecainide. Pulmonology was consulted and recommended bronchoscopy to be done either Tuesday or . Patient was seen and examined. No acute events overnight. Heart rate currently in the 80s. Patient denies any chest pain, shortness breath or palpitations. No nausea or vomiting. No fever or chills. Currently receiving nebulized treatment. General: Ill-appearing female, no distress, appears older than stated age, frail Derm: no unusual rashes/lesions, warm Head: atraumatic, normocephalic, symmetric Eyes: EOMI, no lid lag, anicteric sclera ENT: Nose and ears atraumatic Neck: No cervical lymphadenopathy, trachea midline, supple Mouth: no lip lesion, mucus membranes moist Cardiovascular: S1S2 reg, no murmur no edema Lungs: Decreased breath sounds bilateral, no rhonchi, no rales, no accessory muscle use Ext: muscle strength 5 out of 5 in all 4 extremities grossly, no gross muscle atrophy, no contractures, Neuro: no gross focal neuro deficits Psych: Alert, oriented, appropriate affect #Atrial fibrillation with RVR #Left hilar mass #COPD, stable #Depression #GERD Echocardiogram is pending. Cardiology started the patient on flecainide. Will need anticoagulation when cleared by pulmonology. Continue telemetry monitoring. Maintain potassium greater than 4 magnesium greater than 2. Pulmonology has been consulted for bronchoscopy and biopsy of left hilar mass concerning for malignancy. Continue albuterol neb as needed for shortness of breath and wheezing. Continue Symbicort and Singulair. Continue sertraline. Continue Protonix. Heparin for DVT prophylaxis. Patient would like to be FULL CODE. Objective - Vital Signs Vital signs: Vital Signs Temp 97.8 F 11/24/21 11:37 Pulse 74 11/24/21 13:22 Resp 17 11/24/21 13:22 BP 97/59 11/24/21 11:37 Pulse Ox 97 11/24/21 11:37 FiO2 Intake & Output 11/23/21 11/24/21 11/24/21 18:59 06:59 18:59 Intake Total 525 240 Balance 525 240 Weight 54.55 kg Intake: Oral 525 240 Other: Voiding Method Toilet Toilet # Voids 1 - Labs CBC & Chem 7: 11/24/21 07:40 11/23/21 00:00 Labs: Abnormal Lab Results - Last 24 Hours (Table) 11/24/21 Range/Units 07:40 Lymphocytes # 0.9 L (1.0-4.8) k/uL
[2021-11-24] MEDS: MULTIVITAMINS, THERA 1 EACH TAB PO SCH (20:20)
[2021-11-24] MEDS: CHOLECALCIFEROL 25 MCG (1000 IU) TABLET PO SCH (20:20)
[2021-11-24] MEDS: ZINC SULFATE 220 MG CAP PO SCH (20:20)
[2021-11-24] MEDS: CYANOCOBALAMIN 500 MCG TAB PO SCH (20:20)
--- NOTE | 2021-11-24 23:37 | P.PN ---
Subjective Progress Note Date: 11/24/21 Principal diagnosis: A. fib with RVR now converted back to sinus rhythm spontaneously Hoarseness likely left vocal cord paralysis Left hilar lung mass is stage IIIB to 4 with invasion to the left PA COPD Weight loss 11/24/2021, patient seen eval examined during the rounds labs reviewed medications reviewed care plan discussed with the patient and her as well. Procedure bronchoscopy discussed with them in detail pros/cons and and risk discussed. Patient remains fairly stable from cardiovascular standpoint remains in sinus rhythm with stable hemodynamics. Patient has been on flecainide. She remains afebrile with heart rate of 68 sinus rhythm stable blood pressure 103/48 oxygen saturation is 94%. White cell count is 5.7 with hemoglobin and hematocrit 14/45 and and platelet count of 193. Troponin 3 has been negative This is a 61-year-old female who presented with 1 day history of A. fib with RVR patient initially was placed on IV Cardizem drip anticoagulation heparin later on spontaneously converted to sinus rhythm has been discontinued. Patient was originally scheduled to see me on outpatient basis on November 27 however ended up in Hospital due to above. Patient has been not feeling well for the last almost 4 months with epigastric pain and right upper quadrant pain workup and evaluation by GI has been negative with unremarkable upper and lower endoscopy. Patient has poor appetite and lost about 40 pounds in the last 6 months. She also started having hoarseness and dysphonia for the last 3 months her admitted chest x-ray positive for significant left hilar mass about 7 cm in size confirmed on computed tomography scan with invasion to left PA. On specific questioning she denies any seizure-like activity loss of consciousness), denies any bowel or bladder issues, denies any night sweats fever or chills, denies any hemoptysis or hematemesis. Cough is mostly dry nonproductive. Weight loss as mentioned above Objective - Vital Signs Vital signs: Vital Signs Temp 98.1 F 11/24/21 23:12 Pulse 68 11/24/21 23:12 Resp 19 11/24/21 23:12 BP 103/48 11/24/21 23:12 Pulse Ox 94 L 11/24/21 23:12 FiO2 Intake & Output 11/24/21 11/24/21 11/25/21 06:59 18:59 06:59 Intake Total 525 838 240 Balance 525 838 240 Intake: Oral 525 838 240 Other: Voiding Method Toilet Toilet Toilet # Voids 1 2 1 - Exam - Constitutional General appearance: average body habitus, cooperative, disheveled - EENT Eyes: EOMI, PERRLA ENT: normal oropharynx Ears: bilateral: normal - Neck Neck: normal ROM Carotids: bilateral: upstroke normal Thyroid: bilateral: normal size - Respiratory Respiratory: bilateral: diminished - Cardiovascular Rhythm: regular Heart sounds: normal: S1, S2 - Gastrointestinal General gastrointestinal: normal bowel sounds, soft - Integumentary Integumentary: normal turgor - Neurologic Neurologic: CNII-XII intact - Musculoskeletal Musculoskeletal: gait normal, generalized weakness, strength equal bilaterally - Psychiatric Psychiatric: A&O x's 3, appropriate affect, intact judgment & insight - Labs CBC & Chem 7: 11/24/21 07:40 11/23/21 00:00 Labs: Abnormal Lab Results - Last 24 Hours (Table) 11/24/21 Range/Units 07:40 Lymphocytes # 0.9 L (1.0-4.8) k/uL Assessment and Plan Assessment: A. fib with RVR now converted back to sinus rhythm spontaneously and remains in sinus rhythm on flecainide with anticoagulation on hold Hoarseness likely left vocal cord paralysis due to recurrent laryngeal nerve involvement Left hilar lung mass is stage IIIB to 4 with invasion to the left PA COPD Weight loss Plan: Patient and as well as spouse discussed with plan for bronchoscopy and lung biopsy likely transbronchial biopsy with washing tomorrow, continue to hold anticoagulation procedure have been briefed to the patient and spouse, risk alternative side effect also discussed. Patient will be nothing by mouth after midnight medication she can take with sip of water will follow Time with Patient: Greater than 30
[2021-11-25] MEDS: ACETAMINOPHEN TAB 325 MG TAB PO PRN ×2 (06:34→21:55)
[2021-11-25] MEDS: PANTOPRAZOLE 40 MG TABLET PO SCH (06:34)
[2021-11-25] MEDS: FLECAINIDE 50 MG TAB PO SCH ×2 (07:44→20:36)
[2021-11-25] MEDS: methocarbamoL 750 MG TAB PO SCH ×3 (07:44→21:55)
[2021-11-25] MEDS: SERTRALINE 100 MG TAB PO SCH ×2 (07:44→20:37)
[2021-11-25] MEDS: MONTELUKAST 10 MG TAB PO SCH (07:45)
[2021-11-25] MEDS: MAGNESIUM OXIDE 400 MG TAB PO SCH (07:45)
[2021-11-25] MEDS: ALPRAZolam 0.25 MG TAB PO SCH ×2 (07:45→20:37)
[2021-11-25] MEDS: FLUTICASONE 50MCG/SPRAY NASAL 16GM EA NOSTRIL SCH (07:45)
[2021-11-25] MEDS: SYMBICORT 160-4.5 MCG INHALER INHALATION SCH ×2 (08:02→19:34)
[2021-11-25] MEDS: IPRATROPIUM 0.5 MG/2.5 ML NEBU INHALATION SCH ×4 (08:03→19:34)
--- NOTE | 2021-11-25 10:02 | P.PN ---
Subjective Progress Note Date: 11/25/21 The patient is a 61-year-old female with a PMH of COPD with ongoing tobacco abuse who presents to the emergency room with complaints of chest pain and palpitations. The patient reports that she was laying on her couch watching television when she attempted to go to sleep and was woken up after a few donavan pinky with severe palpitations. She reports that the sensation was then followed by chest tightness, which has since improved after arrival to the emergency room. She denied any prior history of A. fib. Reports also that she has been losing weight over the past 6 months, total of 45 pounds. States that she was evaluated by multiple physicians including reading efficiency course director and had undergone an EGD due to a chronic epigastric abdominal discomfort. Chest x-ray in the emergency room revealed a 7 cm left pulmonary hilar mass suspicious for tumor. EKG revealed A. fib with RVR. The patient was started on Cardizem infusion. Cardiology was consulted, Cardizem drip was discontinued and patient was started on flecainide. Pulmonology was consulted and recommended bronchoscopy to be done either Tuesday or . Patient was seen and examined. No acute events overnight. Heart rate currently in the 80s. Patient denies any chest pain, shortness breath or palpitations. No nausea or vomiting. No fever or chills. Family at bedside. General: Ill-appearing female, no distress, appears older than stated age, frail Derm: no unusual rashes/lesions, warm Head: atraumatic, normocephalic, symmetric Eyes: EOMI, no lid lag, anicteric sclera ENT: Nose and ears atraumatic Neck: No cervical lymphadenopathy, trachea midline, supple Mouth: no lip lesion, mucus membranes moist Cardiovascular: S1S2 reg, no murmur no edema Lungs: Decreased breath sounds bilateral, no rhonchi, no rales, no accessory muscle use Ext: muscle strength 5 out of 5 in all 4 extremities grossly, no gross muscle atrophy, no contractures, Neuro: no gross focal neuro deficits Psych: Alert, oriented, appropriate affect #Atrial fibrillation with RVR #Left hilar mass #COPD, stable #Depression #GERD Echocardiogram is pending. Cardiology started the patient on flecainide. Will need anticoagulation when cleared by pulmonology. Continue telemetry monitoring. Maintain potassium greater than 4 magnesium greater than 2. Pulmonology has been consulted for bronchoscopy and biopsy of left hilar mass concerning for malignancy. Plans for bronchoscopy today. Continue albuterol neb as needed for shortness of breath and wheezing. Continue Symbicort and Singulair. Continue sertraline. Continue Protonix. Heparin for DVT prophylaxis. Patient would like to be FULL CODE. Objective - Vital Signs Vital signs: Vital Signs Temp 98.1 F 11/25/21 07:37 Pulse 72 11/25/21 08:14 Resp 20 11/25/21 07:37 BP 110/68 11/25/21 07:37 Pulse Ox 93 L 11/25/21 07:37 FiO2 Intake & Output 11/24/21 11/25/21 11/25/21 18:59 06:59 18:59 Intake Total 838 480 20 Balance 838 480 20 Intake: IV 20 Invasive Line 1 10 Invasive Line 2 10 Oral 838 480 Other: Voiding Method Toilet Toilet Toilet # Voids 2 2 - Labs CBC & Chem 7: 11/24/21 07:40 11/23/21 00:00
[2021-11-25] MEDS ORDERED: MIDAZOLAM 2 MG/2 ML VIAL ONE (11:17)
[2021-11-25] MEDS ORDERED: PHENYLEPHRINE-0.9% NACL SYG 1,000 MCG/10 ML SYRINGE ONE (11:17)
[2021-11-25] MEDS ORDERED: fentaNYL (PF) 50 MCG/ML 2 ML AMP ONE (11:17)
[2021-11-25] MEDS ORDERED: LIDOCAINE 2% INJ 20 MG/ML (2 ML VIAL) ONE (11:17)
[2021-11-25] MEDS ORDERED: PROPOFOL 10 MG/ML 20 ML VIAL IV ONE (11:17)
[2021-11-25] MEDS ORDERED: SUCCINYLCHOLINE CHLORIDE 200 MG/10 ML VIAL IV ONE (11:17)
[2021-11-25] MEDS ORDERED: LACTATED RINGERS 1,000 ML IV ONE ×2 (11:20)
[2021-11-25] MEDS ORDERED: BUPIVACAIN-EPI 0.25%-1:200,000 30 ML VIAL SQ ONE (11:49)
--- NOTE | 2021-11-25 12:33 | P.PN ---
Subjective Progress Note Date: 11/25/21 Principal diagnosis: A. fib with RVR now converted back to sinus rhythm spontaneously Hoarseness likely left vocal cord paralysis Left hilar lung mass is stage IIIB to 4 with invasion to the left PA COPD Weight loss 11/25/2021, patient seen eval examined his Stalevo hoarseness and cough which is dry and nonproductive, patient has been consult about bronchoscopy being planned later on today, denies any chest pain ongoing dyspnea on exertion is present 11/24/2021, patient seen eval examined during the rounds labs reviewed medications reviewed care plan discussed with the patient and her as well. Procedure bronchoscopy discussed with them in detail pros/cons and and risk discussed. Patient remains fairly stable from cardiovascular standpoint remains in sinus rhythm with stable hemodynamics. Patient has been on flecainide. She remains afebrile with heart rate of 68 sinus rhythm stable blood pressure 103/48 oxygen saturation is 94%. White cell count is 5.7 with hemoglobin and hematocrit 14/45 and and platelet count of 193. Troponin 3 has been negative This is a 61-year-old female who presented with 1 day history of A. fib with RVR patient initially was placed on IV Cardizem drip anticoagulation heparin later on spontaneously converted to sinus rhythm has been discontinued. Patient was originally scheduled to see me on outpatient basis on November 27 however ended up in Hospital due to above. Patient has been not feeling well for the last al most 4 months with epigastric pain and right upper quadrant pain workup and evaluation by GI has been negative with unremarkable upper and lower endoscopy. Patient has poor appetite and lost about 40 pounds in the last 6 months. She also started having hoarseness and dysphonia for the last 3 months her admitted chest x-ray positive for significant left hilar mass about 7 cm in size confirmed on computed tomography scan with invasion to left PA. On specific questioning she denies any seizure-like activity loss of consciousness), denies any bowel or bladder issues, denies any night sweats fever or chills, denies any hemoptysis or hematemesis. Cough is mostly dry nonproductive. Weight loss as mentioned above Objective - Vital Signs Vital signs: Vital Signs Temp 98.4 F 11/25/21 12: Pulse 84 11/25/21 12:22 Resp 20 11/25/21 12:22 BP 122/56 11/25/21 12:22 Pulse Ox 99 11/25/21 12:22 FiO2 Intake & Output 11/24/21 11/25/21 11/25/21 18:59 06:59 18:59 Intake Total 838 480 520 Balance 838 480 520 Intake: IV 520 Invasive Line 1 10 Invasive Line 2 10 Oral 838 480 Other: Voiding Method Toilet Toilet Toilet # Voids 2 2 - Exam - Constitutional General appearance: average body habitus, cooperative, disheveled - EENT Eyes: EOMI, PERRLA ENT: normal oropharynx Ears: bilateral: normal - Neck Neck: normal ROM Carotids: bilateral: upstroke normal Thyroid: bilateral: normal size - Respiratory Respiratory: bilateral: diminished - Cardiovascular Rhythm: regular Heart sounds: normal: S1, S2 - Gastrointestinal General gastrointestinal: normal bowel sounds, soft - Integumentary Integumentary: normal turgor - Neurologic Neurologic: CNII-XII intact - Musculoskeletal Musculoskeletal: gait normal, generalized weakness, strength equal bilaterally - Psychiatric Psychiatric: A&O x's 3, appropriate affect, intact judgment & insight - Labs CBC & Chem 7: 11/24/21 07:40 11/23/21 00:00 Assessment and Plan Assessment: A. fib with RVR now converted back to sinus rhythm spontaneously and remains in sinus rhythm on flecainide with anticoagulation on hold Hoarseness likely left vocal cord paralysis due to recurrent laryngeal nerve involvement Left hilar lung mass is stage IIIB to 4 with invasion to the left PA COPD Weight loss Plan: Patient and as well as spouse discussed with plan for bronchoscopy and lung biopsy likely transbronchial biopsy with washing later on today, continue to hold anticoagulation procedure have been briefed to the patient and spouse, risk alternative side effect also discussed. Time with Patient: Greater than 30
--- NOTE | 2021-11-25 12:36 | P.PCN ---
Date of Procedure: 11/25/21 Preoperative Diagnosis: Left hilar mass Postoperative Diagnosis: As above Procedure(s) Performed: #1 bronchoscopy, #2 bronchoalveolar lavage, #3 transbronchial lung biopsy of left upper lobe, #4 brushing of left upper lobe bronchus Anesthesia: MAC Surgeon: Khris Flannery Estimated Blood Loss (ml): 3 Condition: stable Disposition: floor Indications for Procedure: As above Operative Findings: As below Description of Procedure: Patient prepared and draped in the usual fashion patient was intubated by anesthesia for an see the details please refer to their notes, fiberoptic bronchoscope passes the endotracheal tube dharmesh was sharp right upper lobe right middle lobe and right lower lobe inspected no endobronchial lesion or mass identified, left mainstem clear, left lower lobe extrinsic compression seen, no endobronchial mass seen, left upper lobe also has extrinsic compression with irregular mucosa BAL, biopsy including a transbronchial lung biopsy and brushing performed patient tolerated procedure well no complication noted
--- NOTE | 2021-11-25 13:01 | CA ---
Transthoracic Echo Report Name: Flor Judd Age: 61 Gender: F : 1960 Exam Date: 11/23/2021 09:17 Exam Location: [facility] Ht (in): 68 Wt (lb): 117 Ordering Physician: Roxana Eckert Attending/Referring Phys: Resource Efficiency Manager Elise Moreno RDCS Procedure CPT: Indications: new onset a fib Cardiac Hx: Technical Quality: Fair Contrast 1: Total Dose (mL): Contrast 2: Total Dose (mL): MEASUREMENTS (Male / Female) Normal Values 2D ECHO LV Diastolic Diameter PLAX 4.5 cm 4.2 - 5.9 / 3.9 - 5.3 cm LV Systolic Diameter PLAX 2.7 cm IVS Diastolic Thickness 0.8 cm 0.6 - 1.0 / 0.6 - 0.9 cm LVPW Diastolic Thickness 0.9 cm 0.6 - 1.0 / 0.6 - 0.9 cm LV Relative Wall Thickness 0.4 RV Internal Dim ED PLAX 2.8 cm LA Volume 29.7 cm??? 18 - 58 / 22 - 52 cm??? M-MODE Aortic Root Diameter MM 3.2 cm LA Systolic Diameter MM 2.8 cm LA Ao Ratio MM 0.9 AV Cusp Separation MM 1.5 cm DOPPLER AV Peak Velocity 159.3 cm/s AV Peak Gradient 10.1 mmHg LVOT Peak Velocity 132.2 cm/s LVOT Peak Gradient 7.0 mmHg MV Area PHT 3.0 cm??? Mitral E Point Velocity 107.3 cm/s Mitral A Point Velocity 63.9 cm/s Mitral E to A Ratio 1.7 MV Deceleration Time 250.1 ms MV E' Velocity 10.3 cm/s Mitral E to MV E' Ratio 10.4 TR Peak Velocity 277.9 cm/s TR Peak Gradient 30.9 mmHg Right Atrial Pressure 15.0 mmHg Pulmonary Artery Systolic Pressu 45.9 mmHg Right Ventricular Systolic Press 45.9 mmHg FINDINGS Left Ventricle Normal Left ventricular size, wall thickness, systolic function with no obvious regional wall motion abnormalities. Normal Left ventricular diastolic filling pattern. Left ventricular ejection fraction is estimated at 55-60 %. Right Ventricle Mild right ventricular dilatation. Mild pulmonary hypertension. Right Atrium Mild right atrial dilatation. Left Atrium Mild left atrial dilatation. Mitral Valve Structurally normal mitral valve. Mild mitral regurgitation. Aortic Valve No aortic valve stenosis or regurgitation. Tricuspid Valve Mild tricuspid regurgitation. Pulmonic Valve Trace pulmonic regurgitation. Pericardium No pericardial effusion. Aorta Normal size aortic root and proximal ascending aorta. CONCLUSIONS Normal left ventricular ejection fraction 55-60% Mild mitral regurgitation Mild tricuspid regurgitation RVSP 45 No pericardial effusion Previewed by: Dr. Patel Marte DO (Electronically Signed) Final Date: 23 November 2021 12:58
--- NOTE | 2021-11-25 13:03 | P.PN ---
Progress Note - Text Patient remains stable from a cardiac vascular standpoint Remains in sinus rhythm line yesterday she was started on flecainide She is awaiting bronchoscopy today She was admitted with Rafa whitney with RVR and she spontaneously converted to sinus rhythm Anticoagulation is on hold for now Blood pressure 122/56. His mercury pulse rate in the 80s afebrile Breath sounds are clear no rhonchi no crackles Heart sounds S1 and S2 are normal Impression Paroxysmal atrial fibrillation with RVR Spontaneous conversion to sinus rhythm Started on flecainide 50 g twice daily LV function was normal Normal TSH of 1.3 normal electrolytes normal troponins new line lung mass noted wrapping the PA Plan Proceed with bronchoscopy Will discuss anticoagulation thereafter Continue flecainide Twelve-lead EKG tomorrow on flecainide
--- NOTE | 2021-11-25 13:11 | XR ---
EXAMINATION TYPE: XR chest 1V portable DATE OF EXAM: 11/25/2021 COMPARISON: Chest x-ray 11/22/2021 HISTORY: Status post bronchoscopy TECHNIQUE: Single frontal view of the chest is obtained. FINDINGS: There is no significant interval change. No evident pneumothorax or pleural effusion. Janis ent's left suprahilar mass is again seen, there is underlying emphysema, there are interstitial [place] es in the left upper lobe. IMPRESSION: No evident complication status post bronchoscopy.
[2021-11-25] MEDS: HYDROcodone/APAP 10-325MG 1 EACH TAB PO PRN ×2 (13:34→20:36)
[2021-11-25 14:41] VITALS: BMI 18.3
--- NOTE | 2021-11-25 15:00 | FL ---
EXAMINATION TYPE: FL bronchoscopy DATE OF EXAM: 11/25/2021 COMPARISON: NONE HISTORY: Lung mass Fluoroscopy support supplied to the referring clinician. See dictated report from pulmonary, 24 seco nds fluoroscopy time, single intraoperative image documents the procedure
[2021-11-25] MEDS ORDERED: guaiFENesin-DM 100-10MG/5ML 10 ML CUP PO PRN (17:55)
[2021-11-25] MEDS: CYANOCOBALAMIN 500 MCG TAB PO SCH (20:37)
[2021-11-25] MEDS: MULTIVITAMINS, THERA 1 EACH TAB PO SCH (20:37)
[2021-11-25] MEDS: CHOLECALCIFEROL 25 MCG (1000 IU) TABLET PO SCH (20:37)
[2021-11-25] MEDS: ZINC SULFATE 220 MG CAP PO SCH (20:37)
[2021-11-26] MEDS: ACETAMINOPHEN TAB 325 MG TAB PO PRN (06:42)
[2021-11-26] MEDS: PANTOPRAZOLE 40 MG TABLET PO SCH (06:42)
[2021-11-26] MEDS: FLECAINIDE 50 MG TAB PO SCH (08:41)
[2021-11-26] MEDS: MAGNESIUM OXIDE 400 MG TAB PO SCH (08:41)
[2021-11-26] MEDS: SERTRALINE 100 MG TAB PO SCH (08:41)
[2021-11-26] MEDS: ALPRAZolam 0.25 MG TAB PO SCH (08:41)
[2021-11-26] MEDS: MONTELUKAST 10 MG TAB PO SCH (08:41)
[2021-11-26] MEDS: methocarbamoL 750 MG TAB PO SCH (08:42)
[2021-11-26] MEDS: FLUTICASONE 50MCG/SPRAY NASAL 16GM EA NOSTRIL SCH (08:43)
[2021-11-26] MEDS: SYMBICORT 160-4.5 MCG INHALER INHALATION SCH (08:53)
[2021-11-26] MEDS: IPRATROPIUM 0.5 MG/2.5 ML NEBU INHALATION SCH (08:53)
[2021-11-26 09:25] VITALS: BP 106/68; RESP 20; TEMP 98.1
[2021-11-26 10:39] VITALS: PULSE 93
--- NOTE | 2021-11-26 11:43 | P.DS ---
Providers Date of admission: 11/23/21 01:09 Expected date of discharge: 11/26/21 Attending physician: Mayda Calloway MD Consults: 11/23/21 01:05 Consult Physician Routine Consulting Provider: Khris Flannery Consult Reason/Comments: Lung mass Do you want consulting provider notified?: Yes, Notify in am Consult Physician Routine Consulting Provider: Scotty Murcia Consult Reason/Comments: Rapid atrial fibrillation Do you want consulting provider notified?: Yes, Notify in am 11/23/21 18:17 Consult Physician Stat Consulting Provider: Khris Flannery Consult Reason/Comments: lung mass Do you want consulting provider notified?: Yes Primary care physician: [facility] Course: The patient is a 61-year-old female with a PMH of COPD with ongoing tobacco abuse who presents to the emergency room with complaints of chest pain and palpitations. The patient reports that she was laying on her couch watching television when she attempted to go to sleep and was woken up after a few minutes with severe palpitations. She reports that the sensation was then followed by chest tightness, which has since improved after arrival to the emergency room. She denied any prior history of A. fib. Reports also that she has been losing weight over the past 6 months, total of 45 pounds. States that she was evaluated by multiple physicians including lining caser and had undergone an EGD due to a chronic epigastric abdominal discomfort. Chest x-ray in the emergency room revealed a 7 cm left pulmonary hilar mass suspicious for tumor. EKG revealed A. fib with RVR. The patient was started on Cardizem infusion. Cardiology was consulted, Cardizem drip was discontinued and patient was started on flecainide. Pulmonology was consulted and bronchoscopy was performed with biopsy. Cardiology was consulted and discontinued Cardizem and started the patient on flecainide. Echocardiogram was done which showed EF of 55-60%. She passed home O2 eval. She is advised to follow-up with her PCP within 1-2 days of discharge. She is advised follow-up with pulmonology within 1 week of discharge for results of her biopsy. She is advised follow-up with cardiology within 1 week of discharge. Pertinent studies include chest x-ray, chest CT, echocardiogram, bronchoscopy Patient was seen and examined. No acute events overnight. Patient reports feeling at baseline. She denies any chest, shortness breath or palpitations. General: Ill-appearing female, no distress, appears older than stated age, frail Derm: no unusual rashes/lesions, warm Head: atraumatic, normocephalic, symmetric Eyes: EOMI, no lid lag, anicteric sclera ENT: Nose and ears atraumatic Neck: No cervical lymphadenopathy, trachea midline, supple Mouth: no lip lesion, mucus membranes moist Cardiovascular: S1S2 reg, no murmur no edema Lungs: Decreased breath sounds bilateral, no rhonchi, no rales, no accessory muscle use Ext: muscle strength 5 out of 5 in all 4 extremities grossly, no gross muscle atrophy, no contractures, Neuro: no gross focal neuro deficits Psych: Alert, oriented, appropriate affect Discharge diagnosis: #Atrial fibrillation with RVR #Left hilar mass #COPD, stable #Depression #GERD The complex discharge took about 35 minutes to complete. Patient Condition at Discharge: Stable Plan - Discharge Summary New Discharge Prescriptions: New Flecainide [Tambocor] 50 mg PO Q12HR #60 tab Continue ALPRAZolam [Xanax] 0.25 mg PO BID Sertraline [Zoloft] 100 mg PO BID Albuterol Nebulized [Ventolin Nebulized] 2.5 mg INHALATION RT-QID PRN PRN Reason: Shortness Of Breath Or Wheezing Albuterol Inhaler [Ventolin Hfa Inhaler] 2 puff INHALATION RT-QID PRN PRN Reason: Shortness Of Breath Montelukast [Singulair] 10 mg PO DAILY Fluticasone Nasal [place] [Flonase Nasal [place]] 1 spray EA NOSTRIL DAILY Magnesium Oxide [Magox 400] 400 mg PO HS Cholecalciferol [Vitamin D3 (25 Mcg = 1000 Iu)] 25 mcg PO HS Ibuprofen [Motrin Ib] 400 mg PO DAILY PRN PRN Reason: Pain Aspirin/Acetaminophen/Caffeine [Excedrin Extra Strength Caplet] 2 tab PO DAILY PRN PRN Reason: Pain Acetaminophen [Tylenol Arthritis] 1,300 mg PO DAILY PRN PRN Reason: Pain Cyanocobalamin (Vitamin B-12) [Vitamin B-12] 1,000 mcg PO HS HYDROcodone/APAP 10-325MG [[place] 10-325] 1 tab PO TID Zinc 50 mg PO HS Omeprazole 20 mg PO BID methocarbamoL [Robaxin-750] 750 mg PO TID Budesonide/Glycopyr/Formoterol [Breztri Aerosphere Inhaler] 1 puff INHALATION RT-DAILY Fluticasone/Umeclidin/Vilanter [Trelegy Ellipta 100-62.5-25] 1 puff INHALATION RT-DAILY Multivit-Min/Iron/Folic/Lutein [Centrum Silver Women Tablet] 1 tab PO HS Discontinued hydrALAZINE HCL [Apresoline] 10 mg PO BID Discharge Medication List ALPRAZolam [Xanax] 0.25 mg PO BID 05/02/15 [History] Sertraline [Zoloft] 100 mg PO BID 05/02/15 [History] Albuterol Nebulized [Ventolin Nebulized] 2.5 mg INHALATION RT-QID PRN 09/24/15 [History] Albuterol Inhaler [Ventolin Hfa Inhaler] 2 puff INHALATION RT-QID PRN 12/08/20 [History] HYDROcodone/APAP 10-325MG [[place] 10-325] 1 tab PO TID 12/08/20 [History] Omeprazole 20 mg PO BID 12/08/20 [History] Zinc 50 mg PO HS 12/08/20 [History] Budesonide/Glycopyr/Formoterol [Breztri Aerosphere Inhaler] 1 puff INHALATION RT-DAILY 01/19/21 [History] methocarbamoL [Robaxin-750] 750 mg PO TID 01/19/21 [History] Fluticasone/Umeclidin/Vilanter [Trelegy Ellipta 100-62.5-25] 1 puff INHALATION RT-DAILY 04/23/21 [History] Fluticasone Nasal [place] [Flonase Nasal [place]] 1 spray EA NOSTRIL DAILY 10/29/21 [History] Magnesium Oxide [Magox 400] 400 mg PO HS 10/29/21 [History] Montelukast [Singulair] 10 mg PO DAILY 10/29/21 [History] Acetaminophen [Tylenol Arthritis] 1,300 mg PO DAILY PRN 11/23/21 [History] Aspirin/Acetaminophen/Caffeine [Excedrin Extra Strength Caplet] 2 tab PO DAILY PRN 11/23/21 [History] Cholecalciferol [Vitamin D3 (25 Mcg = 1000 Iu)] 25 mcg PO HS 11/23/21 [History] Cyanocobalamin (Vitamin B-12) [Vitamin B-12] 1,000 mcg PO HS 11/23/21 [History] Ibuprofen [Motrin Ib] 400 mg PO DAILY PRN 11/23/21 [History] Multivit-Min/Iron/Folic/Lutein [Centrum Silver Women Tablet] 1 tab PO HS 11/23/21 [History] Flecainide [Tambocor] 50 mg PO Q12HR #60 tab 11/26/21 [Rx] Follow up Appointment(s)/Referral(s): Nick Warren MD [STAFF PHYSICIAN] - 12/14/21 9:15 am Evens Campa MD [Primary Care Provider] - 1-2 days (PLEASE CALL TO SCHEDULE AN APPOINTMENT, TO BE SEEN IN NEXT COUPLE DAYS.) Khris Flannery MD [STAFF PHYSICIAN] - 1 Week (OFFICE IS CLOSED ON THURSDAYS. PLEASE CALL IN THE MORNING TO SCHEDULE AN APPOINTMENT TO BE SEEN IN ONE WEEKS TIME.) Patient Instructions/Handouts: *Surgery [facility] - Bronchoscopy Discharge Instructions, A-fib (Atrial Fibrillation) (DC) Activity/Diet/Wound Care/Special Instructions: Follow up with your PCP within 1-2 days of DC. FU with Pulmonology within 1 week of DC. FU with Cardiology within 1 week of DC. Take all medications as advised. Come back to the ED for worsening chest pain, shortness of breath, palpitations, lightheadedness. Discharge Disposition: HOME SELF-CARE
[2021-11-27 13:27] LABS: Pneumocystis jirovecii by DFA Negative (Negative)
== END 2021-11-26 11:40 | disposition home or self-care (01) | DRG 309 ==
LOC: EC 23:10 → 3SCARD 11-23 01:09
PROVIDERS: ADMIT Internal Medicine; ATTEND Internal Medicine
PROC: 0B9G8ZX Drainage of Left Upper Lung Lobe, Via Natural or Artificial Opening Endoscopic, Diagnostic (ICD-10-PCS; principal; 2021-11-25 08:05)
PROC: 0BDG8ZX Extraction of Left Upper Lung Lobe, Via Natural or Artificial Opening Endoscopic, Diagnostic (ICD-10-PCS; 2021-11-25 08:05)
DX: I48.0 Paroxysmal atrial fibrillation (principal); C34.12 Malignant neoplasm of upper lobe, left bronchus or lung; E44.0 Moderate protein-calorie malnutrition; Z68.1 Body mass index [BMI] 19.9 or less, adult; J43.9 Emphysema, unspecified; F32.A Depression, unspecified; I10 Essential (primary) hypertension; I65.29 Occlusion and stenosis of unspecified carotid artery; J38.01 Paralysis of vocal cords and larynx, unilateral; I95.9 Hypotension, unspecified; K21.9 Gastro-esophageal reflux disease without esophagitis; F17.210 Nicotine dependence, cigarettes, uncomplicated; G47.33 Obstructive sleep apnea (adult) (pediatric); G89.29 Other chronic pain; M54.2 Cervicalgia; R09.02 Hypoxemia; R53.1 Weakness; Z79.899 Other long term (current) drug therapy; Z79.51 Long term (current) use of inhaled steroids; Z88.0 Allergy status to penicillin; Z98.1 Arthrodesis status
CPT/HCPCS: 31623; 31624; 31625; 36415; 71045; 71046; 71260; 80053; 83735; 83880; 84443; 84484; 85025; 85379; 85610; 85730; 87070; 87102; 87116; 87205; 87206; 87252; 87281; 87496; 87498; 87502; 87529; 87634; 87798; 88104; 88108; 88305; 93005; 93306; 94640; 94760; 96365; 96366; 96367; 96368; 99291

== ENCOUNTER → 2023-04-09 | Outpatient (CLI) | payer MEDICARE ==
--- NOTE | 2023-04-09 19:24 | MR ---
EXAMINATION TYPE: MR lumbar spine wo con DATE OF EXAM: 04/09/2023 10:03 AM CLINICAL INDICATION:Female, 62 years old with history of R20.2 PARESTHESIA OF SKIN; PHH, Low back eduin n, numbness in legs, feet, and hands for about 6 months COMPARISON: 02/15/2017 TECHNIQUE: Multi planar, multi sequence imaging was performed utilizing: T1-weighted, T2-weighted, a nd turbo inversion recovery imaging of the lumbar spine. IV Contrast: cc . (None if empty) FINDINGS: Alignment: The lumbar vertebral bodies have preserved heights with grade 1 anterolisthesis of L3 on L 4. Cord: The conus medullaris and the distal spinal cord appear unremarkable with regards to their signa l intensity and morphology. Bones/Discs: Mild degeneration changes throughout the spine with osteophyte formation and facet joint arthropathy. Intervertebral disc signal is maintained. T12-L1: No evidence of significant spinal canal stenosis or neural foraminal stenosis. L1-L2: No evidence of significant spinal canal stenosis or neural foraminal stenosis. L2-L3: Disc bulge and facet joint arthropathy result in mild spinal canal and moderate left and mild right. Bilateral neural foraminal stenosis. L3-L4: Disc uncovering from grade 1 anterolisthesis and facet joint arthropathy with mild spinal mehdi l stenosis and mild to moderate ld bilateral neural foraminal stenosis. L4-L5: Disc bulge and facet joint arthropathy result in mild spinal canal and mild to moderate bilate ral neural foraminal stenosis. L5-S1: The disc is rounded posterior morphology without significant spinal canal stenosis. Facet join t arthropathy with mild bilateral neural foraminal stenosis. No significant spinal canal or neural foraminal stenosis in the remainder of the visualized levels. Other findings: None. IMPRESSION: Overall similar findings in 2018 1. No definitive evidence of disc herniation or significant spinal canal stenosis. 2. Multilevel disc degeneration with associated osteoarthritic changes with moderate left L2-L3 neur al foraminal stenosis. 3. Grade 1 anterolisthesis of L3 on L4 with mild to moderate bilateral neural foraminal stenosis.
== END | disposition home or self-care (01) ==
LOC: RADMRIMAIN 09:19
PROVIDERS: ATTEND Family Medicine
DX: M43.16 Spondylolisthesis, lumbar region (principal); M48.061 Spinal stenosis, lumbar region without neurogenic claudication; M51.36 Other intervertebral disc degeneration, lumbar region
CPT/HCPCS: 72148

== ENCOUNTER → 2024-02-01 | Outpatient (CLI) | payer MEDICARE ==
--- NOTE | 2024-02-01 12:41 | XR ---
EXAMINATION TYPE: XR lumbar spine 2 or 3V DATE OF EXAM: 02/01/2024 12:31 PM COMPARISON: 07/06/2015 CLINICAL INDICATION: Female, 63 years old with history of FALL; pain TECHNIQUE: XR lumbar spine 2 or 3V - Frontal, lateral and coned in L5-S1 lateral views of the spine. FINDINGS: No evidence of any acute osseous pathology. No evidence of loss of vertebral body height i s seen. There is mild scoliotic alignment with grade 1 anterolisthesis of L3 on L4. Scattered disc sp say narrowing. Multilevel marginal osteophyte formation throughout the visualized spine. There is fac et joint arthropathy throughout the spine. Scattered at least mild neural foraminal stenosis. Arthros is course of the arterial vasculature. Right upper quadrant course significance. IMPRESSION: 1. No acute fracture. 2. Moderate multilevel disc degeneration. 3. Grade 1 anterolisthesis of L3 on L4. [facility], , 02/01/2024 12:38 PM
--- NOTE | 2024-02-01 13:10 | XR ---
EXAMINATION TYPE: XR Hip Complete LT DATE OF EXAM: 02/01/2024 12:31 PM COMPARISON: 08/18/2010. CLINICAL INDICATION: Female, 63 years old with history of HIP INJURY, FALL; PHH, pain TECHNIQUE: XR Hip Complete LT; Frontal and lateral views FINDINGS/IMPRESSION: Cortical irregularity along the femoral neck on one view consider further evaluation with CT to rule out underlying fracture. Not seen on prior in 2010. [facility], , 02/01/2024 1:08 PM
== END | disposition home or self-care (01) ==
LOC: RADXRMAIN 11:53
PROVIDERS: ATTEND Family Medicine
DX: M51.360 Other intervertebral disc degeneration, lumbar region with discogenic back pain only (principal); M43.16 Spondylolisthesis, lumbar region; M25.552 Pain in left hip
CPT/HCPCS: 72100; 73502

== ENCOUNTER 2024-02-02 01:15 | Inpatient (IN) | payer MEDICARE ==
[2024-02-02] MEDS: IPRATROPIUM-ALBUTEROL 3 ML NEB INHALATION STA (01:30)
[2024-02-02] MEDS: MAGNESIUM SULFATE-D5W PMX 1 GM in DEXTROSE/WATER 1 100ML.BAG IVPB STA (01:48)
[2024-02-02] MEDS: SODIUM CHLORIDE 0.9% 1,000 ML IV STA (01:48)
[2024-02-02] MEDS: methylPREDNISolone SOD SUCCI 125 MG/2 ML VIAL IV STA (01:49)
[2024-02-02 02:20] LABS: Basophils % (A) 0 %; Eosinophils % (A) 0 %; HGB 12.6 gm/dL (11.4-16.0); Lymphocytes # (A) 0.3 k/uL (1.0-4.8); Lymphocytes % (A) 2 %; MCH 31.6 pg (25.0-35.0); MCHC 32.4 g/dL (31.0-37.0); MCV 97.6 fL (80.0-100.0); Mean Platelet Volume 7.6; Monocytes # (A) 0.4 k/uL (0-1.0); Monocytes % (A) 4 %; Neutrophils # (A) 11.4 k/uL (1.3-7.7); Neutrophils % (A) 94 %; Platelet Count 154 k/uL (150-450); RDW 13.8 % (11.5-15.5); WBC 12.2 k/uL (3.8-10.6)
[2024-02-02 02:24] LABS: Partial Thromboplastin Time 24.8 sec (22.0-30.0); Prothrombin Time 11.3 sec (10.0-12.5)
--- NOTE | 2024-02-02 02:24 | ED ---
General Adult HPI - General Chief complaint: Shortness of Breath Stated complaint: [place] Time Seen by Provider: 02/02/24 01:15 Source: patient, EMS, RN notes reviewed, old records reviewed Mode of arrival: EMS - History of Present Illness Initial comments: Patient is a 63-year-old female who presents emergency department complaining of shortness of breath. Has a history of COPD. Is on baseline 2 L nasal cannula oxygen. Has been having some progressive shortness of breath with somewhat worsening productive cough over the last few days. Worse this evening. Normal ly does have a productive cough. Denies any chest pain. Denies any worsening shortness of breath denies any fevers, chills. Denies any known sick contacts. Was given a DuoNeb en route to the hospital. Presents for further evaluation. Apparently was hypoxic to 89% on room air in her house with increased work of breathing. Patient does have a history she states of atrial fibrillation and is on flecainide but is uncertain if she takes any blood thinning medications.Patient's fall occurred on January 30. Was seen by PCP and x-rays obtained on the . Is complaining of left hip pain since then. - Related Data Allergies Allergy/AdvReac Type Severity Reaction Status Date / Time Penicillins Allergy Unknown Verified 02/02/24 06:51 Childhood Review of Systems ROS Statement: Those systems with pertinent positive or pertinent negative responses have been documented in the HPI. Review of Systems: CONST: Denies fever EYES: Denies blurry vision ENT: Denies nasal congestion C/V: Denies Chest pain RESP: Endorses shortness of breath GI: Denies abdominal pain : Denies dysuria SKIN: Denies rash. MSK: Denies joint pain. NEURO: Denies headache ROS Other: All systems not noted in ROS Statement are negative. Past Medical History Past Medical History: COPD, GERD/Reflux, Sleep Apnea/CPAP/BIPAP Additional Past Medical History / Comment(s): Unexplained weight loss of 40 lbs. frequent vomiting. Emphysema, back pain, uses CPAP, hypotension. History of Any Multi-Drug Resistant Organisms: None Reported Past Surgical History: Cholecystectomy, Hysterectomy, Orthopedic Surgery, Tonsillectomy Additional Past Surgical History / Comment(s): Right knee arthroscopy, colonoscopy with benign polypectomy X1, NECK SURGERY X4, PAIN CLINIC PROCEDURES. Past Anesthesia/Blood Transfusion Reactions: No Reported Reaction Past Psychological History: Anxiety, Depression Smoking Status: Current every day smoker Past Alcohol Use History: Rare Past Drug Use History: Marijuana - Past Family History Father Family Medical History: No Reported History Mother Family Medical History: Cancer Additional Family Medical History / Comment(s): Breast cancer. General Exam - General Exam Comments Initial Comments: General: Appears in moderate respiratory distress with increased work of breathing HEAD: Normal with no signs of head trauma. EYES: PERRLA, EOMI, conjunctiva normal, no discharge. ENT: Hearing grossly intact, normal oropharynx. RESPIRATORY: Tight breath sounds bilaterally with end expiratory wheezing. Increased work of breathing. No significant hypoxia on breathing treatment currently. C/V: Tachycardic. S1 and S2 auscultated, no edema, peripheral pulses 2+ and intact throughout ABD: Abd is soft, nontender, nondistended EXT: Reduced range of motion of the left lower extremity as well as tenderness to palpation of the left hip secondary to fall 2 days ago. SKIN: No rashes or lesions observed on exposed skin. NEURO: Alert and oriented x 4. Course Vital Signs 02/02/24 02/02/24 02/02/24 01:17 01:20 01:27 Temperature 98.0 F Pulse Rate 117 H Respiratory 28 H 28 H Rate Blood Pressure 116/81 O2 Sat by Pulse 99 Oximetry Fraction of 40 Inspired Oxygen (FIO2) 02/02/24 02/02/24 02/02/24 01:31 01:43 03:08 Temperature Pulse Rate 112 H 109 H 91 Respiratory 20 Rate Blood Pressure 98/61 O2 Sat by Pulse 100 Oximetry Fraction of Inspired Oxygen (FIO2) 02/02/24 02/02/24 02/02/24 05:00 06:20 06:34 Temperature Pulse Rate 87 82 Respiratory 20 18 Rate Blood Pressure O2 Sat by Pulse 100 99 Oximetry Fraction of 40 Inspired Oxygen (FIO2) 02/02/24 06:52 Temperature Pulse Rate 85 Respiratory 16 Rate Blood Pressure 98/49 O2 Sat by Pulse 98 Oximetry Fraction of Inspired Oxygen (FIO2) Medical Decision Making - Medical Decision Making Was pt. sent in by a medical professional or institution ([facility], [facility], urgent care, hospital, or [facility]...) When possible be specific @ -No Did you speak to anyone other than the patient for history (EMS, parent, family, police, friend...)? What history was obtained from this source @ -No Did you review nursing and triage notes (agree or disagree)? Why? @ -I reviewed and agree with nursing and triage notes Were old charts reviewed (outside hosp., previous admission, EMS record, old EKG, old radiological studies, urgent care reports/EKG's, [facility] records)? Report findings @ -Old charts reviewed confirming patient has a history of COPD on 2 L nasal cannula oxygen Differential Diagnosis (chest pain, altered mental status, abdominal pain women, abdominal pain men, vaginal bleeding, weakness, fever, dyspnea, syncope, headache, dizziness, GI bleed, back pain, seizure, CVA, palpatations, mental health, musculoskeletal)? @ -Differential Dyspnea: Coronary syndrome, arrhythmia, tamponade, asthma, COPD, pulmonary embolism, pneumonia, pneumothorax, pulmonary effusion, anaphylaxis, diabetic ketoacidosis, flailed chest, pulmonary contusion, diaphragmatic rupture, anemia, neuromuscular, this is not meant to be an all-inclusive list. EKG interpreted by me (3pts min.). @ -As above X-rays interpreted by me (1pt min.). @ -Chest x-ray reveals a left upper lobe pneumonia And cannot rule out lung mass CT interpreted by me (1pt min.). @ -CT Pelvis reveals no evidence of acute fracture or injury. U/S interpreted by me (1pt. min.). @ -None done What testing was considered but not performed or refused? (CT, X-rays, U/S, labs)? Why? @ -None What meds were considered but not given or refused? Why? @ -None Did you discuss the management of the patient with other professionals (professionals i.e. , PA, [employer], lab, RT, psych nurse, social science analyst, bead preparer, teacher, home school liaison officer, case management specialist)? Give summary @ -No Was smoking cessation discussed for >3mins.? @ -No Was critical care preformed (if so, how long)? @ -Yes, 40 minutes Were there social determinants of health that impacted care today? How? (Homelessness, low income, unemployed, alcoholism, drug addiction, transportation, low edu. Level, literacy, decrease access to med. care, [facility], rehab)? @ -No Was there de-escalation of care discussed even if they declined (Discuss DNR or withdrawal of care, Hospice)? DNR status @ -No What co-morbidities impacted this encounter? (DM, HTN, Smoking, COPD, CAD, Cancer, CVA, ARF, Chemo, Hep., AIDS, mental health diagnosis, sleep apnea, morbid obesity)? @ -COPD, chronic hypoxic respiratory failure Was patient admitted / discharged? Hospital course, mention meds given and route, prescriptions, significant lab abnormalities, going to OR and other pertinent info. @ -Based on the patient's presentation and physical exam, presents emergency department with acute on chronic hypoxic respiratory failure with what appears to be a COPD exacerbation. Due to increased work of breathing, patient is placed on BiPAP. Will continue with IV steroids, as well as breathing treatments. Patient was given IV fluids for insensible losses as well as IV magnesium. Patient agreement this plan. Patient is feeling improved on BiPAP. Patient did inform me that she has a left hip pain following a fall a few days ago. Was seen by PCP and x-rays obtained. Unknown of the results. I followed up on these x-rays and the results do state that she may have an injury to the left femur. They recommend CT imaging for better detail. This was ordered for the patient. EKG shows no signs of acute ischemia.Chest x-ray reveals left upper lobe pneumonia and cannot rule out lung mass. Laboratory studies remarkable for mild leukocytosis of 12.2. Remainder the workup unremarkable. Viral swabs negative. VBG within acceptable limits. On reevaluation, patient is resting comfortably on BiPAP. Work of breathing improved. Vital signs within acceptable limits. No hypoxia. Discussed results with patient. Patient will be started on IV antibiotics, Rocephin and azithromycin. Given additional IV fluids. We will obtain CT of the hip as soon as possible, as CT scanner is down but patient will be admitted to the hospital. Pulmonology consulted. Will continue with IV steroids as well as breathing treatments and the antibiotics. I spoke with the admitting provider, [facility] Dr. Calloway who accepted the admission. Orthopedics empirically consulted as well for the left hip injury with pending CT scan. Undiagnosed new problem with uncertain prognosis? @ -No Drug Therapy requiring intensive monitoring for toxicity (Heparin, Nitro, Insulin, Cardizem)? @ -No Were any procedures done? @ -No Diagnosis/symptom? @ -Acute on chronic hypoxic respiratory failure requiring BiPAP likely secondary to COPD exacerbation and pneumonia, injury of left hip Acute, or Chronic, or Acute on Chronic? @ -Acute Uncomplicated (without systemic symptoms) or Complicated (systemic symptoms)? @ -Complicated Side effects of treatment? @ -None Exacerbation, Progression, or Severe Exacerbation] @ -No Poses a threat to life or bodily function? @ -Yes - Lab Data Result diagrams: 02/02/24 01:02/02/24: Lab Results 02/02/24 02/02/24 02/02/24 Range/Units :14 03:14 03: WBC 12.2 H (3.8-10.6) k/uL RBC 4.00 (3.80-5.40) m/uL Hgb 12.6 (11.4-16.0) gm/dL Hct 39.0 (34.0-46.0) % MCV 97.6 (80.0-100.0) fL MCH 31.6 (25.0-35.0) pg MCHC 32.4 (31.0-37.0) g/dL RDW 13.8 (11.5-15.5) % Plt Count 154 (150-450) k/uL MPV 7.6 Neutrophils % 94 % Lymphocytes % 2 % Monocytes % 4 % Eosinophils % 0 % Basophils % 0 % Neutrophils # 11.4 H (1.3-7.7) k/uL Lymphocytes # 0.3 L (1.0-4.8) k/uL Monocytes # 0.4 (0-1.0) k/uL Eosinophils # 0.0 (0-0.7) k/uL Basophils # 0.0 (0-0.2) k/uL PT 11.3 (10.0-12.5) sec INR 1.0 (<1.2) APTT 24.8 (22.0-30.0) sec VBG pH (7.31-7.41) VBG pCO2 (37-51) mmHg VBG HCO3 (24-28) mmol/L Sodium 134 L (137-145) mmol/L Potassium 5.2 H (3.5-5.1) mmol/L Chloride 104 (98-107) mmol/L Carbon Dioxide 26 (22-30) mmol/L Anion Gap 4 mmol/L BUN 11 (7-17) mg/dL Creatinine 0.53 (0.52-1.04) mg/dL Est GFR (CKD-EPI)AfAm >90 (>60 ml/min/1.73 sqM) Est GFR (CKD-EPI)NonAf >90 (>60 ml/min/1.73 sqM) Glucose 135 H (74-99) mg/dL Plasma Lactic Acid Jama[place] (0.7-2.0) mmol/L Calcium 9.2 (8.4-10.2) mg/dL Magnesium 2.2 (1.6-2.3) mg/dL Total Bilirubin 1.0 (0.2-1.3) mg/dL AST 64 H (14-36) U/L ALT 40 H (4-34) U/L Alkaline Phosphatase 74 (38-126) U/L Total Protein 6.8 (6.3-8.2) g/dL Albumin 4.4 (3.5-5.0) g/dL Influenza Type A (PCR) (Not Detectd) Influenza Type B (PCR) (Not Detectd) RSV (PCR) (Not Detectd) SARS-CoV-2 (PCR) (Not Detectd) 02/02/24 02/02/24 02/02/24 Range/Units 01:29 01:29 01:50 WBC (3.8-10.6) k/uL RBC (3.80-5.40) m/uL Hgb (11.4-16.0) gm/dL Hct (34.0-46.0) % MCV (80.0-100.0) fL MCH (25.0-35.0) pg MCHC (31.0-37.0) g/dL RDW (11.5-15.5) % Plt Count (150-450) k/uL MPV Neutrophils % % Lymphocytes % % Monocytes % % Eosinophils % % Basophils % % Neutrophils # (1.3-7.7) k/uL Lymphocytes # (1.0-4.8) k/uL Monocytes # (0-1.0) k/uL Eosinophils # (0-0.7) k/uL Basophils # (0-0.2) k/uL PT (10.0-12.5) sec INR (<1.2) APTT (22.0-30.0) sec VBG pH 7.42 H (7.31-7.41) VBG pCO2 41 (37-51) mmHg VBG HCO3 27 (24-28) mmol/L Sodium (137-145) mmol/L Potassium (3.5-5.1) mmol/L Chloride (98-107) mmol/L Carbon Dioxide (22-30) mmol/L Anion Gap mmol/L BUN (7-17) mg/dL Creatinine (0.52-1.04) mg/dL Est GFR (CKD-EPI)AfAm (>60 ml/min/1.73 sqM) Est GFR (CKD-EPI)NonAf (>60 ml/min/1.73 sqM) Glucose (74-99) mg/dL Plasma Lactic Acid Jamaal 1.5 (0.7-2.0) mmol/L Calcium (8.4-10.2) mg/dL Magnesium (1.6-2.3) mg/dL Total Bilirubin (0.2-1.3) mg/dL AST (14-36) U/L ALT (4-34) U/L Alkaline Phosphatase (38-126) U/L Total Protein (6.3-8.2) g/dL Albumin (3.5-5.0) g/dL Influenza Type A (PCR) Not Detected (Not Detectd) Influenza Type B (PCR) Not Detected (Not Detectd) RSV (PCR) Not Detected (Not Detectd) SARS-CoV-2 (PCR) Not Detected (Not Detectd) - EKG Data -: EKG Interpreted by Me EKG Comments: 12-lead Electrocardiogram Interpretation Note EKG was reviewed and interpreted by myself. 12-lead ECG performed at 0129 is interpreted by me as revealing normal sinus rhythm at a rate of 113 beats per minute. [place] is normal. [place] interval is 170 ms, QRS durations 102 ms, QTc is 406 ms.. There were no ST or T wave abnormalities to suggest myocardial ischemia or injury. R wave progression across the precordium was satisfactory. By my interpretation this EKG is non-diagnostic for acute ischemia. Critical Care Time Critical Care Time: Yes Total Critical Care Time: 40 Disposition Clinical Impression: Acute on chronic hypoxic respiratory failure, BiPAP (biphasic positive airway pressure) dependence, Pneumonia, COPD (chronic obstructive pulmonary disease), Injury of left hip Disposition: ADMITTED IP TO THIS HOSP Condition: Serious Time of Disposition: 04:00
[2024-02-02 02:40] LABS: VBG PH 7.42 (7.31-7.41)
[2024-02-02 02:52] LABS: ALT 40 U/L (4-34); African American GFR (CKD) >90 (>60 ml/min/1.73 sqM); Anion Gap 4 mmol/L; Blood Urea Nitrogen 11 mg/dL (7-17); Calcium 9.2 mg/dL (8.4-10.2); Carbon Dioxide 26 mmol/L (22-30); Chloride 104 mmol/L (98-107); Glucose 135 mg/dL (74-99); Non-African American GFR(CKD) >90 (>60 ml/min/1.73 sqM); Sodium 134 mmol/L (137-145)
[2024-02-02 03:01] LABS: Magnesium 2.2 mg/dL (1.6-2.3); Potassium 5.2 mmol/L (3.5-5.1)
[2024-02-02 03:02] LABS: AST 64 U/L (14-36); Albumin 4.4 g/dL (3.5-5.0); Alkaline Phosphatase 74 U/L (38-126); Total Protein 6.8 g/dL (6.3-8.2)
[2024-02-02] MEDS: MORPHINE SULFATE 2 MG/ML SYRINGE IVP STA (03:10)
[2024-02-02] MEDS ORDERED: PNEUMONIA PROTOCOL UTILIZED 1 EACH MISC PO PRN (03:18)
[2024-02-02] MEDS: LACTATED RINGERS 1,000 ML BAG IV STA (03:55)
[2024-02-02] MEDS ORDERED: NALOXONE 0.4 MG/ML 1 ML VIAL IV PRN (04:29)
[2024-02-02] MEDS ORDERED: ACETAMINOPHEN TAB 325 MG TAB PO PRN (04:29)
[2024-02-02] MEDS: LACTATED RINGERS 1,000 ML IV ONE (04:30)
[2024-02-02] MEDS: AZITHROMYCIN 500 MG in SODIUM CHLORIDE 0.9% 250 ML IVPB STA (04:51)
--- NOTE | 2024-02-02 05:10 | P.HPIM ---
History of Present Illness H&P Date: 02/02/24 Patient is a 63-year-old female with a PMH of A-fib (not on anticoagulation, unknown reason), COPD with chronic hypoxic respiratory failure on 2 L oxygen nasal cannula continuously at home who presents to the emergency room for shortness of breath and cough. Patient reports that her symptoms have been gradually worsening over the past 2 days. She also reports having a fall 2 days ago with left hip pain for which her PCP ordered a hip x-ray. The patient's partner had activated EMS who upon arrival found the patient to have an 89% SpO2 on 2 L nasal cannula oxygen with some respiratory distress. At time of interview, patient reports left hip pain but reports some improvement in her shortness of breath since being started on BiPAP. Denied experiencing chest discomfort fever, chills, nausea, vomiting, abdominal pain, diarrhea. EKG in the emergency room revealed sinus tachycardia at [address]/T wave changes noted as reviewed by me with QTc 406 ms. Laboratory evaluation was remarkable for leukocytosis of 12.2 with potassium 5.2 (hemolyzed), with AST 64 and ALT 40 with respiratory viral panel negative. ED documentation reviewed and case discussed with ED provider. Review of systems: Pertinent positives and negatives as discussed in HPI, a complete review of systems was performed and all other systems are negative. Physical examination: Vital signs reviewed General: On BiPAP, non toxic, no distress, appears at stated age Derm: no unusual rashes/lesions, warm Head: atraumatic, normocephalic, symmetric Eyes: EOMI, no lid lag, anicteric sclera, pupils equal round reactive to light ENT: Nose and ears atraumatic Neck: No cervical lymphadenopathy, trachea midline, supple Mouth: no lip lesion, mucus membranes moist Cardiovascular: S1S2 reg, no murmur, positive dorsalis pedis pulse bilateral, no edema Lungs: Scattered bilateral coarse breath sounds with some wheezing, no accessory muscle use Abdominal: soft, nontender to palpation, no guarding Ext: Left lower extremity proximal strength limited due to left hip pain, muscle strength 5 out of 5 in all other extremities grossly, no gross muscle atrophy, no contractures, Neuro: CN II-XI grossly intact, no gross focal neuro deficits Psych: Alert, oriented, appropriate affect Assessment: Acute hypoxic respiratory failure secondary to acute COPD exacerbation versus pneumonia Left hip pain after fall (hip x-ray from 01/31 showing cortical irregularity along the femoral neck with CT of hip recommended to rule out fracture) Chronic conditions: A-fib, not on anticoagulation Imaging: EKG in the emergency room revealed sinus tachycardia at [address]/T wave changes noted as reviewed by me with QTc 406 ms. Data Review: Laboratory evaluation was remarkable for leukocytosis of 12.2 with potassium 5.2 (hemolyzed), with AST 64 and ALT 40 with respiratory viral panel negative. Plan: C/w Bipap C/w Solumedrol 40 mg IV q12h Continue Duonebs RTC and prn Continue Ceftriaxone and azithromycin Pulmonary consulted Follow-up CT head with orthopedic surgery consulted Continue LR at 100 cc/h DVT prophylaxis: Heparin subcu The patient is admitted with an anticipated greater than 2 midnight stay for evaluation of COPD exacerbation CODE STATUS: Full Code Discussed with: Patient Anticipated discharge place: Home Past Medical History Past Medical History: COPD, GERD/Reflux, Sleep Apnea/CPAP/BIPAP Additional Past Medical History / Comment(s): Unexplained weight loss of 40 lbs. frequent vomiting. Emphysema, back pain, uses CPAP, hypotension. History of Any Multi-Drug Resistant Organisms: None Reported Past Surgical History: Cholecystectomy, Hysterectomy, Orthopedic Surgery, Tons illectomy Additional Past Surgical History / Comment(s): Right knee arthroscopy, colonoscopy with benign polypectomy X1, NECK SURGERY X4, PAIN CLINIC PROCEDURES. Past Anesthesia/Blood Transfusion Reactions: No Reported Reaction Past Psychological History: Anxiety, Depression Smoking Status: Current every day smoker Past Alcohol Use History: Rare Past Drug Use History: Marijuana - Past Family History Father Family Medical History: No Reported History Mother Family Medical History: Cancer Additional Family Medical History / Comment(s): Breast cancer. Medications and Allergies Home Medications Medication Instructions Recorded Confirmed Type ALPRAZolam [Xanax] 0.25 mg PO BID 05/02/15 11/23/21 History Sertraline [Zoloft] 100 mg PO BID 05/02/15 11/23/21 History Albuterol Nebulized [Ventolin 2.5 mg INHALATION RT-QID PRN 09/24/15 11/23/21 History Nebulized] Albuterol Inhaler [Ventolin Hfa 2 puff INHALATION RT-QID PRN 12/08/20 11/23/21 History Inhaler] HYDROcodone/APAP 10-325MG [[place] 1 tab PO TID 12/08/20 11/23/21 History 10-325] Omeprazole 20 mg PO BID 12/08/20 11/23/21 History Zinc 50 mg PO HS 12/08/20 11/23/21 History Budesonide/Glycopyr/Formoterol 1 puff INHALATION RT-DAILY 01/19/21 11/23/21 History [Breztri Aerosphere Inhaler] methocarbamoL [Robaxin-750] 750 mg PO TID 01/19/21 11/23/21 History Fluticasone/Umeclidin/Vilanter 1 puff INHALATION RT-DAILY 04/23/21 11/23/21 History [Trelegy Ellipta 100-62.5-25] Fluticasone Nasal [place] [Flonase 1 spray EA NOSTRIL DAILY 10/29/21 11/23/21 History Nasal [place]] Magnesium Oxide [Magox 400] 400 mg PO HS 10/29/21 11/23/21 History Montelukast [Singulair] 10 mg PO DAILY 10/29/21 11/23/21 History Acetaminophen [Tylenol Arthritis] 1,300 mg PO DAILY PRN 11/23/21 11/23/21 Hi story Aspirin/Acetaminophen/Caffeine 2 tab PO DAILY PRN 11/23/21 11/23/21 History [Excedrin Extra Strength Caplet] Cholecalciferol [Vitamin D3 (25 25 mcg PO HS 11/23/21 11/23/21 History Mcg = 1000 Iu)] Cyanocobalamin (Vitamin B-12) 1,000 mcg PO HS 11/23/21 11/23/21 History [Vitamin B-12] Ibuprofen [Motrin Ib] 400 mg PO DAILY PRN 11/23/21 11/23/21 History Multivit-Min/Iron/Folic/Lutein 1 tab PO HS 11/23/21 11/23/21 History [Centrum Silver Women Tablet] Flecainide [Tambocor] 50 mg PO Q12HR #60 tab 11/26/21 Rx Allergies Allergy/AdvReac Type Severity Reaction Status Date / Time Penicillins Allergy Unknown Verified 11/23/21 08:12 Childhood Physical Exam Vitals: Vital Signs Temp Pulse Resp BP Pulse Ox FiO2 02/02/24 03:08 91 20 98/61 100 02/02/24 01:43 109 H 02/02/24 01:31 112 H 02/02/24 01:27 40 02/02/24 01:17 98.0 F 117 H 28 H 116/81 99 Intake and Output 02/01/24 02/01/24 02/02/24 14:59 22:59 06:59 Other: Weight 51.256 kg Results CBC & Chem 7: 02/02/24 01:29 02/02/24 01:29 Labs: Abnormal Lab Results - Last 24 Hours (Table) 02/02/24 02/02/24 02/02/24 Range/Units 01:29 01:29 01:50 WBC 12.2 H (3.8-10.6) k/uL Neutrophils # 11.4 H (1.3-7.7) k/uL Lymphocytes # 0.3 L (1.0-4.8) k/uL VBG pH 7.42 H (7.31-7.41) Sodium 134 L (137-145) mmol/L Potassium 5.2 H (3.5-5.1) mmol/L Glucose 135 H (74-99) mg/dL AST 64 H (14-36) U/L ALT 40 H (4-34) U/L
[2024-02-02] MEDS ORDERED: IPRATROPIUM-ALBUTEROL 3 ML NEB INHALATION PRN (05:11)
[2024-02-02] MEDS: MORPHINE SULFATE 2 MG/ML SYRINGE IV PRN (05:18)
--- NOTE | 2024-02-02 05:33 | XR ---
EXAMINATION TYPE: XR chest 1V DATE OF EXAM: 02/02/2024 COMPARISON: Chest x-ray November 25, 2021 and older studies. CLINICAL INDICATION: Female, 63 years old with history of difficulty breathing; TECHNIQUE: 2 frontal views of the chest are obtained. FINDINGS: There is left suprahilar mass redemonstrated with new opacified left lung apex. There is n o left-sided volume loss with mediastinal shift to the left. Right lung remains clear. Cardiac silhou ette size is stable and within normal limits. Background Chronic emphysematous change is redemonstrated. Long segment surgical change to the cervical spine is again seen. IMPRESSION: Chronic emphysematous change with left suprahilar mass/neoplasm redemonstrated. There is new left apical opacification consistent with obstructive atelectasis as there is left-sided volume loss present. [facility], , 02/02/2024 5:30 AM
--- NOTE | 2024-02-02 05:57 | CT ---
EXAMINATION TYPE: CT hip LT wo con DATE OF EXAM: 02/02/2024 COMPARISON: Left hip x-ray one day earlier. CLINICAL INDICATION: Female, 63 years old with history of fall, pain; PHH, CT DLP: 350 5. mGycm Automated exposure control for dose reduction was used. FINDINGS: No acute fracture or dislocation in the left hip with particular attention to the femoral neck region at the area of concern on recent plain film. Mild to moderate narrowing and acetabular spurring in t he left hip is seen. Muscle bulk is maintained. No groin hernia or adenopathy is seen. No abnormal bowel dilatation. No free fluid in the pelvis. Uterus is suspected surgically absent. Mod erate calcified plaque is seen in the visualized distal abdominal aorta. IMPRESSION: NO ACUTE FRACTURE OR DISLOCATION IN THE LEFT HIP. [facility], , 02/02/2024 5:54 AM
[2024-02-02] MEDS: IPRATROPIUM-ALBUTEROL 3 ML NEB INHALATION SCH (07:32)
[2024-02-02] MEDS: HEPARIN SODIUM,PORCINE 5,000 UNIT/ML 1 ML VIAL SQ SCH (08:11)
[2024-02-02] MEDS: methylPREDNISolone SOD SUCCI 40 MG/ML 1 ML VIAL IV SCH (08:11)
[2024-02-02] MEDS: APIXABAN 5 MG TAB PO SCH (10:05)
[2024-02-02] MEDS: FLECAINIDE 50 MG TAB PO SCH ×2 (10:06)
[2024-02-02] MEDS: DULoxetine HCL 60 MG CAPSULE.DR PO SCH (10:06)
[2024-02-02] MEDS: METOPROLOL SUCCINATE (ER) 50 MG TAB.ER.24H PO SCH (10:06)
[2024-02-02] MEDS: ATORVASTATIN 20 MG TAB PO SCH (10:06)
[2024-02-02] MEDS: PANTOPRAZOLE 40 MG TABLET PO SCH (10:06)
[2024-02-02] MEDS: SERTRALINE 100 MG TAB PO SCH (10:06)
--- NOTE | 2024-02-02 10:42 | P.CNOR ---
History of Present Illness - HPI Consult date: 02/02/24 Requesting physician: Sly Field Consult reason: other (Left hip pain) History of present illness: History of Presenting Illness Patient is a pleasant 63-year-old female who presented to the ER for shortness of breath and productive cough. Patient does have a past medical history of A- fib (not on anticoagulation, unknown reason), COPD with chronic hypoxic respiratory failure on 2 L oxygen nasal cannula continuously at home. In 2021 patient was diagnosed with lung cancer and is currently in remission, she does report she also had brain radiation. Our services have been consulted due to left hip pain. Patient states she did have a fall on 02/01/24 after attempting to ambulate to the restroom and fell, landing on her left side. Patient's spouse was able to get her up and into the vehicle to be evaluated at her PCP. Spouse states the the xray was negative. Patient is normally ambulatory with a walker. Spouse states that she is not very active at home due to her medical issues. Patient states that she has had multiple falls in the past 5 months. She denies any radicular symptoms or numbness/tingling into her bilateral lower extremities. CT of the left hip taken 02/02/24 demonstrates no acute fracture or dislocation. Review of Systems Pertinent positives and negatives as discussed in HPI, a complete review of s ystems was performed and all other systems are negative. Physical Examination Left lower extremity: Inspection: Negative for any open fractures, ecchymosis, significant er ythema/ulcers. Sensation: Sensation is equal, symmetric, bilaterally intact throughout the upper and lower extremities Palpation: Nontender to palpation throughout bilateral upper and lower extrem ities and throughout spine exam Range of motion: Patient does have full range of motion bilateral upper and right lower extremities on exam. Limited ROM with flexion of the left lower extremity due to pain. Motor: Right: shoulder abduction 5/5, elbow flexors 5/5, wrist dorsiflexors 5/5. finger abductor 5/5, shipfitter 5/5, hip flexor 5/5, knee flexor 5/5, ankle dorsiflexor 5/5, ankle plantarflexion 5/5 and extensor hallucis 5/5. Left: shoulder abduction 5/5, elbow flexors 5/5, wrist dorsiflexors 5/5. finger abductor 5/5, shipfitter 5/5, hip flexor 4/5, knee flexor 5/5, ankle dorsiflexor 5/5, ankle plantarflexion 5/5 and extensor hallucis 5/5. Special tests: Log roll maneuver of the left lower extremity is negative. Straight leg raise of the LLE is positive. Neurovascular: Radial pulse intact, 2+ bilaterally. Cap refill under 3 seconds in digits upper extremities. Assessment Frequent falls Generalized weakness Left hip pain Multiple complex comorbidities Plan At this time we have ordered an MRI of the left hip to rule out any possible fracture. 2. Appreciate medical management 3. Pain management - Continue with IV morphine, Utilize ice therapy 20min every hour as needed. 6. Bedrest at this time, pending results of MRI. 7. Appreciate consult. I reviewed and discussed this case with my attending Dr. Paredes, whom has reviewed this chart and films and is in agreement with assessment and plan of care as outlined above. I have personally seen and examined the patient, performed the documentation and the assessment and plan as written. Number of minutes spent on the visit: 30m. Past Medical History Past Medical History: COPD, GERD/Reflux, Sleep Apnea/CPAP/BIPAP Additional Past Medical History / Comment(s): Unexplained weight loss of 40 lbs. frequent vomiting. Emphysema, back pain, uses CPAP, hypotension. History of Any Multi-Drug Resistant Organisms: None Reported Past Surgical History: Cholecystectomy, Hysterectomy, Orthopedic Surgery, Tonsillectomy Additional Past Surgical History / Comment(s): Right knee arthroscopy, colonoscopy with benign polypectomy X1, NECK SURGERY X4, PAIN CLINIC PROCEDURES. Past Anesthesia/Blood Transfusion Reactions: No Reported Reaction Past Psychological History: Anxiety, Depression Smoking Status: Current every day smoker Past Alcohol Use History: Rare Past Drug Use History: Marijuana - Past Family History Father Family Medical History: No Reported History Mother Family Medical History: Cancer Additional Family Medical History / Comment(s): Breast cancer. Medications and Allergies Home Medications Medication Instructions Recorded Confirmed Type Acetaminophen Tab [Tylenol] 650 mg PO BID PRN 02/02/24 02/02/24 History Albuterol Sulfate [Albuterol 2 puff PO RT-Q6H PRN 02/02/24 02/02/24 History Sulfate Hfa] Apixaban [Eliquis] 2.5 mg PO BID 02/02/24 02/02/24 History Lyixwlq-Lrio-Xrtd [id number] 1 tab PO Q4HR PRN 02/02/24 02/02/24 History [Excedrin] Budesonide/Glycopyr/Formoterol 2 puff INHALATION RT-BID 02/02/24 02/02/24 History [Breztri Aerosphere Inhaler] DULoxetine HCL [Cymbalta] 60 mg PO DAILY 02/02/24 02/02/24 History Flecainide [Tambocor] 50 mg PO HS 02/02/24 02/02/24 History Flecainide [Tambocor] 100 mg PO DAILY 02/02/24 02/02/24 History Gabapentin [Neurontin] 300 mg PO HS 02/02/24 02/02/24 History Ipratropium-Albuterol Nebulize 3 ml INHALATION RT-TID 02/02/24 02/02/24 History [Duoneb 0.5 mg-3 mg/3 ml Soln] Metoprolol Succinate (ER) [Toprol 50 mg PO DAILY 02/02/24 02/02/24 History Xl] Mirtazapine [Remeron] 7.5 mg PO HS 02/02/24 02/02/24 History Omeprazole [PriLOSEC] 20 mg PO BID 02/02/24 02/02/24 History Ondansetron Odt [Zofran Odt] 4 mg PO QID PRN 02/02/24 02/02/24 History Rosuvastatin [Crestor] 10 mg PO DAILY 02/02/24 02/02/24 History Sertraline [Zoloft] 100 mg PO BID 02/02/24 02/02/24 History oxyCODONE HCL [Oxycodone HCl] 10 mg PO TID 02/02/24 02/02/24 History Allergies Allergy/AdvReac Type Severity Reaction Status Date / Time Penicillins Allergy Unknown Verified 02/02/24 06:51 Childhood Results - Labs Labs: Abnormal Lab Results - Last 24 Hours (Table) 02/02/24 02/02/24 02/02/24 Range/Units 01:29 01:29 01:50 WBC 12.2 H (3.8-10.6) k/uL Neutrophils # 11.4 H (1.3-7.7) k/uL Lymphocytes # 0.3 L (1.0-4.8) k/uL VBG pH 7.42 H (7.31-7.41) Sodium 134 L (137-145) mmol/L Potassium 5.2 H (3.5-5.1) mmol/L Glucose 135 H (74-99) mg/dL AST 64 H (14-36) U/L ALT 40 H (4-34) U/L H & H 02/02/24 Range/Units 01:29 Hgb 12.6 (11.4-16.0) gm/dL Hct 39.0 (34.0-46.0) % Coagulation 02/02/24 Range/Units 01: INR 1.0 (<1.2) Result Diagrams: 02/02/24 01:29 02/02/24 01:29
[2024-02-02] MEDS: LORazepam 2 MG/ML INJ IV STA (10:48)
[2024-02-02 10:51] LABS: Appearance,Urine Clear (Clear); Bilirubin,Urine Negative (Negative); Blood,Urine Negative (Negative); Color,Urine Colorless; Glucose,Urine (UA) Negative (Negative); Ketones,Urine Negative (Negative); Leukocyte Esterase,Urine Negative (Negative); Nitrite,Urine Negative (Negative); PH, Urine 6.5 (5.0-8.0); Protein,Urine Negative (Negative); Specific Gravity,Urine 1.012 (1.001-1.035); Urobilinogen,Urine <2.0 mg/dL (<2.0)
[2024-02-02 11:54] LABS: ABG Base Excess 2.6 mmol/L; ABG HCO3 28 mmol/L (21-25); ABG Oxygen Saturation 99.7 % (94-97); ABG PCO2 43 mmHg (35-45); ABG PH 7.41 (7.35-7.45); ABG PO2 170 mmHg (83-108); ABG TCO2 29 mmol/L (19-24); Allen Test Performed? Yes
--- NOTE | 2024-02-02 12:06 | P.PN ---
Subjective Progress Note Date: 02/02/24 Hospital course: Patient is a very pleasant 63-year-old female with a past medical history of atrial fibrillation on anticoagulation with Eliquis, COPD with chronic hypoxic respiratory failure home oxygen dependent on 2 L at all times, obstructive sleep apnea CPAP dependent nightly, hypertension, hyperlipidemia anxiety and depression, and GERD. She presented to the hospital with a chief complaint of worsening shortness of breath and cough. Upon arrival to our facility, patient underwent evaluation in the emergency department. Vital signs upon arrival show blood pressure 116/81, heart rate 117, respiratory rate 28, temp 98.0 F, and SpO2 of 99% on BiPAP with FiO2 of 40%. EKG was completed showing sinus tachycardia at 113 bpm. Chest x-ray completed showing chronic emphysematous changes with left suprahilar mass/neoplasm redemonstrated and new left apical opacification consistent with obstructive atelectasis with left sided volume loss present. Labs completed and reviewed. CBC showing leukocytosis with WBC count of 12.2. BMP reporting mild hyperkalemia with potassium of 5.2 but also reported as a hemolyzed specimen, hyponatremia with sodium of 134, and blood glu cose of 135. Magnesium normal findings at 2.2. Liver profile showing elevated AST of 64 and ALT of 40 otherwise normal findings. Urinalysis negative for infection. Influenza A, influenza B, RSV, and COVID PCR were negative. Patient also reporting pain to Left hip secondary to reported fall at home [address] left hip was completed negative for acute fracture or dislocation. Orthopedic surgery team evaluated and placing order for MRI of left hip without contrast. Patient is weaned off of BiPAP and currently maintaining SpO2 of 94% on 4 L O2. She is admitted under our services with consultation to unhairing machine operator and orthopedic surgery. Physical exam: Patient seen and fully evaluated at bedside this morning. Patient's also at bedside. Patient very anxious and needed to be instructed" on slowing down her breathing twice during examination. Patient reports she panics when she feels as though she cannot breathe but was successfully coached into slowing her breathing pattern and maintaining SpO2 on 4 L. Patient currently reports cough productive of thick yellow sputum and shortness of breath. She also reports severe pain in her left hip. She denies having any chest pain or palpitations or experiencing any numbness/tingling/weakness/swelling in her extremities. Vital signs reviewed and stable. General: Nontoxic, mild distress, appears older than biological age, chronically ill appearing Derm: Skin warm and dry, normal coloration for ethnicity. Head: Atraumatic, normocephalic and symmetric. Eyes: EOM's intact, no lid lag, and anicteric sclera Mouth: no lip lesions, mucus membranes moist Cardiovascular: regular rate and rhythm with normal S1S2, no murmur noted, positive posterior tibial pulses bilaterally, and cap refill < 2 seconds. Lungs: Respirations with increased work of breathing. Lungs coarse with diffuse expiratory wheezes bilaterally. Abdominal: soft, nontender to palpation, no guarding, no appreciable organomegaly Ext: No gross muscle atrophy, no edema, no contractures. Movement and sensation intact however patient with reduced movement of left lower extremity secondary to reports of pain upon bending at hip. Neuro: Speech clear, face symmetrical and CN II-XII grossly intact with no noted focal neuro deficits Psych: Alert and oriented to person, place, time, and situation. Appropriate and pleasant affect. Assessment and Plan of Care: Acute on chronic respiratory failure with hypoxia COPD with exacerbation Lung mass with concerns of obstructive pneumonia vs obstructive atelectasis with reports of left-sided volume loss -Oxygenation to be administered and titrated as needed to maintain SPO2 equal to or greater than 90%. Currently on 4 L O2 via nasal cannula. -Telemetry monitoring. -Continuous Pulse-oximetry -Duonebs scheduled 4 times daily and as needed for SOB and/or wheezing along with Symbicort 160-4.5 mcg inhaler 2 puffs twice daily. -Incentive Spirometry -Steroids: Solu-Medrol 40 mg IVP every 12 hours -Antibiotics: Azithromycin 500 mg daily and Rocephin 2 g daily. -Sputum culture obtained and to be sent to lab for analysis. Follow-up on urine Legionella and blood culture results. Uncontrolled left hip pain status post recent fall at home -CT left hip negative for fracture or dislocation -Orthopedic surgery following ordered MRI Paroxysmal atrial fibrillation Hypertension Hyperlipidemia -Continue anticoagulation with Eliquis 5 mg twice daily, atorvastatin 20 mg daily, flecainide 50 mg nightly and 100 mg daily, and metoprolol 50 mg daily. Anxiety with depression -Continue daily medication regimen with Cymbalta 60 mg daily, Remeron 7.5 mg nightly, and Zoloft to 100 mg twice daily. Chronic neck/back pain Continue home medication regimen with oxycodone 10 mg 3 times daily and gabapentin 300 mg nightly. Data and imaging reviewed: -EKG was completed showing sinus tachycardia at 113 bpm. -Chest x-ray completed showing chronic emphysematous changes with left suprahilar mass/neoplasm redemonstrated and new left apical opacification consistent with obstructive atelectasis with left sided volume loss present. -Labs completed and reviewed. CBC showing leukocytosis with WBC count of 12.2. BMP reporting mild hyperkalemia with potassium of 5.2 but also reported as a hemolyzed specimen, hyponatremia with sodium of 134, and blood glucose of 135. Magnesium normal findings at 2.2. Liver profile showing elevated AST of 64 and ALT of 40 otherwise normal findings. Urinalysis negative for infection. Influenza A, influenza B, RSV, and COVID PCR were negative. -CT left hip was completed negative for acute fracture or dislocation. -Vital signs reviewed. Blood pressure 131/91, heart rate 101, respiratory rate 16, temp 98.2 F, and SpO2 of 97% on 4 L O2 via nasal cannula. CODE STATUS: Full code DVT prophylaxis: Eliquis Anticipated discharge date: Pending clinical course Anticipated discharge place: Home Patient was seen independently by Nurse Pracitioner. This document was prepared using [employer] dictation software. Please allow for errors in clay shop supervisor, while rare they do occur. Bienvenido Borrero NP rendered care for this patient independently, reviewed the findings and plan as documented in the note above and agree with plan. I did not physically speak with or examine the patient on this date. Objective - Vital Signs Vital signs: Vital Signs Temp 98 F 02/02/24 07:26 Pulse 86 02/02/24 07:45 Resp 20 02/02/24 07:30 BP 97/63 02/02/24 07:26 Pulse Ox 97 02/02/24 07:36 FiO2 40 02/02/24 06:34 Intake & Output 02/01/24 02/02/24 02/02/24 18:59 06:59 18:59 Weight 51.256 kg - Labs CBC & Chem 7: 02/02/24 01:29 02/02/24 01:29 Labs: Abnormal Lab Results - Last 24 Hours (Table) 02/02/24 02/02/24 02/02/24 Range/Units 01:29 01:29 01:50 WBC 12.2 H (3.8-10.6) k/uL Neutrophils # 11.4 H (1.3-7.7) k/uL Lymphocytes # 0.3 L (1.0-4.8) k/uL VBG pH 7.42 H (7.31-7.41) Sodium 134 L (137-145) mmol/L Potassium 5.2 H (3.5-5.1) mmol/L Glucose 135 H (74-99) mg/dL AST 64 H (14-36) U/L ALT 40 H (4-34) U/L
[2024-02-02 12:50] LABS: Glucose,Whole Blood 120 mg/dL (70-110)
[2024-02-02] MEDS: methylPREDNISolone SOD SUCCI 125 MG/2 ML VIAL IV SCH (13:16)
--- NOTE | 2024-02-02 17:43 | P.CNPUL ---
History of Present Illness Consult date: 02/02/24 Reason for consult: dyspnea, COPD History of present illness: This is a 63-year-old female patient with advanced COPD. The patient is oxygen dependent. The patient has been maintained on Breztri on outpatient basis. She is also known to have previous history of small cell lung cancer and the patient was treated with chemoradiation therapy and she has been told to have her disease in remission and the patient has been followed up by [facility] in [place]. The patient had a recent CAT scan of the chest was done few months back and she has been told that her disease is in remission. She has been having serial CAT scans and PET scans. The patient came into the hospital because of worsening shortness of breath. This developed over the past 2 to 3 days. She has been feeling weak and she had a fall and she has undergone a x-ray of the hip through the primary care physician that showed no evidence of any fracture. Meanwhile, her breathing has been progressively getting worse and for that reason she came into the emergency department but the patient was found to be in significant respiratory distress. Based on that, the patient was started on BiPAP and currently she is on a BiPAP pressure of 10/5 cm of water. Blood gas was done in the emergency while the patient being on a BiPAP that showed a pH of 7.41 with a pCO2 of 43 and a pO2 of 170 and this was an FiO2 of 40%. Reviewed the chest x- ray and the patient was found to have chronic emphysematous changes bilaterally and a left apical opacity/atelectasis probably due to previous radiation therapy as the patient has volume loss in the left apex. CAT scan of the hip was also done on the left that showed no evidence of any fracture. Her viral screen was negative. UA was negative. Electrolytes showed a potassium level of 5.2 with a sodium level of 134, bicarb is 26, BUN is 11 with a creatinine of 0.5. Normal coagulation profile. WBC count of 12.2 with he was 12.6 and a platelet count of 154. She is known to have chronic atrial fibrillation and current cardiac rhy thm is sinus tachycardia. Noted the patient has been maintained on anticoagulation with Eliquis on outpatient basis and she also takes metoprolol XL 50 mg p.o. daily and flecainide 50 mg at bedtime. She is lethargic and weak. No altered mentation. Her is at the bedside. Review of Systems Constitutional: Reports daytime sleepiness, Reports fatigue, Reports weakness Eyes: denies as per HPI, denies blurred vision, denies bulging eye, denies decreased vision, denies diplopia, denies discharge, denies dry eye, denies irritation, denies itching, denies pain, denies photophobia, denies loss of peripheral vision, denies loss of vision, denies tunnel vision/blind spots Ears: deny: decreased hearing, ear discharge, earache, tinnitus Ears, nose, mouth and throat: Reports as per HPI Breasts: absent: as per HPI, change in shape, gynecomastia, masses, nipple discharge, pain, skin changes, swelling Cardiovascular: Reports decreased exercise tolerance, Reports dyspnea on exertion, Reports irregular heart beat Respiratory: Reports cough, Reports cough with sputum, Reports dyspnea, Reports home oxygen, Reports wheezing Gastrointestinal: Reports as per HPI Genitourinary: Reports as per HPI Menstruation: Reports as per HPI Musculoskeletal: Reports as per HPI Musculoskeletal: absent: ankle pain, ankle stiffness, ankle swelling, as per HPI, elbow pain, elbow stiffness, elbow swelling, foot pain, foot stiffness, foot swelling, hand pain, hand stiffness, hand swelling, hip pain, hip stiffness, hip swelling, knee pain, knee stiffness, knee swelling, shoulder pain, shoulder stiffness, shoulder swelling, wrist pain, wrist stiffness, wrist swelling Integumentary: Reports as per HPI Neurological: Reports as per HPI, Reports weakness Psychiatric: Reports as per HPI Endocrine: Reports as per HPI, Reports fatigue Hematologic/Lymphatic: Reports as per HPI Allergic/Immunologic: Reports as per HPI Past Medical History Past Medical History: Atrial Fibrillation, Cancer (Small cell lung cancer post chemoradiation therapy), COPD, GERD/Reflux, Sleep Apnea/CPAP/BIPAP Additional Past Medical History / Comment(s): Emphysema, back pain, uses CPAP, hypotension, lung CA but in remission History of Any Multi-Drug Resistant Organisms: None Reported Past Surgical History: Cholecystectomy, Hysterectomy, Orthopedic Surgery, Tonsillectomy Additional Past Surgical History / Comment(s): Right knee arthroscopy, colonoscopy with benign polypectomy X1, NECK SURGERY X4 fused from c2-t3, with titanium screws, gets MRI's every 3 months at [facility], PAIN CLINIC PROCEDURES. Past Anesthesia/Blood Transfusion Reactions: No Reported Reaction Past Psychological History: Anxiety, Depression Smoking Status: Former smoker Past Alcohol Use History: Rare Additional Past Alcohol Use History / Comment(s): Smokes 1/2 PPD, started smoking at age 15, was up to 1 1/2 ppd in the past. Past Drug Use History: None Reported Additional Drug Use History / Comment(s): does not use MJ or gummies - Past Family History Father Family Medical History: COPD Mother Family Medical History: Cancer Additional Family Medical History / Comment(s): Breast and throat cancer. Medications and Allergies Home Medications Medication Instructions Recorded Confirmed Type Acetaminophen Tab [Tylenol] 650 mg PO BID PRN 02/02/24 02/02/24 History Albuterol Sulfate [Albuterol 2 puff PO RT-Q6H PRN 02/02/24 02/02/24 History Sulfate Hfa] Apixaban [Eliquis] 2.5 mg PO BID 02/02/24 02/02/24 History [id number] 1 tab PO Q4HR PRN 02/02/24 02/02/24 History [Excedrin] Budesonide/Glycopyr/Formoterol 2 puff INHALATION RT-BID 02/02/24 02/02/24 History [Breztri Aerosphere Inhaler] DULoxetine HCL [Cymbalta] 60 mg PO DAILY 02/02/24 02/02/24 History Flecainide [Tambocor] 50 mg PO HS 02/02/24 02/02/24 History Flecainide [Tambocor] 100 mg PO DAILY 02/02/24 02/02/24 History Gabapentin [Neurontin] 300 mg PO HS 02/02/24 02/02/24 History Ipratropium-Albuterol Nebulize 3 ml INHALATION RT-TID 02/02/24 02/02/24 History [Duoneb 0.5 mg-3 mg/3 ml Soln] Metoprolol Succinate (ER) [Toprol 50 mg PO DAILY 02/02/24 02/02/24 History Xl] Mirtazapine [Remeron] 7.5 mg PO HS 02/02/24 02/02/24 History Omeprazole [PriLOSEC] 20 mg PO BID 02/02/24 02/02/24 History Ondansetron Odt [Zofran Odt] 4 mg PO QID PRN 02/02/24 02/02/24 History Rosuvastatin [Crestor] 10 mg PO DAILY 02/02/24 02/02/24 History Sertraline [Zoloft] 100 mg PO BID 02/02/24 02/02/24 History oxyCODONE HCL [Oxycodone HCl] 10 mg PO TID 02/02/24 02/02/24 History Allergies Allergy/AdvReac Type Severity Reaction Status Date / Time Penicillins Allergy Unknown Verified 02/02/24 06:51 Childhood Physical Exam Vitals: Vital Signs Temp Pulse Resp BP Pulse Ox FiO2 02/02/24 16:23 80 02/02/24 16:08 82 40 02/02/24 16:00 98.0 F 81 18 94 L 02/02/24 15:40 78 17 110/68 99 02/02/24 15:20 81 16 101/65 98 02/02/24 15:00 84 13 112/66 100 02/02/24 14:20 84 20 99/64 02/02/24 14:00 87 18 89/68 100 02/02/24 13:20 89 19 101/66 98 02/02/24 13:10 90 25 H 106/89 98 02/02/24 13:00 97.4 F L 96 28 H 97 40 02/02/24 12:00 93 20 131/91 99 02/02/24 11:33 93 40 02/02/24 11:21 95 02/02/24 11:12 98.2 F 101 H 16 131/91 97 02/02/24 07:45 86 02/02/24 07:36 97 02/02/24 07:33 83 02/02/24 07:30 20 02/02/24 07:26 98 F 64 18 97/63 99 02/02/24 06:52 85 16 98/49 98 02/02/24 06:34 40 02/02/24 06:20 82 18 99 02/02/24 05:00 87 20 100 02/02/24 03:08 91 20 98/61 100 02/02/24 01:43 109 H 02/02/24 01:31 112 H 02/02/24 01:27 40 02/02/24 01:20 28 H 02/02/24 01:17 98.0 F 117 H 28 H 116/81 99 Intake and Output 02/02/24 02/02/24 02/02/24 06:59 14:59 22:59 Intake Total 200 200 Output Total 225 Balance 200 -25 Intake: Intake, IV Titration 200 200 Amount Lactated Ringers 1,000 ml 200 200 @ 100 mls/hr IV .Q10H ONE Rx#:[id number] Output: Urine 225 Other: Weight 51.256 kg 51.256 kg The patient appeared well nourished and normally developed. Vital signs as documented. The patient is thin and frail and she carries a body mass index of 18.2. She is currently on a BiPAP for respiratory support. Breathing remains labored even while on the BiPAP. Generating a tidal volume of around 350 cc while being on the BiPAP. Head exam is unremarkable. No scleral icterus or corneal arcus noted. Neck is without jugular venous distension, thyromegaly, or carotid bruits. Carotid upstrokes are brisk bilaterally. Lungs shows marked diminished breath sounds bilaterally along with scattered expiratory wheezes heard throughout the lung resendiz. Cardiac exam reveals the PMI to be normally sized and situated. Rhythm is regular. First and second heart sounds normal. No murmurs, rubs or gallops. Abdominal exam reveals normal bowel sounds, no masses, no organomegaly and no aortic enlargement. Extremities are nonedematous and both femoral and pedal pulses are normal. Examination of the skin revealed no evidence of significant rashes, suspicious appearing nevi or other concerning lesions. Neurologically, the patient is awake and alert and the patient does not have any focal neurological deficit. Cranial nerves are essentially intact. Results - Laboratory Findings CBC and BMP: 02/02/24 01:29 02/02/24 01:29 ABG ABG pH 7.41 (7.35-7.45) 02/02/24 11:50 ABG pCO2 43 mmHg (35-45) 02/02/24 11:50 ABG pO2 170 mmHg (83-108) H 02/02/24 11:50 ABG O2 Saturation 99.7 % (94-97) H 02/02/24 11:50 PT/INR, D-dimer PT 11.3 sec (10.0-12.5) 02/02/24 01:29 INR 1.0 (<1.2) 02/02/24 01:29 Abnormal lab findings: Abnormal Labs 02/02/24 02/02/24 02/02/24 01:29 01:29 01:50 WBC 12.2 H Neutrophils # 11.4 H Lymphocytes # 0.3 L ABG pO2 ABG HCO3 ABG Total CO2 ABG O2 Saturation VBG pH 7.42 H Hemoglobin Sodium 134 L Potassium 5.2 H Glucose 135 H POC Glucose (mg/dL) AST 64 H ALT 40 H 02/02/24 02/02/24 11:50 12:49 WBC Neutrophils # Lymphocytes # ABG pO2 170 H ABG HCO3 28 H ABG Total CO2 29 H ABG O2 Saturation 99.7 H VBG pH Hemoglobin 10.8 L Sodium Potassium Glucose POC Glucose (mg/dL) 120 H AST ALT - Diagnostic Findings Chest x-ray: image reviewed Assessment and Plan Plan: Acute exacerbation of COPD, no clear evidence of pneumonia. Chest x-ray shows a chronic volume loss and left apical opacity and this is prior related to previous radiation therapy to her lungs for small cell lung cancer. The patient was in significant respiratory distress and she was placed on a BiPAP at a pressure of 10/5 cm of water. Her current FiO2 is at 40%. No significant hypercapnia or respiratory acidosis on her blood blood gas. The viral screen has been negative Advanced COPD, oxygen dependent with chronic hypoxic respiratory failure, maintained on O2 at 2 L nasal cannula Small cell lung cancer status post chemoradiation therapy. Being followed up at [facility] and the patient has been told that her disease has been in remission based on a recent CAT scan of the chest that was done few months back Paroxysmal atrial fibrillation the patient is currently in sinus rhythm. The patient has been maintained on metoprolol and Tambocor in addition to anticoagulation with Eliquis Cachexia and weight loss and the patient's body mass index is 18.2 Chronic back pain Acid reflux Chronic anxiety/depression Hyperlipidemia maintained on Crestor an outpatient basis. Plan Transferred the patient to the intensive care unit for close monitoring. Continue BiPAP at a pressure of 10 over 5 cm of water and wean down the FiO2 Breztri will be switched to Symbicort as maintenance during the hospital stay. Meanwhile, the patient will be receiving DuoNeb nebulized treatments [id number]. Will start the patient IV Solu-Medrol 60 mg every 6 hours. Empiric antibiotic coverage with a combination of Rocephin and Zithromax Check procalcitonin level Continue anticoagulation with Eliquis 5 mg p.o. twice daily Continue with a combination of metoprolol XL 50 mg p.o. daily and Tambocor regarding her paroxysmal atrial fibrillation. Pain control with oxycodone Resume home medications Will continue to follow. Case was discussed with her at the bedside.
[2024-02-02] MEDS: SYMBICORT 160-4.5 MCG INHALER INHALATION SCH (21:12)
[2024-02-02] MEDS: GABAPENTIN 300 MG CAP PO SCH (22:03)
[2024-02-02] MEDS: MIRTAZAPINE 15 MG TAB PO SCH (23:26)
[2024-02-03 06:33] LABS: ALT 32 U/L (4-34); AST 26 U/L (14-36); African American GFR (CKD) >90 (>60 ml/min/1.73 sqM); Albumin 3.3 g/dL (3.5-5.0); Alkaline Phosphatase 66 U/L (38-126); Anion Gap 3 mmol/L; Blood Urea Nitrogen 18 mg/dL (7-17); Carbon Dioxide 30 mmol/L (22-30); Chloride 102 mmol/L (98-107); Glucose 98 mg/dL (74-99); Non-African American GFR(CKD) >90 (>60 ml/min/1.73 sqM); Potassium 4.1 mmol/L (3.5-5.1); Sodium 135 mmol/L (137-145); Total Bilirubin 0.4 mg/dL (0.2-1.3); Total Protein 5.4 g/dL (6.3-8.2)
[2024-02-03 06:34] LABS: Basophils % (A) 0 %; Eosinophils % (A) 0 %; HCT 31.5 % (34.0-46.0); HGB 10.4 gm/dL (11.4-16.0); Lymphocytes # (A) 0.2 k/uL (1.0-4.8); Lymphocytes % (A) 3 %; MCH 31.9 pg (25.0-35.0); MCV 96.5 fL (80.0-100.0); Mean Platelet Volume 7.8; Monocytes # (A) 0.2 k/uL (0-1.0); Monocytes % (A) 4 %; Neutrophils # (A) 6.2 k/uL (1.3-7.7); Neutrophils % (A) 93 %; Platelet Count 165 k/uL (150-450); RBC 3.26 m/uL (3.80-5.40); WBC 6.7 k/uL (3.8-10.6)
[2024-02-03] MEDS: AZITHROMYCIN 500 MG TAB PO SCH (08:21)
--- NOTE | 2024-02-03 09:23 | P.PN ---
Progress Note - Text Progress Note Date: 02/03/24 Patient has been admitted to the ICU for close monitoring due to her respiratory status. Our service has ordered an MRI of the left hip to rule out fracture, awaiting exam to be performed and pending results. We will follow with further recommendations at that time.
--- NOTE | 2024-02-03 14:21 | P.PN ---
Subjective Progress Note Date: 02/03/24 This is a 63-year-old female patient with advanced COPD. The patient is oxygen dependent. The patient has been maintained on Breztri on outpatient basis. She is also known to have previous history of small cell lung cancer and the patient was treated with chemoradiation therapy and she has been told to have her disease in remission and the patient has been followed up by [facility] in [place]. The patient had a recent CAT scan of the chest was done few months back and she has been told that her disease is in remission. She has been having serial CAT scans and PET scans. The patient came into the hospital because of worsening shortness of breath. This developed over the past 2 to 3 days. She has been feeling weak and she had a fall and she has undergone a x-ray of the hip through the primary care physician that showed no evidence of any fracture. Meanwhile, her breathing has been progressively getting worse and for that reason she came into the emergency department but the patient was found to be in significant respiratory distress. Based on that, the patient was started on BiPAP and cu rrently she is on a BiPAP pressure of 10/5 cm of water. Blood gas was done in the emergency while the patient being on a BiPAP that showed a pH of 7.41 with a pCO2 of 43 and a pO2 of 170 and this was an FiO2 of 40%. Reviewed the chest x- ray and the patient was found to have chronic emphysematous changes bilaterally and a left apical opacity/atelectasis probably due to previous radiation therapy as the patient has volume loss in the left apex. CAT scan of the hip was also done on the left that showed no evidence of any fracture. Her viral screen was negative. UA was negative. Electrolytes showed a potassium level of 5.2 with a sodium level of 134, bicarb is 26, BUN is 11 with a creatinine of 0.5. Normal coagulation profile. WBC count of 12.2 with he was 12.6 and a platelet count of 154. She is known to have chronic atrial fibrillation and current cardiac rhythm is sinus tachycardia. Noted the patient has been maintained on anticoagulation with Eliquis on outpatient basis and she also takes metoprolol XL 50 mg p.o. daily and flecainide 50 mg at bedtime. She is lethargic and weak. No altered mentation. Her is at the bedside. On 02/03/2024, the patient is calm and comfortable and awake and alert and communicating. The patient was taken off the BiPAP and the patient is currently on 2 L of oxygen nasal cannula. Continues to have some cough and congestion. Much less bronchospastic and wheezy compared to yesterday. No nausea. No vomiting. No diarrhea. No abdominal pain. No altered mentation. No fever or chills. White cell count is 6.7 but hemoglobin 10.4 and a platelet count of 165. BUN is 18 with a creatinine of 0.6 and a sodium levels at 135. UA is negative. Legionella urine antigen is also negative. Sputum Gram stain and culture still pending. Blood cultures negative. Remains on Rocephin and Zithromax as an empiric antibiotic coverage. Remains on DuoNeb of chest. Remains on Symbicort and she is also on IV Solu-Medrol 60 mg IV push every 6 hours. No other significant events overnight and the patient was able to come off the BiPAP. Objective - Vital Signs Vital signs: Vital Signs Temp 97.7 F 02/03/24 08:00 Pulse 87 02/03/24 10:00 Resp 14 02/03/24 10:00 BP 103/59 02/03/24 10:00 Pulse Ox 98 02/03/24 10:00 FiO2 40 02/02/24 21:15 Intake & Output 02/02/24 02/03/24 02/03/24 18:59 06:59 18:59 Intake Total 600 200 270 Output Total 350 300 900 Balance 250 -100 -630 Weight 51.256 kg 52.2 kg Intake: IV 20 0.9NS 20 Intake, IV Titration 600 200 Amount Lactated Ringers 1,000 ml 600 200 @ 100 mls/hr IV .Q10H ONE Rx#:[id number] Oral 250 Output: Urine 350 300 900 Other: Voiding Method External Catheter External Catheter Bedside Commode # Voids 1 - Exam The patient appeared well nourished and normally developed. Vital signs as documented. The patient is thin and frail and she carries a body mass index of 18.2. Calm and comfortable off the BiPAP and 2 L of oxygen by nasal cannula Head exam is unremarkable. No scleral icterus or corneal arcus noted. Neck is without jugular venous distension, thyromegaly, or carotid bruits. Carotid upstrokes are brisk bilaterally. Lungs shows marked diminished breath sounds bilaterally along with scattered expiratory wheezes heard throughout the lung resendiz. Cardiac exam reveals the PMI to be normally sized and situated. Rhythm is regular. First and second heart sounds normal. No murmurs, rubs or gallops. Abdominal exam reveals normal bowel sounds, no masses, no organomegaly and no aortic enlargement. Extremities are nonedematous and both femoral and pedal pulses are normal. Examination of the skin revealed no evidence of significant rashes, suspicious a ppearing nevi or other concerning lesions. Neurologically, the patient is awake and alert and the patient does not have any focal neurological deficit. Cranial nerves are essentially intact. - Labs CBC & Chem 7: 02/03/24 05:19 02/03/24 05:19 Labs: Abnormal Lab Results - Last 24 Hours (Table) 02/02/24 02/02/24 02/03/24 Range/Units 11:50 12:49 05:19 RBC 3.26 L (3.80-5.40) m/uL Hgb 10.4 L (11.4-16.0) gm/dL Hct 31.5 L (34.0-46.0) % Lymphocytes # 0.2 L (1.0-4.8) k/uL ABG pO2 170 H (83-108) mmHg ABG HCO3 28 H (21-25) mmol/L ABG Total CO2 29 H (19-24) mmol/L ABG O2 Saturation 99.7 H (94-97) % Hemoglobin 10.8 L (11.4-16.0) gm/dL Sodium (137-145) mmol/L BUN (7-17) mg/dL POC Glucose (mg/dL) 120 H (70-110) mg/dL Total Protein (6.3-8.2) g/dL Albumin (3.5-5.0) g/dL 02/03/24 Range/Units 05:19 RBC (3.80-5.40) m/uL Hgb (11.4-16.0) gm/dL Hct (34.0-46.0) % Lymphocytes # (1.0-4.8) k/uL ABG pO2 (83-108) mmHg ABG HCO3 (21-25) mmol/L ABG Total CO2 (19-24) mmol/L ABG O2 Saturation (94-97) % Hemoglobin (11.4-16.0) gm/dL Sodium 135 L (137-145) mmol/L BUN 18 H (7-17) mg/dL POC Glucose (mg/dL) (70-110) mg/dL Total Protein 5.4 L (6.3-8.2) g/dL Albumin 3.3 L (3.5-5.0) g/dL Assessment and Plan Plan: Acute exacerbation of COPD, no clear evidence of pneumonia. Chest x-ray shows a chronic volume loss and left apical opacity and this is prior related to previous radiation therapy to her lungs for small cell lung cancer. The patient clinically improved after BiPAP currently on 2 L of oxygen by nasal cannula. Less bronchospastic and wheezy compared to yesterday. Advanced COPD, oxygen dependent with chronic hypoxic respiratory failure, maintained on O2 at 2 L nasal cannula Small cell lung cancer status post chemoradiation therapy. Being followed up at [facility] and the patient has been told that her disease has been in remission based on a recent CAT scan of the chest that was done few months back Paroxysmal atrial fibrillation the patient is currently in sinus rhythm. The patient has been maintained on metoprolol and Tambocor in addition to anticoagulation with Eliquis Cachexia and weight loss and the patient's body mass index is 18.2 Chronic back pain Acid reflux Chronic anxiety/depression Hyperlipidemia maintained on Crestor an outpatient basis. Plan Keep the patient off the BiPAP Breztri will be switched to Symbicort as maintenance during the hospital stay. Continue DuoNeb nebulized treatments [id number]. Continue IV Solu-Medrol 60 mg every 6 hours. Empiric antibiotic coverage with a combination of Rocephin and Zithromax Check procalcitonin level still pending Continue anticoagulation with Eliquis 5 mg p.o. twice daily Continue with a combination of metoprolol XL 50 mg p.o. daily and Tambocor regarding her paroxysmal atrial fibrillation. Pain control with oxycodone Resume home medications Will continue to follow. Case was discussed with her at the bedside. Will be transferred to a medical surgical floor with telemetry monitoring
--- NOTE | 2024-02-03 14:22 | P.PN ---
Subjective Progress Note Date: 02/03/24 63-year-old female with a PMH of AFib on anticoagulation with Eliquis, COPD with chronic hypoxic respiratory failure home oxygen dependent on 2 L at all times, HERNANDEZ CPAP dependent nightly, hypertension, hyperlipidemia anxiety and depression, and GERD. She presented to the hospital with a chief complaint of worsening shortness of breath and cough. Upon arrival to our facility, patient underwent evaluation in the emergency department. Vital signs BP 116/81, HR 117, RR 28, T 98.0 F, and SpO2 of 99% on BiPAP with FiO2 of 40%. EKG was completed showing sinus tachycardia at 113 bpm. Chest x-ray completed showing chronic emphysematous changes with left suprahilar mass/neoplasm redemonstrated and new left apical opacification consistent with obstructive atelectasis with left sided volume loss present. CBC showing WBC count of 12.2. BMP showed K 5.2 hemolyzed, sodium of 134, blood glucose of 135. Magnesium of 2.2. AST of 64 and ALT of 40. Urinalysis negative for infection. Influenza A, influenza B, RSV, and COVID PCR were negative. Patient also reporting pain to Left hip secondary to reported fall at home [address] left hip was negative for acute fracture or dislocation. Orthopedic surgery team evaluated and placing order for MRI of left hip without contrast. Patient is weaned off of BiPAP and currently maintaining SpO2 of 94% on 4 L O2. She is admitted under our services with consultation to customer service professional and orthopedic surgery. 02/02 Patient was seen and examined. Significant other at bedside. She reports progressively weakness and falls that has been progressively getting worse over the past year. Sometimes loses control of her bladder. States her legs give out on her. She has a history of cervical and thoracic spine fusion. Reports improved breathing. CBC and CMP significant for RBC 3.26, Hg 10.4, Hct 31.5, Na 135, BUN 18, alb 3.3. General: non toxic, no distress, appears at stated age Derm: warm, dry Head: atraumatic, normocephalic, symmetric Eyes: EOMI, no lid lag, anicteric sclera Mouth: no lip lesion, mucus membranes moist Cardiovascular: S1S2 reg, no murmur Lungs: Decreased BS bilateral, no rhonchi, no rales , no accessory muscle use Ext: no gross muscle atrophy, no edema, no contractures Neuro: no focal neuro deficits Psych: Alert, oriented, appropriate affect Based on my assessment of this patient, this patient meets a high complexity level of care. Acute on chronic respiratory failure with hypoxia COPD with exacerbation: DuoNeb QID scheduled and PRN for SOB/wheezing. SoluMedrol 40 mg IV BID. Symbicort 2 INH BID. Lung mass with concerns of obstructive pneumonia vs obstructive atelectasis with reports of left-sided volume loss: Rocephin 2g IV QD + Azithromycin 500 mg PO QD. Uncontrolled left hip pain status post recent fall at home: CT left hip negative. MRI hip pending. PT and OT consult. Orthopedic surgery on board. Paroxysmal atrial fibrillation: Eliquis 5 mg PO BID. Flexacine 100 mg PO QD + 50 mg PO QHS. Metoprolol 50 mg PO QD. Hypertension: Metoprolol as above. Hyperlipidemia: Lipitor 20 mg PO QD. Anxiety with depression: Cymbalta 60 mg PO QD. Remeron 7.5 mg PO QHS. Zoloft 100 mg PO BID. Chronic neck/back pain: Gabapentin 300 mg PO QHS. Consider CT given lower extremity weakness and frequent falls given history of cervical + thoracic fusion. CODE STATUS: FULL CODE. DVT Prophylaxis: Eliquis PO GI Prophylaxis: Protonix PO Designated medical POA if patient is not able to make medical decisions for themselves: I have reviewed the following instructional design consultant notes: Pulmonary, Ortho I have reviewed the results of the following tests: CBC, CMP I have ordered the following tests: I have discussed the care of this patient with the following independent historian: Spouse. I have independently interpreted the following test below: I have discussed the management of this patient with the following physician: Objective - Vital Signs Vital signs: Vital Signs Temp 97.7 F 02/03/24 08:00 Pulse 88 02/03/24 13:28 Resp 14 02/03/24 10:00 BP 103/59 02/03/24 10:00 Pulse Ox 98 02/03/24 10:00 FiO2 40 02/02/24 21:15 Intake & Output 02/02/24 02/03/24 02/03/24 18:59 06:59 18:59 Intake Total 600 200 270 Output Total 350 300 900 Balance 250 -100 -630 Weight 51.256 kg 52.2 kg Intake: IV 20 0.9NS 20 Intake, IV Titration 600 200 Amount Lactated Ringers 1,000 ml 600 200 @ 100 mls/hr IV .Q10H ONE Rx#:[id number] Oral 250 Output: Urine 350 300 900 Other: Voiding Method External Catheter External Catheter Bedside Commode # Voids 1 - Labs CBC & Chem 7: 02/03/24 05:19 02/03/24 05:19 Labs: Abnormal Lab Results - Last 24 Hours (Table) 02/03/24 02/03/24 Range/Units 05:19 05:19 RBC 3.26 L (3.80-5.40) m/uL Hgb 10.4 L (11.4-16.0) gm/dL Hct 31.5 L (34.0-46.0) % Lymphocytes # 0.2 L (1.0-4.8) k/uL Sodium 135 L (137-145) mmol/L BUN 18 H (7-17) mg/dL Total Protein 5.4 L (6.3-8.2) g/dL Albumin 3.3 L (3.5-5.0) g/dL Microbiology - Last 24 Hours (Table) 02/02/24 03:36 Blood Culture - Preliminary Blood 02/02/24 10:39 Gram Stain - Preliminary Sputum Sputum Culture - Preliminary
[2024-02-03 14:50] VITALS: BMI 18.6
--- NOTE | 2024-02-03 16:07 | XR ---
Chest, 2 view. HISTORY: Pneumonia COMPARISON: 11/22/2021 TECHNIQUE: PA and lateral views the chest are obtained. FINDINGS: The large left hilar mass seen on the prior study is not appreciated on the current study however the re is marked volume loss with retraction of the erum superiorly. There is dense consolidation in the left lung apex which could represent recurrent mass or postobstructive pneumonitis or pneumonia. Shor t-term follow-up to resolution is recommended. The right lung is clear. No pleural effusion. The heart and pulmonary vasculature are normal. The osseous structures are intact. IMPRESSION: 1. Marked volume loss in the left upper lobe with retraction of erum superiorly. 2. Dense consolidation in the left lung apex consistent with mass, pneumonia or postobstructive pneum onitis.. [facility], , 02/03/2024 4:05 PM
--- NOTE | 2024-02-03 17:12 | MR ---
EXAMINATION TYPE: MR hip LT wo con DATE OF EXAM: 02/03/2024 4:52 PM CLINICAL INDICATION: Female, 63 years old with history of Recent fall, left hip pain; PHH, recent fal l, left hip pain COMPARISON: 02/02/2024 TECHNIQUE: Multiplanar multi-sequential magnetic resonance imaging of the left hip without contrast. IV Contrast: mL none FINDINGS: Joint spaces and alignment: Normal Joint/bursal fluid: Normal Articular cartilage: Normal Acetabular labrum: Intact Muscles/Tendons: Intact The tendons of the gluteal, hamstring, iliopsoas, and adductors are normal in within normal limits without evidence for edema and are intact. Abductor tendon insertions: Intact Intrapelvic structures: Normal Neurovascular structures: Normal Marrow: The left femoral head demonstrates normal morphology and signal characteristics. There is no evidence of fracture or acute process. The sacroiliac joints and pubic symphysis are noted to be unr emarkable. No subcutaneous fluid collection to suggest hematoma. Soft tissues: Normal Other: The ovaries, uterus, and urinary bladder are unremarkable. No lymphadenopathy is visualized. IMPRESSION: No evidence for fracture of the left hip. The femur and pelvis are intact. There is soft tissue edema surrounding the subcutaneous tissues left greater than right. [facility], , 02/03/2024 5:10 PM
[2024-02-03] MEDS: MORPHINE SULFATE 4 MG/ML SYRINGE IV PRN (19:39)
--- NOTE | 2024-02-04 10:01 | P.PN ---
Subjective Progress Note Date: 02/04/24 Principal diagnosis: Left hip pain Fall from standing Patient seen and examined this morning. Spouse is at bedside. Patient does continue to report a sharp aching left hip/buttock pain. She states that is exacerbated with weight bearing onto the left lower extremity. MRI results have been discussed. Surgical and nonsurgical options have been discussed and patient would like to refrain from surgery at this time due to her pulmonary status, which is reasonable. Educated patient that she is to utilize a walker at all times when up and about and do not fall. She is to be TTWB on the left lower extremity. Patient would like to follow up with our office outpatient. Patient is cleared from an orthopedic standpoint. Objective - Vital Signs Vital signs: Vital Signs Temp 97.4 F L 02/04/24 06:48 Pulse 80 02/04/24 09:10 Resp 17 02/04/24 06:48 BP 94/60 02/04/24 06:48 Pulse Ox 98 02/04/24 08:59 FiO2 40 02/02/24 21:15 Intake & Output 02/03/24 02/04/24 02/04/24 18:59 06:59 18:59 Intake Total 520 Output Total 1500 Balance -980 Weight 52.2 kg Intake: IV 20 0.9NS 20 Oral 500 Output: Urine 1500 Other: Voiding Method Bedside Commode Bedside Commode # Voids 0 2 - Exam Left lower extremity: Inspection: Negative for any open fractures, ecchymosis, significant erythema/ulcers. Sensation: Sensation is equal, symmetric, bilaterally intact throughout the upper and lower extremities Palpation: Nontender to palpation throughout bilateral upper and lower extremities and throughout spine exam Range of motion: Patient does have full range of motion bilateral upper and right lower extremities on exam. Limited ROM with flexion of the left lower e xtremity due to pain. Motor: Right: shoulder abduction 5/5, elbow flexors 5/5, wrist dorsiflexors 5/5. finger abductor 5/5, internist medical doctor md 5/5, hip flexor 5/5, knee flexor 5/5, ankle dorsiflexor 5/5, ankle plantarflexion 5/5 and extensor hallucis 5/5. Left: shoulder abduction 5/5, elbow flexors 5/5, wrist dorsiflexors 5/5. finger abductor 5/5, internist medical doctor md 5/5, hip flexor 4/5, knee flexor 5/5, ankle dorsiflexor 5/5, ankle plantarflexion 5/5 and extensor hallucis 5/5. Special tests: Log roll maneuver of the left lower extremity is negative. Straight leg raise of the LLE is positive. Neurovascular: Radial pulse intact, 2+ bilaterally. Cap refill under 3 seconds in digits upper extremities. - Labs CBC & Chem 7: 02/03/24 05:19 02/03/24 05:19 Labs: Microbiology - Last 24 Hours (Table) 02/02/24 03:36 Blood Culture - Preliminary Blood 02/02/24 10:39 Gram Stain - Preliminary Sputum Sputum Culture - Preliminary Assessment and Plan Assessment: MRI of the left hip taken on 02/03/2024 demonstrates a minimally displaced fracture with cortical buckling of the left sacral ala as well as curvilinear bony edema within the right pubic symphysis. Frequent falls Minimally displaced fracture of the left sacral ala with cortical buckling Generalized weakness Left hip pain Multiple complex comorbidities Plan: Plan At this time we do not recommend any emergent/urgent orthopedic surgical intervention. Patient may follow-up with Dr. Paredes's office in 1 week. 2. Appreciate medical management 3. Pain management - Continue with IV morphine, Utilize ice therapy 20min every hour as needed. 6. TTWB of the left lower extremity, use walker at all times. Do not fall. 7. Appreciate consult. I reviewed and discussed this case with my attending Dr. Paredes, whom has reviewed this chart and films and is in agreement with assessment and plan of care as outlined above. I have personally seen and examined the patient, performed the documentation and the assessment and plan as written. Number of minutes spent on the visit: 30m
[2024-02-04] MEDS: guaiFENesin-DM 100-10MG/5ML 10 ML CUP PO SCH (11:17)
--- NOTE | 2024-02-04 11:58 | CT ---
EXAMINATION TYPE: CT thor lumbar spine wo con DATE OF EXAM: 02/04/2024 10:59 AM COMPARISON: 11/23/[address], MRI CLINICAL INDICATION: Female, 63 years old with history of BLE weakness, numbness; BLE weakness, numbn ess. left lower back side pain TECHNIQUE: Axial images of the thoracic and lumbar spine were obtained without contrast. Coronal and sagittal reformats were performed. CT Contrast: Contrast used: mL of , none. Oral contrast used: none. CT DLP: 550.9 mGycm, Automated exposure control for dose reduction was used. FINDINGS: Postsurgical changes to the upper spine appears intact. Mild multilevel degeneration with joint space narrowing osteophyte formation. Grade 1 anterolisthesis of L3 on L4 no evidence for spondylolysis. N o significant neural foraminal stenosis identified. Fracture of the left sacrum, no other fractures i dentified. No evidence for significant spinal canal stenosis. Airspace consolidation in the left upper lung with more cystic area which is bilobed shape measuring 51 x 25 mm. Moderate to severe emphysema changes in the right upper lung. Gallstones layering in the gallbladder lumen. Atherosclerosis of the arterial vasculature. Acute fracture of the left sacrum IMPRESSION: 1. Fracture of the left sacrum as seen on priors. 2. [id number] multilevel degeneration changes of the spine. 3. No evidence for spinal fracture. 4. No significant spinal canal or neural foraminal stenosis. Surgical changes in the cervical and up per thoracic spine are intact. 5. Grade 1 anterolisthesis of L3 on L4 without spondylolysis. 6. Left upper lung consolidation with cystic area in the lung parenchyma. Further workup for infecti on should be considered. Clinical correlation recommended. [facility], , 02/04/2024 11:56 AM
--- NOTE | 2024-02-04 14:03 | P.PN ---
Subjective Progress Note Date: 02/04/24 This is a 63-year-old female patient with advanced COPD. The patient is oxygen dependent. The patient has been maintained on Breztri on outpatient basis. She is also known to have previous history of small cell lung cancer and the patient was treated with chemoradiation therapy and she has been told to have her disease in remission and the patient has been followed up by [facility] in [place]. The patient had a recent CAT scan of the chest was done few months back and she has been told that her disease is in remission. She has been having serial CAT scans and PET scans. The patient came into the hospital because of worsening shortness of breath. This developed over the past 2 to 3 days. She has been feeling weak and she had a fall and she has undergone a x-ray of the hip through the primary care physician that showed no evidence of any fracture. Meanwhile, her breathing has been progressively getting worse and for that reason she came into the emergency department but the patient was found to be in significant respiratory distress. Based on that, the patient was started on BiPAP and cu rrently she is on a BiPAP pressure of 10/5 cm of water. Blood gas was done in the emergency while the patient being on a BiPAP that showed a pH of 7.41 with a pCO2 of 43 and a pO2 of 170 and this was an FiO2 of 40%. Reviewed the chest x- ray and the patient was found to have chronic emphysematous changes bilaterally and a left apical opacity/atelectasis probably due to previous radiation therapy as the patient has volume loss in the left apex. CAT scan of the hip was also done on the left that showed no evidence of any fracture. Her viral screen was negative. UA was negative. Electrolytes showed a potassium level of 5.2 with a sodium level of 134, bicarb is 26, BUN is 11 with a creatinine of 0.5. Normal coagulation profile. WBC count of 12.2 with he was 12.6 and a platelet count of 154. She is known to have chronic atrial fibrillation and current cardiac rhythm is sinus tachycardia. Noted the patient has been maintained on anticoagulation with Eliquis on outpatient basis and she also takes metoprolol XL 50 mg p.o. daily and flecainide 50 mg at bedtime. She is lethargic and weak. No altered mentation. Her is at the bedside. On 02/03/2024, the patient is calm and comfortable and awake and alert and communicating. The patient was taken off the BiPAP and the patient is currently on 2 L of oxygen nasal cannula. Continues to have some cough and congestion. Much less bronchospastic and wheezy compared to yesterday. No nausea. No vomiting. No diarrhea. No abdominal pain. No altered mentation. No fever or chills. White cell count is 6.7 but hemoglobin 10.4 and a platelet count of 165. BUN is 18 with a creatinine of 0.6 and a sodium levels at 135. UA is negative. Legionella urine antigen is also negative. Sputum Gram stain and culture still pending. Blood cultures negative. Remains on Rocephin and Zithromax as an empiric antibiotic coverage. Remains on DuoNeb of chest. Remains on Symbicort and she is also on IV Solu-Medrol 60 mg IV push every 6 hours. No other significant events overnight and the patient was able to come off the BiPAP. On 02/04/2024, the patient is being seen for a follow-up. Doing much better. Less short of breath he continues to have cough and congestion. Noted the patient has undergone recent bronchoscopy and the bronchoalveolar lavage at [facility] by Dr. Flannery and the results of those need to be retrieved. She is currently off the BiPAP. She remains on bronchodilators. She remains on IV Solu-Medrol. She is on Symbicort. No new complaints otherwise for now. Labs were noted. No new labs from today. Awake and alert and communicating. No altered mentation. No chest pain. After BiPAP. Objective - Vital Signs Vital signs: Vital Signs Temp 97.4 F L 02/04/24 06:48 Pulse 80 02/04/24 09:10 Resp 17 02/04/24 06:48 BP 94/60 02/04/24 06:48 Pulse Ox 98 02/04/24 08:59 FiO2 40 02/02/24 21:15 Intake & Output 02/03/24 02/04/24 02/04/24 18:59 06:59 18:59 Intake Total 520 Output Total 1500 Balance -980 Weight 52.2 kg Intake: IV 20 0.9NS 20 Oral 500 Output: Urine 1500 Other: Voiding Method Bedside Commode Bedside Commode # Voids 0 2 - Exam The patient appeared well nourished and normally developed. Vital signs as documented. The patient is thin and frail and she carries a body mass index of 18.2. Calm and comfortable off the BiPAP and 2 L of oxygen by nasal cannula Head exam is unremarkable. No scleral icterus or corneal arcus noted. Neck is without jugular venous distension, thyromegaly, or carotid bruits. Carotid upstrokes are brisk bilaterally. Lungs shows marked diminished breath sounds bilaterally along with scattered expiratory wheezes heard throughout the lung resendiz. Cardiac exam reveals the PMI to be normally sized and situated. Rhythm is regular. First and second heart sounds normal. No murmurs, rubs or gallops. Abdominal exam reveals normal bowel sounds, no masses, no organomegaly and no aortic enlargement. Extremities are nonedematous and both femoral and pedal pulses are normal. Examination of the skin revealed no evidence of significant rashes, suspicious appearing nevi or other concerning lesions. Neurologically, the patient is awake and alert and the patient does not have any focal neurological deficit. Cranial nerves are essentially intact. - Labs CBC & Chem 7: 02/03/24 05:19 02/03/24 05:19 Labs: Microbiology - Last 24 Hours (Table) 02/02/24 03:36 Blood Culture - Preliminary Blood 02/02/24 10:39 Gram Stain - Preliminary Sputum Sputum Culture - Preliminary Assessment and Plan Plan: Acute exacerbation of COPD, no clear evidence of pneumonia. Chest x-ray shows a chronic volume loss and left apical opacity and this is prior related to previous radiation therapy to her lungs for small cell lung cancer. The patient clinically improved after BiPAP currently on 2 L of oxygen by nasal cannula. Less bronchospastic and wheezy compared to yesterday. Advanced COPD, oxygen dependent with chronic hypoxic respiratory failure, maintained on O2 at 2 L nasal cannula Small cell lung cancer status post chemoradiation therapy. Being followed up at [facility] and the patient has been told that her disease has been in remission based on a recent CAT scan of the chest that was done few months back Paroxysmal atrial fibrillation the patient is currently in sinus rhythm. The patient has been maintained on metoprolol and Tambocor in addition to anticoagulation with Eliquis Cachexia and weight loss and the patient's body mass index is 18.2 Chronic back pain Acid reflux Chronic anxiety/depression Hyperlipidemia maintained on Crestor an outpatient basis. Plan Keep the patient off the BiPAP Retrieve the results of the bronchoalveolar lavage from [facility] from December 2023 Flutter valve Robitussin DM 10 mL 4 times daily [id number] Breztri will be switched to Symbicort as maintenance during the hospital stay. Continue DuoNeb nebulized treatments [id number]. Continue IV Solu-Medrol 60 mg every 6 hours. Empiric antibiotic coverage with a combination of Rocephin and Zithromax Continue anticoagulation with Eliquis 5 mg p.o. twice daily Continue with a combination of metoprolol XL 50 mg p.o. daily and Tambocor regarding her paroxysmal atrial fibrillation. Pain control with oxycodone Will continue to follow. Case was discussed with her at the bedside.
--- NOTE | 2024-02-04 16:00 | P.PN ---
Subjective Progress Note Date: 02/04/24 Hospital course: Patient is a very pleasant 63-year-old female with a past medical history of atrial fibrillation on anticoagulation with Eliquis, COPD with chronic hypoxic respiratory failure home oxygen dependent on 2 L at all times, obstructive sleep apnea CPAP dependent nightly, hypertension, hyperlipidemia anxiety and depression, and GERD. She presented to the hospital with a chief complaint of worsening shortness of breath and cough. Upon arrival to our facility, patient underwent evaluation in the emergency department. Vital signs upon arrival show blood pressure 116/81, heart rate 117, respiratory rate 28, temp 98.0 F, and SpO2 of 99% on BiPAP with FiO2 of 40%. EKG was completed showing sinus tachycardia at 113 bpm. Chest x-ray completed showing chronic emphysematous changes with left suprahilar mass/neoplasm redemonstrated and new left apical opacification consistent with obstructive atelectasis with left sided volume loss present. Labs completed and reviewed. CBC showing leukocytosis with WBC count of 12.2. BMP reporting mild hyperkalemia with potassium of 5.2 but also reported as a hemolyzed specimen, hyponatremia with sodium of 134, and blood glucose of 135. Magnesium normal findings at 2.2. Liver profile showing elevated AST of 64 and ALT of 40 otherwise normal findings. Urinalysis negative for infection. Influenza A, influenza B, RSV, and COVID PCR were negative. Patient also reporting pain to Left hip secondary to reported fall at home [address] left hip was completed negative for acute fracture or dislocation. Orthopedic surgery team evaluated and placing order for MRI of left hip without contrast. Patient is weaned off of BiPAP and currently maintaining SpO2 of 94% on 4 L O2. She was admitted under our services with consultation to electronic device repairer and orthopedic surgery. She was later found to be in acute respiratory distress requiring BiPAP and was transferred to the ICU. Patient later successfully weaned back down to nasal cannula and transferred to [facility] unit with telemetry. Physical exam: Patient seen and fully evaluated at bedside this morning. Patient's also at bedside. Patient reports she feels as though she is breathing better but is having continued pain to left hip as well as lower lumbar spine. Patient's expressing concerns of patient's generalized weakness and recurrent falls at home. Discussed with patient and that we will place order for CT lumbar spine to rule out additional fractures/injury. Vital signs reviewed and stable. General: Nontoxic, mild distress, appears older than biological age, chronically ill appearing Derm: Skin warm and dry, normal coloration for ethnicity. Head: Atraumatic, normocephalic and symmetric. Eyes: EOM's intact, no lid lag, and anicteric sclera Mouth: no lip lesions, mucus membranes moist Cardiovascular: regular rate and rhythm with normal S1S2, no murmur noted, positive posterior tibial pulses bilaterally, and cap refill < 2 seconds. Lungs: Respirations even, regular, and unlabored on 2 L O2 via nasal cannula. Lungs diminished with soft expiratory wheezes. Abdominal: soft, nontender to palpation, no guarding, no appreciable organomegaly Ext: No gross muscle atrophy, no edema, no contractures. Movement and sensation intact however patient with reduced movement of left lower extremity secondary to reports of pain upon bending at hip. Neuro: Speech clear, face symmetrical and CN II-XII grossly intact with no noted focal neuro deficits Psych: Alert and oriented to person, place, time, and situation. Appropriate and pleasant affect. Assessment and Plan of Care: Acute on chronic respiratory failure with hypoxia COPD with exacerbation Hx of Lung cancer with concerns of obstructive pneumonia vs obstructive atelectasis with reports of left-sided volume loss -Oxygenation to be administered and titrated as needed to maintain SPO2 equal to or greater than 90%. Currently on 4 L O2 via nasal cannula. -Telemetry monitoring. -Continuous Pulse-oximetry -Duonebs scheduled 4 times daily and as needed for SOB and/or wheezing along with Symbicort 160-4.5 mcg inhaler 2 puffs twice daily. -Incentive Spirometry and flutter valve -Steroids: Solu-Medrol 60 mg IVP every 6 hours -Antibiotics: Azithromycin 500 mg daily and Rocephin 2 g daily. (Day 3 of antibiotics) -Blood culture showing no growth to date. Sputum culture showing no growth after 48 hours. Legionella negative. Acute fracture of right pubic symphysis status post fall at home -MRI reporting acute fracture of left sacrum and right pubic symphysis reporting minimally displaced fracture of the left sacral ala with cortical buckling as well as curvilinear bony edema within the right pubic symphysis corresponding to buckling on CT. -Patient reporting pain to lower back as well, will obtain a CT lumbar spine to rule out further fractures. -Orthopedic surgery following, they are not recommending emergent/urgent orthopedic surgical intervention stating continue with medical management and pain management and outpatient follow-up in our office in 1 week. -PT/OT following. Paroxysmal atrial fibrillation Hypertension Hyperlipidemia -Continue anticoagulation with Eliquis 5 mg twice daily, atorvastatin 20 mg daily, flecainide 50 mg nightly and 100 mg daily, and metoprolol 50 mg daily. Anxiety with depression -Continue daily medication regimen with Cymbalta 60 mg daily, Remeron 7.5 mg nightly, and Zoloft to 100 mg twice daily. Chronic neck/back pain Continue home medication regimen with oxycodone 10 mg 3 times daily and gabapentin 300 mg nightly. Data and imaging reviewed: -MRI reporting acute fracture of left sacrum and right pubic symphysis reporting minimally displaced fracture of the left sacral ala with cortical buckling as well as curvilinear bony edema within the right pubic symphysis corresponding to buckling on CT. -Vital signs reviewed. Blood pressure 94/60, heart rate 72, respiratory rate 17, temp 97.4 F, and SpO2 of 98% on 2 L. -Labs reviewed. Blood culture showing no growth to date. Sputum culture showing no growth after 48 hours. Legionella negative. CODE STATUS: Full code DVT prophylaxis: Eliquis Anticipated discharge date: Pending clinical course Anticipated discharge place: Home Patient was seen independently by Nurse Pracitioner. This document was prepared using [employer] dictation software. Please allow for errors in plan coordinator, while rare they do occur. Bienvenido Borrero NP rendered care for this patient independently, reviewed the findings and plan as documented in the note above and agree with plan. I did not physically speak with or examine the patient on this date. Objective - Vital Signs Vital signs: Vital Signs Temp 97.4 F L 02/04/24 01:00 Pulse 76 02/04/24 04:39 Resp 18 02/04/24 01:00 BP 92/58 02/04/24 01:00 Pulse Ox 99 02/04/24 01:00 FiO2 40 02/02/24 21:15 Intake & Output 02/03/24 02/04/24 02/04/24 18:59 06:59 18:59 Intake Total 520 Output Total 1500 Balance -980 Weight 52.2 kg Intake: IV 20 0.9NS 20 Oral 500 Output: Urine 1500 Other: Voiding Method Bedside Commode Bedside Commode # Voids 0 2 - Labs CBC & Chem 7: 02/03/24 05:19 02/03/24 05:19 Labs: Microbiology - Last 24 Hours (Table) 02/02/24 03:36 Blood Culture - Preliminary Blood 02/02/24 10:39 Gram Stain - Preliminary Sputum Sputum Culture - Preliminary
[2024-02-04] MEDS: CALCIUM CARBONATE 500 MG CHEWABLE PO PRN (23:08)
[2024-02-05 09:26] LABS: HCT 32.1 % (37.2-46.3); HGB 10.2 g/dL (12.0-15.0); MCH 31.1 pg (27.0-32.0); MCHC 31.8 g/dL (32.0-37.0); MCV 97.9 FL (80.0-97.0); Mean Platelet Volume 10.2 FL (9.5-12.2); NRBC Per 100 WBC 0 X 10*3/uL (0.00-0.01); Platelet Count 151 X 10*3/uL (140-440); RBC 3.28 X 10*6/uL (4.10-5.20); WBC 6.85 X 10*3/uL (4.50-10.00)
[2024-02-05] MEDS: predniSONE 20 MG TAB PO SCH (10:39)
[2024-02-05 11:59] LABS: ALT 29 U/L (8-44); AST 14 U/L (13-35); Albumin 3.8 g/dL (3.8-4.9); Alkaline Phosphatase 57 U/L (41-126); BUN/Creat Ratio 29.17 Ratio (12.00-20.00); Blood Urea Nitrogen 17.5 mg/dL (9.0-27.0); Carbon Dioxide 30.5 mmol/L (21.6-31.8); Chloride 99 mmol/L (96-109); Globulin 1.9 g/dL (1.6-3.3); Glucose 123 mg/dL (70-110); Potassium 4.3 mmol/L (3.5-5.5); Sodium 140 mmol/L (135-145); Total Bilirubin <0.2 mg/dL (0.3-1.2); Total Protein 5.7 g/dL (6.2-8.2)
--- NOTE | 2024-02-05 12:36 | P.PN ---
Subjective Progress Note Date: 02/05/24 Hospital course: Patient is a very pleasant 63-year-old female with a past medical history of atrial fibrillation on anticoagulation with Eliquis, COPD with chronic hypoxic respiratory failure home oxygen dependent on 2 L at all times, obstructive sleep apnea CPAP dependent nightly, hypertension, hyperlipidemia anxiety and depression, and GERD. She presented to the hospital with a chief complaint of worsening shortness of breath and cough. Upon arrival to our facility, patient underwent evaluation in the emergency department. Vital signs upon arrival show blood pressure 116/81, heart rate 117, respiratory rate 28, temp 98.0 F, and SpO2 of 99% on BiPAP with FiO2 of 40%. EKG was completed showing sinus tachycardia at 113 bpm. Chest x-ray completed showing chronic emphysematous changes with left suprahilar mass/neoplasm redemonstrated and new left apical opacification consistent with obstructive atelectasis with left sided volume loss present. Labs completed and reviewed. CBC showing leukocytosis with WBC count of 12.2. BMP reporting mild hyperkalemia with potassium of 5.2 but also reported as a hemolyzed specimen, hyponatremia with sodium of 134, and blood glucose of 135. Magnesium normal findings at 2.2. Liver profile showing elevated AST of 64 and ALT of 40 otherwise normal findings. Urinalysis negative for infection. Influenza A, influenza B, RSV, and COVID PCR were negative. Patient also reporting pain to Left hip secondary to reported fall at home [address] left hip was completed negative for acute fracture or dislocation. Orthopedic surgery team evaluated and placing order for MRI of left hip without contrast. Patient is weaned off of BiPAP and currently maintaining SpO2 of 94% on 4 L O2. She was admitted under our services with consultation to equipment operator intermodal yard and orthopedic surgery. She was later found to be in acute respiratory distress requiring BiPAP and was transferred to the ICU. Patient later successfully weaned back down to nasal cannula and transferred to [facility] unit with telemetry.MRI reporting acute fracture of left sacrum and right pubic symphysis reporting minimally displaced fracture of the left sacral ala with cortical buckling as well as curvilinear bony edema within the right pubic symphysis corresponding to buckling on CT. Evaluated by orthopedic surgery recommending medical management and to be strict nonweightbearing of the left lower extremity. Physical exam: Patient was seen and fully evaluated at bedside this morning. Per nursing patient was cleared by pulmonary for discharge, she is also cleared by orthopedic surgery however she is awaiting evaluation by PT as she is to be nonweightbearing of left lower extremity. Patient to remain hospitalized overnight until PT can work with her in the morning to ensure patient stable with use of walker while maintaining strict nonweightbearing of left lower extremity prior to discharging home. Family at bedside states that she will have plenty of support and they are going to purchase a bedside commode later today if supply store is open and if not first thing tomorrow to ensure it is home for pt upon discharge tomorrow. Vital signs reviewed and stable. General: Nontoxic, mild distress, appears older than biological age, chronically ill appearing Derm: Skin warm and dry, normal coloration for ethnicity. Head: Atraumatic, normocephalic and symmetric. Eyes: EOM's intact, no lid lag, and anicteric sclera Mouth: no lip lesions, mucus membranes moist Cardiovascular: regular rate and rhythm with normal S1S2, no murmur noted, positive posterior tibial pulses bilaterally, and cap refill < 2 seconds. Lungs: Respirations even, regular, and unlabored on 2 L O2 via nasal cannula. Lungs diminished with soft expiratory wheezes. Abdominal: soft, nontender to palpation, no guarding, no appreciable organomegaly Ext: No gross muscle atrophy, no edema, no contractures. Movement and sensation intact however patient with reduced movement of left lower extremity secondary to reports of pain upon bending at hip. Neuro: Speech clear, face symmetrical and CN II-XII grossly intact with no noted focal neuro deficits Psych: Alert and oriented to person, place, time, and situation. Appropriate and pleasant affect. Assessment and Plan of Care: Acute on chronic respiratory failure with hypoxia COPD with exacerbation Hx of Lung cancer with concerns of obstructive pneumonia vs obstructive atelectasis with reports of left-sided volume loss -Oxygenation to be administered and titrated as needed to maintain SPO2 equal to or greater than 90%. Currently on 4 L O2 via nasal cannula. -Telemetry monitoring. -Continuous Pulse-oximetry -Duonebs scheduled 4 times daily and as needed for SOB and/or wheezing along with Symbicort 160-4.5 mcg inhaler 2 puffs twice daily. -Incentive Spirometry and flutter valve -Steroids: Solu-Medrol discontinued this morning and patient started on prednisone 40 mg daily. -Antibiotics: Completed 3-day course of azithromycin 500 mg daily and currently on day 4 of 5 of Rocephin 2 g daily -Blood culture showing no growth to date. Sputum culture showing no growth after 48 hours. Legionella negative. -Pulmonology following, reviewed documentation in chart. Acute fracture of left sacrum and right pubic symphysis status post fall at home -MRI reporting acute fracture of left sacrum and right pubic symphysis reporting minimally displaced fracture of the left sacral ala with cortical buckling as well as curvilinear bony edema within the right pubic symphysis corresponding to buckling on CT. -Patient reporting pain to lower back as well, will obtain a CT lumbar spine to rule out further fractures. -Orthopedic surgery following, they are not recommending emergent/urgent orthopedic surgical intervention stating continue with medical management and pain management and outpatient follow-up in our office in 1 week. -Nonbearing left lower extremity at all times, must use walker -PT/OT consulted Paroxysmal atrial fibrillation Hypertension Hyperlipidemia -Continue anticoagulation with Eliquis 5 mg twice daily, atorvastatin 20 mg daily, flecainide 50 mg nightly and 100 mg daily, and metoprolol 50 mg daily. Anxiety with depression -Continue daily medication regimen with Cymbalta 60 mg daily, Remeron 7.5 mg nightly, and Zoloft to 100 mg twice daily. Chronic neck/back pain Continue home medication regimen with oxycodone 10 mg 3 times daily and gabapentin 300 mg nightly. Data and imaging reviewed: -MRI reporting acute fracture of left sacrum and right pubic symphysis reporting minimally displaced fracture of the left sacral ala with cortical buckling as well as curvilinear bony edema within the right pubic symphysis corresponding to buckling on CT. -Vital signs reviewed. Blood pressure 122/73, heart rate 72, respiratory rate 15, temp 97.4 F, and SpO2 of 98% on 2 L. -Labs reviewed. CBC showing stable macrocytic anemia with hemoglobin of 10.2 a nd MCV of 97.9. BMP unremarkable. Blood glucose 123. Liver profile normal findings. Blood culture showing no growth to date. Sputum culture showing no growth after 48 hours. Legionella negative. CODE STATUS: Full code DVT prophylaxis: Eliquis Anticipated discharge date: Tomorrow morning after patient can be evaluated by physical therapy and shown how to properly maintain nonweightbearing of left lower extremity while using walker. Anticipated discharge place: Home with home care and PT/OT Patient was seen independently by Nurse Pracitioner. This document was prepared using [employer] dictation software. Please allow for errors in quality technician fiberglass, while rare they do occur. Bienvenido Borrero ROOM SERVICE ATTENDANT rendered care for this patient independently, reviewed the findings and plan as documented in the note above and agree with plan. I did not physically speak with or examine the patient on this date. Objective - Vital Signs Vital signs: Vital Signs Temp 97.4 F L 02/05/24 06:49 Pulse 72 02/05/24 06:49 Resp 15 02/05/24 06:49 BP 122/73 02/05/24 06:49 Pulse Ox 98 02/05/24 06:49 FiO2 40 02/02/24 21:15 Intake & Output 02/04/24 02/05/24 02/05/24 18:59 06:59 18:59 Other: Voiding Method Bedside Commode # Voids 3 1 - Labs CBC & Chem 7: 02/05/24 05:18 02/05/24 05:18 Labs: Microbiology - Last 24 Hours (Table) 02/02/24 03:36 Blood Culture - Preliminary Blood 02/02/24 10:39 Gram Stain - Final Sputum Sputum Culture - Final
--- NOTE | 2024-02-05 12:49 | P.PN ---
Subjective Progress Note Date: 02/05/24 This is a 63-year-old female patient with advanced COPD. The patient is oxygen dependent. The patient has been maintained on Breztri on outpatient basis. She is also known to have previous history of small cell lung cancer and the patient was treated with chemoradiation therapy and she has been told to have her disease in remission and the patient has been followed up by [facility] in [place]. The patient had a recent CAT scan of the chest was done few months back and she has been told that her disease is in remission. She has been having serial CAT scans and PET scans. The patient came into the hospital because of worsening shortness of breath. This developed over the past 2 to 3 days. She has been feeling weak and she had a fall and she has undergone a x-ray of the hip through the primary care physician that showed no evidence of any fracture. Meanwhile, her breathing has been progressively getting worse and for that reason she came into the emergency department but the patient was found to be in significant respiratory distress. Based on that, the patient was started on BiPAP and cu rrently she is on a BiPAP pressure of 10/5 cm of water. Blood gas was done in the emergency while the patient being on a BiPAP that showed a pH of 7.41 with a pCO2 of 43 and a pO2 of 170 and this was an FiO2 of 40%. Reviewed the chest x- ray and the patient was found to have chronic emphysematous changes bilaterally and a left apical opacity/atelectasis probably due to previous radiation therapy as the patient has volume loss in the left apex. CAT scan of the hip was also done on the left that showed no evidence of any fracture. Her viral screen was negative. UA was negative. Electrolytes showed a potassium level of 5.2 with a sodium level of 134, bicarb is 26, BUN is 11 with a creatinine of 0.5. Normal coagulation profile. WBC count of 12.2 with he was 12.6 and a platelet count of 154. She is known to have chronic atrial fibrillation and current cardiac rhythm is sinus tachycardia. Noted the patient has been maintained on anticoagulation with Eliquis on outpatient basis and she also takes metoprolol XL 50 mg p.o. daily and flecainide 50 mg at bedtime. She is lethargic and weak. No altered mentation. Her is at the bedside. On 02/03/2024, the patient is calm and comfortable and awake and alert and communicating. The patient was taken off the BiPAP and the patient is currently on 2 L of oxygen nasal cannula. Continues to have some cough and congestion. Much less bronchospastic and wheezy compared to yesterday. No nausea. No vomiting. No diarrhea. No abdominal pain. No altered mentation. No fever or chills. White cell count is 6.7 but hemoglobin 10.4 and a platelet count of 165. BUN is 18 with a creatinine of 0.6 and a sodium levels at 135. UA is negative. Legionella urine antigen is also negative. Sputum Gram stain and culture still pending. Blood cultures negative. Remains on Rocephin and Zithromax as an empiric antibiotic coverage. Remains on DuoNeb of chest. Remains on Symbicort and she is also on IV Solu-Medrol 60 mg IV push every 6 hours. No other significant events overnight and the patient was able to come off the BiPAP. On 02/04/2024, the patient is being seen for a follow-up. Doing much better. Less short of breath he continues to have cough and congestion. Noted the patient has undergone recent bronchoscopy and the bronchoalveolar lavage at [facility] by Dr. Flannery and the results of those need to be retrieved. She is currently off the BiPAP. She remains on bronchodilators. She remains on IV Solu-Medrol. She is on Symbicort. No new complaints otherwise for now. Labs were noted. No new labs from today. Awake and alert and communicating. No altered mentation. No chest pain. the 02/05/2024, the patient is stable. Doing well. No shortness of breath is stable. She continues to have a congested cough the patient is producing minimal amount of sputum. She is using the flutter valve. She is using bronchodilators. She is also on IV Solu-Medrol that will be transition to oral prednisone. She does have difficulty with mobility. MRI of the hip showed an acute fracture of the left sacrum and a right pubic symphysis with displacement and edema. CAT scan of the thoracic and lumbar spine was also done which showed fracture of the left sacrum and mild to moderate multilevel degenerative changes involving the spine. No evidence of any spine fracture. The white cell count is at 6.8 with hemoglobin 10.2 and a platelet count of 151. Sodium is at 140 and potassium is at 4.3. The bronchoalveolar lavage that was done in [facility] yielded no microbial growth back in December 2023. Objective - Vital Signs Vital signs: Vital Signs Temp 97.4 F L 02/05/24 06:49 Pulse 77 02/05/24 08:08 Resp 18 02/05/24 08:08 BP 122/73 02/05/24 06:49 Pulse Ox 99 02/05/24 07:58 FiO2 40 02/02/24 21:15 Intake & Output 02/04/24 02/05/24 02/05/24 18:59 06:59 18:59 Other: Voiding Method Bedside Commode # Voids 3 1 - Exam The patient appeared well nourished and normally developed. Vital signs as documented. The patient is thin and frail and she carries a body mass index of 18.2. Calm and comfortable off the BiPAP and 2 L of oxygen by nasal cannula Head exam is unremarkable. No scleral icterus or corneal arcus noted. Neck is without jugular venous distension, thyromegaly, or carotid bruits. Carotid upstrokes are brisk bilaterally. Lungs shows marked diminished breath sounds bilaterally along with scattered expiratory wheezes heard throughout the lung resendiz. Cardiac exam reveals the PMI to be normally sized and situated. Rhythm is regular. First and second heart sounds normal. No murmurs, rubs or gallops. Abdominal exam reveals normal bowel sounds, no masses, no organomegaly and no aortic enlargement. Extremities are nonedematous and both femoral and pedal pulses are normal. Examination of the skin revealed no evidence of significant rashes, suspicious appearing nevi or other concerning lesions. Neurologically, the patient is awake and alert and the patient does not have any focal neurological deficit. Cranial nerves are essentially intact. - Labs CBC & Chem 7: 02/05/24 05:18 02/05/24 05:18 Labs: Abnormal Lab Results - Last 24 Hours (Table) 02/05/24 Range/Units 05:18 RBC 3.28 L (4.10-5.20) X 10*6/uL Hgb 10.2 L (12.0-15.0) g/dL Hct 32.1 L (37.2-46.3) % MCV 97.9 H (80.0-97.0) FL MCHC 31.8 L (32.0-37.0) g/dL Microbiology - Last 24 Hours (Table) 02/02/24 03:36 Blood Culture - Preliminary Blood 02/02/24 10:39 Gram Stain - Final Sputum Sputum Culture - Final Assessment and Plan Plan: Acute exacerbation of COPD, no clear evidence of pneumonia. Chest x-ray shows a chronic volume loss and left apical opacity and this is prior related to previous radiation therapy to her lungs for small cell lung cancer. The patient clinically improved after BiPAP currently on 2 L of oxygen by nasal cannula. Clinically improved, continues to have a congested cough and the patient is using a flutter valve. Advanced COPD, oxygen dependent with chronic hypoxic respiratory failure, maintained on O2 at 2 L nasal cannula Small cell lung cancer status post chemoradiation therapy. Being followed up at [facility] and the patient has been told that her disease has been in remission based on a recent CAT scan of the chest that was done few months back Paroxysmal atrial fibrillation the patient is currently in sinus rhythm. The patient has been maintained on metoprolol and Tambocor in addition to anticoagulation with Eliquis Cachexia and weight loss and the patient's body mass index is 18.2 Chronic back pain Acid reflux Chronic anxiety/depression Hyperlipidemia maintained on Crestor an outpatient basis. Fall and fracture of left sacrum and a right pubic symphysis with displacement and edema Plan Bronchoalveolar lavage from [facility] from December 2023 was negative for any microbial growth Flutter valve Robitussin DM 10 mL 4 times daily [id number] Breztri will be switched to Symbicort as maintenance during the hospital stay. Continue DuoNeb nebulized treatments [id number]. Discontinue the IV Solu-Medrol start the patient on prednisone burst taper Empiric antibiotic coverage with a combination of Rocephin and Zithromax Continue anticoagulation with Eliquis 5 mg p.o. twice daily Continue with a combination of metoprolol XL 50 mg p.o. daily and Tambocor regarding her paroxysmal atrial fibrillation. Pain control with oxycodone Physical therapy Ortho evaluation Will continue to follow. Case was discussed with her at the bedside.
[2024-02-05 19:49] VITALS: RESP 16
[2024-02-05] MEDS: IPRATROPIUM-ALBUTEROL 3 ML NEB INHALATION SCH (20:02)
[2024-02-06 07:17] VITALS: BP 112/72; TEMP 97.7
[2024-02-06 08:36] VITALS: PULSE 80
--- NOTE | 2024-02-06 09:26 | P.DS ---
Providers Date of admission: 02/02/24 04:29 Expected date of discharge: 02/06/24 Attending physician: Mayda Calloway MD Consults: 02/02/24 04:30 Consult Physician Routine Consulting Provider: Yunior Paredes Consult Reason/Comments: left hip injury. ct pending Do you want consulting provider notified?: Yes 02/02/24 05:30 Consult Physician Routine Consulting Provider: Remigio Hansen Consult Reason/Comments: bipap, hypoxia, copd, lung mass/pneumonia Do you want consulting provider notified?: Yes Primary care physician: [facility] Course: Discharge Diagnosis: Acute on chronic respiratory failure with hypoxia. Patient's condition improved after receiving [id number] nebulizer treatments and IV steroids. She has been tapered down to oral steroids and back at baseline oxygen needs. Patient cleared by pulmonary for discharge and medically optimized for discharge home at this time. Patient states she has her oxygen, nebulizer machine, and inhalers at home and does not need refills. Patient discharged home on prednisone taper. Patient to follow-up outpatient with her PCP and primary gate guard in [place] as discussed. COPD with exacerbation Hx of Lung cancer with concerns of obstructive pneumonia vs obstructive atelectasis with reports of left-sided volume loss. Patient completed 3-day course of Zithromax and 5-day course of Rocephin. Acute fracture of left sacrum and right pubic symphysis status post fall at home. MRI reporting acute fracture of left sacrum and right pubic symphysis reporting minimally displaced fracture of the left sacral ala with cortical buckling as well as curvilinear bony edema within the right pubic symphysis corresponding to buckling on CT. orthopedic surgery evaluated recommending conservative management and outpatient follow-up in their office in 1 week. Patient to be nonweightbearing of left lower extremity at all times and must use walker. Paroxysmal atrial fibrillation. Continue anticoagulation with Eliquis 5 mg twice daily, atorvastatin 20 mg daily, flecainide 50 mg nightly and 100 mg daily, and metoprolol 50 mg daily. Hypertension. Continue metoprolol 50 mg daily. Hyperlipidemia. Continue atorvastatin 20 mg daily. Anxiety with depression. Continue daily medication regimen with Cymbalta 60 mg daily, Remeron 7.5 mg nightly, and Zoloft to 100 mg twice daily. Chronic neck/back pain. Continue home medication regimen with oxycodone 10 mg 3 times daily and gabapentin 300 mg nightly. Hospital course: Patient is a very pleasant 63-year-old female with a past medical history of atrial fibrillation on anticoagulation with Eliquis, COPD with chronic hypoxic respiratory failure home oxygen dependent on 2 L at all times, obstructive sleep apnea CPAP dependent nightly, hypertension, hyperlipidemia anxiety and depression, and GERD. She presented to the hospital with a chief complaint of worsening shortness of breath and cough. Upon arrival to our facility, patient underwent evaluation in the emergency department. Vital signs upon arrival show blood pressure 116/81, heart rate 117, respiratory rate 28, temp 98.0 F, and SpO2 of 99% on BiPAP with FiO2 of 40%. EKG was completed showing sinus tachycardia at 113 bpm. Chest x-ray completed showing chronic emphysematous changes with left suprahilar mass/neoplasm redemonstrated and new left apical opacification consistent with obstructive atelectasis with left sided volume loss present. Labs completed and reviewed. CBC showing leukocytosis with WBC count of 12.2. BMP reporting mild hyperkalemia with potassium of 5.2 but also reported as a hemolyzed specimen, hyponatremia with sodium of 134, and blood glucose of 135. Magnesium normal findings at 2.2. Liver profile showing elevated AST of 64 and ALT of 40 otherwise normal findings. Urinalysis negative for infection. Influenza A, influenza B, RSV, and COVID PCR were negative. Patient also reporting pain to Left hip secondary to reported fall at home [address] left hip was completed negative for acute fracture or dislocation. Orthopedic surgery team evaluated and placing order for MRI of left hip without contrast. Patient is weaned off of BiPAP and currently maintaining SpO2 of 94% on 4 L O2. She was admitted under our services with consultation to gate guard and orthopedic surgery. She was later found to be in acute respiratory distress requiring BiPAP and was transferred to the ICU. Patient later successfully weaned back down to nasal cannula and transferred to [facility] unit with telemetry.MRI reporting acute fracture of left sacrum and right pubic symphysis reporting minimally displaced fracture of the left sacral ala with cortical buckling as well as curvilinear bony edema within the right pubic symphysis corresponding to buckling on CT. Evaluated by orthopedic surgery recommending medical management and to be strict nonweightbearing of the left lower extremity.Patient's condition improved after receiving [id number] nebulizer treatments and IV steroids. She has been tapered down to oral steroids and back at baseline oxygen needs. Patient cleared by pulmonary for discharge and medically optimized for discharge home at this time. Patient states she has her oxygen, nebulizer machine, and inhalers at home and does not need refills. Patient discharged home on prednisone taper. Patient to follow- up outpatient with her PCP and primary gate guard in [place] as discussed. Patient has been cleared by orthopedic surgery and pulmonary, she is medically optimized for discharge at this time. Patient discharged home with [facility] including RN, assisted living nursing director, and PT/OT. Patient to follow-up outpatient with PCP within the next week secondary to the holiday and with her primary gate guard in [place]. Physical exam: Vital signs reviewed and stable. General: Nontoxic, mild distress, appears older than biological age, chronically ill appearing Derm: Skin warm and dry, normal coloration for ethnicity. Head: Atraumatic, normocephalic and symmetric. Eyes: EOM's intact, no lid lag, and anicteric sclera Mouth: no lip lesions, mucus membranes moist Cardiovascular: regular rate and rhythm with normal S1S2, no murmur noted, positive posterior tibial pulses bilaterally, and cap refill < 2 seconds. Lungs: Respirations even, regular, and unlabored on 2 L O2 via nasal cannula. Lungs diminished with soft expiratory wheezes. Abdominal: soft, nontender to palpation, no guarding, no appreciable organomegaly Ext: No gross muscle atrophy, no edema, no contractures. Movement and sensation intact however patient with reduced movement of left lower extremity secondary to reports of pain upon bending at hip. Neuro: Speech clear, face symmetrical and CN II-XII grossly intact with no noted focal neuro deficits Psych: Alert and oriented to person, place, time, and situation. Appropriate and pleasant affect. A total of 38 minutes of time were spent preparing this complex discharge summary. Pt was discharged on 02/06/2024 at 9:22 AM. Patient was seen independently by Nurse Practitioner. This document was prepared using [email or web address] dictation software. Please allow for errors in sales center manager while rare they do occur. Bienvenido Borrero NP rendered care for this patient independently, reviewed the findings and plan as documented in the note above. I did not physically speak with or examine the patient on this date. Patient Condition at Discharge: Stable Plan - Discharge Summary New Discharge Prescriptions: New predniSONE See Taper PO DIRECTED 12 Days #30 tab Apixaban [Eliquis] 5 mg PO BID 30 Days #30 tab Continue [id number] [Excedrin] 1 tab PO Q4HR PRN PRN Reason: Migraine Headache Acetaminophen Tab [Tylenol] 650 mg PO BID PRN PRN Reason: Fever And/ Or Pain Rosuvastatin [Crestor] 10 mg PO DAILY Metoprolol Succinate (ER) [Toprol XL] 50 mg PO DAILY Budesonide/Glycopyr/Formoterol [Breztri Aerosphere Inhaler] 2 puff INHALATION RT-BID oxyCODONE HCL [oxyCODONE HCL (IR)] 10 mg PO TID Omeprazole [PriLOSEC] 20 mg PO BID Flecainide [Tambocor] 50 mg PO HS DULoxetine HCL [Cymbalta] 60 mg PO DAILY Flecainide [Tambocor] 100 mg PO DAILY Sertraline [Zoloft] 100 mg PO BID Mirtazapine [Remeron] 7.5 mg PO HS Ipratropium-Albuterol Nebulize [Duoneb 0.5 mg-3 mg/3 ml Soln] 3 ml INHALATION RT-TID Gabapentin [Neurontin] 300 mg PO HS Albuterol Sulfate [Albuterol Sulfate Hfa] 2 puff PO RT-Q6H PRN PRN Reason: Shortness Of Breath Ondansetron Odt [Zofran ODT] 4 mg PO QID PRN PRN Reason: Nausea Discontinued Apixaban [Eliquis] 2.5 mg PO BID Discharge Medication List Acetaminophen Tab [Tylenol] 650 mg PO BID PRN 02/02/24 [History] Albuterol Sulfate [Albuterol Sulfate Hfa] 2 puff PO RT-Q6H PRN 02/02/24 [History] [id number] [Excedrin] 1 tab PO Q4HR PRN 02/02/24 [History] Budesonide/Glycopyr/Formoterol [Breztri Aerosphere Inhaler] 2 puff INHALATION RT-BID 02/02/24 [History] DULoxetine HCL [Cymbalta] 60 mg PO DAILY 02/02/24 [History] Flecainide [Tambocor] 50 mg PO HS 02/02/24 [History] Flecainide [Tambocor] 100 mg PO DAILY 02/02/24 [History] Gabapentin [Neurontin] 300 mg PO HS 02/02/24 [History] Ipratropium-Albuterol Nebulize [Duoneb 0.5 mg-3 mg/3 ml Soln] 3 ml INHALATION RT-TID 02/02/24 [History] Metoprolol Succinate (ER) [Toprol XL] 50 mg PO DAILY 02/02/24 [History] Mirtazapine [Remeron] 7.5 mg PO HS 02/02/24 [History] Omeprazole [PriLOSEC] 20 mg PO BID 02/02/24 [History] Ondansetron Odt [Zofran ODT] 4 mg PO QID PRN 02/02/24 [History] Rosuvastatin [Crestor] 10 mg PO DAILY 02/02/24 [History] Sertraline [Zoloft] 100 mg PO BID 02/02/24 [History] oxyCODONE HCL [oxyCODONE HCL (IR)] 10 mg PO TID 02/02/24 [History] Apixaban [Eliquis] 5 mg PO BID 30 Days #30 tab 02/06/24 [Rx] predniSONE See Taper PO DIRECTED 12 Days #30 tab 02/06/24 [Rx] Follow up Appointment(s)/Referral(s): Kenyon Venegas MD [Primary Care Provider] - 1-2 days (Office is not answering at time of discharge. Please call for follow-up appointment.) Yunior Paredes DO [Doctor of Osteopathic Medicine] - 02/23/24 1:30 pm (with [facility]) [facility] Visiting Nurse, [NON-STAFF] - 1 Week Patient Instructions/Handouts: COPD (Chronic Obstructive Pulmonary Disease) (DC), Sacral Fracture (DC) Activity/Diet/Wound Care/Special Instructions: Activity: As tolerated. Take breaks as needed. Diet: Heart healthy and carb consistent diet. Avoid salts, or foods with hidden salts such as canned or boxed foods and frozen dinners. Extra salt makes your heart work harder and traps the fluid in your body for longer. Special Instructions: Take all of your medications as directed and remember to keep all of your doctor's appointments and follow-up as needed. Wishing you and your family a wonderful and blessed holiday season and a happy healthy new year!! Thank you for allowing us to participate in your care, it was truly a pleasure having you for our patient!!! . Discharge Disposition: HOME WITH HOME HEALTH SERVICES
--- NOTE | 2024-02-06 13:41 | P.PN ---
Subjective Progress Note Date: 02/06/24 This is a 63-year-old female patient with advanced COPD. The patient is oxygen dependent. The patient has been maintained on Breztri on outpatient basis. She is also known to have previous history of small cell lung cancer and the patient was treated with chemoradiation therapy and she has been told to have her disease in remission and the patient has been followed up by [facility] in [place]. The patient had a recent CAT scan of the chest was done few months back and she has been told that her disease is in remission. She has been having serial CAT scans and PET scans. The patient came into the hospital because of worsening shortness of breath. This developed over the past 2 to 3 days. She has been feeling weak and she had a fall and she has undergone a x-ray of the hip through the primary care physician that showed no evidence of any fracture. Meanwhile, her breathing has been progressively getting worse and for that reason she came into the emergency department but the patient was found to be in significant respiratory distress. Based on that, the patient was started on BiPAP and cur rently she is on a BiPAP pressure of 10/5 cm of water. Blood gas was done in the emergency while the patient being on a BiPAP that showed a pH of 7.41 with a pCO2 of 43 and a pO2 of 170 and this was an FiO2 of 40%. Reviewed the chest x- ray and the patient was found to have chronic emphysematous changes bilaterally and a left apical opacity/atelectasis probably due to previous radiation therapy as the patient has volume loss in the left apex. CAT scan of the hip was also done on the left that showed no evidence of any fracture. Her viral screen was negative. UA was negative. Electrolytes showed a potassium level of 5.2 with a sodium level of 134, bicarb is 26, BUN is 11 with a creatinine of 0.5. Normal coagulation profile. WBC count of 12.2 with he was 12.6 and a platelet count of 154. She is known to have chronic atrial fibrillation and current cardiac rhythm is sinus tachycardia. Noted the patient has been maintained on anticoagulation with Eliquis on outpatient basis and she also takes metoprolol XL 50 mg p.o. daily and flecainide 50 mg at bedtime. She is lethargic and weak. No altered mentation. Her is at the bedside. On 02/03/2024, the patient is calm and comfortable and awake and alert and communicating. The patient was taken off the BiPAP and the patient is currently on 2 L of oxygen nasal cannula. Continues to have some cough and congestion. Much less bronchospastic and wheezy compared to yesterday. No nausea. No vomiting. No diarrhea. No abdominal pain. No altered mentation. No fever or chills. White cell count is 6.7 but hemoglobin 10.4 and a platelet count of 165. BUN is 18 with a creatinine of 0.6 and a sodium levels at 135. UA is negative. Legionella urine antigen is also negative. Sputum Gram stain and culture still pending. Blood cultures negative. Remains on Rocephin and Zithromax as an empiric antibiotic coverage. Remains on DuoNeb of chest. Remains on Symbicort and she is also on IV Solu-Medrol 60 mg IV push every 6 hours. No other significant events overnight and the patient was able to come off the BiPAP. On 02/04/2024, the patient is being seen for a follow-up. Doing much better. Less short of breath he continues to have cough and congestion. Noted the patient has undergone recent bronchoscopy and the bronchoalveolar lavage at [facility] by Dr. Flannery and the results of those need to be retrieved. She is currently off the BiPAP. She remains on bronchodilators. She remains on IV Solu-Medrol. She is on Symbicort. No new complaints otherwise for now. Labs were noted. No new labs from today. Awake and alert and communicating. No altered mentation. No chest pain. the 02/05/2024, the patient is stable. Doing well. No shortness of breath is stable. She continues to have a congested cough the patient is producing minimal amount of sputum. She is using the flutter valve. She is using bronchodilators. She is also on IV Solu-Medrol that will be transition to oral prednisone. She does have difficulty with mobility. MRI of the hip showed an acute fracture of the left sacrum and a right pubic symphysis with displacement and edema. CAT scan of the thoracic and lumbar spine was also done which showed fracture of the left sacrum and mild to moderate multilevel degenerative changes involving the spine. No evidence of any spine fracture. The white cell count i s at 6.8 with hemoglobin 10.2 and a platelet count of 151. Sodium is at 140 and potassium is at 4.3. The bronchoalveolar lavage that was done in [facility] yielded no microbial growth back in December 2023. The patient is seen today February 06, 2024 in follow-up on the regular medical floor. She is currently sitting up in a chair. Awake and alert in no acute distress. Denies any worsening shortness of breath, cough or congestion. Maintaining O2 saturations in the 90s on 2 L/min per nasal cannula. She has been afebrile. Hemodynamically stable. No new labs today. Blood culture revealed no growth. Sputum culture revealed no growth. She is continued on DuoNeb and elations, Symbicort, prednisone taper. She is anticoagulated with Eliquis. Pain adequately controlled. Objective - Vital Signs Vital signs: Vital Signs Temp 97.7 F 02/06/24 06:46 Pulse 80 02/06/24 08:57 Resp 16 02/06/24 06:46 BP 112/72 02/06/24 06:46 Pulse Ox 98 02/06/24 06:46 FiO2 40 02/02/24 21:15 Intake & Output 02/05/24 02/06/24 02/06/24 18:59 06:59 18:59 Intake Total 50 Balance 50 Intake: Intake, IV Titration 50 Amount cefTRIAXone 2 gm In 50 Sodium Chloride 0.9% 50 ml @ 100 mls/hr IVPB Q24H [facility] Rx#:[id number] Other: # Voids 3 1 # Bowel Movements 0 - Exam A 63-year-old female. Vital signs as documented. The patient is thin and frail and she carries a body mass index of 18.2. Calm and comfortable on 2 L of oxygen by nasal cannula Head exam is unremarkable. No scleral icterus or corneal arcus noted. Neck is without jugular venous distension, thyromegaly, or carotid bruits. Ca rotid upstrokes are brisk bilaterally. Lungs shows marked diminished breath sounds bilaterally along with scattered expiratory wheezes heard throughout the lung resendiz. Cardiac exam reveals the PMI to be normally sized and situated. Rhythm is regular. First and second heart sounds normal. No murmurs, rubs or gallops. Abdominal exam reveals normal bowel sounds, no masses, no organomegaly and no a ortic enlargement. Extremities are nonedematous and both femoral and pedal pulses are normal. Examination of the skin revealed no evidence of significant rashes, suspicious appearing nevi or other concerning lesions. Neurologically, the patient is awake and alert and the patient does not have any focal neurological deficit. Cranial nerves are essentially intact. - Labs CBC & Chem 7: 02/05/24 05:18 02/05/24 05:18 Labs: Microbiology - Last 24 Hours (Table) 02/02/24 03:36 Blood Culture - Preliminary Blood Assessment and Plan Assessment: Acute exacerbation of COPD, no clear evidence of pneumonia. Chest x-ray shows a chronic volume loss and left apical opacity and this is prior related to previous radiation therapy to her lungs for small cell lung cancer. The patient clinically improved and currently on 2 L of oxygen by nasal cannula Advanced COPD, oxygen dependent with chronic hypoxic respiratory failure, maintained on O2 at 2 L nasal cannula Small cell lung cancer status post chemoradiation therapy. Being followed up at [facility] and the patient has been told that her disease has been in remission based on a recent CAT scan of the chest that was done few months back Paroxysmal atrial fibrillation the patient is currently in sinus rhythm. The patient has been maintained on metoprolol and Tambocor in addition to anticoagulation with Eliquis Cachexia and weight loss and the patient's body mass index is 18.2 Chronic back pain Acid reflux Chronic anxiety/depression Hyperlipidemia maintained on Crestor an outpatient basis. 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 Number of minutes spent on the visit: 10 Dictation was produced using A [employer] dictation software. Please excuse any grammatical, word or spelling errors.
== END 2024-02-06 11:23 | disposition home health service (06) | DRG 189 ==
LOC: EC 01:15 → 3SCARD 04:29 → 2SICU 11:46 → 4SSUR 02-03 17:07
PROVIDERS: ADMIT Internal Medicine; ATTEND Internal Medicine
PROC: 5A09457 Assistance with Respiratory Ventilation, 24-96 Consecutive Hours, Continuous Positive Airway Pressure (ICD-10-PCS; principal; 2024-02-02)
DX: J96.21 Acute and chronic respiratory failure with hypoxia (principal); S32.119A Unspecified Zone I fracture of sacrum, initial encounter for closed fracture; S32.501A Unspecified fracture of right pubis, initial encounter for closed fracture; E87.1 Hypo-osmolality and hyponatremia; I48.20 Chronic atrial fibrillation, unspecified; R64 Cachexia; J98.11 Atelectasis; Z68.1 Body mass index [BMI] 19.9 or less, adult; W18.30XA Fall on same level, unspecified, initial encounter; M25.552 Pain in left hip; R29.6 Repeated falls; I48.0 Paroxysmal atrial fibrillation; E78.5 Hyperlipidemia, unspecified; J43.9 Emphysema, unspecified; F32.A Depression, unspecified; F41.9 Anxiety disorder, unspecified; K21.9 Gastro-esophageal reflux disease without esophagitis; I10 Essential (primary) hypertension; Z85.118 Personal history of other malignant neoplasm of bronchus and lung; Z99.81 Dependence on supplemental oxygen; M54.9 Dorsalgia, unspecified; M54.2 Cervicalgia; E87.5 Hyperkalemia; G89.29 Other chronic pain; Y84.2 Radiological procedure and radiotherapy as the cause of abnormal reaction of the patient, or of later complication, without mention of misadventure at the time of the procedure; R00.0 Tachycardia, unspecified; Y92.009 Unspecified place in unspecified non-institutional (private) residence as the place of occurrence of the external cause; Z74.09 Other reduced mobility; Z79.01 Long term (current) use of anticoagulants; Z79.899 Other long term (current) drug therapy; Z90.710 Acquired absence of both cervix and uterus; Z91.81 History of falling; Z92.3 Personal history of irradiation; Z92.21 Personal history of antineoplastic chemotherapy; Z98.1 Arthrodesis status; Z11.52 Encounter for screening for COVID-19; Z90.49 Acquired absence of other specified parts of digestive tract
CPT/HCPCS: 36415; 36600; 71045; 71046; 72128; 72131; 80053; 81003; 82803; 82805; 83605; 83735; 85025; 85027; 85610; 85730; 87040; 87070; 87205; 87449; 87636; 93005; 94640; 94660; 94667; 94668; 94760; 96361; 96365; 96367; 96372; 96375; 99291

== ENCOUNTER → 2024-04-04 | Outpatient (CLI) | payer MEDICARE ==
--- NOTE | 2024-04-04 13:43 | BD ---
EXAMINATION TYPE: Axial Bone Density DATE OF EXAM: 04/04/2024 CLINICAL HISTORY: 63 years old Female. ICD-10 CODE: M85.80 OTH DISRD OF BONE DENSITY AND STRUCTURE, UN , Additional History: Height: 65.5 Weight: 110 FRAX RISK QUESTIONS: Family History (Parent hip fracture): no History of Fracture in Adulthood: yes Secondary Osteoporosis: no RISK FACTORS HISTORY OF: Surgery to Spine/Hip(right/left)/Wrist (right/left): no MEDICATIONS: Thyroid Medications: no Osteoporosis Medications: no EXAM MEASUREMENTS: Bone mineral densitometry was performed using the [employer] Reality System. Bone mineral density as measured about the Lumbar spine is: ----- L1-L4(G/cm2): 1.062 T Score Values are as follows: ----- L1: -2.3 ----- L2: -1.4 ----- L3: -0.2 ----- L4: -0.3 ----- L1-L4: -1.0 Z Score Values are as follows: ----- L1: -0.5 ----- L2: 0.5 ----- L3: 1.6 ----- L4: 1.5 ----- L1-L4: 0.8 Bone mineral density baseline Bone mineral density about the R hip (g/cm2): 0.629 Bone mineral density about the L hip (g/cm2): 0.932 T Score values are as follows: -----R Neck: -2.8 -----L Neck: -2.8 -----R Total: -3.0 -----L Total: -3.0 Z Score values are as follows: -----R Neck: -1.2 -----L Neck: -1.2 -----R Total: -1.7 -----L Total: -1.6 Bone mineral density baseline FRAX%s: The graph provided illustrates a 11.6% chance for a major osteoporotic fx and a 3.1% chance f or the hips probability for fx in 10 years time. IMPRESSION: Osteoporosis (T Score less than -2.5). There is increased fracture risk and therapy is usually indicated based on age. Re-Screen 1-2 years. NOTE: T-SCORE=SD OF THE YOUNG ADULT MEAN. [facility], , 04/04/2024 1:40 PM
== END | disposition home or self-care (01) ==
LOC: RADBDWWP 12:55
PROVIDERS: ATTEND Family Medicine
DX: M81.0 Age-related osteoporosis without current pathological fracture (principal); M85.89 Other specified disorders of bone density and structure, multiple sites
CPT/HCPCS: 77080

== ENCOUNTER 2024-06-17 18:29 | Emergency (ER) | payer MEDICARE ==
--- NOTE | 2024-06-17 18:55 | ED ---
General Adult HPI - General Chief complaint: Chest Pain Stated complaint: chest pain Time Seen by Provider: 06/17/24 18:40 Source: patient, RN notes reviewed, old records reviewed Mode of arrival: ambulatory Limitations: no limitations - History of Present Illness Initial comments: This is a 63-year-old female who presents to the emergency department co mplaining of left-sided chest pain. Patient states this started suddenly while she was watching TV and it is very sharp in nature and it radiates to her back. Patient states taking a deep breath makes it worse. Patient also feels short of breath. Patient denies any fever chills or cough. Patient denies any recent injury. Patient states she does have a history of lung cancer but has been [facility] free for 2 years. Patient used to be a smoker. - Related Data Home Medications Medication Instructions Recorded Confirmed Acetaminophen Tab [Tylenol] 650 mg PO BID PRN 02/02/24 02/02/24 Albuterol Sulfate [Albuterol 2 puff PO RT-Q6H PRN 02/02/24 02/02/24 Sulfate Hfa] [id number] 1 tab PO Q4HR PRN 02/02/24 02/02/24 [Excedrin] Budesonide/Glycopyr/Formoterol 2 puff INHALATION RT-BID 02/02/24 02/02/24 [Breztri Aerosphere Inhaler] DULoxetine HCL [Cymbalta] 60 mg PO DAILY 02/02/24 02/02/24 Flecainide [Tambocor] 50 mg PO HS 02/02/24 02/02/24 Flecainide [Tambocor] 100 mg PO DAILY 02/02/24 02/02/24 Gabapentin [Neurontin] 300 mg PO HS 02/02/24 02/02/24 Ipratropium-Albuterol Nebulize 3 ml INHALATION RT-TID 02/02/24 02/02/24 [Duoneb 0.5 mg-3 mg/3 ml Soln] Metoprolol Succinate (ER) [Toprol 50 mg PO DAILY 02/02/24 02/02/24 XL] Mirtazapine [Remeron] 7.5 mg PO HS 02/02/24 02/02/24 Omeprazole [PriLOSEC] 20 mg PO BID 02/02/24 02/02/24 Ondansetron Odt [Zofran ODT] 4 mg PO QID PRN 02/02/24 02/02/24 Rosuvastatin [Crestor] 10 mg PO DAILY 02/02/24 02/02/24 Sertraline [Zoloft] 100 mg PO BID 02/02/24 02/02/24 oxyCODONE HCL [oxyCODONE HCL (IR)] 10 mg PO TID 02/02/24 02/02/24 Previous Rx's Medication Instructions Recorded Apixaban [Eliquis] 5 mg PO BID 30 Days #30 tab 02/06/24 predniSONE See Taper PO DIRECTED 12 Days 02/06/24 #30 tab Ketorolac [Toradol] 10 mg PO Q8HR #15 tab 06/17/24 Allergies Allergy/AdvReac Type Severity Reaction Status Date / Time Penicillins Allergy Unknown Verified 06/17/24 18:39 Childhood Review of Systems ROS Statement: Those systems with pertinent positive or pertinent negative responses have been documented in the HPI. ROS Other: All systems not noted in ROS Statement are negative. Past Medical History Past Medical History: Atrial Fibrillation, Cancer, COPD, GERD/Reflux, Sleep Apnea/CPAP/BIPAP Additional Past Medical History / Comment(s): Emphysema, back pain, uses CPAP, hypotension, lung CA but in remission History of Any Multi-Drug Resistant Organisms: None Reported Past Surgical History: Cholecystectomy, Hysterectomy, Orthopedic Surgery, Tonsillectomy Additional Past Surgical History / Comment(s): Right knee arthroscopy, colonoscopy with benign polypectomy X1, NECK SURGERY X4 fused from c2-t3, with titanium screws, gets MRI's every 3 months at [facility]. Past Anesthesia/Blood Transfusion Reactions: No Reported Reaction Past Psychological History: Anxiety, Depression Smoking Status: Former smoker Past Alcohol Use History: Rare Past Drug Use History: None Reported - Past Family History Father Family Medical History: COPD Mother Family Medical History: Cancer Additional Family Medical History / Comment(s): Breast and throat cancer. General Exam - General Exam Comments Initial Comments: GENERAL: Patient is well-developed and well-nourished. Patient is nontoxic and well- hydrated and is in moderate distress. ENT: Neck is soft and supple. No significant lymphadenopathy is noted. Oropharynx is clear. Moist mucous membranes. Neck has full range of motion without eliciting any pain. EYES: The sclera were anicteric and conjunctiva were pink and moist. Extraocular movements were intact and pupils were equal round and reactive to light. Eyelids were unremarkable. PULMONARY: Unlabored respirations. Good breath sounds bilaterally. No audible rales rhonchi or wheezing was noted. CARDIOVASCULAR: There is a regular rate and rhythm without any murmurs gallops or rubs. ABDOMEN: Soft and nontender with normal bowel sounds. SKIN: Skin is clear with no lesions or rashes and otherwise unremarkable. NEUROLOGIC: Patient is alert and oriented x3. Cranial nerves II through XII are grossly intact. Motor and sensory are also intact. Normal speech, volume and content. Symmetrical smile. MUSCULOSKELETAL: Normal extremities with adequate strength and full range of motion. LYMPHATICS: No significant lymphadenopathy is noted PSYCHIATRIC: Normal psychiatric evaluation. Limitations: no limitations Course Vital Signs 06/17/24 06/17/24 06/17/24 18:37 18:51 21:05 Temperature 99.3 F Pulse Rate 101 H 67 85 Pulse Rate [ 97 Owner Operator ] Respiratory 28 H 28 H 24 Rate Blood Pressure 136/74 108/59 O2 Sat by Pulse 93 L 97 99 Oximetry Medical Decision Making - Medical Decision Making EKG is of poor quality it is interpreted by myself it shows a sinus rhythm at 90 bpm SD was 180 QRS is 98 QT interval 351 QTc is 406. Was pt. sent in by a medical professional or institution ([facility]ETZY Lloyd, [employer], urgent care, hospital, or alf...) When possible be specific @ -No Did you speak to anyone other than the patient for history (EMS, parent, family, police, friend...)? What history was obtained from this source @ -No Did you review nursing and triage notes (agree or disagree)? Why? @ -I reviewed and agree with nursing and triage notes Were old charts reviewed (outside hosp., previous admission, EMS record, old EKG, old radiological studies, urgent care reports/EKG's, alf records)? Report findings @ -No old charts were reviewed Differential Diagnosis? @ -Differential Chest Pain: Stable Angina, Unstable Angina, STEMI, NSTEMI Aortic Dissection, Pneumothorax, Musculoskeletal, Esophageal Spasm GERD, Cholecystitis, Pancreatitis, Zoster, this is not meant to be an all-inclusive list. EKG interpreted by me (3pts min.). @ -As above X-rays interpreted by me (1pt min.). @ -Chest x-ray shows a left upper lobe consolidation unchanged when compared to the the last chest x-ray CT interpreted by me (1pt min.). @ -None done U/S interpreted by me (1pt. min.). @ -None done What testing was considered but not performed or refused? (CT, X-rays, U/S, labs)? Why? @ -None What meds were considered but not given or refused? Why? @ -None Did you discuss the management of the patient with other professionals (professionals i.e. DrTayler, PA, [employer], lab, RT, psych nurse, licensed master social worker, radio frequency engineer, teacher, law enforcement officer, comp field case manager)? Give summary @ -No Was smoking cessation discussed for >3mins.? @ -No Was critical care preformed (if so, how long)? @ -No Were there social determinants of health that impacted care today? How? (Homel essness, low income, unemployed, alcoholism, drug addiction, transportation, low edu. Level, literacy, decrease access to med. care, shelter, rehab)? @ -No Was there de-escalation of care discussed even if they declined (Discuss DNR or withdrawal of care, Hospice)? DNR status @ -No What co-morbidities impacted this encounter? (DM, HTN, Smoking, COPD, CAD, Cancer, CVA, ARF, Chemo, Hep., AIDS, mental health diagnosis, sleep apnea, morbid obesity)? @ -None Was patient admitted / discharged? Hospital course, mention meds given and route, prescriptions, significant lab abnormalities, going to OR and other pertinent info. @ -Patient was given Toradol and Dilaudid and her pain was completely resolved. I went back and checked on her after all lab results were back and she was completely pain-free I suggested admission patient stated she did not want to stay and she wanted to go home and follow-up as needed and she stated she would return if the symptoms return or any new symptoms occurred Undiagnosed new problem with uncertain prognosis? @ -No Drug Therapy requiring intensive monitoring for toxicity (Heparin, Nitro, Insulin, Cardizem)? @ -No Were any procedures done? @ -No Diagnosis/symptom? @ -Pleuritic chest pain Acute, or Chronic, or Acute on Chronic? @ -Acute Uncomplicated (without systemic symptoms) or Complicated (systemic symptoms)? @ -Complicated Side effects of treatment? @ -No Exacerbation, Progression, or Severe Exacerbation? @ -No Poses a threat to life or bodily function? How? (Chest pain, [place], [place], pneumonia, PE, COPD, DKA, ARF, appy, cholecystitis, CVA, Diverticulitis, Homicidal, Suicidal, threat to staff... and all critical care pts) @ -No - Lab Data Result diagrams: 06/17/24 18:59 06/17/24 18:59 Lab Results 06/17/24 06/17/24 06/17/24 Range/Units 18:59 18:59 18:59 WBC 12.40 H (4.50-10.00) 10*3/uL RBC 4.02 L (4.10-5.20) 10*6/uL Hgb 12.8 (12.0-15.0) g/dL Hct 37.9 (37.2-46.3) % MCV 94.3 (80.0-97.0) fL MCH 31.8 (27.0-32.0) pg MCHC 33.8 (32.0-37.0) g/dL Plt Count 176 (140-440) 10*3/uL MPV 9.6 (9.5-12.2) fL Immature Gran % (Auto) 0.6 % Neutrophils % 89.6 % Lymphocytes % 4.1 % Monocytes % 5.2 % Eosinophils % 0.3 % Basophils % 0.2 % Immature Gran # 0.07 H (0.00-0.04) 10*3/uL Neutrophils # 11.11 H (1.80-7.70) 10*3/uL Lymphocytes # 0.51 L (0.90-5.00) 10*3/uL Monocytes # 0.64 (0.20-1.00) 10*3/uL Eosinophils # 0.04 (0.04-0.35) 10*3/uL Basophils # 0.03 (0.00-0.10) 10*3/uL PT 10.7 (10.0-12.5) sec INR 1.0 (<1.2) APTT 24.2 (22.0-30.0) sec D-Dimer 0.28 (<0.60) mg/L FEU Sodium 139 (137-145) mmol/L Potassium 3.6 (3.5-5.1) mmol/L Chloride 98 (98-107) mmol/L Carbon Dioxide 30 (22-30) mmol/L Anion Gap 11 mmol/L BUN 13 (7-17) mg/dL Creatinine 0.57 (0.52-1.04) mg/dL Est GFR (CKD-EPI)AfAm >90 (>60 ml/min/1.73 sqM) Est GFR (CKD-EPI)NonAf >90 (>60 ml/min/1.73 sqM) Glucose 88 (74-99) mg/dL Calcium 9.3 (8.4-10.2) mg/dL Magnesium 1.8 (1.6-2.3) mg/dL Total Bilirubin 0.5 (0.2-1.3) mg/dL AST 22 (14-36) U/L ALT 27 (4-34) U/L Alkaline Phosphatase 50 (38-126) U/L Troponin I (0.000-0.034) ng/mL Total Protein 7.0 (6.3-8.2) g/dL Albumin 4.4 (3.5-5.0) g/dL /06/08 Range/Units 18:59 WBC (4.50-10.00) 10*3/uL RBC (4.10-5.20) 10*6/uL Hgb (12.0-15.0) g/dL Hct (37.2-46.3) % MCV (80.0-97.0) fL MCH (27.0-32.0) pg MCHC (32.0-37.0) g/dL Plt Count (140-440) 10*3/uL MPV (9.5-12.2) fL Immature Gran % (Auto) % Neutrophils % % Lymphocytes % % Monocytes % % Eosinophils % % Basophils % % Immature Gran # (0.00-0.04) 10*3/uL Neutrophils # (1.80-7.70) 10*3/uL Lymphocytes # (0.90-5.00) 10*3/uL Monocytes # (0.20-1.00) 10*3/uL Eosinophils # (0.04-0.35) 10*3/uL Basophils # (0.00-0.10) 10*3/uL PT (10.0-12.5) sec INR (<1.2) APTT (22.0-30.0) sec D-Dimer (<0.60) mg/L FEU Sodium (137-145) mmol/L Potassium (3.5-5.1) mmol/L Chloride (98-107) mmol/L Carbon Dioxide (22-30) mmol/L Anion Gap mmol/L BUN (7-17) mg/dL Creatinine (0.52-1.04) mg/dL Est GFR (CKD-EPI)AfAm (>60 ml/min/1.73 sqM) Est GFR (CKD-EPI)NonAf (>60 ml/min/1.73 sqM) Glucose (74-99) mg/dL Calcium (8.4-10.2) mg/dL Magnesium (1.6-2.3) mg/dL Total Bilirubin (0.2-1.3) mg/dL AST (14-36) U/L ALT (4-34) U/L Alkaline Phosphatase (38-126) U/L Troponin I <0.012 (0.000-0.034) ng/mL Total Protein (6.3-8.2) g/dL Albumin (3.5-5.0) g/dL Disposition Clinical Impression: Pleuritic chest pain Disposition: HOME SELF-CARE Prescriptions: Ketorolac [Toradol] 10 mg PO Q8HR #15 tab Referrals: Kenyon Venegas MD [Primary Care Provider] - 1-2 days Time of Disposition: 21:31
[2024-06-17] MEDS: HYDROmorphone 0.5 MG/0.5 ML SYRINGE IVP STA (19:04)
[2024-06-17] MEDS: KETOROLAC 15 MG/ML 1 ML VIAL IVP STA (19:05)
[2024-06-17 19:16] LABS: Basophils # (A) 0.03 10*3/uL (0.00-0.10); Basophils % (A) 0.2 %; Eosinophils # (A) 0.04 10*3/uL (0.04-0.35); Eosinophils % (A) 0.3 %; HCT 37.9 % (37.2-46.3); HGB 12.8 g/dL (12.0-15.0); Lymphocytes # (A) 0.51 10*3/uL (0.90-5.00); Lymphocytes % (A) 4.1 %; MCH 31.8 pg (27.0-32.0); MCHC 33.8 g/dL (32.0-37.0); MCV 94.3 fL (80.0-97.0); Mean Platelet Volume 9.6 fL (9.5-12.2); Monocytes # (A) 0.64 10*3/uL (0.20-1.00); Monocytes % (A) 5.2 %; Neutrophils # (A) 11.11 10*3/uL (1.80-7.70); Neutrophils % (A) 89.6 %; Platelet Count 176 10*3/uL (140-440); RBC 4.02 10*6/uL (4.10-5.20); RDW 13.4 % (11.5-14.5)
--- NOTE | 2024-06-17 19:24 | XR ---
EXAMINATION TYPE: XR chest 2V DATE OF EXAM: 06/17/2024 7:16 PM COMPARISON: 02/03/2024 CLINICAL INDICATION: Female, 63 years old with history of Chest Pain: Shortness of breath TECHNIQUE: XR chest 2V views of the chest are obtained. FINDINGS: Scattered senescent parenchymal changes noted. Hyperinflation compatible with COPD. Stable masslike opacity left apical region with left hilar retraction. The remainder of the lungs are clear. Heart size is stable. Mediastinal structures are stable and grossly unremarkable. No evidence for hilar prominence. Degenerative changes dorsal spine. Postoperative changes cervical spine. IMPRESSION: 1. Stable masslike opacity left apical region with left hilar retraction. The remainder of the lungs are clear. [facility], , 06/17/2024 7:22 PM
[2024-06-17 19:28] LABS: ALT 27 U/L (4-34); AST 22 U/L (14-36); African American GFR (CKD) >90 (>60 ml/min/1.73 sqM); Albumin 4.4 g/dL (3.5-5.0); Alkaline Phosphatase 50 U/L (38-126); Anion Gap 11 mmol/L; Blood Urea Nitrogen 13 mg/dL (7-17); Calcium 9.3 mg/dL (8.4-10.2); Carbon Dioxide 30 mmol/L (22-30); Chloride 98 mmol/L (98-107); Glucose 88 mg/dL (74-99); Magnesium 1.8 mg/dL (1.6-2.3); Non-African American GFR(CKD) >90 (>60 ml/min/1.73 sqM); Potassium 3.6 mmol/L (3.5-5.1); Sodium 139 mmol/L (137-145); Total Bilirubin 0.5 mg/dL (0.2-1.3)
[2024-06-17 19:38] LABS: Partial Thromboplastin Time 24.2 sec (22.0-30.0); Prothrombin Time 10.7 sec (10.0-12.5)
[2024-06-17 21:17] VITALS: BP 108/59; PULSE 85
[2024-06-17 21:48] VITALS: RESP 18; TEMP 98.1
== END 2024-06-17 21:48 | disposition home or self-care (01) ==
LOC: EC 18:29
DX: R07.89 Other chest pain (principal); Z87.891 Personal history of nicotine dependence; Z88.0 Allergy status to penicillin
CPT/HCPCS: 36415; 93005; 85379; 80053; 83735; 84484; 85025; 85610; 85730; 71046; 99285; 96374; 96375; J1885; J1171

== ENCOUNTER → 2024-06-22 | Outpatient (CLI) | payer MEDICARE ==
--- NOTE | 2024-06-23 07:29 | MR ---
EXAMINATION TYPE: MR cspine/tspine wo con DATE OF EXAM: 06/22/2024 COMPARISON: CT cervical spine August 04, 2018. CT thoracic spine July 26, 2017. CT thoracic spine Decem 2023 HISTORY: Myelopathy, Pain in neck and mid back, weakness left arm, leg weakness, Hx Lung cancer 2.5yr s ago, Hx Neck surgery TECHNIQUE: Multiplanar, multisequence imaging of cervical and thoracic spine are performed without co ntrast FINDINGS: MRI CERVICAL SPINE: Sagittal images of the cervical spine show the craniocervical junction to appear within normal limits . There is extensive artifact from extensive surgical change in the cervical spine. Persistent anter ior surgical change begins at C3 level extending to the T1 level. There is posterior decompression ch anges in the mid to lower cervical spine with susceptibility artifact and lower cervical levels. Find ings makes evaluation suboptimal. The cervical and upper thoracic spinal cord is grossly normal in co urse, caliber, and signal in the upper to mid cervical spine. Suboptimal evaluation of lower cervical spine is noted. Vertebral alignment is stable and straightened with slight grade 1 retrolisthesis C5 on C6 redemonstrated. The vertebral body heights are normal. Artificial disc material in the upper and mid cervical spine is redemonstrated. Ossific fusion in the lower cervical spine is redemonstrate d. The bone marrow signal intensity is within normal limits in the upper to mid cervical spine. Axial images show posterior decompression changes. Axial images are nondiagnostic in the lower cervic al spine. Spinal canal is preserved and neural foramina are patent in the upper to mid cervical spine IMPRESSION: Extensive multilevel postsurgical change redemonstrated. Alignment is stable. T-SPINE: There is slightly more prominent dextroconvex scoliosis centered in the midthoracic spine. Spinal co rd shows normal caliber and signal as it courses the thoracic spine. There is now mild to moderate he ight loss involving the T9 vertebra and mild height loss involving the T12 vertebra . No large supervisor model making ior disc herniations are seen. There is some heterogeneous diminished T1 and increased T2 signal invo lving the T9 vertebra. Review of the axial images shows no significant spinal canal stenosis or neural foraminal narrowing a t any thoracic level. Artifact degradation in the upper thoracic spine is seen. There is small left- sided pleural fluid collection. There is left upper lung masslike consolidation and/or atelectasis re demonstrated. Possible small thin-walled fluid collection left lung apex axial image 13. IMPRESSION: 1. There is acute/subacute [id number] compression type fracture involving the T9 vertebra and m ore likely subacute and chronic mild compression type fracture involving the T12 vertebra. 2. Persistent masslike consolidation in the left upper lung should be correlated clinically to exclud e neoplasm. [facility], , 06/23/2024 7:27 AM
== END | disposition home or self-care (01) ==
LOC: RADMRIMAIN 14:14
PROVIDERS: ATTEND Psychiatry & Neurology Neurology
DX: R29.2 Abnormal reflex (principal); G99.2 Myelopathy in diseases classified elsewhere; M41.84 Other forms of scoliosis, thoracic region
CPT/HCPCS: 72141; 72146

== ENCOUNTER 2024-07-23 10:39 | Inpatient (IN) | payer MEDICARE ==
[2024-07-23] MEDS: DEXAMETHASONE SOD PHOSPHATE 10 MG/ML 1 ML VIAL IV STA (10:49)
[2024-07-23] MEDS: LORazepam 1 MG/0.5 ML VIAL IV STA (10:55)
--- NOTE | 2024-07-23 11:02 | ED ---
General Adult HPI - General Chief complaint: Shortness of Breath Stated complaint: [place] Time Seen by Provider: 07/23/24 10:44 Source: patient, EMS Mode of arrival: EMS Limitations: no limitations - History of Present Illness Initial comments: Dictation was produced using [employer] dictation software. please excuse any grammatical, word or spelling errors. Chief Complaint: 63-year-old female presents with dyspnea History of Present Illness: Patient 63-year-old female with history of COPD and A-fib presents to the ER for severe dyspnea. She had allegedly has history of severe COPD has been short of breath for the last 2 days. Patient unable to provide history present illness due to significant respiratory distress. EMS states that they had provided her with CPAP breathing treatment Solu-Medrol. States that her symptoms improved only slightly. - Related Data Home Medications Medication Instructions Recorded Confirmed Acetaminophen Tab [Tylenol] 650 mg PO BID PRN 02/02/24 02/02/24 Albuterol Sulfate [Albuterol 2 puff PO RT-Q6H PRN 02/02/24 02/02/24 Sulfate Hfa] [id number] 1 tab PO Q4HR PRN 02/02/24 02/02/24 [Excedrin] Budesonide/Glycopyr/Formoterol 2 puff INHALATION RT-BID 02/02/24 02/02/24 [Breztri Aerosphere Inhaler] DULoxetine HCL [Cymbalta] 60 mg PO DAILY 02/02/24 02/02/24 Flecainide [Tambocor] 50 mg PO HS 02/02/24 02/02/24 Flecainide [Tambocor] 100 mg PO DAILY 02/02/24 02/02/24 Gabapentin [Neurontin] 300 mg PO HS 02/02/24 02/02/24 Ipratropium-Albuterol Nebulize 3 ml INHALATION RT-TID 02/02/24 02/02/24 [Duoneb 0.5 mg-3 mg/3 ml Soln] Metoprolol Succinate (ER) [Toprol 50 mg PO DAILY 02/02/24 02/02/24 XL] Mirtazapine [Remeron] 7.5 mg PO HS 02/02/24 02/02/24 Omeprazole [PriLOSEC] 20 mg PO BID 02/02/24 02/02/24 Ondansetron Odt [Zofran ODT] 4 mg PO QID PRN 02/02/24 02/02/24 Rosuvastatin [Crestor] 10 mg PO DAILY 02/02/24 02/02/24 Sertraline [Zoloft] 100 mg PO BID 02/02/24 02/02/24 oxyCODONE HCL [oxyCODONE HCL (IR)] 10 mg PO TID 02/02/24 02/02/24 Previous Rx's Medication Instructions Recorded Apixaban [Eliquis] 5 mg PO BID 30 Days #30 tab 02/06/24 predniSONE See Taper PO DIRECTED 12 Days 02/06/24 #30 tab Ketorolac [Toradol] 10 mg PO Q8HR #15 tab 06/17/24 Allergies Allergy/AdvReac Type Severity Reaction Status Date / Time Penicillins Allergy Unknown Verified 07/23/24 10:46 Childhood Review of Systems ROS Statement: Those systems with pertinent positive or pertinent negative responses have been documented in the HPI. ROS Other: All systems not noted in ROS Statement are negative. Past Medical History Past Medical History: Atrial Fibrillation, Cancer, COPD, GERD/Reflux, Sleep Apnea/CPAP/BIPAP Additional Past Medical History / Comment(s): Emphysema, back pain, uses CPAP, hypotension, lung CA but in remission History of Any Multi-Drug Resistant Organisms: None Reported Past Surgical History: Cholecystectomy, Hysterectomy, Orthopedic Surgery, Tonsillectomy Additional Past Surgical History / Comment(s): Right knee arthroscopy, colonoscopy with benign polypectomy X1, NECK SURGERY X4 fused from c2-t3, with titanium screws, gets MRI's every 3 months at [facility], PAIN CLINIC PROCEDURES. Past Anesthesia/Blood Transfusion Reactions: No Reported Reaction Past Psychological History: Anxiety, Depression Smoking Status: Former smoker Past Alcohol Use History: Rare Past Drug Use History: None Reported - Past Family History Father Family Medical History: COPD Mother Family Medical History: Cancer Additional Family Medical History / Comment(s): Breast and throat cancer. General Exam - General Exam Comments Initial Comments: PHYSICAL EXAM: General Impression: Dyspneic HEENT: Normocephalic atraumatic, extra-ocular movements intact, pupils equal and reactive to light bilaterally, mucous membranes moist. Cardiovascular: Heart regular rate and rhythm Chest:'s, poor air exchange on auscultation of the lungs Abdomen: abdomen soft, non-tender, non-distended, no organomegaly Musculoskeletal: Pulses present and equal in all extremities, no peripheral edema Motor: no focal deficits noted Neurological: CN II-XII grossly intact, no focal motor or sensory deficits noted Skin: Intact with no visualized rashes Limitations: no limitations Course Vital Signs 07/23/24 07/23/24 07/23/24 10:40 10:45 11:07 Temperature 97.4 F L Pulse Rate 121 H 122 H Respiratory 30 H Rate Blood Pressure 158/85 O2 Sat by Pulse 97 Oximetry Fraction of 40 Inspired Oxygen (FIO2) 07/23/24 07/23/24 07/23/24 11:17 11:24 11:46 Temperature Pulse Rate 120 H 124 H Respiratory 36 H Rate Blood Pressure 84/68 O2 Sat by Pulse 99 Oximetry Fraction of 40 Inspired Oxygen (FIO2) 07/23/24 12:00 Temperature Pulse Rate 128 H Respiratory Rate Blood Pressure O2 Sat by Pulse Oximetry Fraction of Inspired Oxygen (FIO2) EKG Findings - EKG Comments: EKG Findings:: My EKG interpretation: Ventricular rate 119, sinus tachycardia, ND interval 181, QRS 101, QTc 480. No ND prolongation, no QTC prolongation, no ST or T-wave changes noted. Medical Decision Making - Medical Decision Making Was pt. sent in by a medical professional or institution (BETZY Lloyd, STATISTICAL MODELER, urgent care, hospital, or long term...) When possible be specific @ -No Did you speak to anyone other than the patient for history (EMS, parent, family, police, friend...)? What history was obtained from this source @ -No Did you review nursing and triage notes (agree or disagree)? Why? @ -I reviewed and agree with nursing and triage notes Were old charts reviewed (outside hosp., previous admission, EMS record, old EKG, old radiological studies, urgent care reports/EKG's, long term records)? Report findings @ -No old charts were reviewed Differential Diagnosis (chest pain, altered mental status, abdominal pain women, abdominal pain men, vaginal bleeding, musculoskeletal, weakness, fever, dyspnea, syncope, headache, dizziness, GI bleed, back pain, seizure, CVA, palpatations, mental health)? @ -Differential Dyspnea: Coronary syndrome, arrhythmia, tamponade, asthma, COPD, pulmonary embolism, pneumonia, pneumothorax, pulmonary effusion, anaphylaxis, diabetic ketoacidosis, flailed chest, pulmonary contusion, diaphragmatic rupture, anemia, neuromuscular, this is not meant to be an all-inclusive list. EKG interpreted by me (3pts min.). @ -See above X-rays interpreted by me (1pt min.). @ -Chest x-ray shows right-sided infiltrate CT interpreted by me (1pt min.). @ -None done U/S interpreted by me (1pt. min.). @ -None done What testing was considered but not performed or refused? (CT, X-rays, U/S, labs)? Why? @ -None What meds were considered but not given or refused? Why? @ -None Was smoking cessation discussed for >3mins.? @ -No Were there social determinants of health that impacted care today? How? (Homelessness, low income, unemployed, alcoholism, drug addiction, transportation, low edu. Level, literacy, decrease access to med. care, prison, rehab)? @ -No Was there de-escalation of care discussed even if they declined (Discuss DNR or withdrawal of care, Hospice)? DNR status @ -No What co-morbidities impacted this encounter? (DM, HTN, Smoking, COPD, CAD, Cancer, CVA, ARF, Chemo, Hep., AIDS, mental health diagnosis, sleep apnea, morbid obesity)? @ -History of lung cancer, COPD Was patient admitted / discharged? Hospital course, mention meds given and route, prescriptions, significant lab abnormalities, going to OR and other pertinent info. @ -63-year-old female with respiratory failure. Patient on BiPAP. Has history of COPD. Poor air exchange bilaterally placed on BiPAP given breathing deonte tments improvement of symptoms. X-ray shows pneumonia. Laboratory evaluation shows hypercarbic respiratory failure. Patient will be admitted. Case discussed with hospitalist for admission. Pulmonology be consulted Did you discuss the management of the patient with other professionals (professionals i.e. , PA, STATISTICAL MODELER, lab, RT, psych nurse, social work lecturer, long distance operator, teacher, ambulance officer, case management rn)? Give summary @ -See above Was critical care preformed (if so, how long)? @ -Respiratory failure Undiagnosed new problem with uncertain prognosis? @ -No Drug Therapy requiring intensive monitoring for toxicity (Heparin, Nitro, Insulin, Cardizem)? @ -No Were any procedures done? @ -No Diagnosis/symptom? Acute, or Chronic, or Acute on Chronic? Uncomplicated (without systemic symptoms) or Complicated (systemic symptoms)? @ -Respiratory failure Side effects of treatment? @ -No Exacerbation, Progression, or Severe Exacerbation? @ -No Poses a threat to life or bodily function? How? (Chest pain, [place], [place], pneumonia, PE, COPD, DKA, ARF, appy, cholecystitis, CVA, Diverticulitis, Homicidal, Suicidal, threat to staff... and all critical care pts) @ -yes - Lab Data Result diagrams: 07/23/24 11:01 07/23/24 11:01 Lab Results 07/23/24 07/23/24 07/23/24 Range/Units 11:01 11:01 11:01 WBC 22.05 H (4.50-10.00) 10*3/uL RBC 4.35 (4.10-5.20) 10*6/uL Hgb 13.5 (12.0-15.0) g/dL Hct 40.5 (37.2-46.3) % MCV 93.1 (80.0-97.0) fL MCH 31.0 (27.0-32.0) pg MCHC 33.3 (32.0-37.0) g/dL Plt Count 431 D (140-440) 10*3/uL MPV 9.6 (9.5-12.2) fL Immature Gran % (Auto) 0.6 % Neutrophils % 84.0 % Lymphocytes % 8.4 % Monocytes % 6.3 % Eosinophils % 0.4 % Basophils % 0.3 % Immature Gran # 0.14 H (0.00-0.04) 10*3/uL Neutrophils # 18.51 H (1.80-7.70) 10*3/uL Lymphocytes # 1.86 (0.90-5.00) 10*3/uL Monocytes # 1.38 H (0.20-1.00) 10*3/uL Eosinophils # 0.09 (0.04-0.35) 10*3/uL Basophils # 0.07 (0.00-0.10) 10*3/uL VBG pH (7.31-7.41) VBG pCO2 (37-51) mmHg VBG HCO3 (24-28) mmol/L Sodium 140 (137-145) mmol/L Potassium 4.2 (3.5-5.1) mmol/L Chloride 99 (98-107) mmol/L Carbon Dioxide 33 H (22-30) mmol/L Anion Gap 8 mmol/L BUN 15 (7-17) mg/dL Creatinine 0.71 (0.52-1.04) mg/dL Est GFR (CKD-EPI)AfAm >90 (>60 ml/min/1.73 sqM) Est GFR (CKD-EPI)NonAf >90 (>60 ml/min/1.73 sqM) Glucose 122 H (74-99) mg/dL Calcium 9.3 (8.4-10.2) mg/dL Magnesium 1.8 (1.6-2.3) mg/dL Total Bilirubin 0.6 (0.2-1.3) mg/dL AST 24 (14-36) U/L ALT 19 (4-34) U/L Alkaline Phosphatase 79 (38-126) U/L Troponin I 0.014 (0.000-0.034) ng/mL Total Protein 7.2 (6.3-8.2) g/dL Albumin 4.4 (3.5-5.0) g/dL 07/23/24 Range/Units 11:37 WBC (4.50-10.00) 10*3/uL RBC (4.10-5.20) 10*6/uL Hgb (12.0-15.0) g/dL Hct (37.2-46.3) % MCV (80.0-97.0) fL MCH (27.0-32.0) pg MCHC (32.0-37.0) g/dL Plt Count (140-440) 10*3/uL MPV (9.5-12.2) fL Immature Gran % (Auto) % Neutrophils % % Lymphocytes % % Monocytes % % Eosinophils % % Basophils % % Immature Gran # (0.00-0.04) 10*3/uL Neutrophils # (1.80-7.70) 10*3/uL Lymphocytes # (0.90-5.00) 10*3/uL Monocytes # (0.20-1.00) 10*3/uL Eosinophils # (0.04-0.35) 10*3/uL Basophils # (0.00-0.10) 10*3/uL VBG pH 7.26 L (7.31-7.41) VBG pCO2 71 H* (37-51) mmHg VBG HCO3 32 H (24-28) mmol/L Sodium (137-145) mmol/L Potassium (3.5-5.1) mmol/L Chloride (98-107) mmol/L Carbon Dioxide (22-30) mmol/L Anion Gap mmol/L BUN (7-17) mg/dL Creatinine (0.52-1.04) mg/dL Est GFR (CKD-EPI)AfAm (>60 ml/min/1.73 sqM) Est GFR (CKD-EPI)NonAf (>60 ml/min/1.73 sqM) Glucose (74-99) mg/dL Calcium (8.4-10.2) mg/dL Magnesium (1.6-2.3) mg/dL Total Bilirubin (0.2-1.3) mg/dL AST (14-36) U/L ALT (4-34) U/L Alkaline Phosphatase (38-126) U/L Troponin I (0.000-0.034) ng/mL Total Protein (6.3-8.2) g/dL Albumin (3.5-5.0) g/dL Disposition Clinical Impression: Respiratory failure Disposition: ADMITTED IP TO THIS HOSP Condition: Fair Referrals: Kenyon Venegas MD [Primary Care Provider] - 1-2 days Decision Time: 13:13
[2024-07-23] MEDS: ALBUTEROL NEBULIZED 2.5 MG/3 ML INHALATION STA (11:06)
[2024-07-23] MEDS: IPRATROPIUM 0.5 MG/2.5 ML NEBU INHALATION STA (11:06)
[2024-07-23 11:29] LABS: Basophils # (A) 0.07 10*3/uL (0.00-0.10); Basophils % (A) 0.3 %; Eosinophils # (A) 0.09 10*3/uL (0.04-0.35); Eosinophils % (A) 0.4 %; HCT 40.5 % (37.2-46.3); HGB 13.5 g/dL (12.0-15.0); Lymphocytes # (A) 1.86 10*3/uL (0.90-5.00); Lymphocytes % (A) 8.4 %; MCHC 33.3 g/dL (32.0-37.0); MCV 93.1 fL (80.0-97.0); Mean Platelet Volume 9.6 fL (9.5-12.2); Monocytes # (A) 1.38 10*3/uL (0.20-1.00); Monocytes % (A) 6.3 %; Neutrophils # (A) 18.51 10*3/uL (1.80-7.70); RBC 4.35 10*6/uL (4.10-5.20); RDW 13.4 % (11.5-14.5); WBC 22.05 10*3/uL (4.50-10.00)
[2024-07-23 11:31] LABS: ALT 19 U/L (4-34); AST 24 U/L (14-36); African American GFR (CKD) >90 (>60 ml/min/1.73 sqM); Albumin 4.4 g/dL (3.5-5.0); Alkaline Phosphatase 79 U/L (38-126); Anion Gap 8 mmol/L; Blood Urea Nitrogen 15 mg/dL (7-17); Calcium 9.3 mg/dL (8.4-10.2); Carbon Dioxide 33 mmol/L (22-30); Chloride 99 mmol/L (98-107); Glucose 122 mg/dL (74-99); Magnesium 1.8 mg/dL (1.6-2.3); Non-African American GFR(CKD) >90 (>60 ml/min/1.73 sqM); Potassium 4.2 mmol/L (3.5-5.1); Sodium 140 mmol/L (137-145); Total Bilirubin 0.6 mg/dL (0.2-1.3); Total Protein 7.2 g/dL (6.3-8.2)
[2024-07-23 11:38] LABS: Platelet Count 431 10*3/uL (140-440)
[2024-07-23] MEDS: MAGNESIUM SULFATE-D5W PMX 1 GM in DEXTROSE/WATER 1 100ML.BAG IVPB SCH (11:39)
[2024-07-23 11:51] LABS: VBG PH 7.26 (7.31-7.41)
--- NOTE | 2024-07-23 11:51 | XR ---
EXAMINATION TYPE: XR chest 1V portable DATE OF EXAM: 07/23/2024 11:06 AM COMPARISON: None. CLINICAL INDICATION: Female, 63 years old with history of dyspnea, TECHNIQUE: XR chest 1V portable view(s) obtained. FINDINGS: The heart size is normal. The pulmonary vasculature is normal. There is left upper lobe opacification Minimal atelectasis at the left diaphragm. There is some peripheral increased lung markings in the right mid lung. This is new from comparison. Postsurgical cervical fusion is evident IMPRESSION: 1. Stable left apical lung opacity. 2. New peripheral infiltrate lateral right upper lobe lung. 3. Minimal atelectasis left diaphragm [facility], , 07/23/2024 11:48 AM
[2024-07-23] MEDS ORDERED: PNEUMONIA PROTOCOL UTILIZED 1 EACH MISC PO PRN (13:09)
[2024-07-23] MEDS ORDERED: ASPIRIN-ACET-CAFF 250-250-65MG 1 EACH TAB PO PRN (14:40)
[2024-07-23] MEDS: IPRATROPIUM-ALBUTEROL 3 ML NEB INHALATION SCH (15:11)
[2024-07-23] MEDS: LEVOFLOXACIN 750MG-D5W PMX 750 MG in DEXTROSE/WATER 1 150ML.BAG IVPB STA (15:30)
[2024-07-23] MEDS: methylPREDNISolone SOD SUCCI 125 MG/2 ML VIAL IV SCH (15:34)
[2024-07-23] MEDS: BUDESONIDE 1 MG/2 ML NEBU INHALATION SCH (15:35)
[2024-07-23] MEDS: FORMOTEROL FUMARATE 20 MCG/2 ML NEBU INHALATION SCH (15:35)
[2024-07-23] MEDS: AZITHROMYCIN 500 MG in SODIUM CHLORIDE 0.9% 250 ML IVPB SCH (17:26)
--- NOTE | 2024-07-23 17:32 | HP ---
HISTORY AND PHYSICAL CHIEF COMPLAINT: Shortness of breath. HISTORY OF PRESENT ILLNESS: This 63-year-old woman with a past medical history of multiple medical problems, COPD, was complaining increased shortness of breath and cough. The patient was using updrafts at home without much relief. The chest x-ray showed stable left apical lung opacity and new peripheral infiltrate in the lateral right upper lobe and some atelectasis, also suggestive of pneumonia. The patient is being admitted for further evaluation and treatment. There is no history of fever, rigors, or chills at this time. The patient has history of small-cell lung cancer status post chemoradiation. PAST MEDICAL HISTORY: Reviewed, include COPD, small cell lung cancer, atrial fibrillation, rest of history and rest of the chart is also reviewed. HOME MEDICATIONS: Reviewed, include prednisone, dose and rest of medications reviewed. ALLERGIES: Penicillin. FAMILY HISTORY: History of COPD. SOCIAL HISTORY: Previous history of smoking. REVIEW OF SYSTEMS: Fourteen-point review of systems negative except as mentioned earlier. PHYSICAL EXAMINATION: VITAL SIGNS: Pulse 103, blood pressure 102/66, and respirations 18. HEENT: Conjunctivae normal. NECK: No jugular venous distention. No thyroid enlargement. CARDIOVASCULAR: S1 and S2. RESPIRATIONS: Bilateral scattered rhonchi and crackles. ABDOMEN: Soft, nontender. LEGS: No edema. No swelling. NERVOUS SYSTEM: No focal deficit. LABORATORY DATA: WBC 22.05 and hemoglobin 13.05. ASSESSMENT: 1. Chronic obstructive pulmonary disease acute exacerbation with right upper lobe pneumonia possibly gram-negative. 2. History of left non-small cell lung cancer status post chemoradiation. 3. Atrial fibrillation. 4. Chronic obstructive pulmonary disease. 5. Gastroesophageal reflux disease. 6. History of sleep apnea. 7. Remote history of nicotine dependence. 8. History of anxiety, depression. 9. Elevated WBC. RECOMMENDATION AND DISCUSSION: This 63-year-old woman presented with multiple complex medical issues, we will monitor the patient closely. I would recommend broad-spectrum IV antibiotics. I would also recommend Pulmonary consultation, bronchodilators, and IV steroids. Guarded prognosis, because of multiple complex medical issues. Further recommendations to follow. See orders for details. We will resume the home medications once they are confirmed. MMODL / IJN: [id number] /
[2024-07-23] MEDS: GABAPENTIN 300 MG CAP PO SCH (20:31)
[2024-07-23] MEDS: MIRTAZAPINE 15 MG TAB PO SCH (20:31)
[2024-07-23] MEDS: FLECAINIDE 50 MG TAB PO SCH (20:32)
[2024-07-23] MEDS: SERTRALINE 100 MG TAB PO SCH (20:33)
[2024-07-23] MEDS: APIXABAN 5 MG TAB PO SCH (20:33)
[2024-07-23] MEDS: METOPROLOL SUCCINATE (ER) 50 MG TAB.ER.24H PO SCH (20:35)
[2024-07-23] MEDS: ACETAMINOPHEN TAB 500 MG TAB PO PRN (23:17)
[2024-07-24 02:01] LABS: African American GFR (CKD) >90 (>60 ml/min/1.73 sqM); Anion Gap 8 mmol/L; Blood Urea Nitrogen 16 mg/dL (7-17); Carbon Dioxide 29 mmol/L (22-30); Chloride 97 mmol/L (98-107); Glucose 116 mg/dL (74-99); Non-African American GFR(CKD) >90 (>60 ml/min/1.73 sqM); Potassium 4.3 mmol/L (3.5-5.1); Sodium 134 mmol/L (137-145)
[2024-07-24 02:25] LABS: Basophils # (A) 0.02 10*3/uL (0.00-0.10); Basophils % (A) 0.2 %; HCT 30.3 % (37.2-46.3); Lymphocytes # (A) 0.17 10*3/uL (0.90-5.00); Lymphocytes % (A) 1.4 %; MCH 31.3 pg (27.0-32.0); MCV 92.1 fL (80.0-97.0); Mean Platelet Volume 9.8 fL (9.5-12.2); Monocytes # (A) 0.49 10*3/uL (0.20-1.00); Monocytes % (A) 3.9 %; Neutrophils # (A) 11.75 10*3/uL (1.80-7.70); Neutrophils % (A) 94.2 %; Platelet Count 225 10*3/uL (140-440); RBC 3.29 10*6/uL (4.10-5.20); RDW 13.5 % (11.5-14.5); WBC 12.47 10*3/uL (4.50-10.00)
[2024-07-24 02:28] LABS: HGB 10.3 g/dL (12.0-15.0)
--- NOTE | 2024-07-24 03:22 | P.CNPUL ---
History of Present Illness Consult date: 07/24/24 Requesting physician: Osmin Green Reason for consult: pneumonia Chief complaint: Respiratory distress History of present illness: Patient is a 63-year-old female with past medical history significant for atrial fibrillation, advanced COPD, chronic oxygen dependence, and small cell lung canc er status post chemoradiation. She follows with an oncologist, Dr. Escoto, out of [facility]. Recently started following with Dr. Barry in the pulmonary office. Did have a pulmonary function test in June, she has very severe COPD/emphysema. Her FEV1/FVC ratio 38%, with an FEV1 of 0.62 L or 23% of predicted. Reduced DLCO uncorrected for hemoglobin at 22% of predicted. Previously, using a combination of Breztri maintenance inhaler, albuterol nebs, and alternating between 5 and 10 mg prednisone tablets daily. I believe her Breztri was transitioned to a Trelegy inhaler. Also, is oxygen dependent at baseline. Brought to the emergency department by EMS yesterday morning in a state of severe respiratory distress. VBG concerning for hypercapnic respiratory failure with a pCO2 of 71 and pH of 7.26. Initially placed on BiPAP. Workup in the emergency department including a chest x-ray showing a stable left lung apical opacity with volume loss. New peripheral infiltrate in the lateral right upper lung. Minimal atelectasis at the left diaphragm. Labs including a CBC remarkable for leukocytosis with a WBC count of 22.05. Hemoglobin 13.5, platelets 431. CMP: Sodium 140, potassium 4.2, chloride 99, serum bicarb 33, BUN 15, creatinine 0.71, glucose 122. Troponin 0.014. Patient currently being evaluated the emergency department. Previously, transitioned off BiPAP and is currently on nasal cannula 2 L/min. She is resting comfortably, not in any respiratory distress. Alert and oriented without signs of CO2 narcosis. States her symptoms started over the last few days. Endorses increased cough with yellow-green sputum sometimes mixed with occasional small hemoptysis. She does take Eliquis for anticoagulation in regards to her atrial fibrillation. She also has some right lateral chest wall pain only with coughing. Developing over the same timeframe. Denies any sick contacts or recent travel. Denies any fevers, chills. Her appetite is marginal at best. D enies any nausea, vomiting, diarrhea, abdominal pain. Previous empirically started on antibiotics in the form of azithromycin and Rocephin. Current most recent vital signs including a temperature of 98.8 F, heart rate 87 bpm, blood pressure 103/62 mmHg, respiratory rate nontachypneic, SpO2 recorded at 97% on 2 L/min nasal cannula. Review of Systems Constitutional: Reports fatigue, Reports poor appetite, Denies chills, Denies fever, Denies weight gain, Denies weight loss Ears, nose, mouth and throat: Denies dysphagia, Denies headache, Denies nasal congestion, Denies nasal discharge, Denies post-nasal drip, Denies sinus pain, Denies sinus pressure, Denies sore throat Cardiovascular: Reports chest pain (See HPI), Reports shortness of breath, Denies leg edema, Denies lightheadedness, Denies orthopnea, Denies palpitations, Denies paroxysmal nocturnal dyspnea Respiratory: Reports as per HPI Gastrointestinal: Reports loss of appetite, Denies abdominal pain, Denies change in bowel habits, Denies constipation, Denies diarrhea, Denies nausea, Denies vomiting Genitourinary: Reports incomplete emptying, Denies dysuria, Denies flank pain, Denies hematuria, Denies urgency Musculoskeletal: Denies limitation of motion Integumentary: Denies rash Neurological: Denies seizures, Denies syncope Psychiatric: Reports anxiety, Reports depression, Denies suicidal ideation Past Medical History Past Medical History: Atrial Fibrillation, Cancer, COPD, GERD/Reflux, Sleep Apnea/CPAP/BIPAP Additional Past Medical History / Comment(s): Emphysema, back pain, uses CPAP, h ypotension, lung CA but in remission History of Any Multi-Drug Resistant Organisms: None Reported Past Surgical History: Cholecystectomy, Hysterectomy, Orthopedic Surgery, Tonsillectomy Additional Past Surgical History / Comment(s): Right knee arthroscopy, colonoscopy with benign polypectomy X1, NECK SURGERY X4 fused from c2-t3, with titanium screws, gets MRI's every 3 months at [facility] CLINIC PROCEDURES. Past Anesthesia/Blood Transfusion Reactions: No Reported Reaction Past Psychological History: Anxiety, Depression Smoking Status: Former smoker Past Alcohol Use History: Rare Past Drug Use History: None Reported - Past Family History Father Family Medical History: COPD Mother Family Medical History: Cancer Additional Family Medical History / Comment(s): Breast and throat cancer. Medications and Allergies Home Medications Medication Instructions Recorded Confirmed Type Albuterol Sulfate [Albuterol 2 puff IN RT-Q4H 02/02/24 07/23/24 History Sulfate Hfa] [id number] 2 tab PO Q4HR PRN 02/02/24 07/23/24 History [Excedrin] DULoxetine HCL [Cymbalta] 60 mg PO DAILY 02/02/24 07/23/24 History Flecainide [Tambocor] 75 mg PO BID 02/02/24 07/23/24 History Gabapentin [Neurontin] 300 mg PO HS 02/02/24 07/23/24 History Ipratropium-Albuterol Nebulize 3 ml INHALATION RT-TID 02/02/24 07/23/24 History [Duoneb 0.5 mg-3 mg/3 ml Soln] Metoprolol Succinate (ER) [Toprol 50 mg PO HS 02/02/24 07/23/24 History XL] Mirtazapine [Remeron] 7.5 mg PO HS 02/02/24 07/23/24 History Omeprazole [PriLOSEC] 20 mg PO BID 02/02/24 07/23/24 History Ondansetron Odt [Zofran ODT] 4 mg PO QID PRN 02/02/24 07/23/24 History Rosuvastatin [Crestor] 10 mg PO DAILY 02/02/24 07/23/24 History Sertraline [Zoloft] 100 mg PO BID 02/02/24 07/23/24 History oxyCODONE HCL [oxyCODONE HCL (IR)] 10 mg PO BID 02/02/24 07/23/24 History Apixaban [Eliquis] 5 mg PO BID 30 Days #30 tab 02/06/24 07/23/24 Rx Acetaminophen Tab [Tylenol Tab] 1,000 mg PO Q6H PRN 07/23/24 07/23/24 History Calcium Carbonate/Vitamin D3 1 tab PO DAILY 07/23/24 07/23/24 History [Calcium 600 mg-Vit D3 10 mcg (400 Unit)] Cyanocobalamin/Cobamamide [Vitamin 1 tab SL DAILY 07/23/24 07/23/24 History B-12 5,000 Mcg Tab Sl] Fluticasone/Umeclidin/Vilanter 1 puff INHALATION RT-DAILY 07/23/24 07/23/24 History [Treledenis Ellipta 100-62.5-25] oxyCODONE HCL [oxyCODONE HCL (IR)] 10 mg PO DAILY PRN 07/23/24 07/23/24 History predniSONE 10 mg PO HS 07/23/24 07/23/24 History Allergies Allergy/AdvReac Type Severity Reaction Status Date / Time Penicillins Allergy Unknown Verified 07/23/24 14:20 Childhood Physical Exam Vitals: Vital Signs Temp Pulse Resp BP Pulse Ox FiO2 07/23/24 23:20 98.8 F 87 17 103/62 97 07/23/24 21:53 97.1 F L 88 16 101/71 99 07/23/24 20:35 100 20 99/67 100 07/23/24 20:00 87 07/23/24 19:59 87 07/23/24 19:49 85 07/23/24 19:20 92 18 100/62 100 07/23/24 17:00 91 18 85/51 100 07/23/24 16:00 96 18 95/59 99 07/23/24 15:35 96 07/23/24 15:19 90 07/23/24 15:00 96 18 102/56 100 07/23/24 14:00 103 H 18 102/63 97 07/23/24 12:00 128 H 07/23/24 11:46 124 H 36 H 84/68 99 07/23/24 11:24 40 07/23/24 11:17 120 H 07/23/24 11:07 122 H 07/23/24 10:50 30 H 07/23/24 10:45 40 07/23/24 10:40 97.4 F L 121 H 30 H 158/85 97 Intake and Output 07/23/24 07/23/24 07/24/24 14:59 22:59 06:59 Other: Weight 52.163 kg GENERAL EXAM: Alert, 63-year-old white female, cachectic, no signs of CO2 narcosis, BiPAP is off and on standby with settings 12/5 and FiO2 40%, currently on 2 L/min nasal cannula, comfortable in no apparent distress. HEAD: Normocephalic and atraumatic EYES: Normal reaction of pupils, equal size. NOSE: Clear with pink turbinates. THROAT: No erythema or exudates. NECK: No masses, no JVD. CHEST: No chest wall deformity. LUNGS: Equal air entry with bilateral rhonchi heard throughout. No conversational dyspnea or accessory muscle use.. CVS: S1 and S2 normal with no audible murmur, regular rhythm. No extra heart sounds ABDOMEN: No hepatosplenomegaly, active bowel sounds, no guarding or rigidity. SPINE: No scoliosis or deformity SKIN: No rashes CENTRAL NERVOUS SYSTEM: No focal deficits, tone is normal in all 4 extremities. EXTREMITIES: There is no peripheral edema, clubbing, or cyanosis. Peripheral pulses are intact. Results - Laboratory Findings CBC and BMP: 07/24/24 01:25 07/24/24 01:25 Abnormal lab findings: Abnormal Labs 07/23/24 07/23/24 07/23/24 11:01 11:01 11:37 WBC 22.05 H Immature Gran # 0.14 H Neutrophils # 18.51 H Monocytes # 1.38 H VBG pH 7.26 L VBG pCO2 71 H* VBG HCO3 32 H Carbon Dioxide 33 H Glucose 122 H - Diagnostic Findings Chest x-ray: image reviewed Assessment and Plan Assessment: Acute on chronic hypoxemic and hypercapnic respiratory failure, previously requiring BiPAP, chest x-ray showing a stable left lung apical opacity with volume loss. New peripheral infiltrate in the lateral right upper lung. Minimal atelectasis at the left diaphragm. Right upper lobe community-acquired pneumonia Pleuritic chest pain, secondary to above Acute COPD exacerbation Acute leukocytosis Very severe COPD, with an FEV1 23% of predicted, maintained on albuterol nebs [id number], and her maintenance inhaler recently transition to Trelegy once daily Chronic hypoxemic respiratory failure, maintained on 2 L/min nasal cannula 06/09 at home Small cell lung cancer status post chemoradiation therapy. Being followed up at [facility] Paroxysmal atrial fibrillation, the patient is currently in sinus rhythm, anticoagulated with Eliquis History of hyperlipidemia Severe protein calorie malnutrition, with a BMI of 17.5 kg/m Chronic back pain GERD Chronic anxiety/depression Plan Patient's medications, labs, chest x-ray reviewed Previously transitioned off BiPAP, which is on standby. Currently on 2 L/min nasal cannula, which she wears at home VBG reviewed. No current signs of CO2 narcosis Continue DuoNebs [id number] Continue IV Solu-Medrol 60 mg every 6 hours. Continue budesonide and formoterol inhalation Blood culture pending Check urine Legionella antigen Check procalcitonin level Empiric antibiotic coverage with a combination of Rocephin and Zithromax Continue anticoagulation with Eliquis 5 mg p.o. twice daily GI prophylaxis with Protonix We will continue to follow I have personally seen and examined the patient, performed the documentation and the assessment and plan as written. Number of minutes spent on the visit:20 Time with Patient: Greater than 30
--- NOTE | 2024-07-24 06:04 | XR ---
EXAMINATION TYPE: XR chest 1V portable DATE OF EXAM: 07/24/2024 5:23 AM COMPARISON: None. CLINICAL INDICATION: Female, 63 years old with history of pneumonia, TECHNIQUE: XR chest 1V portable view(s) obtained. FINDINGS: The heart size is normal. The pulmonary vasculature is normal. Left apical opacity remains present. Mild infiltrates in the periphery of the right lung may have sli ght improvement. IMPRESSION: 1. Improving right peripheral infiltrate. 2. Stable right apical opacity [facility], , 07/24/2024 6:02 AM
[2024-07-24] MEDS ORDERED: LEVOFLOXACIN 750 MG TAB PO SCH (09:00)
[2024-07-24] MEDS: DULoxetine HCL 60 MG CAPSULE.DR PO SCH (09:01)
[2024-07-24] MEDS: CYANOCOBALAMIN 500 MCG TAB PO SCH (09:02)
[2024-07-24] MEDS: PANTOPRAZOLE 40 MG TABLET PO SCH (09:02)
[2024-07-24] MEDS: CALCIUM CARB-VIT D 500 MG-5 MCG TAB PO SCH (09:02)
[2024-07-24] MEDS: ATORVASTATIN 20 MG TAB PO SCH (09:05)
[2024-07-24] MEDS ORDERED: DEXTROSE 50% SYRINGE 50 ML IVP PRN ×2 (10:29)
--- NOTE | 2024-07-24 12:11 | PN ---
PROGRESS NOTE DATE OF SERVICE: 07/24/2024 SUBJECTIVE: This 63-year-old woman is admitted with COPD acute exacerbation, right upper lobe pneumonia, also is complaining of right-sided chest pain also. The patient had previous history of malignancy. The patient is closely monitored. We will order rib x- rays. The patient is on BiPAP, because of acute hypoxic respiratory failure. PAST MEDICAL HISTORY: Reviewed. REVIEW OF SYSTEMS: A 14-point review of systems negative except as mentioned earlier. CURRENT MEDICATIONS: Reviewed. PHYSICAL EXAMINATION: VITAL SIGNS: Pulse is 97, blood pressure 105/60, respirations 32, and pulse ox 100% BiPAP. HEENT: Conjunctivae normal. CARDIOVASCULAR: S1 and S2. RESPIRATIONS: Bilateral scattered rhonchi and crackles. ABDOMEN: Soft, nontender. NERVOUS SYSTEM: Nonfocal. LABORATORY DATA: Reviewed. ASSESSMENT: 1. Chronic obstructive pulmonary disease acute exacerbation with right upper lobe pneumonia possibly gram-negative. 2. Right-sided chest pain possibly pleurisy. 3. History of left non-small cell lung cancer, status post chemoradiation. 4. Atrial fibrillation. 5. Gastroesophageal reflux disease. 6. Sleep apnea. 7. History of anxiety, depression. 8. Multiple complex medical issues. RECOMMENDATION AND DISCUSSION: Recommend to continue current management and continue symptomatic treatment. Continue optimize bronchodilator treatment. Symptomatic treatment of the pain. The patient continue with BiPAP. I would also recommend x-rays of the right rib and monitor the blood sugars closely. If the x-rays are normal and the patient is symptomatic, a bone scan may be considered. Prognosis guarded. Further recommendations to follow. MMODL / IJN: [id number] /
[2024-07-24 12:13] LABS: Glucose,Whole Blood 237 mg/dL (70-110)
--- NOTE | 2024-07-24 12:24 | XR ---
EXAMINATION TYPE: XR ribs RT DATE OF EXAM: 07/24/2024 12:10 PM COMPARISON: None. CLINICAL INDICATION: Female, 63 years old with history of pain with inspiration, pain TECHNIQUE: 2 view(s) obtained right ribs. FINDINGS: Very subtle anterior lateral right fourth rib fracture may be present. Nondisplaced fifth rib fractur e could be considered. Correlate with location of patient's pain. No pneumothorax is evident. No displaced rib fractures are otherwise evident. Postsurgical changes wi thin the lower cervical thoracic spine is evident. Within the periphery of the right lung there is a 1.4 cm faint nodular density. Follow-up is recommen ded. IMPRESSION: 1. Occult fractures may be present at the fourth and possibly fifth anterior lateral right ribs. 2. No additional areas suspicious for rib fracture. 3. 1.4 cm nodular density or pleural plaque mid lateral right lung. Consider follow-up with CT. [facility], , 07/24/2024 12:22 PM
[2024-07-24] MEDS: INSULIN LISPRO (HumaLOG) 100 UNIT/ML 10 mL VL SQ SCH (15:18)
[2024-07-24 15:19] LABS: Glucose,Whole Blood 133 mg/dL (70-110)
[2024-07-24 17:30] LABS: Glucose,Whole Blood 140 mg/dL (70-110)
[2024-07-24 20:29] LABS: Glucose,Whole Blood 164 mg/dL (70-110)
[2024-07-25 06:16] LABS: Glucose,Whole Blood 104 mg/dL (70-110)
[2024-07-25 08:29] LABS: Basophils # (A) 0.01 10*3/uL (0.00-0.10); Basophils % (A) 0.1 %; HGB 10.9 g/dL (12.0-15.0); Lymphocytes # (A) 0.36 10*3/uL (0.90-5.00); Lymphocytes % (A) 3.5 %; MCH 31.1 pg (27.0-32.0); Mean Platelet Volume 9.5 fL (9.5-12.2); Monocytes # (A) 0.77 10*3/uL (0.20-1.00); Monocytes % (A) 7.5 %; Neutrophils % (A) 88.4 %; Platelet Count 254 10*3/uL (140-440); RBC 3.51 10*6/uL (4.10-5.20); RDW 13.8 % (11.5-14.5); WBC 10.29 10*3/uL (4.50-10.00)
[2024-07-25 08:47] LABS: African American GFR (CKD) >90 (>60 ml/min/1.73 sqM); Anion Gap 6 mmol/L; Blood Urea Nitrogen 21 mg/dL (7-17); Calcium 9.2 mg/dL (8.4-10.2); Carbon Dioxide 32 mmol/L (22-30); Chloride 98 mmol/L (98-107); Glucose 86 mg/dL (74-99); Non-African American GFR(CKD) 79 (>60 ml/min/1.73 sqM); Potassium 4.1 mmol/L (3.5-5.1); Sodium 136 mmol/L (137-145)
[2024-07-25 12:09] LABS: Glucose,Whole Blood 83 mg/dL (70-110)
[2024-07-25] MEDS: HYDROmorphone 0.5 MG/0.5 ML SYRINGE IVP PRN (13:12)
[2024-07-25] MEDS: ONDANSETRON ODT 4 MG TAB PO PRN (13:43)
[2024-07-25] MEDS: CALCIUM CARBONATE 500 MG CHEWABLE PO PRN (13:43)
--- NOTE | 2024-07-25 15:19 | P.PN ---
Subjective Progress Note Date: 07/25/24 Patient is a 63-year-old female with past medical history significant for atrial fibrillation, advanced COPD, chronic oxygen dependence, and small cell lung cancer status post chemoradiation. She follows with an oncologist, Dr. Escoto, out of [facility]. Recently started following with Dr. Barry in the pulmonary office. Did have a pulmonary function test in June, she has very severe COPD/emphysema. Her FEV1/FVC ratio 38%, with an FEV1 of 0.62 L or 23% of predicted. Reduced DLCO uncorrected for hemoglobin at 22% of predicted. Previously, using a combination of Breztri maintenance inhaler, albuterol nebs, and alternating between 5 and 10 mg prednisone tablets daily. I believe her Breztri was transitioned to a Trelegy inhaler. Also, is oxygen dependent at baseline. Brought to the emergency department by EMS yesterday morning in a state of severe respiratory distress. VBG concerning for hypercapnic respiratory failure with a pCO2 of 71 and pH of 7.26. Initially placed on BiPAP. Workup in the emergency department including a chest x-ray showing a stable left lung apical opacity with volume loss. New peripheral infiltrate in the lateral right upper lung. Minimal atelectasis at the left diaphragm. Labs including a CBC remarkable for leukocytosis with a WBC count of 22.05. Hemoglobin 13.5, platelets 431. CMP: Sodium 140, potassium 4.2, chloride 99, serum bicarb 33, BUN 15, creatinine 0.71, glucose 122. Troponin 0.014. Patient currently being evaluated the emergency department. Previously, transitioned off BiPAP and is currently on nasal cannula 2 L/min. She is resting comfortably, not in any respiratory distress. Alert and oriented without signs of CO2 narcosis. States her symptoms started over the last few days. Endorses increased cough with yellow-green sputum sometimes mixed with occasional small hemoptysis. She does take Eliquis for anticoagulation in regards to her atrial fibrillation. She also has some right lateral chest wall pain only with coughing. Developing over the same timeframe. Denies any sick contacts or recent travel. Denies any fevers, chills. Her appetite is marginal at best. Denies any nausea, vomiting, diarrhea, abdominal pain. Previous empirically started on antibiotics in the form of azithromycin and Rocephin. Current most recent vital signs including a temperature of 98.8 F, heart rate 87 bpm, blood pressure 103/62 mmHg, respiratory rate nontachypneic, SpO2 recorded at 97% on 2 L/min nasal cannula. The patient is seen today July 25, 2024 in follow-up on the selective care unit. She is currently awake and alert in no acute distress. Resting fairly comfortably in bed. She did not require BiPAP overnight. She is currently maintaining good O2 saturations in the 90s on 2 L/min per nasal cannula. She h as been afebrile. Hemodynamically stable. Blood culture revealing no growth thus far. White count 10.2. Hemoglobin 10.9. Platelets 254. Sodium 136. Potassium 4.1. Bicarb 32. BUN 21. Creatinine 0.81. Glucose 86. She remains on ceftriaxone and azithromycin. Continued on DuoNeb and elations, Pulmicort and performance inhalations, Solu-Medrol. Anticoagulated with Eliquis. Objective - Vital Signs Vital signs: Vital Signs Temp 97.6 F 07/25/24 11:25 Pulse 75 07/25/24 13:08 Resp 19 07/25/24 13:08 BP 114/57 07/25/24 11:25 Pulse Ox 99 07/25/24 11:25 FiO2 40 07/24/24 20:47 Intake & Output 07/24/24 07/25/24 07/25/24 18:59 06:59 18:59 Intake Total 320 Balance 320 Weight 52 kg Intake: Oral 320 Other: Voiding Method External Catheter External Catheter - Exam GENERAL EXAM: Alert, pleasant 63-year-old female, cachectic, currently on 2 L/min nasal cannula, comfortable in no apparent distress. HEAD: Normocephalic and atraumatic EYES: Normal reaction of pupils, equal size. NOSE: Clear with pink turbinates. THROAT: No erythema or exudates. NECK: No masses, no JVD. CHEST: No chest wall deformity. LUNGS: Equal air entry with bilateral rhonchi heard throughout. No conversational dyspnea or accessory muscle use.. CVS: S1 and S2 normal with no audible murmur, regular rhythm. No extra heart sounds ABDOMEN: No hepatosplenomegaly, active bowel sounds, no guarding or rigidity. SPINE: No scoliosis or deformity SKIN: No rashes CENTRAL NERVOUS SYSTEM: No focal deficits, tone is normal in all 4 extremities. EXTREMITIES: There is no peripheral edema, clubbing, or cyanosis. Peripheral pulses are intact. - Labs CBC & Chem 7: 07/25/24 07:01 07/25/24 07:01 Labs: Abnormal Lab Results - Last 24 Hours (Table) 07/24/24 07/24/24 07/24/24 Range/Units 15:18 17:27 20:28 WBC (4.50-10.00) 10*3/uL RBC (4.10-5.20) 10*6/uL Hgb (12.0-15.0) g/dL Hct (37.2-46.3) % Immature Gran # (0.00-0.04) 10*3/uL Neutrophils # (1.80-7.70) 10*3/uL Lymphocytes # (0.90-5.00) 10*3/uL Eosinophils # (0.04-0.35) 10*3/uL Sodium (137-145) mmol/L Carbon Dioxide (22-30) mmol/L BUN (7-17) mg/dL POC Glucose (mg/dL) 133 H 140 H 164 H (70-110) mg/dL 07/25/24 07/25/24 Range/Units 07:01 07:01 WBC 10.29 H (4.50-10.00) 10*3/uL RBC 3.51 L (4.10-5.20) 10*6/uL Hgb 10.9 L (12.0-15.0) g/dL Hct 33.0 L (37.2-46.3) % Immature Gran # 0.05 H (0.00-0.04) 10*3/uL Neutrophils # 9.10 H (1.80-7.70) 10*3/uL Lymphocytes # 0.36 L (0.90-5.00) 10*3/uL Eosinophils # 0.00 L (0.04-0.35) 10*3/uL Sodium 136 L (137-145) mmol/L Carbon Dioxide 32 H (22-30) mmol/L BUN 21 H (7-17) mg/dL POC Glucose (mg/dL) (70-110) mg/dL Microbiology - Last 24 Hours (Table) 07/23/24 12:19 Blood Culture - Preliminary Blood Assessment and Plan Assessment: Acute on chronic hypoxemic and hypercapnic respiratory failure, previously requiring BiPAP, chest x-ray showing a stable left lung apical opacity with volume loss. New peripheral infiltrate in the lateral right upper lung. Minimal atelectasis at the left diaphragm. Right upper lobe community-acquired pneumonia Pleuritic chest pain, secondary to above Acute COPD exacerbation Acute leukocytosis Very severe COPD, with an FEV1 23% of predicted, maintained on albuterol nebs [id number], and her maintenance inhaler recently transition to Trelegy once daily Chronic hypoxemic respiratory failure, maintained on 2 L/min nasal cannula 06/09 at home Small cell lung cancer status post chemoradiation therapy. Being followed up at [facility] Paroxysmal atrial fibrillation, the patient is currently in sinus rhythm, anticoagulated with Eliquis History of hyperlipidemia Severe protein calorie malnutrition, with a BMI of 17.5 kg/m Chronic back pain GERD Chronic anxiety/depression Plan: The patient was seen and evaluated Labs and medications reviewed Currently stable on 2 L/min per nasal cannula Remained off BiPAP last night Continued on DuoNeb inhalations Continued on Pulmicort and Perforomist inhalations Continued on IV Solu-Medrol Antibiotics in the form of ceftriaxone and azithromycin Anticoagulated with Eliquis Titrate down the FiO2 as tolerated Increase her activity as tolerated We will continue to follow I have personally seen and examined the patient, performed the documentation and the assessment and plan as written. Number of minutes spent on the visit: 10 Dictation was produced using [employer] dictation software. Please excuse any grammatical, word or spelling errors.
[2024-07-25 15:31] VITALS: BMI 17.4
--- NOTE | 2024-07-25 15:36 | CT ---
EXAMINATION TYPE: CT chest wo con DATE OF EXAM: 07/25/2024 COMPARISON: 11/23/2021 CLINICAL INDICATION: Female, 63 years old with history of rt lung nodule; PHH, rt lung nodule TECHNIQUE: CT scan of the thorax is performed without IV contrast. CT DLP: 205.[address] CTDI: mGy Automated exposure control for dose reduction was used. FINDINGS: There has been interval development of marked consolidation or lung mass following left upper lobe wi th marked volume loss, retraction of the left erum superiorly and shift of mediastinum to the left. T here has been interval development of moderate pleural parenchymal densities in the left lower lobe. There is a new 7 mm pleural-based nodule in the left lung base. There are moderate emphysematous dean ges in the right lung and a few scattered areas of reticulation and subpleural parenchymal lung adjac ent to the major fissure.. Evaluation for mediastinal or hilar adenopathy is limited due to lack of contrast. Limited scanning through the upper abdomen reveals no gross abnormality. There are no focal osseous lesions. IMPRESSION: 1. Interval development of marked opacification of the left upper lobe with marked volume loss as bernie cribed above. 2. Interval development of reticular nodular densities left lung base including a new 7 mm pleural-ba sed nodule in the left lower lobe. 3. Emphysematous changes in the right lung with scattered areas of subpleural reticulation but no prasanna g mass. [facility], , 07/25/2024 3:33 PM
[2024-07-25 16:48] LABS: Glucose,Whole Blood 130 mg/dL (70-110)
[2024-07-25 20:49] LABS: Glucose,Whole Blood 125 mg/dL (70-110)
--- NOTE | 2024-07-25 22:29 | PN ---
PROGRESS NOTE DATE OF SERVICE: 07/25/2024 SUBJECTIVE: This is a 63-year-old woman who was admitted with COPD exacerbation as well as acute respiratory failure, is being closely monitored. The patient also complaining of right rib pain also. The rib x-ray showed multiple fractures in the 4th and 5th anterolateral ribs, 1.4 cm nodular density is also noted in the right lung. PAST MEDICAL HISTORY: Reviewed. REVIEW OF SYSTEMS: A 14-point review of systems negative except as mentioned earlier. CURRENT MEDICATIONS: Reviewed. PHYSICAL EXAMINATION: VITAL SIGNS: Pulse is 86, blood pressure 114/50, respirations 19. CHEST: Few scattered rhonchi and crackles, expiratory wheezing. Tenderness on the right lateral chest present. ABDOMEN: Soft. NERVOUS SYSTEM: Nonfocal. LABORATORY DATA: WBC 10.29, rest of the labs are noted. ASSESSMENT: 1. Chronic obstructive pulmonary disease acute exacerbation with right upper lobe pneumonia with possibly gram-negative with acute hypoxic respiratory failure. 2. Right-sided chest pain, possibly multiple rib fractures in the 4th and 5th anterolateral ribs. 3. History of non-small cell lung cancer, status post chemoradiation on the left. 4. Right lung 1.4 cm faint nodule. 5. Atrial fibrillation. 6. Gastroesophageal reflux disease. 7. Sleep apnea. 8. Anxiety, depression. 9. Multiple complex medical issues. RECOMMENDATIONS: Recommend to continue current management and continue symptomatic treatment. Otherwise, I would recommend to add a small dose of Dilaudid. Continue the antibiotics, bronchodilators. I would also recommend CT scan of the chest also. Continue with steroids. Monitor issues closely. Increase ambulation. Prognosis guarded. Further recommendations to follow. MMODL / IJN: [id number] /
[2024-07-26 05:56] LABS: Glucose,Whole Blood 115 mg/dL (70-110)
[2024-07-26 08:00] LABS: Basophils # (A) 0.01 10*3/uL (0.00-0.10); Basophils % (A) 0.1 %; HCT 31.6 % (37.2-46.3); HGB 10.4 g/dL (12.0-15.0); Lymphocytes # (A) 0.44 10*3/uL (0.90-5.00); MCH 30.7 pg (27.0-32.0); MCHC 32.9 g/dL (32.0-37.0); MCV 93.2 fL (80.0-97.0); Mean Platelet Volume 9.2 fL (9.5-12.2); Monocytes # (A) 0.56 10*3/uL (0.20-1.00); Monocytes % (A) 7.6 %; Neutrophils % (A) 85.5 %; Platelet Count 244 10*3/uL (140-440); RBC 3.39 10*6/uL (4.10-5.20); RDW 13.5 % (11.5-14.5); WBC 7.37 10*3/uL (4.50-10.00)
[2024-07-26 08:25] LABS: African American GFR (CKD) >90 (>60 ml/min/1.73 sqM); Anion Gap 7 mmol/L; Blood Urea Nitrogen 22 mg/dL (7-17); Calcium 9.1 mg/dL (8.4-10.2); Carbon Dioxide 32 mmol/L (22-30); Chloride 97 mmol/L (98-107); Glucose 85 mg/dL (74-99); Non-African American GFR(CKD) 80 (>60 ml/min/1.73 sqM); Potassium 4.5 mmol/L (3.5-5.1); Sodium 136 mmol/L (137-145)
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
[2024-07-26 11:28] LABS: Glucose,Whole Blood 91 mg/dL (70-110)
--- NOTE | 2024-07-26 14:56 | P.PN ---
Subjective Progress Note Date: 07/26/24 Principal diagnosis: Acute on chronic hypoxic and hypercapnic respiratory failure, multifactorial Patient is a 63-year-old female with past medical history significant for atrial fibrillation, advanced COPD, chronic oxygen dependence, and small cell lung cancer status post chemoradiation. She follows with an oncologist, Dr. Escoto, out of [facility]. Recently started following with Dr. Barry in the pulmonary office. Did have a pulmonary function test in June, she has very severe COPD/emphysema. Her FEV1/FVC ratio 38%, with an FEV1 of 0.62 L or 23% of predicted. Reduced DLCO uncorrected for hemoglobin at 22% of predicted. Previously, using a combination of Breztri maintenance inhaler, albuterol nebs, and alternating between 5 and 10 mg prednisone tablets daily. I believe her Breztri was transitioned to a Trelegy inhaler. Also, is oxygen dependent at [facility]. Brought to the emergency department by EMS yesterday morning in a state of severe respiratory distress. VBG concerning for hypercapnic respiratory failure with a pCO2 of 71 and pH of 7.26. Initially placed on BiPAP. Workup in the emergency department including a chest x-ray showing a stable left lung apical opacity with volume loss. New peripheral infiltrate in the lateral right upper lung. Minimal atelectasis at the left diaphragm. Labs including a CBC remarkable for leukocytosis with a WBC count of 22.05. Hemoglobin 13.5, platelets 431. CMP: Sodium 140, potassium 4.2, chloride 99, serum bicarb 33, BUN 15, creatinine 0.71, glucose 122. Troponin 0.014. Patient currently being evaluated the emergency department. Previously, transitioned off BiPAP and is currently on nasal cannula 2 L/min. She is resting comfortably, not in any respiratory distress. Alert and oriented without signs of CO2 narcosis. States her symptoms started over the last few days. Endorses increased cough with yellow-green sputum sometimes mixed with occasional small hemoptysis. She does take Eliquis for anticoagulation in regards to her atrial fibrillation. She also has some right lateral chest wall pain only with coughing. Developing over the same timeframe. Denies any sick contacts or recent travel. Denies any fevers, chills. Her appetite is marginal at best. Denies any nausea, vomiting, diarrhea, abdominal pain. Previous empirically started on antibiotics in the form of azithromycin and Rocephin. Current most recent vital signs including a temperature of 98.8 F, heart rate 87 bpm, blood pressure 103/62 mmHg, respiratory rate nontachypneic, SpO2 recorded at 97% on 2 L/min nasal cannula. The patient is seen today July 25, 2024 in follow-up on the selective care unit. She is currently awake and alert in no acute distress. Resting fairly comfortably in bed. She did not require BiPAP overnight. She is currently maintaining good O2 saturations in the 90s on 2 L/min per nasal cannula. She has been afebrile. Hemodynamically stable. Blood culture revealing no growth thus far. White count 10.2. Hemoglobin 10.9. Platelets 254. Sodium 136. Potassium 4.1. Bicarb 32. BUN 21. Creatinine 0.81. Glucose 86. She remains on ceftriaxone and azithromycin. Continued on DuoNeb and elations, Pulmicort and performance inhalations, Solu-Medrol. Anticoagulated with Eliquis. Seen today on 07/26/2024, patient is feeling better, breathing a bit easier, continues to have intermittent cough and wheezing, on physical examination she continues to have scattered rhonchi and wheezing bilaterally clinically improving. But not back to baseline. WBC count is 7.37 hemoglobin 10.4 electrolytes are normal renal profile is normal Objective - Vital Signs Vital signs: Vital Signs Temp 97.5 F L 07/26/24 12:06 Pulse 73 07/26/24 13:26 Resp 20 07/26/24 12:06 BP 99/50 07/26/24 12:06 Pulse Ox 99 07/26/24 12:06 FiO2 40 07/24/24 20:47 Intake & Output 07/25/24 07/26/24 07/26/24 18:59 06:59 18:59 Intake Total 1020 600 Output Total 500 Balance 520 600 Weight 52 kg 117 kg Intake: Oral 1020 600 Output: Urine 500 Other: Voiding Method External Catheter Bedside Commode Bedside Commode # Voids 1 1 - Exam GENERAL EXAM: 63-year-old in no distress looks frail and chronically ill HEAD: Normocephalic and atraumatic EYES: Normal reaction of pupils, equal size. NOSE: Clear with pink turbinates. THROAT: No erythema or exudates. NECK: No masses, no JVD. CHEST: No chest wall deformity. LUNGS: Equal air entry with bilateral rhonchi heard throughout. No conversational dyspnea or accessory muscle use.. CVS: S1 and S2 normal with no audible murmur, regular rhythm. No extra heart sounds ABDOMEN: No hepatosplenomegaly, active bowel sounds, no guarding or rigidity. SKIN: No rashes CENTRAL NERVOUS SYSTEM: Alert oriented x 3 no focal deficit EXTREMITIES: There is no peripheral edema, clubbing, or cyanosis. Peripheral pulses are intact. - Labs CBC & Chem 7: 07/26/24 06:46 07/26/24 06:46 Labs: Abnormal Lab Results - Last 24 Hours (Table) 07/25/24 07/25/24 07/26/24 Range/Units 16:41 20:47 05:54 RBC (4.10-5.20) 10*6/uL Hgb (12.0-15.0) g/dL Hct (37.2-46.3) % MPV (9.5-12.2) fL Immature Gran # (0.00-0.04) 10*3/uL Lymphocytes # (0.90-5.00) 10*3/uL Eosinophils # (0.04-0.35) 10*3/uL Sodium (137-145) mmol/L Chloride (98-107) mmol/L Carbon Dioxide (22-30) mmol/L BUN (7-17) mg/dL POC Glucose (mg/dL) 130 H 125 H 115 H (70-110) mg/dL 07/26/24 07/26/24 Range/Units 06:46 06:46 RBC 3.39 L (4.10-5.20) 10*6/uL Hgb 10.4 L (12.0-15.0) g/dL Hct 31.6 L (37.2-46.3) % MPV 9.2 L (9.5-12.2) fL Immature Gran # 0.06 H (0.00-0.04) 10*3/uL Lymphocytes # 0.44 L (0.90-5.00) 10*3/uL Eosinophils # 0.00 L (0.04-0.35) 10*3/uL Sodium 136 L (137-145) mmol/L Chloride 97 L (98-107) mmol/L Carbon Dioxide 32 H (22-30) mmol/L BUN 22 H (7-17) mg/dL POC Glucose (mg/dL) (70-110) mg/dL Microbiology - Last 24 Hours (Table) 07/23/24 12:19 Blood Culture - Preliminary Blood Assessment and Plan Assessment: Impression: Acute on chronic hypoxemic and hypercapnic respiratory failure, previously requi ring BiPAP, chest x-ray showing a stable left lung apical opacity with volume loss. New peripheral infiltrate in the lateral right upper lung. Minimal atelectasis at the left diaphragm. Right upper lobe community-acquired pneumonia Pleuritic chest pain, secondary to above Acute COPD exacerbation Acute leukocytosis Very severe COPD, with an FEV1 23% of predicted, maintained on albuterol nebs [id number], and her maintenance inhaler recently transition to Trelegy once daily Chronic hypoxemic respiratory failure, maintained on 2 L/min nasal cannula 06/09 at home Small cell lung cancer status post chemoradiation therapy. Being followed up at [facility] Paroxysmal atrial fibrillation, the patient is currently in sinus rhythm, anticoagulated with Eliquis History of hyperlipidemia Severe protein calorie malnutrition, with a BMI of 17.5 kg/m Chronic back pain GERD Chronic anxiety/depression Recommendation: Continue present supportive care measures Continue O2 at 2 L/min and titrate accordingly Continue DuoNeb Continue Pulmicort and Perforomist Continue IV Solu-Medrol Continue ceftriaxone and Zithromax Overall prognosis is guarded Will continue to follow Time with Patient: Less than 30
[2024-07-26 16:18] LABS: Glucose,Whole Blood 177 mg/dL (70-110)
--- NOTE | 2024-07-26 18:14 | PN ---
PROGRESS NOTE DATE OF SERVICE: 07/26/2024 SUBJECTIVE: This 63-year-old woman who was admitted with COPD acute exacerbation, right upper lobe pneumonia, also had some rib fractures. Also no chest pain. No palpitation. The chest CT with some bilateral lesions. OBJECTIVE: VITAL SIGNS: Pulse is 78, blood pressure 99/57, and respirations 20. HEENT: Conjunctivae normal. NECK: No jugular venous distention. CARDIOVASCULAR: S1 and S2. RESPIRATIONS: Breath sounds diminished at the bases. Bilateral scattered rhonchi and crackles. ABDOMEN: Soft. NERVOUS SYSTEM: Nonfocal. LABORATORY DATA: Hemoglobin 10.4. ASSESSMENT: 1. Chronic obstructive pulmonary disease acute exacerbation with the right upper lobe pneumonia with possibly gram-negative with acute hypoxic respiratory failure. 2. Right-sided chest pain, possibly multiple rib fractures of the 4th and 5th anterolateral ribs. 3. Possibly bilateral pneumonia. 4. History of non-small cell lung cancer status post chemoradiation on the left. 5. Right lung 1.5 cm faint nodule. 6. Atrial fibrillation. 7. Gastroesophageal reflux disease. 8. Sleep apnea. 9. Anxiety/depression. 10.Multiple complex medical issues. RECOMMENDATIONS AND DISCUSSION: Recommend to continue current management and continue symptomatic treatment. Continue with antibiotics. Pain management. Bronchodilators, steroids. Closely follow with Pulmonary. Guarded prognosis. Further recommendations to follow. MMODL / IJN: [id number] /
[2024-07-26 20:03] LABS: Glucose,Whole Blood 190 mg/dL (70-110)
[2024-07-27 06:11] LABS: Glucose,Whole Blood 127 mg/dL (70-110)
[2024-07-27 11:20] LABS: Glucose,Whole Blood 128 mg/dL (70-110)
--- NOTE | 2024-07-27 15:35 | P.PN ---
Subjective Progress Note Date: 07/27/24 Principal diagnosis: Acute on chronic hypoxic and hypercapnic respiratory failure, multifactorial Patient is a 63-year-old female with past medical history significant for atrial fibrillation, advanced COPD, chronic oxygen dependence, and small cell lung cancer status post chemoradiation. She follows with an oncologist, Dr. Escoto, out of [facility]. Recently started following with Dr. Barry in the pulmonary office. Did have a pulmonary function test in June, she has very severe COPD/emphysema. Her FEV1/FVC ratio 38%, with an FEV1 of 0.62 L or 23% of predicted. Reduced DLCO uncorrected for hemoglobin at 22% of predicted. Previously, using a combination of Breztri maintenance inhaler, albuterol nebs, and alternating between 5 and 10 mg prednisone tablets daily. I believe her Breztri was transitioned to a Trelegy inhaler. Also, is oxygen dependent at [facility]. Brought to the emergency department by EMS yesterday morning in a state of severe respiratory distress. VBG concerning for hypercapnic respiratory failure with a pCO2 of 71 and pH of 7.26. Initially placed on BiPAP. Workup in the emergency department including a chest x-ray showing a stable left lung apical opacity with volume loss. New peripheral infiltrate in the lateral right upper lung. Minimal atelectasis at the left diaphragm. Labs including a CBC remarkable for leukocytosis with a WBC count of 22.05. Hemoglobin 13.5, platelets 431. CMP: Sodium 140, potassium 4.2, chloride 99, serum bicarb 33, BUN 15, creatinine 0.71, glucose 122. Troponin 0.014. Patient currently being evaluated the emergency department. Previously, transitioned off BiPAP and is currently on nasal cannula 2 L/min. She is resting comfortably, not in any respiratory distress. Alert and oriented without signs of CO2 narcosis. States her symptoms started over the last few days. Endorses increased cough with yellow-green sputum sometimes mixed with occasional small hemoptysis. She does take Eliquis for anticoagulation in regards to her atrial fibrillation. She also has some right lateral chest wall pain only with coughing. Developing over the same timeframe. Denies any sick contacts or recent travel. Denies any fevers, chills. Her appetite is marginal at best. Denies any nausea, vomiting, diarrhea, abdominal pain. Previous empirically started on antibiotics in the form of azithromycin and Rocephin. Current most recent vital signs including a temperature of 98.8 F, heart rate 87 bpm, blood pressure 103/62 mmHg, respiratory rate nontachypneic, SpO2 recorded at 97% on 2 L/min nasal cannula. The patient is seen today July 25, 2024 in follow-up on the selective care unit. She is currently awake and alert in no acute distress. Resting fairly comfortably in bed. She did not require BiPAP overnight. She is currently maintaining good O2 saturations in the 90s on 2 L/min per nasal cannula. She has been afebrile. Hemodynamically stable. Blood culture revealing no growth thus far. White count 10.2. Hemoglobin 10.9. Platelets 254. Sodium 136. Potassium 4.1. Bicarb 32. BUN 21. Creatinine 0.81. Glucose 86. She remains on ceftriaxone and azithromycin. Continued on DuoNeb and elations, Pulmicort and performance inhalations, Solu-Medrol. Anticoagulated with Eliquis. Seen today on 07/26/2024, patient is feeling better, breathing a bit easier, continues to have intermittent cough and wheezing, on physical examination she continues to have scattered rhonchi and wheezing bilaterally clinically improving. But not back to baseline. WBC count is 7.37 hemoglobin 10.4 electrolytes are normal renal profile is normal Patient was seen today on 07/27/2024, progressing nicely, feeling better, in spite of her severe COPD condition and in spite of her comorbidities including lung CA, and pneumonia. Remains on 2 L nasal cannula with O2 sat of 97% WBC count is 7.3 hemoglobin 10.4 electrolytes are normal renal profile is normal patient is not requiring BiPAP although her initial presentation was a presentation of hypoxia and hypercapnia had to be placed on BiPAP. CT chest on 07/25 clearly showed evidence of reticular nodular densities in the left lung ba se and scattered areas of reticulation and parenchymal changes in the right upper lobe consistent with pneumonia. Objective - Vital Signs Vital signs: Vital Signs Temp 97.1 F L 07/27/24 08:00 Pulse 80 07/27/24 13:57 Resp 20 07/27/24 13:57 BP 119/64 07/27/24 11:40 Pulse Ox 97 07/27/24 11:40 FiO2 40 07/24/24 20:47 Intake & Output 07/26/24 07/27/24 07/27/24 18:59 06:59 18:59 Intake Total 600 342 Output Total 400 Balance 600 -58 Weight 117 kg Intake: Oral 600 342 Output: Urine 400 Other: Voiding Method Bedside Commode Bedside Commode Bedside Commode # Voids 1 0 - Exam GENERAL EXAM: 63-year-old in no distress looks frail and chronically ill, on nasal cannula HEAD: Normocephalic and atraumatic EYES: Normal reaction of pupils, equal size. NOSE: Clear with pink turbinates. THROAT: No erythema or exudates. NECK: No masses, no JVD. CHEST: No chest wall deformity. LUNGS: Equal air entry with bilateral rhonchi heard throughout. No conversational dyspnea or accessory muscle use.. CVS: S1 and S2 normal with no audible murmur, regular rhythm. No extra heart sounds ABDOMEN: No hepatosplenomegaly, active bowel sounds, no guarding or rigidity. SKIN: No rashes CENTRAL NERVOUS SYSTEM: Alert oriented x 3 no focal deficit EXTREMITIES: There is no peripheral edema, clubbing, or cyanosis. Peripheral pulses are intact. - Labs CBC & Chem 7: 07/26/24 06:46 07/26/24 06:46 Labs: Abnormal Lab Results - Last 24 Hours (Table) 07/26/24 07/26/24 07/27/24 Range/Units 16:16 20:02 06:10 POC Glucose (mg/dL) 177 H 190 H 127 H (70-110) mg/dL 07/27/24 Range/Units 11:13 POC Glucose (mg/dL) 128 H (70-110) mg/dL Microbiology - Last 24 Hours (Table) 07/23/24 12:19 Blood Culture - Preliminary Blood Assessment and Plan Assessment: Impression: Acute on chronic hypoxemic and hypercapnic respiratory failure, previously requiring BiPAP, chest x-ray showing a stable left lung apical opacity with volume loss. New peripheral infiltrate in the lateral right upper lung. Minimal atelectasis at the left diaphragm. Right upper lobe community-acquired pneumonia Pleuritic chest pain, secondary to above Acute COPD exacerbation Acute leukocytosis Very severe COPD, with an FEV1 23% of predicted, maintained on albuterol nebs [id number], and her maintenance inhaler recently transition to Trelegy once daily Chronic hypoxemic respiratory failure, maintained on 2 L/min nasal cannula 06/09 at home Small cell lung cancer status post chemoradiation therapy. Being followed up at [facility] Paroxysmal atrial fibrillation, the patient is currently in sinus rhythm, anticoagulated with Eliquis History of hyperlipidemia Severe protein calorie malnutrition, with a BMI of 17.5 kg/m Chronic back pain GERD Chronic anxiety/depression Recommendation: Continue present supportive care measures Continue O2 at 2 L/min and titrate accordingly Continue DuoNeb Continue Pulmicort and Perforomist Continue IV Solu-Medrol Continue ceftriaxone and Zithromax repeat chest x-ray in a.m. and consider discharge planning in the next 24 to 48 hours., As long as the chest x-ray is not showing any worsening of her pneumonia. Will continue to follow Time with Patient: Less than 30
[2024-07-27 16:07] LABS: Glucose,Whole Blood 122 mg/dL (70-110)
--- NOTE | 2024-07-27 20:19 | P.PN ---
Subjective This is a pleasant 63 years old female with past medical history of lung cancer and advanced COPD presents of shortness of breath of 3 days duration associated with right rib pain. Patient was found to have acute COPD exacerbation with acute on chronic hypoxic hypercapnic respiratory failure. Patient currently treated with Solu-Medrol. She has evidence of elevated procalcitonin 1.44 and chest x-ray showing right upper lobe infiltrate and left lung base infiltrate. Suspicious for pneumonia. -On today follow-up patient says her breathing is little better no chest pain no abdominal pain not coughing a lot but it is a dry and lateral She is on home oxygen of 2 L as she confirms She eats well has good bowel movement. Due to be seen by physical therapist Patient currently afebrile WBC improved 10.2 down to 7.3. Hemoglobin is stable at 10.4. BMP and LFT were unremarkable hemoglobin A1c is 5.1 Procalcitonin is elevated 1.44 as above. She remains on ceftriaxone and IV Solu-Medrol and Eliquis and flecainide. Review of systems GASTROINTESTINAL: No diarrhea, no nausea, no vomiting, no abdominal pain. Normoactive bowel sounds. NEUROLOGICAL: No headaches, no weakness, no numbness. HEMATOLOGICAL: Denies any bleeding or petechiae. GENITOURINARY: Denies any burning micturition, frequency, or urgency. MUSCULOSKELETAL/RHEUMATOLOGICAL: Denies any joint pain, swelling, or any muscle pain. ENDOCRINE: Denies any polyuria or polydipsia. Active Medications Generic Name Dose Route Start Last Admin Trade Name Freq PRN Reason Stop Dose Admin Acetaminophen 1,000 mg 07/23/24 14:40 07/23/24 23:17 Acetaminophen Tab 500 Mg Tab PO 1,000 mg Q6H PRN Administration Pain Acetaminophen/Aspirin/Caffeine 2 each 07/23/24 14:40 [id number] 1 Each Tab PO Q4HR PRN Migraine Headache Albuterol/Ipratropium 3 ml 07/23/24 14:40 07/27/24 19:42 Ipratropium-Albuterol 3 Ml Neb INHALATION 3 ml RT-QID KOKI Administration Apixaban 5 mg 07/23/24 21:00 07/27/24 09:14 Apixaban 5 Mg Tab PO 5 mg BID KOKI Administration Protocol Atorvastatin Calcium 20 mg 07/24/24 09:00 07/27/24 09:15 Atorvastatin 20 Mg Tab PO 20 mg DAILY KOKI Administration Budesonide 1 mg 07/23/24 14:42 07/27/24 19:42 Budesonide 1 Mg/2 Ml Nebu INHALATION 1 mg RT-BID KOKI Administration Calcium Carbonate 1 each 07/24/24 09:00 07/27/24 09:14 Calcium Carb-Vit D 500 Mg-5 Mcg Tab PO 1 each DAILY KOKI Administration Calcium Carbonate/Glycine 500 mg 07/25/24 13:25 07/25/24 13:43 Calcium Carbonate 500 Mg Chewable PO 500 mg QID PRN Administration Heartburn Cyanocobalamin 500 mcg 07/24/24 09:00 07/27/24 09:14 Cyanocobalamin 500 Mcg Tab PO 500 mcg DAILY KOKI Administration Dextrose/Water 25 ml 07/24/24 10:29 Dextrose 50% Syringe 50 Ml IVP PER PROTOCOL PRN Hypoglycemia Protocol Dextrose/Water 50 ml 07/24/24 10:29 Dextrose 50% Syringe 50 Ml IVP PER PROTOCOL PRN Hypoglycemia Protocol Duloxetine HCl 60 mg 07/24/24 09:00 07/27/24 09:15 Duloxetine Hcl 60 Mg Capsule.Dr PO 60 mg DAILY KOKI Administration Flecainide Acetate 75 mg 07/23/24 21:00 07/27/24 09:14 Flecainide 50 Mg Tab PO 75 mg BID KOKI Administration Formoterol Fumarate 20 mcg 07/23/24 14:42 07/27/24 19:42 Formoterol Fumarate 20 Mcg/2 Ml Nebu INHALATION 20 mcg RT-BID KOKI Administration Gabapentin 300 mg 07/23/24 21:00 07/26/24 20:38 Gabapentin 300 Mg Cap PO 300 mg HS KOKI Administration Hydromorphone HCl 0.25 mg 07/25/24 12:48 07/25/24 13:12 Hydromorphone 0.5 Mg/0.5 Ml Syringe IVP 0.25 mg Q6HR PRN Administration Severe Pain (Scale 7 to 10) Ceftriaxone Sodium 1 gm/ 50 mls @ 100 mls/hr 07/23/24 14:45 07/27/24 09:16 Sodium Chloride IVPB 100 mls/hr Q24HR KOKI Administration Protocol Insulin Human Lispro 0 unit 07/24/24 12:30 07/27/24 16:46 Insulin Lispro (Humalog) 100 Unit/Ml 10 Ml Vl SQ Not Given ACHS [facility] Protocol Methylprednisolone Sodium Succinate 60 mg 07/23/24 14:45 07/27/24 17:51 Methylprednisolone Sod Succi 125 Mg/2 Ml Vial IV 60 mg Q6HR KOKI Administration Metoprolol Succinate 50 mg 07/23/24 21:00 07/26/24 20:38 Metoprolol Succinate (Er) 50 Mg Tab.Er.24h PO 50 mg HS KOKI Administration Mirtazapine 7.5 mg 07/23/24 21:00 07/26/24 20:37 Mirtazapine 15 Mg Tab PO 7.5 mg HS KOKI Administration Miscellaneous Information 1 each 07/23/24 13:09 Pneumonia Protocol Utilized 1 Each Misc PO ONCE PRN Per Protocol Ondansetron HCl 4 mg 07/23/24 14:40 07/27/24 09:15 Ondansetron Odt 4 Mg Tab PO 4 mg QID PRN Administration Nausea Oxycodone HCl 10 mg 07/23/24 21:00 07/27/24 10:15 Oxycodone Hcl 5 Mg Tab PO Not Given BID KOKI Oxycodone HCl 10 mg 07/23/24 14:40 07/27/24 09:14 Oxycodone Hcl 5 Mg Tab PO 10 mg DAILY PRN Administration Pain Pantoprazole Sodium 40 mg 07/24/24 07:30 07/27/24 06:17 Pantoprazole 40 Mg Tablet PO 40 mg [id number] KOKI Administration Sertraline HCl 100 mg 07/23/24 21:00 07/27/24 10:15 Sertraline 100 Mg Tab PO Not Given BID [facility] Objective - Vital Signs Vital signs: Vital Signs Temp 97.1 F L 07/27/24 08:00 Pulse 80 07/27/24 13:57 Resp 20 07/27/24 13:57 BP 119/64 07/27/24 11:40 Pulse Ox 97 07/27/24 11:40 FiO2 40 07/24/24 20:47 Intake & Output 07/26/24 07/27/24 07/27/24 18:59 06:59 18:59 Intake Total 600 342 Output Total 400 Balance 600 -58 Weight 117 kg Intake: Oral 600 342 Output: Urine 400 Other: Voiding Method Bedside Commode Bedside Commode Bedside Commode # Voids 1 0 - Exam GENERAL: The patient is alert and oriented x3, not in any acute distress. Well d eveloped, well nourished. HEENT: Pupils are round and equally reacting to light. EOMI. No scleral icterus. No conjunctival pallor. Normocephalic, atraumatic. No pharyngeal erythema. No thyromegaly. CARDIOVASCULAR: S1 and S2 present. No murmurs, rubs, or gallops. PULMONARY: Chest is clear to auscultation, no wheezing , no crackles. ABDOMEN: Soft, nontender, nondistended, normoactive bowel sounds. No palpable organomegaly. MUSCULOSKELETAL: No joint swelling or deformity. EXTREMITIES: No cyanosis, clubbing, or pedal edema. NEUROLOGICAL: Gross neurological examination did not reveal any focal deficits. SKIN: No rashes. no petechiae. - Labs CBC & Chem 7: 07/26/24 06:46 07/26/24 06:46 Labs: Abnormal Lab Results - Last 24 Hours (Table) 07/26/24 07/27/24 07/27/24 Range/Units 20:02 06:10 11:13 POC Glucose (mg/dL) 190 H 127 H 128 H (70-110) mg/dL 07/27/24 Range/Units 16:05 POC Glucose (mg/dL) 122 H (70-110) mg/dL Microbiology - Last 24 Hours (Table) 07/23/24 12:19 Blood Culture - Preliminary Blood Assessment and Plan Assessment: Right upper lobe community-acquired pneumonia Acute hypoxic hypercapnic resp respiratory failure Acute COPD exacerbation Paroxysmal atrial fibrillation on Eliquis Hypertension Hyperlipidemia Diabetes mellitus Depression and generalized anxiety disorder Plan: Continue ceftriaxone Continue with Solu-Medrol Continue with Eliquis 5 mg Continue with flecainide Pulmonary team consult First and consult Labs and medication were reviewed.. Continue same treatment. Continue with symptomatic treatment. Resume home medication. Monitor labs and vitals. DVT and GI prophylaxis. Further recommendations as per clinical course of the patient DVT prophylaxis: Subcutaneous heparin GI Prophylaxis: Protonix PT/OT: Pending Prognosis is guarded
[2024-07-27 21:06] LABS: Glucose,Whole Blood 134 mg/dL (70-110)
[2024-07-27 23:19] VITALS: TEMP 97.3
[2024-07-28 05:29] LABS: Glucose,Whole Blood 124 mg/dL (70-110)
--- NOTE | 2024-07-28 07:27 | XR ---
EXAMINATION TYPE: XR chest 1V portable DATE OF EXAM: 07/28/2024 5:52 AM COMPARISON: Chest radiographs from 07/24/2024 CLINICAL INDICATION: Female, 63 years old with history of pneumonia; [facility] TECHNIQUE: XR chest 1V portable Frontal view of the chest. FINDINGS: Lungs/Pleura: Left upper lobe consolidation superimposed on COPD with flattening of the diaphragms. T here is no evidence of pleural effusion, focal consolidation, or pneumothorax. Pulmonary vascularity: Unremarkable. Heart/mediastinum: Cardiomediastinal silhouette is unremarkable. Musculoskeletal: No acute osseous pathology. There is fixation hardware in the lower cervical spine. Rib posterior fracture also appreciated. Other findings: None IMPRESSION: 1. Similar left upper lung consolidation 2. [facility], , 07/28/2024 7:25 AM
[2024-07-28 08:44] VITALS: RESP 16
[2024-07-28 11:36] LABS: Glucose,Whole Blood 97 mg/dL (70-110)
[2024-07-28 12:21] VITALS: BP 91/40
--- NOTE | 2024-07-28 14:06 | P.PN ---
Subjective Progress Note Date: 07/28/24 Principal diagnosis: Acute on chronic hypoxic and hypercapnic respiratory failure, multifactorial Patient is a 63-year-old female with past medical history significant for atrial fibrillation, advanced COPD, chronic oxygen dependence, and small cell lung cancer status post chemoradiation. She follows with an oncologist, Dr. Escoto, out of [facility]. Recently started following with Dr. Barry in the pulmonary office. Did have a pulmonary function test in June, she has very severe COPD/emphysema. Her FEV1/FVC ratio 38%, with an FEV1 of 0.62 L or 23% of predicted. Reduced DLCO uncorrected for hemoglobin at 22% of predicted. Previously, using a combination of Breztri maintenance inhaler, albuterol nebs, and alternating between 5 and 10 mg prednisone tablets daily. I believe her Breztri was transitioned to a Trelegy inhaler. Also, is oxygen dependent at [facility] ([facility] Brought to the emergency department by EMS yesterday morning in a state of severe respiratory distress. VBG concerning for hypercapnic respiratory failure with a pCO2 of 71 and pH of 7.26. Initially placed on BiPAP. Workup in the emergency department including a chest x-ray showing a stable left lung apical opacity with volume loss. New peripheral infiltrate in the lateral right upper lung. Minimal atelectasis at the left diaphragm. Labs including a CBC remarkable for leukocytosis with a WBC count of 22.05. Hemoglobin 13.5, platelets 431. CMP: Sodium 140, potassium 4.2, chloride 99, serum bicarb 33, BUN 15, creatinine 0.71, glucose 122. Troponin 0.014. Patient currently being evaluated the emergency department. Previously, transitioned off BiPAP and is currently on nasal cannula 2 L/min. She is resting comfortably, not in any respiratory distress. Alert and oriented without signs of CO2 narcosis. States her symptoms started over the last few days. Endorses increased cough with yellow-green sputum sometimes mixed with occasional small hemoptysis. She does take Eliquis for anticoagulation in regards to her atrial fibrillation. She also has some right lateral chest wall pain only with coughing. Developing over the same timeframe. Denies any sick contacts or recent travel. Denies any fevers, chills. Her appetite is marginal at best. Denies any nausea, vomiting, diarrhea, abdominal pain. Previous empirically started on antibiotics in the form of azithromycin and Rocephin. Current most recent vital signs including a temperature of 98.8 F, heart rate 87 bpm, blood pressure 103/62 mmHg, respiratory rate nontachypneic, SpO2 recorded at 97% on 2 L/min nasal cannula. The patient is seen today July 25, 2024 in follow-up on the selective care unit. She is currently awake and alert in no acute distress. Resting fairly comfortably in bed. She did not require BiPAP overnight. She is currently maintaining good O2 saturations in the 90s on 2 L/min per nasal cannula. She has been afebrile. Hemodynamically stable. Blood culture revealing no growth thus far. White count 10.2. Hemoglobin 10.9. Platelets 254. Sodium 136. Potassium 4.1. Bicarb 32. BUN 21. Creatinine 0.81. Glucose 86. She remains on ceftriaxone and azithromycin. Continued on DuoNeb and elations, Pulmicort and performance inhalations, Solu-Medrol. Anticoagulated with Eliquis. Seen today on 07/26/2024, patient is feeling better, breathing a bit easier, continues to have intermittent cough and wheezing, on physical examination she continues to have scattered rhonchi and wheezing bilaterally clinically improving. But not back to baseline. WBC count is 7.37 hemoglobin 10.4 electrolytes are normal renal profile is normal Patient was seen today on 07/27/2024, progressing nicely, feeling better, in spite of her severe COPD condition and in spite of her comorbidities including lung CA, and pneumonia. Remains on 2 L nasal cannula with O2 sat of 97% WBC count is 7.3 hemoglobin 10.4 electrolytes are normal renal profile is normal patient is not requiring BiPAP although her initial presentation was a presentation of hypoxia and hypercapnia had to be placed on BiPAP. CT chest on 07/25 clearly showed evidence of reticular nodular densities in the left lung ba se and scattered areas of reticulation and parenchymal changes in the right upper lobe consistent with pneumonia. Seen today on 07/28/2024, patient is feeling better breathing easier, chest x-ray is showing improvement in her right upper lobe infiltrate, patient could be transition to oral antibiotics, consider discharging the patient home, and follow-up on outpatient basis. Solu-Medrol could be transition to oral prednisone and we did so. Objective - Vital Signs Vital signs: Vital Signs Temp 97.3 F L 07/28/24 08:00 Pulse 78 07/28/24 12:06 Resp 16 07/28/24 12:00 BP 91/40 07/28/24 12:00 Pulse Ox 98 07/28/24 12:00 FiO2 40 07/24/24 20:47 Intake & Output 07/27/24 07/28/24 07/28/24 18:59 06:59 18:59 Intake Total 342 Output Total 400 Balance -58 Weight 117 kg Intake: Oral 342 Output: Urine 400 Other: Voiding Method Bedside Commode Bedside Commode Bedside Commode # Voids 1 2 - Exam GENERAL EXAM: 63-year-old in no distress looks frail and chronically ill, on nasal cannula HEAD: Normocephalic and atraumatic EYES: Normal reaction of pupils, equal size. NOSE: Clear with pink turbinates. THROAT: No erythema or exudates. NECK: No masses, no JVD. CHEST: No chest wall deformity. LUNGS: Equal air entry no rhonchi no wheezes CVS: S1 and S2 normal with no audible murmur, regular rhythm. No extra heart sounds ABDOMEN: No hepatosplenomegaly, active bowel sounds, no guarding or rigidity. SKIN: No rashes CENTRAL NERVOUS SYSTEM: Alert oriented x 3 no focal deficit EXTREMITIES: There is no peripheral edema, clubbing, or cyanosis. Peripheral pulses are intact. - Labs CBC & Chem 7: 07/26/24 06:46 07/26/24 06:46 Labs: Abnormal Lab Results - Last 24 Hours (Table) 07/27/24 07/27/24 07/28/24 Range/Units 16:05 21:04 05:28 POC Glucose (mg/dL) 122 H 134 H 124 H (70-110) mg/dL Assessment and Plan Assessment: Impression: Acute on chronic hypoxemic and hypercapnic respiratory failure, previously requiring BiPAP, chest x-ray showing a stable left lung apical opacity with volume loss. New peripheral infiltrate in the lateral right upper lung. Minimal atelectasis at the left diaphragm. Right upper lobe community-acquired pneumonia Pleuritic chest pain, secondary to above Acute COPD exacerbation Acute leukocytosis Very severe COPD, with an FEV1 23% of predicted, maintained on albuterol nebs [id number], and her maintenance inhaler recently transition to Trelegy once daily Chronic hypoxemic respiratory failure, maintained on 2 L/min nasal cannula 06/09 at home Small cell lung cancer status post chemoradiation therapy. Being followed up at [facility] Paroxysmal atrial fibrillation, the patient is currently in sinus rhythm, anticoagulated with Eliquis History of hyperlipidemia Severe protein calorie malnutrition, with a BMI of 17.5 kg/m Chronic back pain GERD Chronic anxiety/depression Recommendation: Will clear the patient for discharge home today Continue present supportive care measures Continue O2 at 2 L/min and titrate accordingly Continue DuoNeb Continue Pulmicort and Perforomist Change Solu-Medrol to prednisone Oral antibiotics/Ceftin 500 twice daily for 5 more days follow-up on outpatient basis Time with Patient: Less than 30
[2024-07-28 15:49] VITALS: PULSE 80
[2024-07-28 16:05] LABS: Glucose,Whole Blood 83 mg/dL (70-110)
[2024-07-29] MEDS ORDERED: predniSONE 20 MG TAB PO SCH (09:00)
--- NOTE | 2024-07-31 15:02 | CDI ---
Documentation Clarification Form Date: 07/31/2024 02:37:38 PM From: Cassie Stringer Phone: Admit Date: 07/23/2024 01:11:00 PM Patient Name: Flor Judd Visit Number: [id number] Discharge Date: 07/28/2024 05:52:00 PM ATTENTION: The Clinical Documentation Specialists (CDI) and [facility] Coding Staff appreciate your assistance in clarifying documentation. Please respond to the clarification below the line at the bottom and electronically sign. The CDI & [facility] Coding staff will review the response and follow-up if needed. Please note: Queries are made part of the Legal Health Record. If you have any questions, please contact the author of this message via ITS. Doctor/Provider: Roxy Koenig Conflicting documentation has been found in the medical record. As attending physician, please provide clarification. [Pneumoniapossibly gram-negative in h/p note on 07/23] [Right upper lobecommunity-acquired pneumonia on 07/24 Pulmonology Consult note] History/Risk Factors: This 63-year-old woman with a past medical history of multiple medical problems,COPD, was complaining increasedshortness of breathandcough. The patient was using updrafts at home without much relief. Thechest x-rayshowed stable left apical lung opacityand new peripheralinfiltratein the lateral right upper lobe and some atelectasis, alsosuggestive ofpneumonia. Clinical Indicators: on07/25/2024, patient is receiving antibiotics and bronchodilators for herCOPDand her right upper lobepneumoniaremains on Rocephin and Zithromax, improving but slowly,notready for discharge, in addition the patient does have history ofsmall cell lung cancerstatus post chemoradiationinvolving the left upper lobe On 07/26 pn -Acute on chronic hypoxemic and hypercapnic respiratory failure, previously requiringBiPAP,chest x-rayshowing a stable left lung apicalopacitywith volume loss. New peripheralinfiltratein the lateral right upper lung. Minimalatelectasisat the left diaphragm. Right upper lobecommunity-acquired pneumonia On 07/26 medicine pn -Chronic obstructive pulmonary diseaseacute exacerbation with the right upper lobe pneumoniawith possibly gram-negative withacute hypoxic respiratory failure. Right-sidedchest pain,possiblymultiple rib fracturesof the 4th and 5th anterolateral ribs. Possiblybilateralpneumonia. Treatment: 07/23 Levofloxacin IVPB X 1; 07/23 07/26 Azithromycin IVPB daily ; 07/23 07/28 Ceftriaxone IVPB Q24HR Please clarify which diagnosis is most appropriate: [ ] [Community-acquired Pneumonia] [ ] [Gram-negative Pneumonia] [ ] Other (please specify) [ ] Unable to determine (Template Last Revised: April 2020) [Gram-negative Pneumonia] MTDD
== END 2024-07-28 17:52 | disposition home health service (06) | DRG 177 ==
LOC: EC 10:39 → 3SCARD 13:11
PROVIDERS: ADMIT Hospitalist; ATTEND Hospitalist
PROC: 5A09457 Assistance with Respiratory Ventilation, 24-96 Consecutive Hours, Continuous Positive Airway Pressure (ICD-10-PCS; principal; 2024-07-23)
DX: J15.69 Pneumonia due to other Gram-negative bacteria (principal); E43 Unspecified severe protein-calorie malnutrition; J96.22 Acute and chronic respiratory failure with hypercapnia; J96.21 Acute and chronic respiratory failure with hypoxia; S22.41XA Multiple fractures of ribs, right side, initial encounter for closed fracture; C34.12 Malignant neoplasm of upper lobe, left bronchus or lung; I48.0 Paroxysmal atrial fibrillation; F33.1 Major depressive disorder, recurrent, moderate; J44.1 Chronic obstructive pulmonary disease with (acute) exacerbation; E11.9 Type 2 diabetes mellitus without complications; I10 Essential (primary) hypertension; J44.0 Chronic obstructive pulmonary disease with (acute) lower respiratory infection; E78.5 Hyperlipidemia, unspecified; G89.29 Other chronic pain; M54.9 Dorsalgia, unspecified; K21.9 Gastro-esophageal reflux disease without esophagitis; F41.1 Generalized anxiety disorder; G47.30 Sleep apnea, unspecified; Z68.1 Body mass index [BMI] 19.9 or less, adult; Z99.81 Dependence on supplemental oxygen; Z79.899 Other long term (current) drug therapy; Z88.0 Allergy status to penicillin; Z87.891 Personal history of nicotine dependence; Z92.21 Personal history of antineoplastic chemotherapy; Z92.3 Personal history of irradiation; Z85.118 Personal history of other malignant neoplasm of bronchus and lung; Z79.01 Long term (current) use of anticoagulants
CPT/HCPCS: 36415; 71045; 71250; 80048; 80053; 82803; 83036; 83735; 84145; 84484; 85025; 87040; 87449; 93005; 94640; 94644; 94660; 94760; 96365; 96366; 96367; 96368; 96375; 96376; 99285